=== PATIENT | male | born 1970 | race Caucasian/White ===

== ENCOUNTER 2021-04-15 11:34 | Outpatient (REF) | payer OTHER, SELFPAY | END 2021-04-15 11:35 | disposition home or self-care (01) | LOC: HO.LAB 11:34 | PROVIDERS: PCP Internal Medicine; Visit Provider Internal Medicine | DX: Z20.822 Contact with and (suspected) exposure to COVID-19 (principal) | CPT/HCPCS: C9803; U0003; U0005 ==

== ENCOUNTER 2021-08-12 11:14 | Outpatient (REF) | payer OTHER, SELFPAY ==
[2021-08-12 13:24] LABS: Binax Internal Control QC Valid; Binax Now Covid-19 Ag Negative (Negative)
== END 2021-08-12 11:15 | disposition home or self-care (01) ==
LOC: HO.LAB 11:14
PROVIDERS: Visit Provider Internal Medicine
DX: Z20.822 Contact with and (suspected) exposure to COVID-19 (principal)
CPT/HCPCS: 36415; C9803

== ENCOUNTER 2021-08-17 12:39 | Outpatient (REF) | payer OTHER, SELFPAY ==
[2021-08-17 14:13] LABS: Binax Internal Control QC Valid; Binax Now Covid-19 Ag Positive (Negative)
== END 2021-08-17 12:40 | disposition home or self-care (01) ==
LOC: HO.LAB 12:39
PROVIDERS: Visit Provider Internal Medicine
DX: Z20.822 Contact with and (suspected) exposure to COVID-19 (principal)
CPT/HCPCS: 36415; C9803

== ENCOUNTER 2021-12-10 16:38 | Emergency (ER) | payer OTHER, SELFPAY ==
--- NOTE | ~2021-12-10 | US_ITS ---
EXAMINATION: US VENOUS ULTRASOUND WITH DOPPLER LOWER EXTREMITY, LEFT CLINICAL INFORMATION: Pain and swelling COMPARISON: Doppler ultrasound right lower extremity 09/27/2015 TECHNIQUE: Ultrasound of the deep veins is performed from the hip to the calf with compression sonography and color and pulse Doppler assessment. Spectral analysis with color-flow imaging is performed. FINDINGS: There is normal venous compression and respiratory variation and augmented flow. The visualized common femoral vein, superficial femoral vein, profunda femoral vein, popliteal vein, and the trifurcation region shows no evidence of deep venous thrombosis. There is no significant popliteal fossa cyst. If the patient's symptoms persist, followup ultrasound in 5 days 7 days might be of value to exclude proximal propagation from a non-visualized calf vein. US/US venous duplex LE LT IMPRESSION: No DVT demonstrated in the left lower extremity.
[2021-12-10 16:41] VITALS: BP 170/92; PULSE 100; RESP 18; TEMP 36.4; O2SAT 96; BMI 37.6
--- NOTE | 2021-12-10 16:54 | ED.EXTPRO ---
HPI - Extremity Problem General Chief complaint: Extremity Problem Stated complaint: leg pain Time Seen by Provider: 12/10/21 16:51 History of Present Illness HPI Narrative: Patient presents emergency department for evaluation of bilateral lower extremity swelling. States at baseline he typically gets swelling to the right leg, and states that is no worse than his normal. However he never gets swelling on the left leg. Over the past 2 days he has noticed swelling to the left leg with redness to the lower leg above the ankle, and pain. He states that he remembers hitting his leg against something 1 or 2 days ago. He does report IV drug usage, but has been injecting into his arms, denies any injection into the legs or feet. Denies swelling erythema or redness to his injection sites of the arms. Eyes personal history of cancer or DVT/PE, not a cigarette smoker, denies any recent surgery or prolonged immobilization. Denies fevers, chills, neck pain, chest pain cough, palpitation, shortness of breath, difficulty breathing, nausea, vomiting, abdominal pain, back pain, numbness or tingling of the extremities, dysuria, urinary frequency, generalized weakness. Related Data Previous Rx's Medication Instructions Recorded cephalexin 500 mg capsule 500 mg PO QID 7 Days #28 cap 12/10/21 doxycycline hyclate 100 mg capsule 100 mg PO BID 7 Days #14 cap 12/10/21 Allergies Allergy/AdvReac Type Severity Reaction Status Date / Time onion [ONION] Allergy Severe ANAPHYLAXIS Unverified 04/24/20 15:12 TO RAW ONIONS (COOKED OK) morphine [MORPHINE] Allergy Mild RASH, hives Unverified 04/24/20 15:12 onions Allergy Unknown itching Uncoded 11/01/19 00:00 Review of Systems Review of Systems: Constitutional: No weight loss, fever, chills, weakness or fatigue. Skin: No rash or itching. Cardiovascular: No chest pain, chest pressure or chest discomfort. No palpitations. Positive pedal edema Respiratory: No shortness of breath, cough or sputum production. Gastrointestinal: No anorexia, nausea, vomiting or diarrhea. No abdominal pain or blood in stool. Genitourinary: No burning micturition. No urinary frequency or incontinence. Musculoskeletal: Positive left leg pain. No back pain, joint pain or stiffness. Psychiatric: No depression or anxiety. [facility] Past Medical History Attestation statement: The following information was validated with the patient. Source: old records reviewed Medical History Asthma High blood pressure Seasonal allergies Social History Social History Advance Directives: Yes Advance Directives Information Provided: No Advance Directives on File: No Physical Exam Vital Signs: Vital Signs: Last Vital Signs Temp 97.6 F 12/10/21 16:41 Pulse 100 12/10/21 16:41 Resp 18 12/10/21 16:41 BP 170/92 H 12/10/21 16:41 Pulse Ox 96 12/10/21 16:41 BMI result Body Mass Index 37.6 Vital signs have been reviewed and appeared to be correct. Hypertensive.? Heart rate normal.? Respiration rate normal. Temperature normal.? Oxygen saturation normal. Appearance: Alert.?Oriented to person, place and time. No acute distress.?Normal affect. Eyes: Pupils equal, round and reactive to light.? ENT: Pharynx normal.?? Neck: Normal inspection.? Neck supple.?? CVS: Heart sounds normal. Normal heart rate and rhythm.? Pulses normal.?? Respiratory: No respiratory distress.? Lung sounds clear to auscultation bilaterally?? Abdomen: Soft and non-tender. Skin: Skin warm and dry.? Normal skin color.? Extremities: Bilateral pedal edema. Nonpitting on the right. 2+ pitting edema on the left. Mild erythema and warmth to the left medial lower leg, superior to ankle. Left calf tenderness with palpation. Chronic venous stasis bilaterally. No calf ttp?on left Neuro: Moves all extremities spontaneously. Sensation intact bilaterally. CN II-XII intact. No focal neuro deficits. Ambulates with normal steady gait. Course Course Course Narrative: Patient is a 51-year-old male with past medical history of asthma, hypertension, seasonal allergies, and IV drug usage. Presenting to emergency department for evaluation of bilateral lower extremity edema left worse than right, with associated erythema and pain to the left lower extremity. Given history of IV drug usage, new lateral swelling will obtain ultrasound to exclude DVT. No fevers, chills, warmth, or joint space involvement to suggest septic arthritis. Will obtain labs including CBC and BMP. Reevaluation(s) Reevaluation #1: CBC reveals pancytopenia, platelet count 98,000. Review of prior labs indicate platelet count similarly low in 2018, 2016. Patient states he was never made aware of this. He does report a history of hepatitis-C but states that that was ?cleared a long time ago?. States he has not been tested for HIV, is in a monogamous relationship, does not share needles. BMP overall unremarkable. Ultrasound of the left lower extremity reveals no DVT at this time. Erythema and swelling likely secondary to cellulitis. Discussed plan of care for discharge home, Keflex and doxycycline for 1 week, discussed reasons to return back to the emergency department, advised outpatient follow-up with primary care provider within 1 week, and advised to discuss further his notable thrombocytopenia and suggested possible testing for hepatitis-C and HIV. MDM - Extremity (Nontraumatic) Lab Data Result diagrams: 12/10/21 18:07 12/10/21 18:07 Labs: Lab Results 12/10/21 Range/Units 18:07 WBC 4.7 L (4.8-10.8) X10*3/uL RBC 4.36 L (4.60-5.80) X10*6/uL Hgb 11.2 L (14.0-18.0) g/dl Hct 35.3 L (42.0-52.0) % MCV 81.0 (80.0-98.0) fL MCH 25.7 L (27.0-33.0) pg MCHC 31.7 (31.0-36.0) g/dl RDW 14.2 (11.0-16.0) % Plt Count 98 L (160-400) X10*3/uL MPV 9.9 (9.4-12.4) fL Immature Gran % (Auto) 0.2 (0.0-0.4) % Neut % (Auto) 72.9 (45-73) % Lymph % (Auto) 12.4 L (20-40) % [place] % (Auto) 13.5 H (2-11) % Eos % (Auto) 0.8 (0-4) % Baso % (Auto) 0.2 (0-2) % Lymph # (Auto) 0.6 L (1.2-4.9) X10*3/uL [place] # (Auto) 0.6 (0.1-1.2) X10*3/uL Eos # (Auto) 0.0 (0.0-0.4) X10*3/uL Baso # (Auto) 0.0 (0.0-0.2) X10*3/uL Abs Immat Gran (auto) 0.01 (0.00-0.03) X10*3/uL Absolute Neuts (auto) 3.5 (2.0-8.3) x10*3/uL Absolute Nucleated RBC 0.000 (0.0-0.012) X10*3/uL Nucleated RBC % (auto) 0.0 (0.0-0.2) /100WBC Discharge Plan Discharge Clinical Impression: Cellulitis, Pancytopenia Patient Disposition: Home, Self-Care Instructions: Cellulitis (ED), Pancytopenia (DC) Additional Instructions: As we discussed her blood counts were low, most specifically your platelet count. Will labs obscured similarly in 2018 and 2016. As we discussed, you should speak with your primary care provider about being tested for viral infections such as hepatitis C and HIV given a history of IV drug usage. The redness and swelling to year left leg is most consistent with a cellulitis, this is an infection of the skin. You have been given 2 prescriptions for antibiotics please take these entirely. You may return to the emergency department with any new or worsening symptoms or concerns. Please contact your primary care provider to schedule a follow-up visit within 1 week. Prescriptions: New cephalexin 500 mg capsule 500 mg PO QID 7 Days Qty: 28 0RF doxycycline hyclate 100 mg capsule 100 mg PO BID 7 Days Qty: 14 0RF Referrals: Jose Mann III, MD [Primary Care Provider] - 1 week
[2021-12-10 18:16] LABS: MANUAL DIFF FLAG NO
[2021-12-10 18:17] LABS: Eosinophils Percent Auto 0.8 % (0-4); Hemoglobin 11.2 g/dl (14.0-18.0); Imm Gran Abs Auto 0.01 X10*3/uL (0.00-0.03); Imm Gran Pct Auto 0.2 % (0.0-0.4); PLT CLUMP 1; SCAN SMEAR FLAG 1
[2021-12-10 18:19] LABS: Basophils Percent Auto 0.2 % (0-2); Hematocrit 35.3 % (42.0-52.0); Lymphocytes Absolute Auto 0.6 X10*3/uL (1.2-4.9); Lymphocytes Percent Auto 12.4 % (20-40); Mean Corpuscular HGB Conc 31.7 g/dl (31.0-36.0); Mean Corpuscular Hemoglobin 25.7 pg (27.0-33.0); Mean Platelet Volume 9.9 fL (9.4-12.4); Monocytes Absolute Auto 0.6 X10*3/uL (0.1-1.2); Monocytes Percent Auto 13.5 % (2-11); Neutrophils Absolute Auto 3.5 x10*3/uL (2.0-8.3); Neutrophils Percent Auto 72.9 % (45-73); Red Blood Count 4.36 X10*6/uL (4.60-5.80); Red Cell Distribution Width 14.2 % (11.0-16.0)
[2021-12-10 18:23] LABS: Platelet Count 98 X10*3/uL (160-400); White Blood Count 4.7 X10*3/uL (4.8-10.8)
[2021-12-10 18:31] LABS: Anion Gap 11 (12-20); Blood Urea Nitrogen 8 mg/dL (9-16); Calcium 9.1 mg/dL (8.4-10.2); Carbon Dioxide 26 mmol/L (22-29); Chloride 105 mmol/L (96-108); Estimated Glomerular Filt Rate > 60; Glucose Random 140 mg/dL (60-115); Sodium 138 mmol/L (135-145)
[2021-12-10 18:36] LABS: B Type Natriuretic Peptide 67 pg/mL (<100)
== END 2021-12-10 19:16 | disposition home or self-care (01) ==
PROVIDERS: Nurse Practitioner Family; Emergency Provider Emergency Medicine Emergency Medical Services; PCP Internal Medicine
DX: R60.0 Localized edema (principal); M79.604 Pain in right leg; L03.116 Cellulitis of left lower limb; L03.115 Cellulitis of right lower limb; R06.02 Shortness of breath; D61.818 Other pancytopenia; Z79.899 Other long term (current) drug therapy
CPT/HCPCS: 36415; 80048; 83880; 85025; 93971; 99282; 99284

== ENCOUNTER 2022-03-20 20:53 | Emergency (ER) | payer OTHER, SELFPAY ==
--- NOTE | ~2022-03-20 | CT_ITS ---
EXAMINATION: CT ANGIOGRAM OF THE CHEST WITH AND WITHOUT CONTRAST (CT PULMONARY ANGIOGRAM FOR PE) CLINICAL INFORMATION: Reason for Exam Right pleuritic chest pain rule out PE COMPARISON: 10/18/2017 TECHNIQUE: Prior to contrast administration, noncontrast localization images were obtained. Subsequently, multidetector volumetric imaging was performed from the thoracic inlet to below the diaphragms following the administration of 75 mL Omnipaque 350 intravenous contrast. No contrast reaction reported Sagittal, coronal, and MIP oblique sagittal reformatted images were obtained on the CT workstation, uploaded to PACS, and reviewed. This CT examination was performed using dose optimization techniques as appropriate, variously including the following: *Automated exposure control *Adjustment of mA and/or kV according to patient size (this includes techniques or standardized protocols for targeted exams where dose is matched to indication/reason for exam; i.e. extremities or head) *Use of iterative reconstruction technique Total exam dose-length product 519 mGy-cm FINDINGS: QUALITY OF STUDY/CONTRAST BOLUS: Satisfactory. PULMONARY ARTERIES: No central or segmental pulmonary emboli. THORACIC AORTA: No aneurysm or dissection. LUNG: The central airways are patent. Dependent groundglass opacity. No dense consolidation. PLEURA: No pleural effusion or pneumothorax. MEDIASTINUM: Normal heart size. No pericardial effusion. No hilar or mediastinal lymphadenopathy. No evidence of septal bowing or right heart strain. CHEST WALL/AXILLA: No axillary or internal mammary lymphadenopathy. OSSEOUS STRUCTURES: No acute or suspicious osseous abnormality. Degenerative changes of the spine. UPPER ABDOMEN: Nodular hepatic contour concerning for cirrhosis. No reflux of contrast into the hepatic veins to suggest elevated right heart pressures. CT/CT angio chest PE protocol IMPRESSION: No pulmonary embolism. Dependent lung atelectasis. VTE: negative
--- NOTE | ~2022-03-20 | XR_ITS ---
EXAMINATION: XR CHEST CLINICAL INFORMATION: Chest pain COMPARISON: Chest x-ray 10/17/2017 TECHNIQUE: Frontal view of the chest was obtained. 9:44 PM FINDINGS: No significant abnormality is noted involving the heart, lungs, mediastinum, bony thorax or soft tissues. XR/XR chest 1V IMPRESSION: Unremarkable examination.
--- NOTE | 2022-03-20 20:58 | ECG_ITS ---
Test Reason : chest pain Blood Pressure : / mmHG Vent. Rate : 093 BPM Atrial Rate : 093 BPM P-R Int : 188 ms QRS Dur : 094 ms QT Int : 376 ms P-R-T Axes : 025 034 040 degrees QTc Int : 467 ms Normal sinus rhythm Normal ECG When compared with ECG of 17-OCT-2017 18:12, QT has lengthened Referred By: Generic ED Physician Electronically Signed By:SHANIQUE ARGUELLES
[2022-03-20 21:14] VITALS: BP 157/79; PULSE 99; RESP 24; TEMP 36.9; O2SAT 98; BMI 37.6
[2022-03-20 21:35] LABS: Eosinophils Percent Auto 0.1 % (0-4); Mean Corpuscular HGB Conc 30.8 g/dl (31.0-36.0); Mean Corpuscular Hemoglobin 23.7 pg (27.0-33.0); PLT CLUMP 1; SCAN SMEAR FLAG 1
[2022-03-20 21:37] LABS: Basophils Percent Auto 0.1 % (0-2); Hematocrit 34.7 % (42.0-52.0); Hemoglobin 10.7 g/dl (14.0-18.0); Imm Gran Abs Auto 0.03 X10*3/uL (0.00-0.03); Imm Gran Pct Auto 0.4 % (0.0-0.4); Lymphocytes Absolute Auto 0.6 X10*3/uL (1.2-4.9); Lymphocytes Percent Auto 7.9 % (20-40); Mean Corpuscular Volume 76.9 fL (80.0-98.0); Mean Platelet Volume 10.2 fL (9.4-12.4); Monocytes Percent Auto 13.5 % (2-11); Neutrophils Absolute Auto 5.5 x10*3/uL (2.0-8.3); Red Blood Count 4.51 X10*6/uL (4.60-5.80); Red Cell Distribution Width 16.2 % (11.0-16.0)
[2022-03-20 21:41] LABS: MANUAL DIFF FLAG NO; Platelet Count 103 X10*3/uL (160-400); White Blood Count 7.1 X10*3/uL (4.8-10.8)
[2022-03-20 21:54] LABS: Anion Gap 14 (12-20); Blood Urea Nitrogen 13 mg/dL (9-16); Calcium 8.3 mg/dL (8.4-10.2); Carbon Dioxide 23 mmol/L (22-29); Chloride 102 mmol/L (96-108); Estimated Glomerular Filt Rate > 60; Glucose Random 110 mg/dL (60-115); Sodium 135 mmol/L (135-145)
[2022-03-20 21:58] LABS: Troponin-I High Sensitivity < 3.5 ng/L (<3.5-35.0)
[2022-03-20 23:46] VITALS: BP 182/83; PULSE 90; RESP 16; TEMP 38.2; O2SAT 96
[2022-03-21] VITALS: PULSE 94
--- NOTE | 2022-03-21 00:10 | ED.CHESTPAIN ---
HPI - Chest Pain General Chief Complaint: Chest Pain Stated Complaint: chest pain/arm pain Time Seen by Provider: 03/21/22 00:10 Source: patient Mode of arrival: ambulatory Limitations: no limitations History of Present Illness HPI narrative: 51-year-old male who presents emergency department for evaluation of right-sided chest pain. He states the chest pain started 03/19/2022 (3 days prior) at approximately 20:00. He states that the time he was doing some light house work and making dinner. States the pain came on gradually but then became severe. States the pain is been constant, he describes as a stabbing sensation he points to his right anterior and lateral chest when asked to localize the pain. The pain is worse with movement and worse with breathing. The pain is 10/10 at its worst. He does feel short of breath and has dyspnea on exertion. He denied fever, chills, rhinorrhea, sore throat, cough. Patient states that he has noted swelling in his right lower extremity but he has had similar swelling in the past, he had cellulitis in this leg in the past as well. He states that he keeps his right leg elevated the swelling resolves. The patient did go roller skating with his children on Tuesday afternoon, he denies any injury but he was helping his kids learn how to roller skate by picking them up in skating with them. Patient states that over the past 2 years he has intentionally lost 100 lb. MD complaint: chest pain Pertinent past history: other (Pre diabetes) Onset (ago): day(s) (3) Timing of current episode: constant Prior episodes: No Onset: other (While doing light housework) Pain location: right chest Pain radiation: none Severity: severe Pain scale (0-10): 10 Quality: sharp (Stabbing) Relieving factors: nothing Exacerbating factors: inspiration and movement Associated symptoms: leg swelling (Right lower extremity) Related Data Previous Rx's Medication Instructions Recorded cephalexin 500 mg capsule 500 mg PO QID 7 days #28 caps 12/10/21 doxycycline hyclate 100 mg capsule 100 mg PO BID 7 days #14 caps 12/10/21 Allergies Allergy/AdvReac Type Severity Reaction Status Date / Time onion [ONION] Allergy Severe ANAPHYLAXIS Unverified 04/24/20 15:12 TO RAW ONIONS (COOKED OK) morphine [MORPHINE] Allergy Mild RASH, hives Unverified 04/24/20 15:12 onions Allergy Unknown itching Uncoded 11/01/19 00:00 Review of Systems Review of Systems: Yes all other systems are reviewed and are negative [facility] Past Medical History [facility] Narrative: Past medical history: Pre diabetes-improved after losing 100 lb. Past surgical history: Multiple orthopedic surgeries. Social history: Patient denies tobacco use. He occasionally drinks alcohol. He states that he did use oxycodone as in the past. Medical History Asthma High blood pressure Seasonal allergies Social History Social History Advance Directives: No Advance Directives Information Provided: Yes Physical Exam Vital Signs: Vital Signs: Last Vital Signs Temp 100.7 F H 03/20/22 23:46 Pulse 90 03/20/22 23:46 Resp 16 03/20/22 23:46 BP 182/83 H 03/20/22 23:46 Pulse Ox 96 03/20/22 23:46 O2 Del Method 03/20/22 23:46 BMI result Body Mass Index 37.6 Const: Other: Awake, alert, male patient, he is sitting on the stretcher, appears to be in distress secondary to his right-sided chest pain, he answers all questions appropriately. Has an elevated BMI of 37.6. HEENT: Head: Yes normal to inspection, Yes normocephalic and Yes atraumatic Ears: external ears normal General nose exam: Normal external nose present Face and sinus: Yes normal facial exam Mouth: Normal oral and palatal mucosa present Throat: Yes posterior oropharynx normal Eyes: General: appearance normal, both eyes and all related structures Pupils: Equal, round and reactive pupils present Neck: Neck: Yes normal visual inspection, Yes no lymphadenopathy, Yes trachea midline and Yes supple Chest: Chest palpation & inspection: normal inspection of the chest and normal palpation of entire chest wall Resp: Effort & Inspection: normal respiratory effort and able to speak in complete sentences Auscultation: clear to auscultation bilaterally Cardio: Rate: regular rate Rhythm: regular rhythm Heart sounds: S1 normal heart sound present, S2 normal heart sound present and no murmurs GI: Inspection: Yes normal to inspection Palpation (GI): Soft to palpation, nontender and no guarding Auscultation: normal bowel sounds : General: Yes no CVA tenderness Back/Spine/Pelvis: Back: no CVA tenderness Skin: General skin exam: no rashes or lesions noted Neuro: Cranial nerves: Yes CN's II-XII intact bilaterally and Yes Equal, round and reactive pupils present Cognition (Neuro): normal cognition Motor exam (neuro): 5/5 motor strength present throughout Extrem: Other: Patient has several skin lesions over the right pretibial region of his hicks with some slight erythema around these areas with no increased warmth. Patient does have asymmetric swelling of his lower extremities with the right foot and calf being larger than the left Psych: Appearance: grossly normal Speech and movement: Normal speech and movement present Affect: normal affect Attitude: cooperative Thought process: Normal thought process present Thought content: Normal thought content present Course Course Course Narrative: 51-year-old male who presents emergency department for evaluation of 3 days constant, right sided chest pain which is worse with breathing and with movement. The pain came on gradually 3 days prior and is now 10/10. Patient has also noted swelling of his right lower extremity, he has had similar swelling in the past states that resolves with elevating his leg. Patient did appear to be in distress secondary to his pain but he had no chest wall tenderness. Initial vital signs did reveal an elevated blood pressure of 157/79 with a pulse of 99 elevated respiratory rate of 24. Patient was initially afebrile but repeat vital signs did reveal a temperature of 100.7 degrees. Patient was ordered to get Toradol 15 mg IV, Dilaudid 1 mg IV, Benadryl 50 mg IV 1st pain. He was also ordered to get normal saline x1 L. 0037: Laboratory evaluation: Anemia with an H&H of 10 and 34.7, platelet count [id number]. BMP normal. High sensitivity troponin I below detectable limits. Radiology evaluation: Chest x-ray revealed no acute process. Twelve EKG revealed a normal sinus rhythm with no evidence of myocardial infarction or ischemic changes. Given the patient's pleuritic chest pain and asymmetric swelling of his lower extremities I did order a CT pulmonary angiogram PE protocol. 0203: At the end of my shift, the patient's workup is not complete, therefore patient's care was turned over to my colleague, Dr. Almaz Akbar. MDM - Chest Pain Medical Records Data Attestation: I reviewed the patient's medical records. Lab Data Attestation: I reviewed the patient's lab results. Result diagrams: 03/20/22 21:28 03/20/22 21:28 Labs: Lab Results 03/20/22 03/20/22 03/20/22 Range/Units 21:28 21:28 21:28 WBC 7.1 (4.8-10.8) X10*3/uL RBC 4.51 L (4.60-5.80) X10*6/uL Hgb 10.7 L (14.0-18.0) g/dl Hct 34.7 L (42.0-52.0) % MCV 76.9 L (80.0-98.0) fL MCH 23.7 L (27.0-33.0) pg MCHC 30.8 L (31.0-36.0) g/dl RDW 16.2 H (11.0-16.0) % Plt Count 103 L (160-400) X10*3/uL MPV 10.2 (9.4-12.4) fL Immature Gran % (Auto) 0.4 (0.0-0.4) % Neut % (Auto) 78.0 H (45-73) % Lymph % (Auto) 7.9 L (20-40) % [place] % (Auto) 13.5 H (2-11) % Eos % (Auto) 0.1 (0-4) % Baso % (Auto) 0.1 (0-2) % Lymph # (Auto) 0.6 L (1.2-4.9) X10*3/uL [place] # (Auto) 1.0 (0.1-1.2) X10*3/uL Eos # (Auto) 0.0 (0.0-0.4) X10*3/uL Baso # (Auto) 0.0 (0.0-0.2) X10*3/uL Abs Immat Gran (auto) 0.03 (0.00-0.03) X10*3/uL Absolute Neuts (auto) 5.5 (2.0-8.3) x10*3/uL Absolute Nucleated RBC 0.000 (0.0-0.012) X10*3/uL Nucleated RBC % (auto) 0.0 (0.0-0.2) /100WBC Sodium 135 (135-145) mmol/L Potassium 4.0 (3.3-5.1) mmol/L Chloride 102 (96-108) mmol/L Carbon Dioxide 23 (22-29) mmol/L Anion Gap 14 (12-20) BUN 13 D (9-16) mg/dL Creatinine 0.65 (0.5-1.4) mg/dL Estim Creat Clear Calc 197.0 Estimated GFR > 60 Random Glucose 110 (60-115) mg/dL Calcium 8.3 L D (8.4-10.2) mg/dL Troponin I High Sens < 3.5 (<3.5-35.0) ng/L ECG Data ECG #1: Interpretation: 210: Normal sinus rhythm with a rate of 93, normal VA interval, QRS duration QTC interval, no ST segment elevation, no ST segment depression, no T-wave abnormalities, no PACs, no PVCs-this is a normal EKG. Discharge Plan Discharge Clinical Impression: Acute neck pain, Odynophagia Patient Disposition: Still a Patient Prescriptions: No Action cephalexin 500 mg capsule 500 mg PO QID 7 Days Qty: 28 0RF doxycycline hyclate 100 mg capsule 100 mg PO BID 7 Days Qty: 14 0RF
[2022-03-21] MEDS: Ketorolac Tromethamine 15 MG/ML VIAL IVPUSH (00:53)
[2022-03-21] MEDS: HYDROmorphone HCl 1 MG/ML SYRINGE IVPUSH (00:53)
[2022-03-21] MEDS: diphenhydrAMINE HCL 50 MG/ML VIAL 25 MG IVPUSH (00:53)
[2022-03-21] MEDS: Acetaminophen 325 MG TABLET 975 MG PO (00:54)
[2022-03-21] MEDS: 0.9 % Sodium Chloride 1,000 ML 999 ML IV (00:54)
[2022-03-21] MEDS: iohexoL 350 MG/ML 100 ML INFUS..BTL IV (01:38)
[2022-03-21 02:00] VITALS: BP 154/70; PULSE 78; RESP 16; TEMP 37.1; O2SAT 98
--- NOTE | 2022-03-21 02:06 | ED_ITS ---
HPI - Chest Pain General Chief Complaint: Chest Pain Stated Complaint: chest pain/arm pain Time Seen by Provider: 03/21/22 00:10 Source: patient Mode of arrival: ambulatory Limitations: no limitations History of Present Illness Pain location: right chest Quality: sharp (Stabbing) Relieving factors: nothing Exacerbating factors: inspiration and movement Associated symptoms: leg swelling (Right lower extremity) Related Data Previous Rx's Medication Instructions Recorded cephalexin 500 mg capsule 500 mg PO QID 7 days #28 caps 12/10/21 doxycycline hyclate 100 mg capsule 100 mg PO BID 7 days #14 caps 12/10/21 Allergies Allergy/AdvReac Type Severity Reaction Status Date / Time onion [ONION] Allergy Severe ANAPHYLAXIS Unverified 04/24/20 15:12 TO RAW ONIONS (COOKED OK) morphine [MORPHINE] Allergy Mild RASH, hives Unverified 04/24/20 15:12 onions Allergy Unknown itching Uncoded 11/01/19 00:00 PMFSH Past Medical History Medical History Asthma High blood pressure Seasonal allergies Social History Social History Advance Directives: No Advance Directives Information Provided: Yes Physical Exam Vital Signs: Vital Signs: Last Vital Signs Temp 98.8 F 03/21/22 02:00 Pulse 78 03/21/22 02:00 Resp 16 03/21/22 02:00 BP 154/70 H 03/21/22 02:00 Pulse Ox 98 03/21/22 02:00 O2 Del Method 03/21/22 02:00 BMI result Body Mass Index 37.6 MDM - Chest Pain Lab Data Result diagrams: 03/20/22 21:28 03/20/22 21:28 Labs: Lab Results 03/20/22 03/20/22 03/20/22 Range/Units 21:28 21:28 21:28 WBC 7.1 (4.8-10.8) X10*3/uL RBC 4.51 L (4.60-5.80) X10*6/uL Hgb 10.7 L (14.0-18.0) g/dl Hct 34.7 L (42.0-52.0) % MCV 76.9 L (80.0-98.0) fL MCH 23.7 L (27.0-33.0) pg MCHC 30.8 L (31.0-36.0) g/dl RDW 16.2 H (11.0-16.0) % Plt Count 103 L (160-400) X10*3/uL MPV 10.2 (9.4-12.4) fL Immature Gran % (Auto) 0.4 (0.0-0.4) % Neut % (Auto) 78.0 H (45-73) % Lymph % (Auto) 7.9 L (20-40) % [place] % (Auto) 13.5 H (2-11) % Eos % (Auto) 0.1 (0-4) % Baso % (Auto) 0.1 (0-2) % Lymph # (Auto) 0.6 L (1.2-4.9) X10*3/uL [place] # (Auto) 1.0 (0.1-1.2) X10*3/uL Eos # (Auto) 0.0 (0.0-0.4) X10*3/uL Baso # (Auto) 0.0 (0.0-0.2) X10*3/uL Abs Immat Gran (auto) 0.03 (0.00-0.03) X10*3/uL Absolute Neuts (auto) 5.5 (2.0-8.3) x10*3/uL Absolute Nucleated RBC 0.000 (0.0-0.012) X10*3/uL Nucleated RBC % (auto) 0.0 (0.0-0.2) /100WBC Sodium 135 (135-145) mmol/L Potassium 4.0 (3.3-5.1) mmol/L Chloride 102 (96-108) mmol/L Carbon Dioxide 23 (22-29) mmol/L Anion Gap 14 (12-20) BUN 13 D (9-16) mg/dL Creatinine 0.65 (0.5-1.4) mg/dL Estim Creat Clear Calc 197.0 Estimated GFR > 60 Random Glucose 110 (60-115) mg/dL Calcium 8.3 L D (8.4-10.2) mg/dL Troponin I High Sens < 3.5 (<3.5-35.0) ng/L Discharge Plan Discharge Clinical Impression: Acute neck pain, Odynophagia Patient Disposition: Still a Patient Prescriptions: No Action cephalexin 500 mg capsule 500 mg PO QID 7 Days Qty: 28 0RF doxycycline hyclate 100 mg capsule 100 mg PO BID 7 Days Qty: 14 0RF
[2022-03-21] MEDS: Cyclobenzaprine HCl 10 MG TABLET PO (02:39)
== END 2022-03-21 02:54 | disposition home or self-care (01) ==
PROVIDERS: Emergency Provider Emergency Medicine Emergency Medical Services
DX: M54.2 Cervicalgia (principal); R13.10 Dysphagia, unspecified; R22.41 Localized swelling, mass and lump, right lower limb; R50.9 Fever, unspecified
CPT/HCPCS: 36415; 71045; 71275; 80048; 84484; 85025; 93005; 96374; 96375; 99284; J1170; J1200; J1885; Q9967

== ENCOUNTER 2022-03-23 22:17 | Emergency (ER) | payer OTHER, SELFPAY ==
--- NOTE | ~2022-03-23 | XR_ITS ---
EXAMINATION: XR SHOULDER, RIGHT CLINICAL INFORMATION: Pain after fall COMPARISON: None TECHNIQUE: Three views of the right shoulder. FINDINGS: The bones and soft tissues are normal. No fracture. Glenohumeral and acromioclavicular alignment is anatomic with normal joint space. No abnormal soft tissue calcifications. XR/XR shoulder RT min 2V IMPRESSION: Normal right shoulder.
[2022-03-23 22:38] VITALS: BP 153/84; PULSE 85; RESP 16; TEMP 37.6; O2SAT 97; BMI 37.6
[2022-03-23] MEDS: Acetaminophen 325 MG TABLET 975 MG PO (22:46)
[2022-03-23 23:22] VITALS: BP 158/85; PULSE 80; RESP 12; O2SAT 100
[2022-03-23 23:29] LABS: COVID-19 Test Negative (Negative)
[2022-03-23 23:50] LABS: Basophils Percent Auto 0.1 % (0-2); Hemoglobin 10.4 g/dl (14.0-18.0); PLT CLUMP 1; SCAN SMEAR FLAG 1
[2022-03-23 23:52] LABS: Eosinophils Percent Auto 0.1 % (0-4); Hematocrit 32.8 % (42.0-52.0); Imm Gran Abs Auto 0.05 X10*3/uL (0.00-0.03); Imm Gran Pct Auto 0.5 % (0.0-0.4); Lymphocytes Absolute Auto 0.6 X10*3/uL (1.2-4.9); Lymphocytes Percent Auto 6.2 % (20-40); Mean Corpuscular HGB Conc 31.7 g/dl (31.0-36.0); Mean Corpuscular Hemoglobin 23.9 pg (27.0-33.0); Mean Corpuscular Volume 75.4 fL (80.0-98.0); Mean Platelet Volume 9.8 fL (9.4-12.4); Monocytes Absolute Auto 1.3 X10*3/uL (0.1-1.2); Monocytes Percent Auto 13.2 % (2-11); Neutrophils Absolute Auto 7.5 x10*3/uL (2.0-8.3); Neutrophils Percent Auto 79.9 % (45-73); Red Blood Count 4.35 X10*6/uL (4.60-5.80); Red Cell Distribution Width 16.8 % (11.0-16.0)
--- NOTE | 2022-03-24 00:02 | ED_ITS ---
HPI - General Adult General Chief complaint: General Medical Stated complaint: arm/shoulder pain, fall? Time Seen by Provider: 03/23/22 23:22 Source: patient Limitations: no limitations History of Present Illness HPI narrative: This is a 51-year-old male who has multiple complaints. The patient currently complains of pain around his right shoulder. He notes that he had nearly fallen Tuesday night and had caught himself and then the next morning had pain around his right shoulder and right chest. The patient was seen here a few days ago and had a workup including a CT of his chest, was sent home. Patient also notes he has had urinary incontinence off and on, does have a history of prostate enlargement. He has had some sweats recently. He denies any cough or shortness of breath. He does take gabapentin for chronic back pain. Denies any numbness or weakness in his right arm. Pain is worse on the anterior of his right shou lder, not in his right posterior shoulder or scapular area. Pain is worse with turning his head. Related Data Previous Rx's Medication Instructions Recorded cephalexin 500 mg capsule 500 mg PO QID 7 days #28 caps 12/10/21 doxycycline hyclate 100 mg capsule 100 mg PO BID 7 days #14 caps 12/10/21 cyclobenzaprine 10 mg tablet 10 mg PO TID PRN muscle pain or 03/21/22 spasm #20 tabs Allergies Allergy/AdvReac Type Severity Reaction Status Date / Time onion [ONION] Allergy Severe ANAPHYLAXIS Unverified 04/24/20 15:12 TO RAW ONIONS (COOKED OK) morphine [MORPHINE] Allergy Mild RASH, hives Unverified 04/24/20 15:12 onions Allergy Unknown itching Uncoded 11/01/19 00:00 Review of Systems Review of Systems: Yes all other systems are reviewed and are negative Constitutional: Constitutional: Reports as per HPI, Denies fever(s) and Reports other (Patient has had sweats this evening) Eyes: Eyes: Reports as per HPI and Reports no additional eye complaints ENT: Reports system reviewed and no additional complaints, except as documented, Reports as per HPI, Denies nasal congestion, Denies nasal discharge and Denies sore throat Cardiovascular: Cardiovascular: Reports as per HPI, Denies chest pain and Leonardo es dyspnea Respiratory: Respiratory: Reports as per HPI, Denies cough and Denies dyspnea Gastrointestinal: Gastrointestinal: Reports as per HPI, Denies abdominal pain, Denies diarrhea, Denies nausea and Denies vomiting Genitourinary: Genitourinary: Reports as per HPI, Denies hematuria, Denies dysuria, Reports urinary frequency, Reports urinary incontinence and Reports urinary urgency Musculoskeletal: Musculoskeletal: Denies numbness Comments: Right shoulder pain Integumentary/Breasts: Skin/Breast: Reports as per HPI and Denies rash Neurologic: Reports as per HPI, Denies focal weakness and Denies numbness Psychiatric: Psychiatric: Reports no additional psychiatric complaints and Reports as per HPI Endocrine: Endocrine: Reports no additional endocrine complaints and Reports as per HPI Hematologic/Lymphatic: Hematologic/Lymphatic: Reports no additional hematologic/lymphatic complaints, Reports as per HPI and Reports other (No peripheral edema) [facility] Past Medical History Medical History Asthma High blood pressure Seasonal allergies Social History Social History Alcohol intake: current Alcohol intake frequency: holidays/special occasions only Patient Tobacco Use Status: Never used Tobacco Use of substances other than those prescribed or required for medical reasons: No Advance Directives: No Physical Exam ED Vital Signs: Vital Signs - 24 hr 03/23/22 22:38 03/23/22 23:22 03/24/22 00:16 Temperature 99.7 F Pulse Rate 85 80 82 Respiratory Rate 16 12 12 Blood Pressure 153/84 H 158/85 H 155/86 H Pulse Oximetry 97 100 98 Oxygen Delivery Method Room Air Room Air Room Air BMI result Body Mass Index 37.6 Const Other: Patient is moderately obese. Patient is initially standing and urinating into a urinal. Tenderness right anterior shoulder, no swelling, ecchymosis, deformity. No cervical spine tenderness. General: no acute distress Orientation/consciousness: patient oriented x3 HENMT Head: Yes normal to inspection General nose exam: Normal external nose present Mouth: moist mucous membranes Throat: Yes posterior oropharynx normal, Yes tonsils normal and Yes uvula midline Eyes Eyelids: Yes eyelids normal Conjunctivae: conjunctivae normal Pupils: Equal, round and reactive pupils present Neck Neck: Yes supple Resp Effort & Inspection: normal respiratory effort Auscultation: clear to auscultation bilaterally Cardio Rate: regular rate Rhythm: regular rhythm Heart sounds: S1 normal heart sound present, S2 normal heart sound present, no gallops, no murmurs and no rubs GI Inspection: No distended Palpation (GI): Soft to palpation and nontender Auscultation: normal bowel sounds Skin General skin exam: other (Warm and dry) Neuro Other: Right arm neurovascular intact General: patient oriented x3 and CN's II-XI intact bilaterally Cranial nerves: Yes Equal, round and reactive pupils present Extrem General: Yes no pedal edema Psych Affect: normal affect Attitude: cooperative Medical Decision Making [facility] Narrative Medical decision making narrative: Patient with multiple complaints, primarily right shoulder pain, after he nearly fell about 3 days ago. Patient also had associated right-sided chest pain and was evaluated here few days ago, had a CTA of the chest. During that visit the patient also had a fever to 100.7. Patient also complained tonight of urinary urgency and some incontinence. Urinalysis however was negative. White blood cell count was normal. X-ray of the right shoulder was negative. Patient not having any cough or fever or shortness of breath currently. Patient's right shoulder was placed in a sling, and he can follow-up with orthopedics if he is not improved in 7-10 days. Can take ibuprofen for pain, also can continue his gabapentin. Lab Data Lab results reviewed: Yes I reviewed the patient's lab results. Result diagrams: 03/23/22 23:37 03/23/22 23:37 Labs: Lab Results 03/23/22 03/23/22 03/23/22 Range/Units 22:55 23:37 23:37 WBC 9.5 (4.8-10.8) X10*3/uL RBC 4.35 L (4.60-5.80) X10*6/uL Hgb 10.4 L (14.0-18.0) g/dl Hct 32.8 L (42.0-52.0) % MCV 75.4 L (80.0-98.0) fL MCH 23.9 L (27.0-33.0) pg MCHC 31.7 (31.0-36.0) g/dl RDW 16.8 H (11.0-16.0) % Plt Count 112 L (160-400) X10*3/uL MPV 9.8 (9.4-12.4) fL Immature Gran % (Auto) 0.5 H (0.0-0.4) % Neut % (Auto) 79.9 H (45-73) % Lymph % (Auto) 6.2 L (20-40) % [place] % (Auto) 13.2 H (2-11) % Eos % (Auto) 0.1 (0-4) % Baso % (Auto) 0.1 (0-2) % Lymph # (Auto) 0.6 L (1.2-4.9) X10*3/uL [place] # (Auto) 1.3 H (0.1-1.2) X10*3/uL Eos # (Auto) 0.0 (0.0-0.4) X10*3/uL Baso # (Auto) 0.0 (0.0-0.2) X10*3/uL Abs Immat Gran (auto) 0.05 H (0.00-0.03) X10*3/uL Absolute Neuts (auto) 7.5 (2.0-8.3) x10*3/uL Absolute Nucleated RBC 0.000 (0.0-0.012) X10*3/uL Nucleated RBC % (auto) 0.0 (0.0-0.2) /100WBC Sodium 136 (135-145) mmol/L Potassium 4.0 (3.3-5.1) mmol/L Chloride 103 (96-108) mmol/L Carbon Dioxide 24 (22-29) mmol/L Anion Gap 13 (12-20) BUN 11 (9-16) mg/dL Creatinine 0.59 (0.5-1.4) mg/dL Estim Creat Clear Calc 217.1 Estimated GFR > 60 Random Glucose 96 (60-115) mg/dL Calcium 8.1 L (8.4-10.2) mg/dL Total Bilirubin 0.7 (0.0-1.0) mg/dL AST 22 (5-37) U/L ALT 16 (0-40) U/L Alkaline Phosphatase 50 (39-117) U/L Total Protein 7.5 (6.5-8.0) g/dL Albumin 3.0 L (3.5-5.0) g/dL Urine Color Urine Appearance Urine pH (5.0-8.0) Ur Specific [place] (1.005-1.025) Urine Protein (Neg-Trace) mg/dL Urine Glucose (UA) (Negative) mg/dL Urine Ketones (Negative) mg/dL Urine Blood (Negative) Urine Nitrite (Negative) Ur Leukocyte Esterase (Negative) Urine RBC (0-2) /HPF Urine WBC (0-5) /HPF Ur Squamous Epith Cells (0-2) /HPF Urine Bacteria (None Seen) Hyaline Casts (0-2) /LPF COVID-19 (KHOI) Negative (Negative) COVID-19 Clin Com See Note 03/24/22 Range/Units 00:11 WBC (4.8-10.8) X10*3/uL RBC (4.60-5.80) X10*6/uL Hgb (14.0-18.0) g/dl Hct (42.0-52.0) % MCV (80.0-98.0) fL MCH (27.0-33.0) pg MCHC (31.0-36.0) g/dl RDW (11.0-16.0) % Plt Count (160-400) X10*3/uL MPV (9.4-12.4) fL Immature Gran % (Auto) (0.0-0.4) % Neut % (Auto) (45-73) % Lymph % (Auto) (20-40) % [place] % (Auto) (2-11) % Eos % (Auto) (0-4) % Baso % (Auto) (0-2) % Lymph # (Auto) (1.2-4.9) X10*3/uL [place] # (Auto) (0.1-1.2) X10*3/uL Eos # (Auto) (0.0-0.4) X10*3/uL Baso # (Auto) (0.0-0.2) X10*3/uL Abs Immat Gran (auto) (0.00-0.03) X10*3/uL Absolute Neuts (auto) (2.0-8.3) x10*3/uL Absolute Nucleated RBC (0.0-0.012) X10*3/uL Nucleated RBC % (auto) (0.0-0.2) /100WBC Sodium (135-145) mmol/L Potassium (3.3-5.1) mmol/L Chloride (96-108) mmol/L Carbon Dioxide (22-29) mmol/L Anion Gap (12-20) BUN (9-16) mg/dL Creatinine (0.5-1.4) mg/dL Estim Creat Clear Calc Estimated GFR Random Glucose (60-115) mg/dL Calcium (8.4-10.2) mg/dL Total Bilirubin (0.0-1.0) mg/dL AST (5-37) U/L ALT (0-40) U/L Alkaline Phosphatase (39-117) U/L Total Protein (6.5-8.0) g/dL Albumin (3.5-5.0) g/dL Urine Color Yellow Urine Appearance Clear Urine pH 6.5 (5.0-8.0) Ur Specific [place] <= 1.005 (1.005-1.025) Urine Protein Negative (Neg-Trace) mg/dL Urine Glucose (UA) Negative (Negative) mg/dL Urine Ketones Negative (Negative) mg/dL Urine Blood Negative (Negative) Urine Nitrite Negative (Negative) Ur Leukocyte Esterase Trace H (Negative) Urine RBC 0-2 (0-2) /HPF Urine WBC 0-5 (0-5) /HPF Ur Squamous Epith Cells 0-2 (0-2) /HPF Urine Bacteria None Seen (None Seen) Hyaline Casts 0-2 (0-2) /LPF COVID-19 (KHOI) (Negative) COVID-19 Clin Com Imaging Data Right shoulder: Radiologist's impression: IMPRESSION: Normal right shoulder. Discharge Plan Discharge Clinical Impression: Sprain of right shoulder Patient Disposition: Home, Self-Care Instructions: Shoulder Sprain (ED) Additional Instructions: Wear the sling. Use ibuprofen for pain. Follow-up with orthopedics in 7-10 days if your shoulder is still hurting Prescriptions: No Action cephalexin 500 mg capsule 500 mg PO QID 7 Days Qty: 28 0RF doxycycline hyclate 100 mg capsule 100 mg PO BID 7 Days Qty: 14 0RF cyclobenzaprine 10 mg tablet 10 mg PO TID PRN (Reason: muscle pain or spasm) Qty: 20 0RF Referrals: Cuauhtemoc Gomez MD [Physician] - 10 days Interventions: ED Discharge Assessment Last Done: 03/24/22 01:17 Discharge Date/Time: 03/24/22 01:18
[2022-03-24 00:03] LABS: Alanine Aminotransferase 16 U/L (0-40); Alkaline Phosphatase 50 U/L (39-117); Anion Gap 13 (12-20); Aspartate Amino Transferase 22 U/L (5-37); Bilirubin Total 0.7 mg/dL (0.0-1.0); Blood Urea Nitrogen 11 mg/dL (9-16); Calcium 8.1 mg/dL (8.4-10.2); Carbon Dioxide 24 mmol/L (22-29); Chloride 103 mmol/L (96-108); Creatinine Clr Calc Pharmacy 217.1; Estimated Glomerular Filt Rate > 60; Glucose Random 96 mg/dL (60-115); Sodium 136 mmol/L (135-145); Total Protein 7.5 g/dL (6.5-8.0)
[2022-03-24 00:16] VITALS: BP 155/86; PULSE 82; RESP 12; O2SAT 98
[2022-03-24 00:20] LABS: Appearance Urine Clear; Color Urine Yellow; Glucose Urine UA Negative (Negative); Leukocyte Esterase Urine Trace (Negative); Nitrite Urine Negative (Negative); PH 6.5 (5.0-8.0); Specific Gravity - Urine <= 1.005 (1.005-1.025); Urine Blood Negative (Negative); Urine Ketones Negative (Negative); Urine Protein Negative (Neg-Trace)
[2022-03-24] MEDS: Ketorolac Tromethamine 30 MG/ML VIAL IM (00:28)
[2022-03-24 00:31] LABS: Bacteria Urine None Seen (None Seen); Hyaline Casts Urine 0-2 /LPF (0-2); RBC Urine 0-2 /HPF (0-2); Squamous Epithelial Cell Urine 0-2 /HPF (0-2); WBC Urine 0-5 /HPF (0-5)
[2022-03-24 00:32] LABS: MANUAL DIFF FLAG NO; Platelet Count 112 X10*3/uL (160-400); White Blood Count 9.5 X10*3/uL (4.8-10.8)
== END 2022-03-24 01:18 | disposition home or self-care (01) ==
PROVIDERS: Emergency Provider Emergency Medicine; PCP Internal Medicine
DX: S43.401A Unspecified sprain of right shoulder joint, initial encounter (principal); X50.0XXA Overexertion from strenuous movement or load, initial encounter; R39.15 Urgency of urination; R32 Unspecified urinary incontinence; E66.9 Obesity, unspecified; Z68.37 Body mass index [BMI] 37.0-37.9, adult; Z20.822 Contact with and (suspected) exposure to COVID-19; Y93.89 Activity, other specified; Y92.018 Other place in single-family (private) house as the place of occurrence of the external cause; Y99.9 Unspecified external cause status
CPT/HCPCS: 36415; 73030; 80053; 81001; 85025; 87635; 96372; 99284; J1885

== ENCOUNTER 2022-08-23 22:13 | Emergency (ER) | payer OTHER, SELFPAY ==
[2022-08-23 22:18] VITALS: BP 145/69; PULSE 72; RESP 18; TEMP 36.7; O2SAT 95; BMI 34.3
--- NOTE | 2022-08-23 23:39 | ED_ITS ---
HPI - Skin/Abscess/Foreign Bdy General Chief complaint: Skin/Abscess/Foreign Body Stated complaint: infection on right arm Time Seen by Provider: 08/23/22 23:38 Source: patient Mode of arrival: ambulatory Limitations: no limitations History of Present Illness HPI narrative: Patient with history of IVDA user bacteremia septic arthritis in 04/29 had a PICC line in the right arm complaining of opening of the scar as the scratch that area with slight bloody discharge no fever no significant pus discharge slight tenderness Related Data Previous Rx's Medication Instructions Recorded cephalexin 500 mg capsule 500 mg PO QID 7 days #28 caps 12/10/21 doxycycline hyclate 100 mg capsule 100 mg PO BID 7 days #14 caps 12/10/21 cyclobenzaprine 10 mg tablet 10 mg PO TID PRN muscle pain or 03/21/22 spasm #20 tabs cephalexin 500 mg capsule 500 mg PO QID 10 days #40 caps 08/24/22 doxycycline hyclate 100 mg tablet 100 mg PO BID #20 tabs 08/24/22 Allergies Allergy/AdvReac Type Severity Reaction Status Date / Time onion [ONION] Allergy Severe ANAPHYLAXIS Verified 08/24/22 01:00 TO RAW ONIONS (COOKED OK) morphine [MORPHINE] Allergy Mild RASH, hives Verified 08/24/22 01:00 Review of Systems Review of Systems: Yes all other systems are reviewed and are negative [facility] Past Medical History Medical History Asthma High blood pressure Seasonal allergies Social History Social History Alcohol intake: current Alcohol intake frequency: holidays/special occasions only Patient Tobacco Use Status: Never used Tobacco Advance Directives: No Physical Exam Vital Signs: Vital Signs: Last Vital Signs Temp 97.9 F 08/24/22 00:02 Pulse 69 08/24/22 00:02 Resp 16 08/24/22 00:02 BP 159/76 H 08/24/22 00:02 Pulse Ox 97 08/24/22 00:02 O2 Del Method 08/24/22 00:02 BMI result Body Mass Index 34.3 Appearance: Alert. Oriented X3. No acute distress. Neck: Normal inspection. Neck supple. CVS: Normal heart rate and rhythm. Pulses normal. Respiratory: No respiratory distress. Equal air entry bilateral, no wheezing/rales/rhonchi Abdomen: Soft and nontender. Bowel sounds are present, Skin: Skin warm and dry. Normal skin color. Normal skin turgor. Extremities: No lower extremity edema. No calf tenderness right forearm serosanguineous discharge at the site of PICC line with induration no abscess felt no pus discharge no warmth or redness Neuro: Oriented X 3. No motor deficit. Medications Administered Discontinued Medications Generic Name Dose Route Start Last Admin Trade Name Freq PRN Reason Stop Dose Admin Doxycycline Monohydrate 100 mg 08/23/22 23:48 08/24/22 00:35 Doxycycline Monohydrate 100 Mg Capsule PO 08/23/22 23:49 100 mg ONCE ONE Administration Medical Decision Making Medical Decision Making [facility] Narrative: Patient with dehiscence of the old wound right forearm at this time there is no signs of deeper infection but as patient using IVDA and history of sepsis with septic arthritis will give course of doxycycline and Keflex Lab Data [facility] Lab Attestation statement: I reviewed the patient's lab results. 08/24/22 00:22 08/24/22 00:22 Labs: Lab Results 08/24/22 08/24/22 08/24/22 Range/Units 00:22 00:22 00:22 WBC 3.5 L (4.8-10.8) X10*3/uL RBC 4.09 L (4.60-5.80) X10*6/uL Hgb 9.4 L (14.0-18.0) g/dl Hct 30.4 L (42.0-52.0) % MCV 74.3 L (80.0-98.0) fL MCH 23.0 L (27.0-33.0) pg MCHC 30.9 L (31.0-36.0) g/dl RDW 16.6 H (11.0-16.0) % Plt Count 97 L (160-400) X10*3/uL MPV 10.4 (9.4-12.4) fL Immature Gran % (Auto) 0.3 (0.0-0.4) % Neut % (Auto) 59.1 (45-73) % Lymph % (Auto) 23.9 (20-40) % [place] % (Auto) 14.7 H (2-11) % Eos % (Auto) 1.7 (0-4) % Baso % (Auto) 0.3 (0-2) % Lymph # (Auto) 0.8 L (1.2-4.9) X10*3/uL [place] # (Auto) 0.5 (0.1-1.2) X10*3/uL Eos # (Auto) 0.1 (0.0-0.4) X10*3/uL Baso # (Auto) 0.0 (0.0-0.2) X10*3/uL Abs Immat Gran (auto) 0.01 (0.00-0.03) X10*3/uL Absolute Neuts (auto) 2.1 (2.0-8.3) x10*3/uL Absolute Nucleated RBC 0.000 (0.0-0.012) X10*3/uL Nucleated RBC % (auto) 0.0 (0.0-0.2) /100WBC Smear Tech's Comments VERIFIED Sodium 138 (135-145) mmol/L Potassium 4.3 (3.3-5.1) mmol/L Chloride 105 (96-108) mmol/L Carbon Dioxide 26 (22-29) mmol/L Anion Gap 11 L (12-20) BUN 16 (9-16) mg/dL Creatinine 0.65 (0.5-1.4) mg/dL Estim Creat Clear Calc 191.3 Estimated GFR > 60 Random Glucose 102 (60-115) mg/dL Lactic Acid 1.9 (0.5-2.0) mmol/L Calcium 8.8 D (8.4-10.2) mg/dL Discharge Plan Discharge Clinical Impression: Wound discharge Patient Disposition: Home, Self-Care Instructions: Chronic Wounds (ED) Additional Instructions: Local care of the wound as advised Follow up with detox, stop using drugs Report the ER if worsening of the swelling or redness of the wound/fever Prescriptions: New cephalexin 500 mg capsule 500 mg PO QID 10 Days Qty: 40 0RF doxycycline hyclate 100 mg tablet 100 mg PO BID Qty: 20 0RF No Action cephalexin 500 mg capsule 500 mg PO QID 7 Days Qty: 28 0RF doxycycline hyclate 100 mg capsule 100 mg PO BID 7 Days Qty: 14 0RF cyclobenzaprine 10 mg tablet 10 mg PO TID PRN (Reason: muscle pain or spasm) Qty: 20 0RF
[2022-08-24 00:02] VITALS: BP 159/76; PULSE 69; RESP 16; TEMP 36.6; O2SAT 97
[2022-08-24] MEDS: Doxycycline Monohydrate 100 MG CAPSULE PO (00:35)
[2022-08-24 00:41] LABS: Hemoglobin 9.4 g/dl (14.0-18.0)
[2022-08-24 00:42] LABS: Basophils Percent Auto 0.3 % (0-2); Lymphocytes Absolute Auto 0.8 X10*3/uL (1.2-4.9); Mean Corpuscular Volume 74.3 fL (80.0-98.0); PLT CLUMP 1; SCAN SMEAR FLAG 1
[2022-08-24 00:43] LABS: Eosinophils Absolute Auto 0.1 X10*3/uL (0.0-0.4); Eosinophils Percent Auto 1.7 % (0-4); Hematocrit 30.4 % (42.0-52.0); Imm Gran Abs Auto 0.01 X10*3/uL (0.00-0.03); Imm Gran Pct Auto 0.3 % (0.0-0.4); Lymphocytes Percent Auto 23.9 % (20-40); MANUAL DIFF FLAG SCAN; Mean Corpuscular HGB Conc 30.9 g/dl (31.0-36.0); Mean Platelet Volume 10.4 fL (9.4-12.4); Monocytes Absolute Auto 0.5 X10*3/uL (0.1-1.2); Monocytes Percent Auto 14.7 % (2-11); Neutrophils Absolute Auto 2.1 x10*3/uL (2.0-8.3); Neutrophils Percent Auto 59.1 % (45-73); Red Blood Count 4.09 X10*6/uL (4.60-5.80); Red Cell Distribution Width 16.6 % (11.0-16.0)
[2022-08-24 00:44] LABS: PLT ABN DIST 1; Platelet Count 97 X10*3/uL (160-400); White Blood Count 3.5 X10*3/uL (4.8-10.8)
[2022-08-24 00:46] LABS: Lactic Acid 1.9 mmol/L (0.5-2.0)
[2022-08-24 00:49] LABS: Anion Gap 11 (12-20); Blood Urea Nitrogen 16 mg/dL (9-16); Calcium 8.8 mg/dL (8.4-10.2); Carbon Dioxide 26 mmol/L (22-29); Chloride 105 mmol/L (96-108); Creatinine Clr Calc Pharmacy 191.3; Estimated Glomerular Filt Rate > 60; Glucose Random 102 mg/dL (60-115); Potassium 4.3 mmol/L (3.3-5.1); Sodium 138 mmol/L (135-145)
[2022-08-24 01:01] LABS: SLIDE REVIEW VERIFIED
[2022-08-24] MEDS: cephALEXin 500 MG CAPSULE PO (01:47)
--- NOTE | 2022-08-24 01:48 | PC.NURSE ---
Medicated pt per oct. Reviewed discharge instructions with pt. pt verbalized understanding. Notified LYLA Tate
[2022-08-24 01:50] VITALS: BP 157/78; PULSE 63
--- NOTE | 2022-08-24 02:56 | PC.NURSE ---
12:30 Pt. in room, lying in bed, under no distress. Pt. watching tv on his phone. Pt. reports no pain at this time. Pt. medicated with doxycycline per OCT.
== END 2022-08-24 02:00 | disposition home or self-care (01) ==
PROVIDERS: Emergency Provider Internal Medicine; PCP Internal Medicine
DX: L03.113 Cellulitis of right upper limb (principal); Z79.899 Other long term (current) drug therapy
CPT/HCPCS: 36415; 80048; 83605; 85025; 87040; 99283; 99284

== ENCOUNTER 2023-04-12 20:09 | Inpatient (IN) | payer OTHER, SELFPAY ==
[2023-04-12 20:44] VITALS: BP 171/73; PULSE 95; RESP 20; TEMP 37.7; O2SAT 99; BMI 35.9
[2023-04-12 22:42] LABS: Hematocrit 22.1 % (42.0-52.0); Mean Corpuscular HGB Conc 26.7 g/dl (31.0-36.0); Mean Corpuscular Hemoglobin 16.3 pg (27.0-33.0); Red Blood Count 3.62 X10*6/uL (4.60-5.80); Red Cell Distribution Width 20.5 % (11.0-16.0); White Blood Count 4.1 X10*3/uL (4.8-10.8)
[2023-04-12 22:52] LABS: Platelet Count 87 X10*3/uL (160-400)
[2023-04-12 22:56] LABS: Alanine Aminotransferase 18 U/L (0-40); Albumin Level 3.1 g/dL (3.5-5.0); Alkaline Phosphatase 54 U/L (39-117); Anion Gap 9 (12-20); Aspartate Amino Transferase 32 U/L (5-37); Bilirubin Total 0.7 mg/dL (0.0-1.0); Blood Urea Nitrogen 8 mg/dL (9-16); Calcium 8.1 mg/dL (8.4-10.2); Carbon Dioxide 25 mmol/L (22-29); Chloride 107 mmol/L (96-108); Creatinine Clr Calc Pharmacy 179.3; Estimated Glomerular Filt Rate > 60; Glucose Random 138 mg/dL (60-115); Hemoglobin 5.9 g/dl (14.0-18.0); Potassium 3.6 mmol/L (3.3-5.1); Sodium 137 mmol/L (135-145); Total Protein 8.1 g/dL (6.5-8.0)
--- NOTE | 2023-04-12 23:43 | ED_ITS ---
HPI - General Adult General Chief complaint: General Medical Stated complaint: Abnormal labs Time Seen by Provider: 04/12/23 23:39 Source: patient Mode of arrival: ambulatory Limitations: no limitations History of Present Illness HPI narrative: patient 52 years old otherwise healthy with history of asthma left rotator cuff injury no history of black stools or peptic ulcer disease sent by his PCP for significant anemia H&H was 22/5.9 , patient's hemoglobin was 9.4 hematocrit 30.4 on 08/30 denies any black stools patient been eating otherwise normally with good appetite feels exhausted and tired when he ambulates patient never had colonoscopy/ endoscopy in the past no use of NSAIDs Related Data Previous Rx's Medication Instructions Recorded cephalexin 500 mg capsule 500 mg PO QID 7 days #28 caps 12/10/21 doxycycline hyclate 100 mg capsule 100 mg PO BID 7 days #14 caps 12/10/21 cyclobenzaprine 10 mg tablet 10 mg PO TID PRN muscle pain or 03/21/22 spasm #20 tabs cephalexin 500 mg capsule 500 mg PO QID 10 days #40 caps 08/24/22 doxycycline hyclate 100 mg tablet 100 mg PO BID #20 tabs 08/24/22 Allergies Allergy/AdvReac Type Severity Reaction Status Date / Time onion [ONION] Allergy Severe ANAPHYLAXIS Verified 08/24/22 01:00 TO RAW ONIONS (COOKED OK) morphine [MORPHINE] Allergy Mild RASH, hives Verified 08/24/22 01:00 Review of Systems Review of Systems: Yes all other systems are reviewed and are negative PMF Past Medical History Medical History Asthma High blood pressure Seasonal allergies Social History Social History Alcohol intake: current Alcohol intake frequency: holidays/special occasions only Patient Tobacco Use Status: Never used Tobacco Advance Directives: No Advance Directives Information Provided: No Physical Exam ED Vital Signs: Vital Signs - 24 hr 04/12/23 20:44 04/13/23 00:20 04/13/23 01:48 Temperature 99.8 F 98.7 F 99.0 F Pulse Rate 95 88 86 Respiratory Rate 20 18 Blood Pressure 171/73 H 131/57 L 141/59 H Pulse Oximetry 99 98 96 Oxygen Delivery Method Room Air Room Air Room Air BMI result Body Mass Index 35.9 Appearance: Alert. Oriented X3. No acute distress. Eyes: pallor+++ no icterus ENT: Pharynx normal. Oral Mucosa moist Neck: Normal inspection. Neck supple. CVS: Normal heart rate and rhythm. Pulses normal. Respiratory: No respiratory distress. Equal air entry bilateral, no wheezing/rales/rhonchi Abdomen: Soft and nontender. Bowel sounds are present, no mass palpable, no CVA tenderness Skin: Skin warm and dry. Normal skin color. Normal skin turgor. Extremities: No lower extremity edema. No calf tenderness Neuro: Oriented X 3. No motor deficit. No sensory deficit.No cerebellar signs , cranial nerves II-XII intact Medical Decision Making Medical Decision Making [facility] Narrative: patient has significant anemia likely iron deficiency anemia no rectal bleed noticed patient has symptomatic shortness of breath on exertion will admit patient for IV blood transfusion and further workup patient never had endoscopy or colonoscopy in the past Differential Diagnosis Differential Diagnoses: The differential diagnosis associated with the presentation includes acute GI bleed/iron deficiency anemia Admission/Observation Consideration of admission/observation: Escalation of care including admissi on/observation considered Consult Healthcare Provider Management of the patient was discussed with: Hospitalist Lab Data [facility] Lab Attestation statement: I reviewed the patient's lab results. 04/12/23 22:35 04/12/23 22:35 Labs: Lab Results 04/12/23 04/12/23 04/13/23 Range/Units 22:35 22:35 00:37 WBC 4.1 L (4.8-10.8) X10*3/uL RBC 3.62 L (4.60-5.80) X10*6/uL Hgb 5.9 L* D (14.0-18.0) g/dl Hct 22.1 L D (42.0-52.0) % MCV 61.0 L (80.0-98.0) fL MCH 16.3 L (27.0-33.0) pg MCHC 26.7 L (31.0-36.0) g/dl RDW 20.5 H (11.0-16.0) % Plt Count 87 L (160-400) X10*3/uL MPV Not Reportable Absolute Nucleated RBC 0.000 (0.0-0.012) X10*3/uL Nucleated RBC % (auto) 0.0 (0.0-0.2) /100WBC Sodium 137 (135-145) mmol/L Potassium 3.6 (3.3-5.1) mmol/L Chloride 107 (96-108) mmol/L Carbon Dioxide 25 (22-29) mmol/L Anion Gap 9 L (12-20) BUN 8 L (9-16) mg/dL Creatinine 0.69 (0.5-1.4) mg/dL Estim Creat Clear Calc 179.3 Estimated GFR > 60 Random Glucose 138 H (60-115) mg/dL Calcium 8.1 L D (8.4-10.2) mg/dL Iron 13 L (45-160) mcg/dL TIBC 299 (228-428) mcg/dL % Saturation 4 L (15-50) % Unsat Iron Binding 286 ug/dL Total Bilirubin 0.7 (0.0-1.0) mg/dL AST 32 (5-37) U/L ALT 18 (0-40) U/L Alkaline Phosphatase 54 (39-117) U/L Total Protein 8.1 H (6.5-8.0) g/dL Albumin 3.1 L (3.5-5.0) g/dL Blood Type O Positive Antibody Screen NEGATIVE Crossmatch See Detail Discharge Plan Discharge Clinical Impression: Severe anemia, Anemia, iron deficiency Patient Disposition: Admitted As Inpatient
[2023-04-13] VITALS (12 sets, daily range): BP systolic 112–157; BP diastolic 17–85; PULSE 58–88; RESP 16–18; TEMP 36.3–37.2; O2SAT 96–100
[2023-04-13 00:35] LABS: Iron 13 mcg/dL (45-160); Percent Iron Saturation 4 % (15-50); Total Iron Binding Capacity 299 mcg/dL (228-428); Unsaturated Iron Binding 286 ug/dL
--- NOTE | 2023-04-13 01:05 | PC.NURSE ---
22g IV access in right ac. Patient is an active IV drug user. Difficult stick unable to get second line placed.
--- NOTE | 2023-04-13 01:30 | PC.NURSE ---
This RN received a call from lab. They report that there was no stool on card, unable to processed so they put it through as a recollect. aware.
--- NOTE | 2023-04-13 02:19 | PC.NURSE ---
AT 6 MINUTES FROM ISSUE TIME OF BLOOD, PATIENT REQUESTED TO USE BATHROOM. INFORMED PT THE NEED TO ADMINISTER WITHIN 15 MINS.
[2023-04-13] MEDS: Ferrous Sulfate 324 MG TABLET.DR PO (02:21)
--- NOTE | 2023-04-13 02:29 | PC.NURSE ---
Initials vital taken prior to blood transfusion. oral temp 99.0, bp 115/34, pulse 83. Blood tranfusion infusing as of 215
--- NOTE | 2023-04-13 02:35 | PC.NURSE ---
15 mins vitals taken, vss- bp 112/17, temp 98.9, hr 77, rr 18. PT denies chills, SOB, itching
--- NOTE | 2023-04-13 02:50 | PC.NURSE ---
PT complaining of pain at IV site. Requested assistance from charge nurse to place second line as this RN made several of attempts to obtain second line.
--- NOTE | 2023-04-13 03:57 | P.HPHOSP_ITS ---
History of Present Illness Date of Service: 04/13/23 Chief Complaint: Anemia 52/m with HTN seen at PCP office and had routine labs done for feeling easily exhuasted after minimal activity. He was told to report to the ED because of low blood count. Hemogovlin was 5 hematocrit 22. He denies melana or coffee ground emesis. Hemoglobin was about 10 in August. He has never had colonoscopy and is iron deficient. He is type and screen and been transfused. Stool occult is negative Review of Systems 2 Review of Systems: Easilty fatigued, no chest pain, no sob. . He has scabs all over his body [facility] Medical History Asthma High blood pressure Seasonal allergies Social History Alcohol intake: current Alcohol intake frequency: holidays/special occasions only Patient Tobacco Use Status: Never used Tobacco Advance Directives: No Advance Directives Information Provided: No Meds Allergies Allergy/AdvReac Type Severity Reaction Status Date / Time onion [ONION] Allergy Severe ANAPHYLAXIS Verified 08/24/22 01:00 TO RAW ONIONS (COOKED OK) morphine [MORPHINE] Allergy Mild RASH, hives Verified 08/24/22 01:00 Physical Exam 2 Vital Signs and Narrative: Vital Signs: Last Vital Signs Temp 98.9 F 04/13/23 03:53 Pulse 77 04/13/23 03:53 Resp 18 04/13/23 03:53 BP 142/73 H 04/13/23 03:53 Pulse Ox 97 04/13/23 03:53 O2 Del Method Room Air 04/13/23 03:53 BMI result Body Mass Index 35.9 Const: Other: General: AO X 3, no acute distress Resp: CTA bilateral CVS: S1,S2,RRR GI: +BS, NT, no distention, umbilical hernia Skin: scbas all over his body Neuro: motor grossly intact Psych: appropriate affect Results Labs 04/12/23 22:35 04/12/23 22:35 Labs: Laboratory Results - last 24 hr 04/12/23 04/12/23 04/13/23 22:35 22:35 00:37 MCV 61.0 L MCH 16.3 L MCHC 26.7 L RDW 20.5 H Plt Count 87 L MPV Not Reportable Absolute Nucleated RBC 0.000 Nucleated RBC % (auto) 0.0 Anion Gap 9 L Estim Creat Clear Calc 179.3 Estimated GFR > 60 Random Glucose 138 H Calcium 8.1 L D Iron 13 L TIBC 299 % Saturation 4 L Unsat Iron Binding 286 Total Bilirubin 0.7 AST 32 ALT 18 Alkaline Phosphatase 54 Total Protein 8.1 H Albumin 3.1 L Blood Type O Positive Antibody Screen NEGATIVE Crossmatch See Detail Assessment and Plan (1) Severe anemia: Status: Acute (2) Anemia, iron deficiency: Status: Acute Plan 52/m with symptomatic iron def anemia, Iron def anemia, no evidence of acute blood loss, negative occult blood, transfuse and repeat H/H, given prior colonoscopy , consult GI HTN--not on meds, BP not too bad, if rises, add Norvasc Scabs on skin; not infected, nothing to do at this time dvt out bed and ambulate admission for at least 2 midgnight for acute symptomatic iron deficiency work up Time Spent With Patient Time: Total time managing care of this patient today ____ minutes. Quality Stroke Does the patient have a stroke diagnosis?: No VTE Prior VTE?: No VTE Risk Level:: Medical - low VTE Device Contraindication: Treatment Not Indicated VTE Drug Contraindication: Treatment Not Tolerated
--- NOTE | 2023-04-13 05:16 | PC.NURSE ---
Patient alert and oriented. Denies SOB, chills, itchiness or malaise. First bag of RBC infused. vss. Second bag hung and currently infusing.
--- NOTE | 2023-04-13 06:30 | P.CNGI_ITS ---
History of Present Illness Data of Consult Service Date: 04/13/23 Requesting physician: Migue Neff Primary Care Provider: Jose Mann III, MD HPI Reason for consult: anemia 52 yr old m with hx of untreated Hep C, drug use, and HTN being seen for iron def anemia Patient had been c/o SOB and fatigue and PCP checked labs revealed HGB 6 g/dl with low plts and WCC with iron sat 4%. He denies overt GIB and has not noted melena, rectal bleeding, nose bleeds, hematuria etc. He has been noting blisters and bruising on his skin and was due to get a skin biopsy for w/u of this. he denies abdominal pain, no nausea, reflux, or dysphagia. Last HGb on file--9.4 g/d from 08/2022--he has never had EGD or colonoscopy. He has received 2 units of PRBC There is a CT from 2021 with liver nodularity suspicious for cirrhosis. Review of Systems Review of Systems: Constitutional : No Weight loss, No Fever, No Chills ENT/Mouth : No sore throat, No Rhinorrhea Eyes: No Swelling, No Redness Cardiovascular : No Chest Pain, + SOB, No Edema Respiratory : No Cough, No Sputum, No Wheezing Gastrointestinal : see HPI Genitourinary : NO Dysuria, No Urinary Frequency, No Hematuria, No Urgency Musculoskeletal : No joint pain, No Myalgias, No Joint Swelling Skin : No Skin Lesions, No rash Neuro : No Weakness, No Numbness, No Dizziness, No Headache Psych : No Anxiety/Panic, No Depression Heme/Lymph: + Bruising, No Lymphadenopathy Endocrine : No Polyuria, No Polydipsia All other systems reviewed and are negative. [facility] Past Medical History Medical History Asthma High blood pressure Seasonal allergies Family History Pertinent family history: denies FH of liver disease or cancer Social History Social History Alcohol intake: former Patient Tobacco Use Status: Never used Tobacco Smoked in Last 30 Days: No Use of substances other than those prescribed or required for medical reasons: Yes Substance Use Type: Heroin Substance Use Frequency: Weekly Last Used Substance: Days (ago) Advance Directives: No Advance Directives Information Provided: No Meds Allergies Allergy/AdvReac Type Severity Reaction Status Date / Time onion [ONION] Allergy Severe ANAPHYLAXIS Verified 08/24/22 01:00 TO RAW ONIONS (COOKED OK) morphine [MORPHINE] Allergy Mild RASH, hives Verified 08/24/22 01:00 Active Medications: Current Medications Acetaminophen (Acetaminophen 325 Mg Tablet) 650 mg PO Q6H PRN PRN Reason: Pain, Mild (Pain Scale 1-3) Magnesium Hydroxide (Milk Of Magnesia 30 Ml Oral.Susp) 30 ml PO DAILY PRN PRN Reason: Constipation Melatonin (Melatonin 3 Mg Tablet) 6 mg PO BEDTIME PRN PRN Reason: Insomnia Sodium Chloride (0.9 % Sodium Chloride Flush 3 Ml Syringe) 3 ml IVFLUSH [facility] Home Medications Medication Instructions Recorded Confirmed Last Taken Type blood sugar diagnostic (FreeStyle 04/13/23 04/13/23 Unknown History Lite Strips) fluticasone propionate 50 50 mcg intranasal 04/13/23 Unknown History mcg/actuation nasal spray,suspension gabapentin 300 mg capsule 300 mg PO PRN Pain 04/13/23 Unknown History hydrocortisone 2.5 % topical cream appl topical BID 04/13/23 Unknown History hydroxyzine HCl 25 mg tablet 25 mg PO TID 04/13/23 04/13/23 Unknown History lisinopril 20 mg tablet 20 mg PO DAILY 04/13/23 04/13/23 Unknown History sertraline 50 mg tablet 50 mg PO 04/13/23 Unknown History tadalafil 5 mg tablet 5 mg PO DAILY 04/13/23 04/13/23 Unknown History Physical Exam Vital Signs: Vital Signs: Last Vital Signs Temp 97.6 F 04/13/23 05:46 Pulse 68 04/13/23 05:46 Resp 18 04/13/23 05:46 BP 148/76 H 04/13/23 05:46 Pulse Ox 97 04/13/23 05:46 O2 Del Method Room Air 04/13/23 05:46 BMI result Body Mass Index 35.9 EXAM: GENERAL: The patient is obese, scabs and dark spots on skin VITAL SIGNS:see workflow HEENT: Nonicteric sclerae, PERRLA, EOMI. Oropharynx clear. Moist mucous membranes. Conjunctivae appear well perfused. No thyroid mass. CHEST: Chest wall is nontender. HEART: Regular rate and rhythm without murmurs. LUNGS: Clear to auscultation bilaterally. ABDOMEN: Soft, positive bowel sounds, nontender, no organomegaly.no flank tenderness--umbilical hernia noted SKIN: No rash, no excessive bruising, petechiae, or purpura. NEUROLOGIC: Cranial nerves II-XII intact without motor/sensory deficit. Pscyh- nml affect Results Labs 04/12/23 22:35 04/12/23 22:35 Labs: Short CBC 04/12/23 Range/Units 22:35 WBC 4.1 L (4.8-10.8) X10*3/uL Hgb 5.9 L* D (14.0-18.0) g/dl Hct 22.1 L D (42.0-52.0) % Plt Count 87 L (160-400) X10*3/uL BMP 04/12/23 22:35 Sodium 137 Potassium 3.6 Chloride 107 Carbon Dioxide 25 BUN 8 L Creatinine 0.69 Calcium 8.1 L D Liver Function 04/12/23 Range/Units 22:35 Total Bilirubin 0.7 (0.0-1.0) mg/dL AST 32 (5-37) U/L ALT 18 (0-40) U/L Alkaline Phosphatase 54 (39-117) U/L Albumin 3.1 L (3.5-5.0) g/dL Assessment and Plan (1) Severe anemia: Status: Acute (2) Cirrhosis of liver: Status: Acute (3) Porphyria cutanea tarda: Status: Acute Plan 1/ Iron def anemia --with pancytopenia, no overt GI bleeding may be multifactor ial from cirrhosis/Nodular regen hyperplasia and slow GI blood losses, nutritional defc or primary hematological disease 2/ skin disorder, suspicious for PCT 2/2 untreated hep C PLAN: 1/ check HIV, HCV PCR, b12,folate, zinc levels, Hep B, 2/ we discussed EGD and colonoscopy but he is adamant he wants to go home, I therefore offered him the choice of early o/p endoscopy which he was agreeable t oo--stressed importance of f/u and large number of differentials incl CRC 3/ advised on alcohol abstinence, ok to give PPI, 4/ will need o/p assessment and treatment for Hep C if pos--on methadone and intermittently uses IV drugs, advised to desist due to associated risks 5/ iron replacement -but stop 3 d before endoscopies 6/ CT A/P before d/c, he is agreeable to this Time Spent With Patient Time: Total time managing care of this patient today ____ minutes. Procedures Date of Service Date of Service: 04/13/23
--- NOTE | 2023-04-13 08:02 | PC.NURSE ---
assumed care of pt at 0700. pt sleeping quietly in bed but woke up for breakfast. pt second transfusion completed. vss. rr even/unlabored. call richardson within reach. all pt needs met david.
[2023-04-13] MEDS: lisinopriL 20 MG TABLET PO (09:09)
--- NOTE | 2023-04-13 10:30 | MHC.CM.PN ---
CM MET WITH PT IN ED 17 PT UPSET AND WANTING TO LEAVE DUE TO BEING IN THE ED PT STATING HE WILL WALK OUT IF HE DOES NOT GET A CT SOON QUARANTINE INSPECTOR ARRIVED DURING ASSESSMENT PT DOES CONFIRM HE LIVES WITH HIS GF AND 2 KIDS HE IS INDEPENDENT WITH CARE, HAS NO SERVICES AND USES A CANE HE DOES NOT HAVE A HCP PCP: RACHELLE ZULETA IMM DELIVERED DCP: HOME NO SERVICES VIA PRIVATE TR[employer]
--- NOTE | 2023-04-13 11:39 | PC.NURSE ---
pt continued to consume food and drink after being told he would need to be NPO for [address] scan. when confronted about this, the pt became agitated and stated he wanted to leave. pt extremely disrespectful to this RN and LYLA Guzman. stating that it is the hospitals fault that he had breakfast this morning. this rn tried to explain to the pt that the order for CT scan was added after breakfast was consumed. pt continued to speak over and tell this RN to shut up . Dr. Hicks aware and agreed for the pt to leave AMA. also told this RN to tell the pt to follow up with PCP, GI, and imaging. AMA paperwork brought over to pt and pt refused to sign. IV taken out, pt changed into clothes, and pt left ED. Fabiola aware.
--- NOTE | 2023-04-13 13:19 | HE.PHANOTE ---
RE: med rec Attempted to locate patient but ed and overflow both state pt is not in any location. Pt notes claim he put his clothes on and left so assuming he left AMA.
--- NOTE | 2023-04-13 14:14 | PM.EVENT ---
Event Note Date of Service: 04/13/23 Event Note: Discharge summary Discharge diagnosis : - Acute blood loss anemia - GI bleed - Symptomatic anemia The patient was admitted for evaluation of abnormally low blood levels with reported fatigue as Hb found to be 5.9 from baseline >12. Transfused 2 PRBCs units. He was evaluated by GI who recommended outpatient Colonoscopy and CT Abd&Pelvis. The patient refused to wait for the CT scan or staying NPO for it. decided to leave AMA inspite of having discussion with him about the need of CT scan and the risk of leaving the hospital without finishing the work up. He did not wait to sign AMA papers and left the emergency. Time Spent With Patient Time: Total time managing care of this patient today ____ minutes.
--- NOTE | 2023-04-14 10:16 | P.CDIM_ITS ---
PROVIDER RESPONSE TEXT: To clarify, the appropriate diagnosis supported by the clinical indicators: Iron deficiency anemia secondary to acute on chronic blood QUERY TEXT: PHYSICIAN'S DOCUMENTATION REQUEST Date of Query: 04/13/2023 11:49 AM EDT Patient Name: Dennis Alaniz Admit Date: 04/13/2023 Dear Andrew Hicks, A review of the medical record indicates additional documentation may be needed. Please review below and update the documentation accordingly. Clinical Indicators: GI 04/13 - Plan: Iron deficiency anemia - no overt GI bleeding may be multifactorial from cirrhosis/nod ular regen hyperplasia and slow GI blood losses. H/H 22.1/5.9 2 units PRBC Symptomatic. Discussed EGD and colonoscopy patient wants to go home, choice of o/p endoscopy which he was agreeabl e. Based on the above, could you clarify which of the following is the most likely type of anemia you ar e evaluating, treating, and/or monitoring? Iron deficiency anemia secondary to chronic blood loss Iron deficiency anemia secondary to acute on chronic blood Iron deficiency anemia Other (explain)Clinically unable to determine (explain)Thank you, Concepcion Ortiz, CCS, CDIS Use of terms such as suspected, likely, concern for, or probable (associated with a specific diagnosi s that is being evaluated, monitored, or treated as if it exists) are acceptable and can be coded in the inpatient se tting, when documented at the time of discharge. Please use your independent medical judgment in providing your response. THIS QUERY IS PART OF THE PERMANENT MEDICAL RECORD
== END 2023-04-13 13:00 | disposition left against medical advice (07) | DRG 378 ==
LOC: HO.ED 04-13 02:13 → HO.EDOVER 04-13 04:19
PROVIDERS: Admitting Provider Internal Medicine; Emergency Provider Internal Medicine; PCP Internal Medicine; Visit Provider Student in an Organized Health Care Education/Training Program
DX: K92.2 Gastrointestinal hemorrhage, unspecified (principal); D61.818 Other pancytopenia; E80.1 Porphyria cutanea tarda; D62 Acute posthemorrhagic anemia; J45.909 Unspecified asthma, uncomplicated; I10 Essential (primary) hypertension; B19.20 Unspecified viral hepatitis C without hepatic coma; K74.60 Unspecified cirrhosis of liver; Z79.51 Long term (current) use of inhaled steroids; Z79.899 Other long term (current) drug therapy
CPT/HCPCS: 36415; 80053; 83540; 85027; 86850; 86900; 86901; 86923; 99284; P9016

== ENCOUNTER → 2023-04-13 04:12 | Outpatient (BNV) | payer OTHER, SELFPAY | PROVIDERS: Admitting Provider Internal Medicine; Emergency Provider Internal Medicine; PCP Internal Medicine; Visit Provider Student in an Organized Health Care Education/Training Program | DX: D50.9 Iron deficiency anemia, unspecified (principal); Z53.29 Procedure and treatment not carried out because of patient's decision for other reasons | CPT/HCPCS: 99235; 99499 ==

== ENCOUNTER → 2023-04-13 04:12 | Outpatient (BNV) | payer OTHER, SELFPAY | PROVIDERS: Admitting Provider Internal Medicine; Emergency Provider Internal Medicine; PCP Internal Medicine; Visit Provider Internal Medicine Gastroenterology | DX: D64.9 Anemia, unspecified (principal); K74.60 Unspecified cirrhosis of liver; E80.1 Porphyria cutanea tarda | CPT/HCPCS: 99232 ==

== ENCOUNTER → 2023-04-21 13:12 | Day surgery (SDC) | payer OTHER, SELFPAY ==
--- NOTE | 2023-04-20 12:51 | HO.ANESPROP2 ---
Documented by User: Kamryn Mejía NP 04/20/23 12:52 HPI - Anesthesia Eval Consult details Narrative: 52yo M for Upper Endoscopy and Colonoscopy 04/13/23 Left AMA from [facility] ED after receiving 2 units PRBC with H&H of 5.9 & 22.1 PMFSH Active Problems Active Problems: All Active Problems (Updated 04/13/23 @ 09:17 by Kyra Roblero MD) Porphyria cutanea tarda (Acute) Cirrhosis of liver (Acute) Severe anemia (Acute) Anemia, iron deficiency (Acute) Past Medical History Medical History High blood pressure Seasonal allergies Asthma Social History Alcohol intake: former Patient Tobacco Use Status: Never used Tobacco Substance Use Type: Heroin service: No Meds Allergies Allergy/AdvReac Type Severity Reaction Status Date / Time onion [ONION] Allergy Severe ANAPHYLAXIS Verified 08/24/22 01:00 TO RAW ONIONS (COOKED OK) morphine [MORPHINE] Allergy Mild RASH, hives Verified 08/24/22 01:00 Home Medications Medication Instructions Recorded Confirmed Last Taken Type blood sugar diagnostic (FreeStyle 04/13/23 04/13/23 Unknown History Lite Strips) fluticasone propionate 50 50 mcg intranasal DAILY 04/13/23 04/13/23 Unknown History mcg/actuation nasal spray,suspension gabapentin 300 mg capsule 300 mg PO PRN Pain 04/13/23 Unknown History hydrocortisone 2.5 % topical cream appl topical BID 04/13/23 Unknown History hydroxyzine HCl 25 mg tablet 25 mg PO TID 04/13/23 04/13/23 Unknown History lisinopril 20 mg tablet 20 mg PO DAILY 04/13/23 04/13/23 Unknown History sertraline 50 mg tablet 75 mg PO DAILY 04/13/23 04/14/23 Unknown History tadalafil 5 mg tablet 5 mg PO DAILY 04/13/23 04/13/23 Unknown History Exam Exam Date and Time: April 20, 2023 1251 Pertinent Lab Results Pertinent Lab Results: Laboratory Tests 04/12/23 22:35 Sodium 137 Potassium 3.6 Chloride 107 Carbon Dioxide 25 BUN 8 L Creatinine 0.69 Assessment and Plan Assessment Anesthesia Assessment: Chart Reviewed Documented by User: Oni Kelley MD 06/30/23 19:45 HPI - Anesthesia Eval Consult details Narrative: 52yo M for Upper Endoscopy and Colonoscopy 04/13/23 Left AMA from [facility] ED after receiving 2 units PRBC with H&H of 5.9 & 22.1 Patient admitted for IV drug abuse , case discussed with GI , case will be rescheduled as per GI . Patient counselled to abstain from drug use prior to procedure and administration of anesthesia as it can have devastating results for the patient . [facility] Past Medical History Medical History High blood pressure Seasonal allergies Asthma Family History Family history of problems with anesthesia: No Surgical History History of Problems with Anesthesia: No Social History Alcohol intake: former Patient Tobacco Use Status: Never used Tobacco Substance Use Type: Heroin service: No Meds Allergies Allergy/AdvReac Type Severity Reaction Status Date / Time onion [ONION] Allergy Severe ANAPHYLAXIS Verified 08/24/22 01:00 TO RAW ONIONS (COOKED OK) morphine [MORPHINE] Allergy Mild RASH, hives Verified 08/24/22 01:00 Home Medications Medication Instructions Recorded Confirmed Last Taken Type blood sugar diagnostic (FreeStyle 04/13/23 04/13/23 Unknown History Lite Strips) fluticasone propionate 50 50 mcg intranasal DAILY 04/13/23 04/13/23 Unknown History mcg/actuation nasal spray,suspension gabapentin 300 mg capsule 300 mg PO PRN Pain 04/13/23 Unknown History hydrocortisone 2.5 % topical cream appl topical BID 04/13/23 Unknown History hydroxyzine HCl 25 mg tablet 25 mg PO TID 04/13/23 04/13/23 Unknown History lisinopril 20 mg tablet 20 mg PO DAILY 04/13/23 04/13/23 Unknown History sertraline 50 mg tablet 75 mg PO DAILY 04/13/23 04/14/23 Unknown History tadalafil 5 mg tablet 5 mg PO DAILY 04/13/23 04/13/23 Unknown History Exam Airway Loose/Missing/Broken Teeth: Yes (loose and chipped ) Assessment and Plan Final Anesthetic Review Family History of Problems with Anesthesia: No History of Problems with Anesthesia: No
[2023-04-21 13:18] VITALS: BMI 35.7
--- NOTE | 2023-04-21 13:21 | MHC.SHP ---
Pre-Procedural Eval Section A Date of Service: 04/21/23 The patient is an INPATIENT: No The History & Physical has been completed within 30 days and I have reviewed it.: Yes Section B Chief Complaint: Benign neoplasm of colon, unspecified Allergies: Allergies Allergy/AdvReac Type Severity Reaction Status Date / Time onion [ONION] Allergy Severe ANAPHYLAXIS Verified 08/24/22 01:00 TO RAW ONIONS (COOKED OK) morphine [MORPHINE] Allergy Mild RASH, hives Verified 08/24/22 01:00 Plan Diagnosis/Plan: Unchanged I have reviewed the history and physical and performed a pertinent physical examination on my patient. No changes have occurred unless specified. Anemia work up Time Spent With Patient Time: Total time managing care of this patient today ____ minutes.
--- NOTE | 2023-04-21 13:23 | PC.NURSE ---
left wrist area swollen and red. with a band aid coverin it. right hand with a band aid covering it.
--- NOTE | 2023-04-21 13:27 | PC.NURSE ---
denies using cocaine and heroin.
[2023-04-21 13:32] VITALS: BP 129/57; PULSE 62; RESP 18; TEMP 36.3; O2SAT 98
[2023-04-21 13:37] LABS: Hematocrit 28.4 % (42.0-52.0); Hemoglobin 7.6 g/dl (14.0-18.0); Mean Corpuscular HGB Conc 26.8 g/dl (31.0-36.0); Mean Corpuscular Hemoglobin 17.5 pg (27.0-33.0); Mean Corpuscular Volume 65.3 fL (80.0-98.0); Red Blood Count 4.35 X10*6/uL (4.60-5.80); Red Cell Distribution Width 24.1 % (11.0-16.0)
[2023-04-21 13:38] LABS: Platelet Count 99 X10*3/uL (160-400); White Blood Count 2.1 X10*3/uL (4.8-10.8)
[2023-04-21] MEDS: Lactated Ringers 1,000 ML 100 ML IVCONT (13:45)
--- NOTE | 2023-04-21 14:20 | PC.NURSE ---
patient cancelled per anesthesia. admitted to iv drug use. iv removed. patient called for his ride. calm and cooperative.
== END ==
PROVIDERS: Nurse Practitioner; PCP Internal Medicine; Visit Provider Internal Medicine Gastroenterology
DX: D12.6 Benign neoplasm of colon, unspecified (principal); Z53.8 Procedure and treatment not carried out for other reasons; F19.90 Other psychoactive substance use, unspecified, uncomplicated; E80.1 Porphyria cutanea tarda; D50.9 Iron deficiency anemia, unspecified
CPT/HCPCS: 36415; 85027

== ENCOUNTER 2023-05-06 18:23 | Emergency (ER) | payer OTHER, SELFPAY ==
--- NOTE | ~2023-05-06 | CT_ITS ---
EXAMINATION: CT abdomen pelvis wo IV con CLINICAL INFORMATION: Reason for Exam LLQ pain COMPARISON: 2017 TECHNIQUE: Multidetector volumetric imaging was performed from the superior aspect of the liver through the pubic symphysis , noncontrasted study. Sagittal and coronal reformatted images were obtained on the technologist's workstation. This CT examination was performed using dose optimization techniques as appropriate, variously including the following: *Automated exposure control *Adjustment of mA and/or kV according to patient size (this includes techniques or standardized protocols for targeted exams where dose is matched to indication/reason for exam; i.e. extremities or head) *Use of iterative reconstruction technique DLP: 1116 mGy-cm FINDINGS: LOWER THORAX: Included lung bases are clear. HEPATOBILIARY: Redemonstration of heterogeneous liver parenchyma with nodular surface raising concern for possible liver cirrhosis, evaluation of the liver is limited on noncontrasted study. GALLBLADDER: Gallbladder unremarkable. SPLEEN: Spleen is enlarged 16 x 10 cm. PANCREAS: No focal mass or ductal dilatation. STOMACH AND GASTROINTESTINAL TRACT: Stomach is grossly unremarkable. There is a large anterior abdominal wall hernia 10 x 6.4 cm containing loop of colon without causing obstruction, the neck of which is 4.[address] evidence of appendicitis. ADRENALS: No adrenal nodules. KIDNEYS/URETERS: No hydronephrosis, stones or solid mass lesions. URINARY BLADDER: Partially decompressed. PELVIC VISCERA: Unremarkable PERITONEUM: Redemonstration of mild retroperitoneal peripancreatic and periaortic fat stranding which could be a sequela of mild chronic subclinical pancreatitis. LYMPH NODES: Increased number and some fullness of retroperitoneal para-aortic lymph nodes might be reactive, few of which are mildly enlarged including the one right para-aortic measures 1 x 1.6 cm uncertain etiology. VASCULAR:Engorgement of the portal vein, splenic vein and periumbilical vein raises concern for possible portal hypertension portosystemic shunting. BONES, ABDOMINAL WALL AND SOFT TISSUES: Age-appropriate changes of the spine and skeletal system, no destructive osteolytic or osteosclerotic bone lesion found CT/CT abdomen pelvis wo IV con IMPRESSION: * Large anterior abdominal wall hernia containing loop of colon without evidence of obstruction. * Redemonstration of heterogeneous liver parenchyma with nodular surface raising concern for possible liver cirrhosis, evaluation of the liver is limited on noncontrasted study. * Splenomegaly. * Increased number and some fullness of retroperitoneal para-aortic lymph nodes, few of which are mildly enlarged uncertain etiology. * Redemonstration of mild retroperitoneal peripancreatic and periaortic fat stranding cannot rule out mild chronic subclinical pancreatitis. * Consider correlation with follow-up CT scan with contrast. * No clear explanation for patient's left lower quadrant pain symptoms.
[2023-05-06 18:33] VITALS: BP 158/60; PULSE 80; O2SAT 98
--- NOTE | 2023-05-06 18:41 | ED_ITS ---
HPI - Abdominal Pain General Chief Complaint: Abdominal Pain Stated Complaint: abd pain Time Seen by Provider: 05/06/23 18:36 Source: patient and old records reviewed Mode of arrival: EMS Limitations: no limitations History of Present Illness HPI narrative: 53 yo male with PMH of IVDA, anemia, cirrhosis but no prior paracentesis, hep C, last used about 4 days ago, skin lesions PCT but ?xylazine wounds here with c/o 2 days of lower abdominal pain no diarrhea n/v/d he has a chronic umbilical hernia that they are waiting on surgery until Hep C is treated. He notes he has nausea and the pain is worse with moving. He notes no changes to his or urinary isues. He notes chronic wounds to abdomen and both upper extremities MD elicited complaint: abdominal pain Pertinent past history: none Onset (ago): day(s) (2) Pain Consistency: intermittent Location: suprapubic Severity: moderate Quality: stabbing Radiation: none Migration to: no migration Exacerbating factors: movement Relieving factors: nothing Associated symptoms: nausea and constipation Related Data Home Medications Medication Instructions Recorded Confirmed blood sugar diagnostic (FreeStyle 04/13/23 04/13/23 Lite Strips) fluticasone propionate 50 50 mcg intranasal DAILY 04/13/23 04/13/23 mcg/actuation nasal spray,suspension gabapentin 300 mg capsule 300 mg PO PRN Pain 04/13/23 hydrocortisone 2.5 % topical cream appl topical BID 04/13/23 hydroxyzine HCl 25 mg tablet 25 mg PO TID 04/13/23 04/13/23 lisinopril 20 mg tablet 20 mg PO DAILY 04/13/23 04/13/23 sertraline 50 mg tablet 75 mg PO DAILY 04/13/23 04/14/23 tadalafil 5 mg tablet 5 mg PO DAILY 04/13/23 04/13/23 Previous Rx's Medication Instructions Recorded ondansetron 4 mg disintegrating 4 mg PO Q6H PRN nausea and 04/14/23 tablet vomiting #7 tabs peg-electrolyte solution 420 gram 240 ml PO Q10M #4,000 mL 04/14/23 oral solution peg 3350-electrolytes 236 240 ml PO Q10M #4,000 mL 04/21/23 gram-22.74 gram-6.74 gram-5.86 gram solution doxycycline hyclate 100 mg capsule 100 mg PO BID 7 days #14 caps 05/06/23 Allergies Allergy/AdvReac Type Severity Reaction Status Date / Time onion [ONION] Allergy Severe ANAPHYLAXIS Verified 08/24/22 01:00 TO RAW ONIONS (COOKED OK) morphine [MORPHINE] Allergy Mild RASH, hives Verified 08/24/22 01:00 Review of Systems Review of Systems Constitutional : No Weight loss, No Fever, No Chills ENT/Mouth : No sore throat, No Rhinorrhea Eyes: No Swelling, No Redness Cardiovascular : No Chest Pain, No SOB, NoEdema Respiratory : No Cough, No Sputum, No Wheezing Gastrointestinal : Positive Nausea, no Vomiting, no Diarrhea, positive abdominal Pain, No Hematochezia, No Melena, pos constipation Genitourinary : No Dysuria, No Urinary Frequency, No Hematuria, No Urgency Musculoskeletal : No joint pain, No Myalgias, No Joint Swelling Skin : pos Skin Lesions, No rash Neuro : No Weakness, No Numbness, No Dizziness, No Headache Psych : No Anxiety/Panic, No Depression Heme/Lymph: No Bruising, No Lymphadenopathy Endocrine : No Polyuria, No Polydipsia All other systems reviewed and are negative. [facility] Past Medical History Attestation statement: The following information was validated with the patient. Source: old records reviewed Medical History High blood pressure Seasonal allergies Asthma Social History Social History Alcohol intake: former Patient Tobacco Use Status: Never used Tobacco Smoked in Last 30 Days: No Use of substances other than those prescribed or required for medical reasons: No Substance Use Type: Heroin Advance Directives: No Advance Directives Information Provided: No service: No Physical Exam ED Vital Signs: Vital Signs - 24 hr 05/06/23 18:50 Temperature 97.7 F Pulse Rate 75 Respiratory Rate 18 Blood Pressure 150/63 H Pulse Oximetry 97 Oxygen Delivery Method Room Air BMI result Body Mass Index 34.5 Appearance: Alert. Oriented X3. No acute distress. Eyes: Pupils equal, round and reactive to light. ENT: Pharynx normal. Neck: Normal inspection. Neck supple. CVS: Normal heart rate and rhythm. Pulses normal. Respiratory: No respiratory distress. Breath sounds normal. Abdomen: Soft and obese protuberant normal colored hernia but nontender - below hernia is ttp no mass felt, has chronic uninfected skin lesions on abdomen Skin: Skin warm and dry. Normal skin color. Normal skin turgor. on both upper and lower extremities small 1cm picked wounds L hand mild erythema noted - these wounds are deeper in nature Extremities: No lower extremity edema. No calf ttp Neuro: Oriented X 3. No motor deficit. No sensory deficit. Course Course Course Narrative: chronic anemia hx of recent need for colonoscopy and need for outpatient workup left AMA but H/H remains stable since transfusion Reevaluation(s) Reevaluation #1: given chronic wounds on left hand has full ROM no signs of abscess has no tendon involvement the wounds are chronically yellow and oozy will start on doxy Medical Decision Making Medical Decision Making [facility] Narrative: 53 yo male with PMH of IVDA, anemia, cirrhosis but no prior paracentesis, hep C, last used about 4 days ago, skin lesions PCT but ?xylazine wounds here with lower abdominal wound below the hernia at this time I have ordered labs, UA, IM medications for pain and CT scan for diverticulitis, obstruction, renal colic, mass. He is a difficult stick given his IVDA and chronic wounds. The hernia itself is nontender Differential Diagnosis Differential Diagnoses: The differential diagnosis associated with the presentation includes SBO, renal colic, constipation, diverticulitis Admission/Observation Consideration of admission/observation: Escalation of care including admission/observation considered labs at baseline, CT scan negative at this time he can follow up with PCP and GI denies GIB symptoms Lab Data [facility] Lab Attestation statement: I reviewed the patient's lab results. 05/06/23 19:48 05/06/23 19:56 Labs: Lab Results 05/06/23 05/06/23 05/06/23 Range/Units 19:48 19:56 20:55 WBC 3.0 L (4.8-10.8) X10*3/uL RBC 4.22 L (4.60-5.80) X10*6/uL Hgb 7.4 L (14.0-18.0) g/dl Hct 28.1 L (42.0-52.0) % MCV 66.6 L (80.0-98.0) fL MCH 17.5 L (27.0-33.0) pg MCHC 26.3 L (31.0-36.0) g/dl RDW 24.1 H (11.0-16.0) % Plt Count 95 L (160-400) X10*3/uL MPV Not Reportable Immature Gran % (Auto) 0.3 (0.0-0.4) % Neut % (Auto) 71.0 (45-73) % Lymph % (Auto) 13.5 L (20-40) % [place] % (Auto) 14.2 H (2-11) % Eos % (Auto) 1.0 (0-4) % Baso % (Auto) 0.0 (0-2) % Lymph # (Auto) 0.4 L (1.2-4.9) X10*3/uL [place] # (Auto) 0.4 (0.1-1.2) X10*3/uL Eos # (Auto) 0.0 (0.0-0.4) X10*3/uL Baso # (Auto) 0.0 (0.0-0.2) X10*3/uL Abs Immat Gran (auto) 0.01 (0.00-0.03) X10*3/uL Absolute Neuts (auto) 2.2 (2.0-8.3) x10*3/uL Absolute Nucleated RBC 0.000 (0.0-0.012) X10*3/uL Nucleated RBC % (auto) 0.0 (0.0-0.2) /100WBC Smear Tech's Comments VERIFIED Sodium 137 (135-145) mmol/L Potassium 3.9 (3.3-5.1) mmol/L Chloride 106 (96-108) mmol/L Carbon Dioxide 24 (22-29) mmol/L Anion Gap 11 L (12-20) BUN 9 (9-16) mg/dL Creatinine 0.54 (0.5-1.4) mg/dL Estim Creat Clear Calc 221.9 Estimated GFR > 60 Random Glucose 106 (60-115) mg/dL Calcium 8.5 (8.4-10.2) mg/dL Magnesium 2.1 (1.6-2.6) mg/dL Total Bilirubin 0.7 (0.0-1.0) mg/dL Direct Bilirubin 0.4 (0.0-0.5) mg/dL AST 47 H (5-37) U/L ALT 28 (0-40) U/L Alkaline Phosphatase 55 (39-117) U/L Total Protein 8.7 H (6.5-8.0) g/dL Albumin 3.2 L (3.5-5.0) g/dL Lipase 28 (8-78) U/L Urine Color Yellow Urine Appearance Clear Urine pH 7.5 (5.0-9.0) Ur Specific Coleman 1.010 (1.005-1.025) Urine Protein Negative (Neg-Trace) mg/dL Urine Glucose (UA) Negative (Negative) mg/dL Urine Ketones Negative (Negative) mg/dL Urine Blood Negative (Negative) Urine Nitrite Negative (Negative) Ur Leukocyte Esterase Negative (Negative) Independent Interpretation I performed an independent interpretation of an: CT Scan (no acute findings at this time but chronic liver findings, possible pancreatitis does not correlate with pain, lymphadenopathy noted) Radiology Impression Discussion of test interpretation with radiology: I have reviewed the radiologist's reading. External Record Review External record reviewed: Inpatient record Prescription Management I considered prescription management with: Antibiotic Medications Administered Discontinued Medications Generic Name Dose Route Start Last Admin Trade Name Freq PRN Reason Stop Dose Admin Hydromorphone HCl 2 mg 05/06/23 18:54 05/06/23 19:15 Hydromorphone Hcl 2 Mg/Ml Vial IM 05/06/23 18:55 2 mg ONCE ONE Administration Protocol Ondansetron HCl 4 mg 05/06/23 18:53 05/06/23 19:15 Ondansetron Odt 4 Mg Tab.Rapdis TRANSLINGU 05/06/23 18:54 4 mg ONCE ONE Administration Discharge Plan Discharge Clinical Impression: Anemia, iron deficiency Qualifiers: Iron deficiency anemia type: unspecified iron deficiency Qualified Code(s): D 50.9 - Iron deficiency anemia, unspecified Abdominal pain Qualifiers: Abdominal location: lower abdomen, unspecified Qualified Code(s): R10.30 - Lower abdominal pain, unspecified Cellulitis Qualifiers: Site of cellulitis: extremity Site of cellulitis of extremity: upper extremity Laterality: left Qualified Code(s): L03.114 - Cellulitis of left upper limb Patient Disposition: Home, Self-Care Instructions: Cellulitis (ED), Abdominal Pain (ED), Anemia (ED) Additional Instructions: please follow up with GI doctor regarding your chronic anemia and need for colonoscopy. CT scan did not show a cause for today's pain. You need to monitor your blood counts. They are chronically low and this needs to be followed. follow up for worsening pain, fevers, vomiting, diarrhea, black or bloody stools, chest pain, trouble breathing, no improvement or worsening of symptoms in L hand. 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 Take a probiotic while you are on antibiotics and for at least one week after the antibiotics are finished - this can help protect your GI system from diarrhea and other issues. You can get probiotics by drinking kefir, eating yogurt or culturelle or another pill form of probiotic. Do not take it at the same time as you take the antibiotic.?More than 6 to 8 loose stools a day is not normal seek care if this happens On doxycycline, do not take pills immediately before going to bed and swallow pills with plenty of water. Avoid direct sunlight, iron, antacids, and Pepto Bismol. Call your provider if you develop new ringing in your ears, new problems hearing, dizziness, difficulty swallowing, rash, abdominal discomfort, nausea, or diarrhea.? Prescriptions: New doxycycline hyclate 100 mg capsule 100 mg PO BID 7 Days Qty: 14 0RF No Action peg-electrolyte soln 420 gram recon soln 240 ml PO Q10M Qty: 4000 0RF Rx Instructions: until fecal effluent is clear-to take day before colonoscopy ondansetron 4 mg tablet,disintegrating 4 mg PO Q6H PRN (Reason: nausea and vomiting) Qty: 7 0RF Rx Instructions: can take with colon prep if needed peg 3350-electrolytes 236-22.74-6.74 -5.86 gram recon soln 240 ml PO Q10M Qty: 4000 0RF Rx Instructions: Refer to prep instructions given/ mailed to you from GI OFFICE. until fecal effluent is clear lisinopril 20 mg tablet 20 mg PO DAILY (DME) FreeStyle Lite Strips Strip MISCELLANEOUS gabapentin 300 mg capsule 300 mg PO PRN (Reason: Pain) hydrocortisone 2.5 % cream topical BID hydroxyzine HCl 25 mg tablet 25 mg PO TID fluticasone propionate 50 mcg/actuation spray,suspension 50 mcg intranasal DAILY sertraline 50 mg tablet 75 mg PO DAILY tadalafil 5 mg tablet 5 mg PO DAILY Referrals: Kyra Roblero MD [Physician] - (call GI to schedule appointment)
[2023-05-06 18:50] VITALS: BP 150/63; PULSE 75; RESP 18; TEMP 36.5; O2SAT 97; BMI 34.5
[2023-05-06] MEDS: Ondansetron ODT 4 MG TAB.RAPDIS TRANSLINGU (19:15)
[2023-05-06] MEDS: HYDROmorphone HCl 2 MG/ML VIAL IM (19:15)
[2023-05-06 19:52] LABS: Imm Gran Abs Auto 0.01 X10*3/uL (0.00-0.03); Imm Gran Pct Auto 0.3 % (0.0-0.4); Lymphocytes Absolute Auto 0.4 X10*3/uL (1.2-4.9); MANUAL DIFF FLAG SCAN; Monocytes Percent Auto 14.2 % (2-11); SCAN SMEAR FLAG 1
[2023-05-06 19:54] LABS: Hematocrit 28.1 % (42.0-52.0); Hemoglobin 7.4 g/dl (14.0-18.0); Lymphocytes Percent Auto 13.5 % (20-40); Mean Corpuscular HGB Conc 26.3 g/dl (31.0-36.0); Mean Corpuscular Hemoglobin 17.5 pg (27.0-33.0); Mean Corpuscular Volume 66.6 fL (80.0-98.0); Monocytes Absolute Auto 0.4 X10*3/uL (0.1-1.2); Neutrophils Absolute Auto 2.2 x10*3/uL (2.0-8.3); Red Blood Count 4.22 X10*6/uL (4.60-5.80); Red Cell Distribution Width 24.1 % (11.0-16.0)
[2023-05-06 20:01] LABS: Platelet Count 95 X10*3/uL (160-400)
[2023-05-06 20:05] LABS: PLT ABN DIST 1
[2023-05-06 20:15] LABS: Alanine Aminotransferase 28 U/L (0-40); Albumin Level 3.2 g/dL (3.5-5.0); Alkaline Phosphatase 55 U/L (39-117); Anion Gap 11 (12-20); Aspartate Amino Transferase 47 U/L (5-37); Bilirubin Direct 0.4 mg/dL (0.0-0.5); Bilirubin Total 0.7 mg/dL (0.0-1.0); Blood Urea Nitrogen 9 mg/dL (9-16); Calcium 8.5 mg/dL (8.4-10.2); Carbon Dioxide 24 mmol/L (22-29); Chloride 106 mmol/L (96-108); Creatinine Clr Calc Pharmacy 221.9; Estimated Glomerular Filt Rate > 60; Glucose Random 106 mg/dL (60-115); Lipase 28 U/L (8-78); Magnesium 2.1 mg/dL (1.6-2.6); Potassium 3.9 mmol/L (3.3-5.1); Sodium 137 mmol/L (135-145); Total Protein 8.7 g/dL (6.5-8.0)
[2023-05-06 20:30] LABS: SLIDE REVIEW VERIFIED
[2023-05-06 21:11] LABS: Appearance Urine Clear; Color Urine Yellow; Glucose Urine UA Negative (Negative); Leukocyte Esterase Urine Negative (Negative); Nitrite Urine Negative (Negative); PH 7.5 (5.0-9.0); Urine Blood Negative (Negative); Urine Ketones Negative (Negative); Urine Protein Negative (Neg-Trace)
[2023-05-06] MEDS: Doxycycline Monohydrate 100 MG CAPSULE PO (22:02)
== END 2023-05-06 22:11 | disposition home or self-care (01) ==
PROVIDERS: Emergency Provider Emergency Medicine
DX: L03.114 Cellulitis of left upper limb (principal); R10.30 Lower abdominal pain, unspecified; D50.9 Iron deficiency anemia, unspecified; R10.2 Pelvic and perineal pain; Z79.899 Other long term (current) drug therapy
CPT/HCPCS: 36415; 74176; 80048; 80076; 81003; 83690; 83735; 85025; 96372; 99284; J1170

== ENCOUNTER 2023-07-15 13:42 | Emergency (ER) | payer OTHER, SELFPAY ==
--- NOTE | ~2023-07-15 | CT_ITS ---
EXAMINATION: CT ABDOMEN AND PELVIS WITH CONTRAST CLINICAL INFORMATION: Right flank pain COMPARISON: CT abdomen and pelvis 05/06/2023 TECHNIQUE: Multidetector volumetric images were obtained from the superior aspect of the liver through the pubic symphysis following administration 85 mL of Omnipaque 350 intravenous contrast. Sagittal and coronal reformatted images were obtained on the technologist's workstation. Oral contrast: No This CT examination was performed using dose optimization techniques as appropriate, variously including the following: *Automated exposure control *Adjustment of mA and/or kV according to patient size (this includes techniques or standardized protocols for targeted exams where dose is matched to indication/reason for exam; i.e. extremities or head) *Use of iterative reconstruction technique DLP: 1209 mGy-cm. FINDINGS: LUNG BASES: The lung bases are clear. The heart size is normal. LIVER, GALLBLADDER, AND BILIARY TREE: The liver is normal size, lobulated contour and slight heterogeneous density. No focal lesion or intrahepatic ductal dilatation seen. The gallbladder is contracted with mild thickened lopez. No pericholecystic fluid collection seen. There are no radiopaque gallstones. PANCREAS: Unremarkable. SPLEEN: There is mild splenomegaly with spleen measuring 18 cm in craniocaudad length.. Previously it measured 16 cm.. ADRENAL GLANDS: Unremarkable. KIDNEYS AND URETERS: The kidneys are normal in size, shape, and attenuation. No hydronephrosis, hydroureter, or calculi seen. No perinephric stranding. BLADDER: Unremarkable. GASTROINTESTINAL TRACT: There is scattered stool and gas seen throughout the colon without significant distention. The small bowel loops are normal caliber. Appendix is not visualized. ABDOMINAL WALL: There is a moderate large umbilical hernia containing loops of small bowel and mesenteric fat but no induration or proximal bowel obstruction seen. LYMPH NODES: There are numerous left para-aortic an aortocaval small lymph nodes noted. Also visualized a prominent collateral vessels in the same region. VASCULAR: Unremarkable. PELVIC VISCERA: Unremarkable. OSSEOUS STRUCTURES: There is mild degenerative disc changes L4-L5 disc level with posterior spondylosis. No aggressive lytic or sclerotic process seen CT/CT abdomen pelvis w IV con IMPRESSION: 1. Moderate to large umbilical hernia containing loops of small bowel and mesenteric fat but no induration or proximal bowel obstruction seen. 2. Cirrhotic liver with mild splenomegaly. 3. No radiopaque urolith or hydroureteronephrosis. Fleischner guidelines were followed.
--- NOTE | ~2023-07-15 | XR_ITS ---
EXAMINATION: XR CHEST CLINICAL INFORMATION: 03/20/2022 COMPARISON: None available. TECHNIQUE: 2 views of the chest were obtained. FINDINGS: No significant abnormality is noted involving the heart, lungs, mediastinum, bony thorax or soft tissues. XR/XR chest 2V IMPRESSION: Unremarkable examination.
--- NOTE | 2023-07-15 13:54 | ECG_ITS ---
Test Reason : cp Blood Pressure : / mmHG Vent. Rate : 088 BPM Atrial Rate : 088 BPM P-R Int : 172 ms QRS Dur : 088 ms QT Int : 394 ms P-R-T Axes : 044 032 046 degrees QTc Int : 476 ms Normal sinus rhythm Minimal voltage criteria for LVH, may be normal variant ( Sokolow-Cantrell ) Borderline ECG When compared with ECG of 20-MAR-2022 21:01, No significant change was found Referred By: Sharad Xavier Electronically Signed By:SHANIQUE ARGUELLES
[2023-07-15 14:14] LABS: MANUAL DIFF FLAG NO
[2023-07-15 14:16] LABS: Basophils Percent Auto 0.2 % (0-2); Eosinophils Percent Auto 0.2 % (0-4); Hematocrit 29.8 % (42.0-52.0); Hemoglobin 8.3 g/dl (14.0-18.0); Imm Gran Abs Auto 0.02 X10*3/uL (0.00-0.03); Imm Gran Pct Auto 0.4 % (0.0-0.4); Lymphocytes Absolute Auto 0.5 X10*3/uL (1.2-4.9); Lymphocytes Percent Auto 10.5 % (20-40); Mean Corpuscular HGB Conc 27.9 g/dl (31.0-36.0); Mean Corpuscular Hemoglobin 18.7 pg (27.0-33.0); Mean Platelet Volume 9.5 fL (9.4-12.4); Monocytes Absolute Auto 0.7 X10*3/uL (0.1-1.2); Neutrophils Absolute Auto 3.6 x10*3/uL (2.0-8.3); Neutrophils Percent Auto 74.7 % (45-73); Platelet Count 180 X10*3/uL (160-400); Red Blood Count 4.45 X10*6/uL (4.60-5.80); White Blood Count 4.9 X10*3/uL (4.8-10.8)
[2023-07-15 14:26] LABS: INTERNATIONAL NORM RATIO 1.2 (0.9-1.1); Prothrombin Time 14.2 SEC (11.1-13.3)
[2023-07-15 14:29] LABS: Partial Thromboplastin Time 38.7 SEC (26.0-36.4)
[2023-07-15 14:35] VITALS: BP 154/73; PULSE 85; RESP 18; TEMP 36.7; O2SAT 99; BMI 35.9
[2023-07-15 14:35] LABS: Alanine Aminotransferase 20 U/L (0-40); Albumin Level 3.4 g/dL (3.5-5.0); Alkaline Phosphatase 53 U/L (39-117); Anion Gap 12 (12-20); Aspartate Amino Transferase 29 U/L (5-37); Bilirubin Total 0.5 mg/dL (0.0-1.0); Blood Urea Nitrogen 15 mg/dL (9-16); Calcium 9.1 mg/dL (8.4-10.2); Carbon Dioxide 27 mmol/L (22-29); Chloride 101 mmol/L (96-108); Estimated Glomerular Filt Rate > 60; Glucose Random 94 mg/dL (60-115); Lipase 30 U/L (8-78); Potassium 4.7 mmol/L (3.3-5.1); Sodium 135 mmol/L (135-145); Total Protein 9.2 g/dL (6.5-8.0)
--- NOTE | 2023-07-15 14:35 | ED_ITS ---
HPI - General Adult General Chief complaint: Back Pain/Injury Stated complaint: R back side pain, chest pain? 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 He denies: nausea/vomiting, abdominal pain, fever or chills, dysuria, hematuria. The patient reports he has an unknown blood condition causing low platelets and low Hgb requiring multiple transfusions previously. Related Data Home Medications Medication Instructions Recorded Confirmed blood sugar diagnostic (FreeStyle 04/13/23 04/13/23 Lite Strips) fluticasone propionate 50 50 mcg intranasal DAILY 04/13/23 04/13/23 mcg/actuation nasal spray,suspension gabapentin 300 mg capsule 300 mg PO PRN Pain 04/13/23 hydrocortisone 2.5 % topical cream appl topical BID 04/13/23 hydroxyzine HCl 25 mg tablet 25 mg PO TID 04/13/23 04/13/23 lisinopril 20 mg tablet 20 mg PO DAILY 04/13/23 04/13/23 sertraline 50 mg tablet 75 mg PO DAILY 04/13/23 04/14/23 tadalafil 5 mg tablet 5 mg PO DAILY 04/13/23 04/13/23 Previous Rx's Medication Instructions Recorded ondansetron 4 mg disintegrating 4 mg PO Q6H PRN nausea and 04/14/23 tablet vomiting #7 tabs peg-electrolyte solution 420 gram 240 ml PO Q10M #4,000 mL 04/14/23 oral solution peg 3350-electrolytes 236 240 ml PO Q10M #4,000 mL 04/21/23 gram-22.74 gram-6.74 gram-5.86 gram solution doxycycline hyclate 100 mg capsule 100 mg PO BID 7 days #14 caps 05/06/23 Allergies Allergy/AdvReac Type Severity Reaction Status Date / Time onion [ONION] Allergy Severe ANAPHYLAXIS Verified 08/24/22 01:00 TO RAW ONIONS (COOKED OK) morphine [MORPHINE] Allergy Mild RASH, hives Verified 08/24/22 01:00 Review of Systems 2 Review of Systems: Yes all other systems are reviewed and are negative Neurologic: Denies Abnormal speech present and Denies Sensory deficit (Neuro) [facility] Past Medical History Attestation statement: The following information was validated with the patient. Source: old records reviewed Medical History High blood pressure Seasonal allergies Asthma Social History Social History Alcohol intake: former Patient Tobacco Use Status: Never used Tobacco Smoked in Last 30 Days: No Use of substances other than those prescribed or required for medical reasons: Yes Substance Use Type: Crack/Cocaine and Heroin Substance Use Frequency: Occasionally Any prior treatment program specific to substance use: Yes Advance Directives: No Advance Directives Information Provided: Yes service: No Physical Exam ED Vital Signs: Vital Signs - 24 hr 07/15/23 14:35 07/15/23 18:24 Temperature 98.0 F Pulse Rate 85 77 Respiratory Rate 18 18 Blood Pressure 154/73 H 130/58 L Pulse Oximetry 99 98 Oxygen Delivery Method Room Air BMI result Body Mass Index 35.9 Patient is afebrile and hemodynamically stable. Const Orientation/consciousness: patient oriented x3 HENMT Head: Yes normal to inspection and Yes atraumatic Eyes General: appearance normal, both eyes and all related structures Pupils: Equal, round and reactive pupils present EOM: EOMs intact bilaterally Neck Neck: Yes normal visual inspection, Yes full ROM and Yes supple Chest Chest palpation & inspection: normal inspection of the chest and normal palpation of entire chest wall Resp Effort & Inspection: normal respiratory effort and able to speak in complete sentences Auscultation: clear to auscultation bilaterally Cardio Rate: regular rate Rhythm: regular rhythm Peripheral pulses: Peripheral pulses 2+ throughout GI Inspection: No distended Palpation (GI): Soft to palpation, not firm, nontender, no guarding, not rigid and Other GI palpation findings present (Umbilical hernia ) Back/Spine/Pelvis Other: Patient can point to area in right-sided flank area where he states the pain is worse. He denies pain to bony areas - denies focal bony tenderness, step-off, or crepitus. Skin Other: Skin lesions diffusely involving body including bilateral upper and lower extremities, abdomen. Neuro General: patient oriented x3, moves all extremities and no focal motor deficits Cranial nerves: Yes CN's II-XII intact bilaterally and Yes Equal, round and reactive pupils present Cognition (Neuro): normal cognition Speech: No Abnormal speech present Gait exam (Neuro): Normal gait present Motor exam (neuro): 5/5 motor strength present throughout Sensory Exam: No Sensory deficit (Neuro) Course Course Course Narrative: BENITO- 53 year old male presents for evaluation of mid to upper back pain that radiates through to his chest. Plan for ekg, labs Reevaluation(s) Reevaluation #1: Patient is afebrile and hemodynamically stable. Ordered CT Abdomen/Pelvis W IV Contrast. Reviewed labs, notable for: No leukocytosis. Anemia with Hgb 8.3. Mildly elevated PT/PTT. Time: 18:30 Reevaluation #2: CT Abdomen/Pelvis reviewed - notable for known umbilical hernia, cirrhotic liver, without obvious etiology of right flank pain symptoms. Patient has been ambulatory in the ED. He states his current presentation is very different than his septic arthritis. He states at that time he couldn't ambulate on his right lower extremity and he was having intermittent fevers. Patient is requesting discharge. ESR pending, CRP elevated (non-specific). Patient appears non-toxic, he is afebrile without hypotension or tachycardia. Suspicion for septic arthritis of the back is low at this time. No neurological abnormalities on examination. Discussed with patient's signs and symptoms for which he should immediately return including any fevers, bowel or bladder incontinence, worsening pain, numbness/weakness/tingling. Plan: Discharge to home with PCP follow up Return precautions given Time: 20:19 Medications Administered Discontinued Medications Generic Name Dose Route Start Last Admin Trade Name Tiburcio PRN Reason Stop Dose Admin Acetaminophen 975 mg 07/15/23 19:07 07/15/23 19:13 Acetaminophen 325 Mg Tablet PO 07/15/23 19:08 975 mg ONCE ONE Administration Iohexol 100 ml 07/15/23 19:01 07/15/23 19:01 Iohexol 350 Mg/Ml 100 Ml Infus..Btl IV 07/15/23 19:02 85 ml ONCE ONE Administration Medical Decision Making Lab Data 07/15/23 14:04 07/15/23 14:04 Labs: Lab Results 07/15/23 07/15/23 07/15/23 Range/Units 14:04 19:06 20:06 WBC 4.9 (4.8-10.8) X10*3/uL RBC 4.45 L (4.60-5.80) X10*6/uL Hgb 8.3 L (14.0-18.0) g/dl Hct 29.8 L (42.0-52.0) % MCV 67.0 L (80.0-98.0) fL MCH 18.7 L (27.0-33.0) pg MCHC 27.9 L (31.0-36.0) g/dl RDW 19.0 H (11.0-16.0) % Plt Count 180 D (160-400) X10*3/uL MPV 9.5 (9.4-12.4) fL Immature Gran % (Auto) 0.4 (0.0-0.4) % Neut % (Auto) 74.7 H (45-73) % Lymph % (Auto) 10.5 L (20-40) % [place] % (Auto) 14.0 H (2-11) % Eos % (Auto) 0.2 (0-4) % Baso % (Auto) 0.2 (0-2) % Lymph # (Auto) 0.5 L (1.2-4.9) X10*3/uL [place] # (Auto) 0.7 (0.1-1.2) X10*3/uL Eos # (Auto) 0.0 (0.0-0.4) X10*3/uL Baso # (Auto) 0.0 (0.0-0.2) X10*3/uL Abs Immat Gran (auto) 0.02 (0.00-0.03) X10*3/uL Absolute Neuts (auto) 3.6 (2.0-8.3) x10*3/uL Absolute Nucleated RBC 0.000 (0.0-0.012) X10*3/uL Nucleated RBC % (auto) 0.0 (0.0-0.2) /100WBC PT 14.2 H (11.1-13.3) SEC INR 1.2 H (0.9-1.1) APTT 38.7 H (26.0-36.4) SEC Sodium 135 (135-145) mmol/L Potassium 4.7 D (3.3-5.1) mmol/L Chloride 101 (96-108) mmol/L Carbon Dioxide 27 (22-29) mmol/L Anion Gap 12 (12-20) BUN 15 (9-16) mg/dL Creatinine 0.63 (0.5-1.4) mg/dL Estim Creat Clear Calc TNP Estimated GFR > 60 Random Glucose 94 (60-115) mg/dL Calcium 9.1 D (8.4-10.2) mg/dL Total Bilirubin 0.5 (0.0-1.0) mg/dL AST 29 (5-37) U/L ALT 20 (0-40) U/L Alkaline Phosphatase 53 (39-117) U/L Troponin I High Sens < 2.7 (<3.5-35.0) ng/L C-Reactive Protein 2.39 H (< or = 0.50) mg/dL Total Protein 9.2 H (6.5-8.0) g/dL Albumin 3.4 L (3.5-5.0) g/dL Lipase 30 (8-78) U/L Urine Color Yellow Urine Appearance Clear Urine pH 8.0 (5.0-9.0) Ur Specific [place] >= 1.030 H (1.005-1.025) Urine Protein Negative (Neg-Trace) mg/dL Urine Glucose (UA) Negative (Negative) mg/dL Urine Ketones Negative (Negative) mg/dL Urine Blood Negative (Negative) Urine Nitrite Negative (Negative) Ur Leukocyte Esterase Negative (Negative) Discharge Plan Discharge Clinical Impression: Back pain Patient Disposition: Home, Self-Care Instructions: Acute Low Back Pain (ED) Additional Instructions: As we discussed, you were seen for lower right sided flank pain. Your labs including your HGb (8.3), platelets (180) - were within normal limits. Recommend you follow up closely with your PCP regarding your recent ED visit. Return to the ED immediately for fever, worsening pain, weakness/numbness/tingling, nausea/vomiting, inability to walk. Prescriptions: No Action peg-electrolyte soln 420 gram recon soln 240 ml PO Q10M Qty: 4000 0RF Rx Instructions: until fecal effluent is clear-to take day before colonoscopy ondansetron 4 mg tablet,disintegrating 4 mg PO Q6H PRN (Reason: nausea and vomiting) Qty: 7 0RF Rx Instructions: can take with colon prep if needed peg 3350-electrolytes 236-22.74-6.74 -5.86 gram recon soln 240 ml PO Q10M Qty: 4000 0RF Rx Instructions: Refer to prep instructions given/ mailed to you from GI OFFICE. until fecal effluent is clear lisinopril 20 mg tablet 20 mg PO DAILY (DME) FreeStyle Lite Strips Strip MISCELLANEOUS gabapentin 300 mg capsule 300 mg PO PRN (Reason: Pain) hydrocortisone 2.5 % cream topical BID hydroxyzine HCl 25 mg tablet 25 mg PO TID fluticasone propionate 50 mcg/actuation spray,suspension 50 mcg intranasal DAILY sertraline 50 mg tablet 75 mg PO DAILY tadalafil 5 mg tablet 5 mg PO DAILY doxycycline hyclate 100 mg capsule 100 mg PO BID 7 Days Qty: 14 0RF
[2023-07-15 14:40] LABS: Troponin-I High Sensitivity < 2.7 ng/L (<3.5-35.0)
[2023-07-15 18:24] VITALS: BP 130/58; PULSE 77; RESP 18; O2SAT 98
[2023-07-15] MEDS: iohexoL 350 MG/ML 100 ML INFUS..BTL IV (19:01)
[2023-07-15] MEDS: Acetaminophen 325 MG TABLET 975 MG PO (19:13)
--- NOTE | 2023-07-15 19:19 | PC.NURSE ---
assumed care of pt at 191. iv placed by ct scan staff. pt returned from ct labs drawn and sent to lab. pt reported 10/ pain; Dr. Campbell made aware. pt medicated per oct. heating packets given for pt to apply to back. ambulatory with steady gait.
[2023-07-15 19:27] LABS: C Reactive Protein 2.39 mg/dL (< or = 0.50)
[2023-07-15 20:14] LABS: Appearance Urine Clear; Color Urine Yellow; Glucose Urine UA Negative (Negative); Leukocyte Esterase Urine Negative (Negative); Nitrite Urine Negative (Negative); Specific Gravity - Urine >= 1.030 (1.005-1.025); Urine Blood Negative (Negative); Urine Ketones Negative (Negative); Urine Protein Negative (Neg-Trace)
[2023-07-15 20:28] LABS: Erythrocyte Sedimentation Rate 71 MM/HR (0-15)
== END 2023-07-15 20:30 | disposition home or self-care (01) ==
PROVIDERS: Physician Assistant; Physician Assistant Medical; Emergency Provider Emergency Medicine
DX: M54.50 Low back pain, unspecified (principal); R07.89 Other chest pain; R10.9 Unspecified abdominal pain; Z79.899 Other long term (current) drug therapy
CPT/HCPCS: 36415; 71046; 74177; 80053; 81003; 83690; 84484; 85025; 85610; 85652; 85730; 86140; 93005; 99284; 99285; Q9967

== ENCOUNTER → 2023-07-15 13:54 | Outpatient (BNV) | payer OTHER, SELFPAY | PROVIDERS: Visit Provider Internal Medicine | DX: R07.9 Chest pain, unspecified (principal) | CPT/HCPCS: 93010 ==

== ENCOUNTER 2024-02-18 15:01 | Emergency (ER) | payer OTHER, SELFPAY ==
[2024-02-18 15:18] VITALS: BP 168/101; PULSE 80; RESP 17; TEMP 36.5; O2SAT 96; BMI 32.7
--- NOTE | 2024-02-18 15:20 | ED_ITS ---
HPI - General Adult General Chief complaint: General Medical Stated complaint: Weakness/Flank pain Time Seen by Provider: 02/18/24 19:58 Source: patient Mode of arrival: ambulatory Limitations: no limitations History of Present Illness ED Provider: kathryn DIEGO narrative: Patient is 53 years old history of substance abuse chronic iron deficiency anemia with pancytopenia , hepatitis-C no overt GI bleed patient was admitted on 04/30 for same without any workup done had previous colonoscopy normal plan to see director group sales and crowd controller in near future noncompliant to iron tablets comes here for increased weakness and tiredness for last few weeks no fever no chills no black stools no nausea no vomiting patient is still using cocaine and heroin IV and snorts although patient has not multiple skin lesions on all 4 extremities which according to him from anxiety scratches and get the scabs Related Data Home Medications ?Medication ?Instructions ?Recorded ?Confirmed blood sugar diagnostic (FreeStyle 04/13/23 04/13/23 Lite Strips) fluticasone propionate 50 50 mcg intranasal DAILY 04/13/23 04/13/23 mcg/actuation nasal spray,suspension gabapentin 300 mg capsule 300 mg PO PRN Pain 04/13/23 hydrocortisone 2.5 % topical cream appl topical BID 04/13/23 hydroxyzine HCl 25 mg tablet 25 mg PO TID 04/13/23 04/13/23 lisinopril 20 mg tablet 20 mg PO DAILY 04/13/23 04/13/23 sertraline 50 mg tablet 75 mg PO DAILY 04/13/23 04/14/23 tadalafil 5 mg tablet 5 mg PO DAILY 04/13/23 04/13/23 Previous Rx's ?Medication ?Instructions ?Recorded ondansetron 4 mg disintegrating 4 mg PO Q6H PRN nausea and 04/14/23 tablet vomiting #7 tabs peg-electrolyte solution 420 gram 240 ml PO Q10M #4,000 mL 04/14/23 oral solution peg 3350-electrolytes 236 240 ml PO Q10M #4,000 mL 04/21/23 gram-22.74 gram-6.74 gram-5.86 gram solution doxycycline hyclate 100 mg capsule 100 mg PO BID 7 days #14 caps 05/06/23 ferrous sulfate 324 mg (65 mg 324 mg PO DAILY #90 tabs 02/18/24 iron) tablet,delayed release folic acid 1 mg tablet 1 mg PO DAILY #90 tabs 02/18/24 omeprazole 40 mg capsule,delayed 40 mg PO DAILY #90 caps 02/18/24 release Allergies Allergy/AdvReac Type Severity Reaction Status Date / Time onion [ONION] Allergy Severe ANAPHYLAXIS Verified 02/18/24 15:24 TO RAW ONIONS (COOKED OK) morphine [MORPHINE] Allergy Mild RASH, hives Verified 02/18/24 15:24 Review of Systems 2 Review of Systems: Yes all other systems are reviewed and are negative [facility] Past Medical History Medical History (Updated 02/18/24 @ 20:52 by Quincy Carvalho MD) Heroin abuse Cocaine abuse High blood pressure Seasonal allergies Asthma Social History Social History Alcohol intake: unknown Patient Tobacco Use Status: Never used Tobacco Smoked in Last 30 Days: No Use of substances other than those prescribed or required for medical reasons: Yes Substance Use Type: Crack/Cocaine and Heroin Substance Use Frequency: Daily Last Used Substance: Days (ago) Advance Directives: No Advance Directives Information Provided: No Do you have a plan to hurt others: No Plan service: No Physical Exam ED Vital Signs: Vital Signs - 24 hr 02/18/24 15:18 02/18/24 19:39 Temperature 97.7 F 97.9 F Pulse Rate 80 70 Respiratory Rate 17 20 Blood Pressure 168/101 H 166/85 H Pulse Oximetry 96 97 Oxygen Delivery Method Room Air Room Air BMI result Body Mass Index 32.7 Appearance: Alert. Oriented X3. No acute distress. Eyes: Pallor++ ENT: Pharynx normal. Oral Mucosa moist Neck: Normal inspection. Neck supple. CVS: Normal heart rate and rhythm. Pulses normal. Respiratory: No respiratory distress. Equal air entry bilateral, no wheezing/rales/rhonchi Abdomen: Soft and nontender. Bowel sounds are present, no mass palpable, no CVA tenderness Skin: Skin warm and dry. Normal skin color. Normal skin turgor. Multiple scabs on both upper extremities no signs of acute infection Extremities: No lower extremity edema. No calf tenderness Neuro: Oriented X 3. No motor deficit. No sensory deficit.No cerebellar signs , cranial nerves II-XII intact Course Course Course Narrative: This is an RME performed by S. Barcome, FIREWALL SECURITY ENGINEER: Additional HPI, ROS, PE not included below will be deferred to primary provider. Patient is a 53-year-old male who presents to emergency department for evaluation of weakness and fatigue, shortness of breath, right lower back/flank pain. Reports history of similar symptoms when he was found to have septic arthritis to his right knee and when he has been anemic. Plan: Labs, urinalysis, viral panel Medical Decision Making Medical Decision Making [facility] Narrative: Patient with chronic iron deficiency anemia with pancytopenia multifactorial noncompliant to iron tablets hemoglobin 8.3 similar to that in 07/15/2023 patient is planning to see crowd controller and director group sales in the near future Differential Diagnosis Differential Diagnoses: The differential diagnosis associated with the presentation includes Pancytopenia/severe anemia/viral syndrome metabolic syndrome Admission/Observation Consideration of admission/observation: Escalation of care including admission/observation considered Lab Data [facility] Lab Attestation statement: I reviewed the patient's lab results. 02/18/24 16:12 02/18/24 16:12 Labs: Lab Results 02/18/24 Range/Units 16:12 WBC 2.9 L (4.8-10.8) X10*3/uL RBC 4.47 L (4.60-5.80) X10*6/uL Hgb 8.3 L (14.0-18.0) g/dl Hct 29.5 L (42.0-52.0) % MCV 66.0 L (80.0-98.0) fL MCH 18.6 L (27.0-33.0) pg MCHC 28.1 L (31.0-36.0) g/dl RDW 21.9 H (11.0-16.0) % Plt Count 134 L D (160-400) X10*3/uL MPV Not Reportable Immature Gran % (Auto) 0.7 H (0.0-0.4) % Neut % (Auto) 68.9 (45-73) % Lymph % (Auto) 17.0 L (20-40) % [place] % (Auto) 12.1 H (2-11) % Eos % (Auto) 1.0 (0-4) % Baso % (Auto) 0.3 (0-2) % Lymph # (Auto) 0.5 L (1.2-4.9) X10*3/uL [place] # (Auto) 0.4 (0.1-1.2) X10*3/uL Eos # (Auto) 0.0 (0.0-0.4) X10*3/uL Baso # (Auto) 0.0 (0.0-0.2) X10*3/uL Abs Immat Gran (auto) 0.02 (0.00-0.03) X10*3/uL Absolute Neuts (auto) 2.0 (2.0-8.3) x10*3/uL Absolute Nucleated RBC 0.000 (0.0-0.012) X10*3/uL Nucleated RBC % (auto) 0.0 (0.0-0.2) /100WBC Smear Tech's Comments VERIFIED PT 14.0 H (11.1-13.3) SEC INR 1.2 H (0.9-1.1) Sodium 136 (135-145) mmol/L Potassium 4.0 (3.3-5.1) mmol/L Chloride 106 (96-108) mmol/L Carbon Dioxide 24 (22-29) mmol/L Anion Gap 10 L (12-20) BUN 9 (9-16) mg/dL Creatinine 0.61 (0.5-1.4) mg/dL Estim Creat Clear Calc 191.3 Estimated GFR > 60 Random Glucose 111 (60-115) mg/dL Calcium 9.0 (8.4-10.2) mg/dL Magnesium 2.1 (1.6-2.6) mg/dL Total Bilirubin 0.5 (0.0-1.0) mg/dL AST 53 H (5-37) U/L ALT 36 (0-40) U/L Alkaline Phosphatase 55 (39-117) U/L Total Protein 9.0 H (6.5-8.0) g/dL Albumin 3.3 L (3.5-5.0) g/dL Lipase 19 (8-78) U/L Influenza Type A (PCR) NEGATIVE (Negative) Influenza Type B (PCR) NEGATIVE (Negative) RSV RNA Qual (PCR) NEGATIVE (Negative) SARS-CoV-2 RNA (RT-PCR) NEGATIVE (Negative) Discharge Plan Discharge Clinical Impression: Anemia, iron deficiency Patient Disposition: Home, Self-Care Instructions: Iron Rich Diet (ED), Iron Deficiency Anemia (ED) Additional Instructions: Take your iron tablets daily Start taking folic acid 1 mg daily Take Prilosec 40 mg daily Follow up with your crowd controller appointment as scheduled Prescriptions: New folic acid 1 mg tablet 1 mg PO DAILY Qty: 90 0RF ferrous sulfate 324 mg (65 mg iron) tablet,delayed release (DR/EC) 324 mg PO DAILY Qty: 90 0RF omeprazole 40 mg capsule,delayed release(DR/EC) 40 mg PO DAILY Qty: 90 0RF No Action peg-electrolyte soln 420 gram recon soln 240 ml PO Q10M Qty: 4000 0RF Rx Instructions: until fecal effluent is clear-to take day before colonoscopy ondansetron 4 mg tablet,disintegrating 4 mg PO Q6H PRN (Reason: nausea and vomiting) Qty: 7 0RF Rx Instructions: can take with colon prep if needed peg 3350-electrolytes 236-22.74-6.74 -5.86 gram recon soln 240 ml PO Q10M Qty: 4000 0RF Rx Instructions: Refer to prep instructions given/ mailed to you from GI OFFICE. until fecal effluent is clear lisinopril 20 mg tablet 20 mg PO DAILY (DME) FreeStyle Lite Strips Strip MISCELLANEOUS gabapentin 300 mg capsule 300 mg PO PRN (Reason: Pain) hydrocortisone 2.5 % cream topical BID hydroxyzine HCl 25 mg tablet 25 mg PO TID fluticasone propionate 50 mcg/actuation spray,suspension 50 mcg intranasal DAILY sertraline 50 mg tablet 75 mg PO DAILY tadalafil 5 mg tablet 5 mg PO DAILY doxycycline hyclate 100 mg capsule 100 mg PO BID 7 Days Qty: 14 0RF Print Language: [place]
--- OUTSIDE RECORDS SUMMARY | 2024-02-18 16:06 | XMS_ITS | Continuity of Care Document ---
Author Organization [facility] Infectious Disease Address [address] [place] [id number]- Care Team Providers Care Pulmonary Disease Specialist Name Role Phone Jose Mann III, MD Primary Care Physician [place] [facility] [place] 08/15/22 [facility] Infectious Disease [address] [place] [id number] Attending Physician: Erica Guillen MD Admitting Physician: Erica Guillen MD Referring Physician: Jose Mann III, MD Allergies, Adverse Reactions, Alerts Substance Reaction Severity Status morphine rash Active Onions raw onions-lips swell Active Immunizations Given and Recorded Vaccine Date Status Refusal Reason SARS-CoV-2 (COVID-19) mRNA-1273 vaccine 10/27/21 R ecorded SARS-CoV-2 (COVID-19) Ad26 vaccine 11/15/20 Record ed influenza virus vaccine, inactivated 04/18/18 Ivan rded influenza virus vaccine, inactivated 08/27/14 Ivan rded influenza virus vaccine, inactivated 08/16/12 Ivan rded influenza virus vaccine, inactivated 05/02/11 Ivan rded pneumococcal 23-valent vaccine 02/21/18 Recorded tetanus/diphtheria/pertussis, acel(Tdap) 09/21/16 Recorded tetanus-diphtheria toxoids (Td) 11/27/14 Recorded tetanus-diphtheria toxoids (Td) 08/08/06 Recorded Medications Albuterol (Eqv-ProAir HFA) 90 mcg/inh inhalation aerosol 2 puffs, Inhalation, Every 6 hours, PRN Wheezing/Shortness of Breath, 0 Refills, Maintenance, 04/06/22 15:09:00 EDT, Partial fill upon patient request if the prescription is for a schedule II opioid drug. Start Date: 04/06/22 Status: Ordered bisacodyl 10 mg rectal suppository 1 supp = 10 mg, Rectally, Daily, 0 Refills, Maintenance, 04/16/22 16:54:00 EDT, Suppository, Partial fill upon patient request if the prescription is for a schedule II opioid drug. Start Date: 04/16/22 Status: Ordered cyclobenzaprine 10 mg oral tablet 10 mg, 1, tablet, By Mouth, 3 times a day, PRN, back spasms/pain, Refills 0, Maintenance, Other, 04/16/22 16:52:00 EDT, Partial fill upon patient request if the prescription is for a schedule II opioid drug. Start Date: 04/16/22 Status: Ordered doxycycline hyclate 100 mg oral tablet 1 tablet = 100 mg, By Mouth, 2 times a day, # 84 tablet, 0 Refills, Maintenance, 05/24/22 17:02:00 EDT, [id number], Partial fill upon patient request if the prescription is for a schedule II opioid drug., 189, cm, 04/16/22 16:06:00 ED... Start Date: 05/24/22 Stop Date: 07/05/22 Status: Ordered gabapentin 300 mg oral capsule 600 mg, 2, capsule, By Mouth, 2 times a day, PRN, Refills 0, Maintenance, Pain , Moderate, 04/06/2217:41:00 EDT, Partial fill upon patient request if the prescription is for a schedule II opioid drug. Start Date: 04/06/22 Status: Ordered hydrOXYzine pamoate 25 mg oral capsule 2 capsule = 50 mg, By Mouth, Every 6 hours, PRN Anxiety, 0 Refills, Maintenance, 04/16/22 16:54:00 EDT, Capsule, Partial fill upon patient request if the prescription is for a schedule II opioid drug. Start Date: 04/16/22 Status: Ordered lisinopril 20 mg oral tablet 20 mg, 1, tablet, By Mouth, Daily, # 30 tablet, Refills 0, Maintenance, 04/06/22 15:09:00 EDT, Partial fill upon patient request if the prescription is for a schedule II opioid drug. Start Date: 04/06/22 Status: Ordered melatonin 10 mg oral tablet 1 tablet = 10 mg, By Mouth, Daily at bedtime, 0 Refills, Maintenance, 04/16/22 16:54:00 EDT, Tablet, Partial fill upon patient request if the prescription is for a schedule II opioid drug. Start Date: 04/16/22 Status: Ordered Methadone = 90 mg, By Mouth, Daily, 0 Refills, Maintenance, 10/13/15 0:37:27 EST Start Date: 10/13/15 Status: Ordered MiraLax Powder See Instructions, 1 pack/packet (17gm) By Mouth 2 to 3 times a day ( hold if 2 or more stools/day),0 Refills, Maintenance, 04/16/22 16:54:00 EDT, Powder, Partial fill upon patient request if the prescription is for a schedule II opioid drug. Start Date: 04/16/22 Status: Ordered oxacillin 2 gm/50 ml intravenous solution = 2,000 mg, IV Infusion, Every 4 hours, Oxacillin 2gm IV q4 hourly through PICC , until 05/24/22. End date 05/24/22, # 234 each, 0 Refills, Maintenance, 04/16/22 17:08:00 EDT, Partial fill upon patient request if the prescription is for a schedule II... Start Date: 04/16/22 Status: Ordered oxyCODONE 5 mg oral tablet 10 mg, 2, tablet, By Mouth, Every 4 hours, PRN, Pt can have partial fills on request, # 30 tablet, Refills 0, Tot. Refills 0, Maintenance, Pain , Severe, 04/16/22 17:23:00 EDT, Print Requisition, Partial fill upon patient request if the prescription i... Start Date: 04/16/22 Status: Ordered Senna 8.6 mg oral tablet 17.2 mg, 2, tablet, By Mouth, Daily, Refills 0, Maintenance, 04/16/22 16:54:00 EDT, Tablet, Partialfill upon patient request if the prescription is for a schedule II opioid drug. Start Date: 04/16/22 Status: Ordered sertraline 50 mg oral tablet 1 tablet = 50 mg, By Mouth, Daily, # 30 tablet, 0 Refills, Maintenance, 04/06/22 17:41:00 EDT, Tablet, Partial fill upon patient request if the prescription is for a schedule II opioid drug. Start Date: 04/06/22 Status: Ordered tadalafil 5 mg oral tablet 1 tablet = 5 mg, By Mouth, Daily, at the same time every day, # 30 tablet, 0 Refills, Maintenance, 04/06/22 15:10:00 EDT, Tablet, Partial fill upon patient request if the prescription is for a schedule II opioid drug. Start Date: 04/06/22 Status: Ordered tolterodine 2 mg oral capsule, extended release 1 capsule = 2 mg, By Mouth, Daily, # 30 capsule, 0 Refills, Maintenance, 04/16/22 16:50:00 EDT, CR Capsule, Partial fill upon patient request if the prescription is for a schedule II opioid drug. Start Date: 04/16/22 Status: Ordered Tylenol 325 mg oral tablet 650 mg, 2, tablet, By Mouth, 4 times a day, PRN, Refills 0, Maintenance, Pain , Mild, 04/16/22 16:54:00 EDT, Partial fill upon patient request if the prescription is for a schedule II opioid drug. Start Date: 04/16/22 Status: Ordered Problem List Condition Confirmation Course Effective Dates Status [facility] Informant Obese class I Confirmed Active Patient Care team information Care Team Personnel Name: Khushboo Gaona RN Position: [facility] RN Member Role: Primary Care Nurse Name: Camila Childers Position: [facility] RN Member Role: Primary Care Nurse Name: Tim Landeros RN Position: [facility] RN Member Role: Primary Care Nurse Name: Margaret Lala RN Position: [facility] RN Member Role: Primary Care Nurse Name: Jose Mann III, MD Position: [facility] Ambulatory (view) Member Role: PCP Address: Address: [address] [place] [id number] Name: Judy Smith RN Position: [facility] AMB Nurse Member Role: Primary Care Nurse Name: Erlinda Cody RN Position: [facility] RN Member Role: Primary Care Nurse Name: Anupama Mcneill RN Position: [facility] RN Member Role: Primary Care Nurse Name: Eva Myers RN Position: [facility] RN Member Role: Primary Care Nurse Name: Garima Murry Position: [facility] RN Member Role: Primary Care Nurse Name: Melissa Mcguire RN Position: [facility] RN Member Role: Primary Care Nurse Care Team Related Persons Name: JORDAN FUCHS Address: home [address] [place] [id number]
--- OUTSIDE RECORDS SUMMARY | 2024-02-18 16:06 | XMS_ITS | Continuity of Care Document ---
Author Organization [facility] Infectious Disease Address [address] [place] [id number]- Care Team Providers Care Hotel Service Supervisor Name Role Phone Jose Mann III, MD Primary Care Physician Encounter [facility] Date(s): 06/29/22 - 07/29/22 [facility] Infectious Disease [address] [place] [id number] Allergies, Adverse Reactions, Alerts Substance Reaction Severity [...] tablet, 0 Refills, Maintenance, 05/24/22 17:02:00 EDT, [facility][id number], Partial fill upon patient request if the [...] Team Personnel Name: Khushboo Gaona RN Position: [facility] RN Member Role: Primary Care Nurse Name: Camila Childers Position: [facility] RN Member Role: Primary Care Nurse Name: Tim Landeros RN Position: [facility] RN Member Role: Primary Care Nurse Name: Margaret Lala RN Position: [facility] RN Member Role: Primary Care Nurse Name: Jose Mann III, MD Position: [facility] Ambulatory (view) Member Role: PCP Address: Address: [address] [place] [id number] Name: Judy Smith RN Position: [facility] AMB Nurse Member Role: Primary Care Nurse Name: Erlinda Cody RN Position: S RN Member Role: Primary Care Nurse Name: Anupama Mcneill RN Position: [facility] RN Member Role: Primary Care Nurse Name: Eva Myers RN Position: [facility] RN Member Role: Primary Care Nurse Name: Garima Murry Position: [facility] RN Member Role: Primary Care Nurse Name: Melissa Mcguire RN Position: [facility] RN Member Role: Primary Care Nurse Care Team Related Persons Name: JORDAN FUCHS Address: [address] [address]
--- OUTSIDE RECORDS SUMMARY | 2024-02-18 16:06 | XMS_ITS | Continuity of Care Document ---
Author Organization [facility] Infectious Disease Address [address] [place] [address]- Care Team Providers Care Printing Press Machine Operator Name Role Phone Johnathan GALAN MD, Jose Craig Primary Care Physician Encounter [facility] [place] Date(s): 04/20/22 - 06/17/22 [facility] Infectious Disease [address] [place] [id number] Attending Physician: Michael Rios MD Admitting Physician: Michael Rios MD Referring Physician: Jose Mann III, MD [...] tablet, 0 Refills, Maintenance, 05/24/22 17:02:00 EDT, [facility] #[id number], Partial fill upon patient request if the [...] Team Personnel Name: Khushboo Gaona RN Position: [facility] RN Member Role: Primary Care Nurse Name: Camila Childers Position: [facility] RN Member Role: Primary Care Nurse Name: Tim Landeros RN Position: [facility] RN Member Role: Primary Care Nurse Name: Margaret Lala RN Position: [facility] RN Member Role: Primary Care Nurse Name: Jose Mann III, MD Position: [facility] Ambulatory (view) Member Role: PCP Address: Address: [address] [place] [id number] Name: Judy Smith RN Position: [facility] AMB Nurse Member Role: Primary Care Nurse Name: Erlinda Cody RN Position: [facility] RN Member Role: Primary Care Nurse Name: Anupama Mcneill RN Position: [facility] RN Member Role: Primary Care Nurse Name: Eva Myers RN Position: [facility] RN Member Role: Primary Care Nurse Name: Garima Murry Position: [facility] RN Member Role: Primary Care Nurse Name: Melissa Ham RN Position: [facility] RN Member Role: Primary Care Nurse Care Team Related Persons Name: JORDAN FUCHS Address: [address] [place] [address]
--- OUTSIDE RECORDS SUMMARY | 2024-02-18 16:06 | XMS_ITS | Continuity of Care Document ---
Author Organization [facility] Infectious Disease Address [address] [place] [id number]- Care Team Providers Care Electrical Controls Assembler Name Role Phone Jose Mann III, MD Primary Care Physician [place] [facility] [place]22 [facility] Infectious Disease [address] [place] [id number] Attending Physician: Admtr, Ar8 Admitting Physician: Admtr, Ar8 Referring Physician: Admtr, Ar8 Allergies, Adverse Reactions, Alerts Substance Reaction Severity [...] tablet, 0 Refills, Maintenance, 05/24/22 17:02:00 EDT, [facility] #[id number], Partial fill upon patient request if the [...] Team Personnel Name: Khushboo Gaona RN Position: [facility] RN Member Role: Primary Care Nurse Name: Camila Childers Position: [facility] RN Member Role: Primary Care Nurse Name: Tim Landeros RN Position: [facility] RN Member Role: Primary Care Nurse Name: Margaret Lala RN Position: [facility] RN Member Role: Primary Care Nurse Name: Jose Mann III, MD Position: [facility] Ambulatory (view) Member Role: PCP Address: Address: [address] [place] [id number] Name: Judy Smith RN Position: [facility] AMB Nurse Member Role: Primary Care Nurse Name: Erlinda Cody RN Position: [facility] RN Member Role: Primary Care Nurse Name: Anupama Mcneill RN Position: [facility] RN Member Role: Primary Care Nurse Name: Eva Myers RN Position: [facility] RN Member Role: Primary Care Nurse Name: Garima Murry Position: [facility] RN Member Role: Primary Care Nurse Name: Melissa Mcguire RN Position: [facility] RN Member Role: Primary Care Nurse Care Team Related Persons Name: JORDAN FUCHS Address: home [address] [place] [id number]
--- OUTSIDE RECORDS SUMMARY | 2024-02-18 16:06 | XMS_ITS | Continuity of Care Document ---
Author Organization [facility] ter Address [address] [place] [id number]- Care Team Providers Care Mold Operator Name Role Phone Johnathan GALAN MD, Jose Craig Primary Care Physician [phone] Encounter [facility] Date(s): 04/06/22 - 04/16/[address] [id number] Encounter Diagnosis Effusion, right knee(Final) - 04/06/22 Discharge Disposition: Disch/Trans to IP Rehab or unit w/in Hos Attending Physician: Sameer Chaudhry MD Admitting Physician: Karmen Winters MD Referring Physician: Not on Staff, Referring MD Allergies, Adverse Reactions, Alerts Substance Reaction [...] opioid drug. Start Date: 04/16/22 Status: Ordered gabapentin 300 mg oral capsule [...] opioid drug. Start Date: 04/16/22 Status: Ordered Lidocaine 1% Inj 0.5 mL, Injection, Intradermal, Once, PICC placement, Routine, 04/16/22 17:00:00 EDT, Stop date 04/16/22 17:00:00 EDT Start Date: 04/16/22 Stop Date: 04/16/22 Status: Completed lisinopril 20 mg oral tablet 20 mg, Tablet, By Mouth, 04/16/22 9:00:00 EDT Start Date: 04/16/22 Stop Date: 04/16/22 Status: Completed lisinopril 20 mg oral tablet 20 mg, [...] 0:37:27 EST Start Date: 10/13/15 Status: Ordered Methadone 22 mg, Solution, By Mouth, Once, This one time dose prior to discharge to SNF, for total dose todayof 88mg, STAT, 04/16/22 17:57:00 EDT, Stop date 04/16/22 17:57:00 EDT Start Date: 04/16/22 Stop Date: 04/16/22 Status: Completed MiraLax Powder See Instructions, 1 pack/packet (17gm) [...] Status: Ordered oxyCODONE 5 mg oral tablet 15 mg, Tablet, By Mouth, Every 4 hours, Hold for: sedation, lethargy, RR < 10, PRN for Pain , Severe, Routine, 04/14/22 18:29:00 EDT Start Date: 04/14/22 Stop Date: 04/17/22 Status: Discontinued oxyCODONE 5 mg oral tablet 10 mg, [...] Date: 04/16/22 Status: Ordered Problem List Condition Effective Dates Status Health Status Inform ant Obese class I(Confirmed) Active Procedures Procedure Date Related Diagnosis Body Site Status Arthrotomy, knee, with explo ration, drainage, or removal of foreign body (eg, infection) 04/07/22 Completed Results Orders for Microbiology Reports Name Date Blood Culture 04/13/22 Blood Culture #2 04/13/22 Blood Culture 04/10/22 Blood Culture #2 04/10/22 Blood Culture #2 (BLOOD CULTURE 2) 2 Blood Culture 04/08/22 Anaerobic Culture (ANAEROBIC CULTURE) Sterile Body Fluid Culture W/ Gram Smear (STERILE FLUID CULT.) 04/07/22 Anaerobic Culture (Culture Anaerobic) Sterile Body Fluid Culture W / Gram Smear (Culture Sterile Body Fluid w/ Gram Smear) 04/06/22 Microbiology Reports (Most Recent Ten) TEST:Blood Culture, Second Order STATUS:Unauthenticated BODY SITE: SOURCE:Blood COLLECTED DATE/TIME:04/13/22 4:20 PM Blood Culture, Second Order SPECIMEN DESCRIPTION : BLOOD LHAND SPECIAL REQUESTS : NONE CULTURE : NO GROWTH 3 DAYS REPORT STATUS : PRELIMINARY REPORT TEST:Blood Culture STATUS:Unauthenticated BODY SITE: SOURCE:Blood COLLECTED DATE/TIME:04/13/22 4:06 PM Blood Culture SPECIMEN DESCRIPTION : BLOOD L HAND SPECIAL REQUESTS : NONE CULTURE : NO GROWTH 3 DAYS REPORT STATUS : PRELIMINARY REPORT TEST:Blood Culture, Second Order STATUS:Auth (Verified) BODY SITE: SOURCE:Blood COLLECTED DATE/TIME:04/10/22 3:24 PM Blood Culture, Second Order SPECIMEN DESCRIPTION : BLOOD R HAND SPECIAL REQUESTS : CRITICAL VALUE CALLED AND VERIFIED BY READBACK FOR: GRAM POSITIVE COCCI TO [id number],S14,04/11 AT 1500 BY TECH 155 CULTURE : STAPHYLOCOCCUS AUREUS. This isolate was identified using Maldi-TOF system REPORT STATUS : FINAL 04/13/2022 ORGANISM STAPHYLOCOCCUS AUREUS. This isolate was identified using Maldi-TOF system METHOD MIN. INHIB. CONC. (MCG/ML) CIPROFLOXACIN SUSCEPTIBLE CLINDAMYCIN SUSCEPTIBLE ERYTHROMYCIN RESISTANT INDUCIBLE CLINDAMYCI NEGATIVE LEVOFLOXACIN SUSCEPTIBLE OXACILLIN SUSCEPTIBLE PENICILLIN RESISTANT RIFAMPIN SUSCEPTIBLE RIFAMPIN RIFAMPIN SHOULD NOT BE USED ALONE FOR ANTIMICROBIAL RIFAMPIN THERAPY. TETRACYCLINE SUSCEPTIBLE TRIMETH/SULFAMETHOX SUSCEPTIBLE VANCOMYCIN SUSCEPTIBLE TEST:Blood Culture STATUS:Auth (Verified) BODY SITE: SOURCE:Blood COLLECTED DATE/TIME:04/10/22 3:18 PM Blood Culture SPECIMEN DESCRIPTION : BLOOD L HAND SPECIAL REQUESTS : NONE CULTURE : NO GROWTH 5 DAYS. REPORT STATUS : FINAL 04/15/2022 TEST:Blood Culture, Second Order STATUS:Auth (Verified) BODY SITE: SOURCE:Blood COLLECTED DATE/TIME:04/09/22 3:48 AM Blood Culture, Second Order SPECIMEN DESCRIPTION : BLOOD NOSITE SPECIAL REQUESTS : CRITICAL VALUE CALLED AND VERIFIED BY READBACK FOR: GRAM POSITIVE COCCI CALLED FALGUNI [id number] S1 ON 04/10/222220 BY TECH 5777 CULTURE : STAPHYLOCOCCUS AUREUS. This isolate was identified using Maldi-TOF system REPORT STATUS : FINAL 04/13/2022 ORGANISM STAPHYLOCOCCUS AUREUS. This isolate was identified using Maldi-TOF system METHOD MIN. INHIB. CONC. (MCG/ML) CIPROFLOXACIN SUSCEPTIBLE CLINDAMYCIN SUSCEPTIBLE ERYTHROMYCIN RESISTANT INDUCIBLE CLINDAMYCI NEGATIVE LEVOFLOXACIN SUSCEPTIBLE OXACILLIN SUSCEPTIBLE PENICILLIN RESISTANT RIFAMPIN SUSCEPTIBLE RIFAMPIN RIFAMPIN SHOULD NOT BE USED ALONE FOR ANTIMICROBIAL RIFAMPIN THERAPY. TETRACYCLINE SUSCEPTIBLE TRIMETH/SULFAMETHOX SUSCEPTIBLE VANCOMYCIN SUSCEPTIBLE TEST:Blood Culture STATUS:Auth (Verified) BODY SITE: SOURCE:Blood COLLECTED DATE/TIME:04/08/22 4:44 PM Blood Culture SPECIMEN DESCRIPTION : BLOOD R AC SPECIAL REQUESTS : NONE CULTURE : NO GROWTH 5 DAYS. REPORT STATUS : FINAL 04/13/2022 TEST:Anaerobic Culture STATUS:Auth (Verified) BODY SITE: SOURCE:FLUID COLLECTED DATE/TIME:04/07/22 4:45 PM Anaerobic Culture SPECIMEN DESCRIPTION : FLUID RTKNEEFL SPECIAL REQUESTS : NONE CULTURE : NO ANAEROBES ISOLATED REPORT STATUS : FINAL 04/12/2022 TEST:Sterile Fluid Culture STATUS:Modified/Amended/Corrected BODY SITE: SOURCE:FLUID COLLECTED DATE/TIME:04/07/22 4:45 PM Sterile Fluid Culture SPECIMEN DESCRIPTION : FLUID RTKNEEFL SPECIAL REQUESTS : NONE GRAM STAIN : 3+ POLYMORPHONUCLEAR LEUKOCYTES NO ORGANISMS SEEN CULTURE : 3+ STAPHYLOCOCCUS AUREUS. This isolate was identified using Maldi-TOF system These AST results were performed on the Microscan ID and AST system CRITICAL VALUE CALLED AND VERIFIED BY READBACK FOR: FLUID CULTURE TO [id number] ON S4 AT 0755 ON 04/09 22 TECH 152. REPORT STATUS : FINAL 04/10/2022 ORGANISM 3+ STAPHYLOCOCCUS AUREUS. This isolate was identified using Maldi-TOF system These AST results were performed on the Microscan ID and AST system METHOD MIN. INHIB. CONC. (MCG/ML) CIPROFLOXACIN SUSCEPTIBLE CLINDAMYCIN SUSCEPTIBLE ERYTHROMYCIN RESISTANT INDUCIBLE CLINDAMYCI NEGATIVE LEVOFLOXACIN SUSCEPTIBLE OXACILLIN SUSCEPTIBLE PENICILLIN RESISTANT RIFAMPIN SUSCEPTIBLE RIFAMPIN RIFAMPIN SHOULD NOT BE USED ALONE FOR ANTIMICROBIAL RIFAMPIN THERAPY. TETRACYCLINE SUSCEPTIBLE TRIMETH/SULFAMETHOX SUSCEPTIBLE VANCOMYCIN SUSCEPTIBLE TEST:Anaerobic Culture STATUS:Auth (Verified) BODY SITE: SOURCE:ASPIRA COLLECTED DATE/TIME:04/06/22 10:27 AM Anaerobic Culture SPECIMEN DESCRIPTION : ASPIRATE KNEE RT SPECIAL REQUESTS : NONE CULTURE : NO ANAEROBES ISOLATED REPORT STATUS : FINAL 04/09/2022 TEST:Sterile Fluid Culture STATUS:Auth (Verified) BODY SITE: SOURCE:JOINT COLLECTED DATE/TIME:04/06/22 10:27 AM Sterile Fluid Culture SPECIMEN DESCRIPTION : JOINT FLUID SPECIAL REQUESTS : NONE GRAM STAIN : 4+ POLYMORPHONUCLEAR LEUKOCYTES NO ORGANISMS SEEN CULTURE : 2+ STAPHYLOCOCCUS AUREUS. This isolate was identified using Maldi-TOF system For identification and susceptibility results, refer to wound culture accession. [id number] REPORT STATUS : FINAL 04/08/2022 Radiology Reports * Exam Date Time Procedure Performing Provider Status 04/06/22 12:11 PM Shoulder Min 2 Views Left Mikhail Henning; Auth (Verified) Notes: (Shoulder Min 2 Views Left) Reason For Exam: Trauma RESULT: Shoulder Min 2 Views Left Clavicle 2 views Complete Left, Shoulder 2 Views Left REASON: Trauma; Clinical Question(s): Bursitis COMPARISON: Chest radiograph 09/15/2017. FINDINGS: No fractures or dislocation. Mild osteoarthritis of the glenohumeral and acromioclavicular joints. Rotator cuff calcific tendinopathy. IMPRESSION: No left shoulder fracture or dislocation. No left clavicular fracture or dislocation. I have personally reviewed the images and I agree with this report. WSN: [id number] Ordering Physician: Eva Puckett Dictated By: Selene Morris DO Dictated Date/Time: 04/06/22 1:22 pm Reviewed By: Wagner Erickson MD Signed By: Wagner Erickson MD Signed Date/Time: 04/06/22 1:27 pm Transcribed By: JUDY Transcribed Date/Time: 04/06/22 1:16 pm * Exam Date Time Procedure Performing Provider Status 04/06/22 12:11 PM Clavicle Complete Left Gildardo Henning; Auth (Verified) Notes: (Clavicle Complete Left) Reason For Exam: Trauma RESULT: Clavicle Complete Left Clavicle 2 views Complete Left, Shoulder 2 Views Left REASON: Trauma; Clinical Question(s): Bursitis COMPARISON: Chest radiograph 09/15/2017. FINDINGS: No fractures or dislocation. Mild osteoarthritis of the glenohumeral and acromioclavicular joints. Rotator cuff calcific tendinopathy. IMPRESSION: No left shoulder fracture or dislocation. No left clavicular fracture or dislocation. I have personally reviewed the images and I agree with this report. WSN: [id number] Ordering Physician: Eva Puckett Dictated By: Selene Morris DO Dictated Date/Time: 04/06/22 1:22 pm Reviewed By: Wagner Erickson MD Signed By: Wagner Erickson MD Signed Date/Time: 04/06/22 1:27 pm Transcribed By: JUDY Transcribed Date/Time: 04/06/22 1:16 pm * Exam Date Time Procedure Performing Provider Status 04/05/22 8:10 PM Knee 1 or 2 Views Right Zhanna , All ross; Auth (Verified) Notes: (Knee 1 or 2 Views Right) Reason For Exam: with Pain;Trauma RESULT: Knee 1 or 2 Views Right Knee 1 or 2 Views Right, 2 views INDICATION: R leg swelling; Reason: Trauma; with Pain; Clinical Question(s): Fracture COMPARISON: Right knee MRI 10/31/2017. FINDINGS: There is no evidence of acute or healing fracture, dislocation or bone lesion. Severe medial and moderate lateral tibiofemoral osteoarthritis. Moderate patellofemoral osteoarthritis. There are erosive changes of the medial femoral condyle and tibial plateau. No intra-articular loose body. Large joint effusion. IMPRESSION: No acute fracture or dislocation. Severe medial tibiofemoral degenerative changes with erosive changes along the medial aspect. Largejoint effusion. Finding could be due to chronic erosive osteoarthritis versus septic arthritis. Please correlate clinically. A critical result message ([place]) has been communicated via the [employer] system on 04/05/2022 8:48 PM, Message ID [id number]. I have personally reviewed the images and I agree with this report. WSN: [id number] Ordering Physician: Jordan Cano Dictated By: Selene Morris DO Dictated Date/Time: 04/05/22 8:48 pm Reviewed By: Tino Gasca MD Signed By: Tino Gasca MD Signed Date/Time: 04/05/22 8:53 pm Transcribed By: JUDY Transcribed Date/Time: 04/05/22 8:39 pm Vital Signs Most recent to oldest [Reference Range]: 1 2 3 Height 189 cm (04/16/22 4:06 PM) 189 cm (04/16/22 3:43 AM) 189 cm (04/15/22 9:16 PM) Weight 134.7 kg (04/07/22 7:39 PM) 121.4 kg (04/07/22 3:44 PM) 121.4 kg (04/06/22 5:29 PM) Oxygen Saturation [94-100 %] 97 % (04/16/22 4:06 PM) 100 % (04/16/22 7:00 AM) 95 % (04/16/22 3:43 AM) Pulse Rate [55-90 bpm] 87 bpm (04/16/22 4:06 PM) 78 bpm (04/16/22 7:00 AM) 70 bpm (04/16/22 3:43 AM) Body Mass Index [18.5-24.99] 33.99 *>HHI* (04/07/22 3:44 PM) 33.99 *>HHI* (04/06/22 5:29 PM) Blood Pressure [90-138/55-84 mm Hg] 152/90mm Hg *H* (04/16/22 4:06 PM) 139/84mm Hg *H* (04/16/22 7:51 AM) 112/72mm Hg (04/16/22 3:43 AM) Respiratory Rate [16-30 br/min] 18 br/min (04/16/22 6:12 PM) 18 br/min (04/16/22 5:40 PM) 20 br/min (04/16/22 4:30 PM) Temperature [96.8-100.4 DegF] 98.5 DegF (04/16/22 4:06 PM) 99.7 DegF (04/16/22 7:00 AM) 99.1 DegF (04/16/22 3:43 AM) Liters per Minute 6 L/min (04/07/22 5:45 PM) 6 L/min (04/07/22 5:30 PM) Mode of Delivery (Oxygen) Room air (04/16/22 4:06 PM) Room air (04/16/22 7:00 AM) Room air (04/16/22 3:43 AM) Blood pressure sites Arm, right (04/16/22 4:06 PM) Arm, right (04/16/22 7:00 AM) Arm, right (04/16/22 3:43 AM) Temperature Route Oral (04/16/22 4:06 PM) Oral (04/16/22 3:43 AM) Oral (04/15/22 9:16 PM) Dry Weight 121.4 kg (04/07/22 3:44 PM) 121.4 kg (04/06/22 5:29 PM) XR Knee - right 1 or 2 Views * [facility] , CIS S: TRANSCRIBE Tino Gasca MD: VERIFY Selene Morris DO: SIGN Event Display: Result: Authored Date: [id number] Knee 1 or 2 Views Right, 2 views INDICATION: R leg swelling; Reason: Trauma; with Pain; Clinical Question(s): Fracture COMPARISON: Right knee MRI 10/31/2017. FINDINGS: There is no evidence of acute or healing fracture, dislocation or bone lesion. Severe medial and moderate lateral tibiofemoral osteoarthritis. Moderate patellofemoral osteoarthritis. There are erosive changes of the medial femoral condyle and tibial plateau. No intra-articular loose body. Large joint effusion. IMPRESSION: No acute fracture or dislocation. Severe medial tibiofemoral degenerative changes with erosive changes along the medial aspect. Largejoint effusion. Finding could be due to chronic erosive osteoarthritis versus septic arthritis. Please correlate clinically. A critical result message ([place]) has been communicated via the [employer] system on 04/05/2022 8:48 PM, Message ID [id number]. I have personally reviewed the images and I agree with this report. WSN: [id number] Ordering Physician: Jordan Cano Dictated By: Selene Morris DO Dictated Date/Time: 04/05/22 8:48 pm Reviewed By: Tino Gasca MD Signed By: Tino Gasca MD Signed Date/Time: 04/05/22 8:53 pm Transcribed By: JUDY Transcribed Date/Time: 04/05/22 8:39 pm Note * [facility] , CIS S: TRANSCRIBE Georgina DAMON Wagner: VERIFY Selene Morris DO P: SIGN Event Display: Result: Authored Date: [id number] Clavicle 2 views Complete Left, Shoulder 2 Views Left REASON: Trauma; Clinical Question(s): Bursitis COMPARISON: Chest radiograph 09/15/2017. FINDINGS: No fractures or dislocation. Mild osteoarthritis of the glenohumeral and acromioclavicular joints. Rotator cuff calcific tendinopathy. IMPRESSION: No left shoulder fracture or dislocation. No left clavicular fracture or dislocation. I have personally reviewed the images and I agree with this report. WSN: [id number] Ordering Physician: Eva Puckett Dictated By: Selene Morris DO Dictated Date/Time: 04/06/22 1:22 pm Reviewed By: Wagner Erickson MD Signed By: Wagner Erickson MD Signed Date/Time: 04/06/22 1:27 pm Transcribed By: JUDY Transcribed Date/Time: 04/06/22 1:16 pm * [facility] , CIS S: TRANSCRIBE Georgina DAMON Wagner: VERIFY Selene Morris DO P: SIGN Event Display: Result: Authored Date: [id number] Clavicle 2 views Complete Left, Shoulder 2 Views Left REASON: Trauma; Clinical Question(s): Bursitis COMPARISON: Chest radiograph 09/15/2017. FINDINGS: No fractures or dislocation. Mild osteoarthritis of the glenohumeral and acromioclavicular joints. Rotator cuff calcific tendinopathy. IMPRESSION: No left shoulder fracture or dislocation. No left clavicular fracture or dislocation. I have personally reviewed the images and I agree with this report. WSN: [id number] Ordering Physician: Eva Puckett Dictated By: Selene Morris DO Dictated Date/Time: 04/06/22 1:22 pm Reviewed By: Wagner Erickson MD Signed By: Wagner Erickson MD Signed Date/Time: 04/06/22 1:27 pm Transcribed By: JUDY Transcribed Date/Time: 04/06/22 1:16 pm Care Team Personnel Name: Jose Mann III, MD Address: [address] [place] [address] GORDON Echols [id number]
--- OUTSIDE RECORDS SUMMARY | 2024-02-18 16:06 | XMS_ITS | Continuity of Care Document ---
Author Organization [facility] Address [address] [place] [id number]- Care Team Providers Care Overlock Hemmer Name Role Phone Jose Mann III, MD Primary Care Physician [phone] En[place] [facility] [place](s): 06/15/22 - 07/29/22 [facility] [address] [place] [id number] Attending Physician: Erica Guillen MD Admitting Physician: [...] tablet, 0 Refills, Maintenance, 05/24/22 17:02:00 EDT, [id number], Partial fill upon patient request if the [...] Team Personnel Name: Khushboo Gaona RN Position: [facility] RN Member Role: Primary Care Nurse Name: Camila Childers Position: [facility] RN Member Role: Primary Care Nurse Name: Tim Landeros RN Position: [facility] RN Member Role: Primary Care Nurse Name: Margaret Lala RN Position: [facility] RN Member Role: Primary Care Nurse Name: Jose Mann III, MD Position: [facility] Ambulatory (view) Member Role: PCP Address: Address: [address] [place] [id number] Name: Judy Smith RN Position: [facility] AMB Nurse Member Role: Primary Care Nurse Name: Erlinda Cody RN Position: [facility] RN Member Role: Primary Care Nurse Name: Anupama Mcneill RN Position: [facility] RN Member Role: Primary Care Nurse Name: Eva Myers RN Position: [facility] RN Member Role: Primary Care Nurse Name: Garima Murry Position: [facility] RN Member Role: Primary Care Nurse Name: Melissa Mcguire RN Position: [facility] RN Member Role: Primary Care Nurse Care Team Related Persons Name: JORDAN FUCHS Address: home [address] [place] [id number]
--- OUTSIDE RECORDS SUMMARY | 2024-02-18 16:07 | XMS_ITS | Continuity of Care Document ---
Author Organization [facility] Address [address] [place] [address]- Care Team Providers Care Bathing Suit Maker Name Role Phone Johnathan GALAN MD, Jose Craig Primary Care Physician En[place] [facility] [place] Date(s): 06/06/23 - 07/10/23 [facility] [address] [place] [id number] Attending Physician: Erica Guillen MD Admitting Physician: Erica Guillen MD Allergies, Adverse Reactions, Alerts Substance Reaction [...] tablet, 0 Refills, Maintenance, 05/24/22 17:02:00 EDT, [id number], Partial fill upon patient request if the [...] Team Personnel Name: Khushboo Gaona RN Position: S RN Member Role: Primary Care Nurse Name: Camila Childers Position: S RN Member Role: Primary Care Nurse Name: Tim Landeros RN Position: S RN Member Role: Primary Care Nurse Name: Margaret Lala RN Position: S RN Member Role: Primary Care Nurse Name: Jose Mann III, MD Position: Reference Physician Member Role: PCP Address: Address: [address] [place] [id number] Name: Erlinda Cody RN Position: S RN Member Role: Primary Care Nurse Name: Anupama Mcneill RN Position: S RN Member Role: Primary Care Nurse Name: Garima Murry RN [facility] RN Member Role: Primary Care Nurse Care Team Related Persons Name: JORDAN FUCHS Address: [address] [address]
--- OUTSIDE RECORDS SUMMARY | 2024-02-18 16:07 | XMS_ITS | Continuity of Care Document ---
Author Organization [facility] ter Address [address] [place] [address]- Care Team Providers Care Front End Architect Name Role Phone Johnathan GALAN MD, Jose Craig Primary Care Physician [phone] [place] [facility] [place] Date(s[place] 03/12/20 - 04/25/[address] [address]- [facility] Attending Physician: Mik Antunez MD Allergies, Adverse Reactions, Alerts Substance Reaction Severity Status morphine rash Active Onions raw onions-lips swell Active Medications Colace sodium 100 mg oral capsule 100 mg, 1, capsule, By Mouth, 2 times a day, Refills 0, Maintenance, 09/19/17 15:47:57 Start Date: 09/19/17 Status: Ordered Enoxaparin 0.4 mL = 40 mg, Subcutaneous Injection, Every 24 hours, 0 Refills, Maintenance, 09/19/17 15:47:59, Injection Start Date: 09/19/17 Status: Ordered Flomax 0.4 mg oral capsule 0.4 mg, By Mouth, Daily, Refills 0, Maintenance, 09/19/17 15:48:40 Start Date: 09/19/17 Status: Ordered Flonase 50 mcg/inh nasal spray 2 sprays = 100 mcg, Nares, Both, Daily, 0 Refills, Maintenance, 09/19/17 15:48:18, Nasal [place] Start Date: 09/19/17 Status: Ordered gabapentin 300 mg oral capsule 300 mg, By Mouth, 3 times a day, Refills 0, Maintenance, 09/19/17 15:48:20 Start Date: 09/19/17 Status: Ordered HYDROmorphone 4 mg oral tablet = 4 mg, By Mouth, Every 4 hours, PRN Pain , Severe, 0 Refills, Maintenance, 09/19/17 15:49:30, Tablet Start Date: 09/19/17 Status: Ordered lisinopril 10 mg oral tablet 2 tablet = 20 mg, By Mouth, Daily, 0 Refills, Maintenance Start Date: 09/18/09 Stop Date: 10/18/09 Status: Ordered Methadone = 83 mg, By Mouth, Daily, 0 Refills, Maintenance, 10/13/15 0:37:27 Start Date: 10/13/15 Status: Ordered Milk of Magnesia Liquid 30 mL, By Mouth, Daily, PRN Constipation, 0 Refills, Maintenance, 09/19/17 15:48:33, Suspension Start Date: 09/19/17 Status: Ordered MiraLax Powder 1 pack/packet = 17 Gm, By Mouth, Daily, 0 Refills, Maintenance, 09/19/17 15:48:36, Powder Start Date: 09/19/17 Status: Ordered Omeprazole = 40 mg, By Mouth, Daily, 0 Refills, Maintenance, 09/15/17 23:01:06 Start Date: 09/15/17 Status: Ordered Pt.'s Own Meds inhaler, Inhalation, 2 times a day, PRN, Maintenance, 03/25/16 15:26:17 Start Date: 03/25/16 Status: Ordered Senna 8.6 mg oral tablet 8.6 mg, 1, tablet, By Mouth, Daily, Refills 0, Maintenance, 09/19/17 15:48:37, Tablet Start Date: 09/19/17 Status: Ordered tiZANidine 4 mg oral tablet 4 mg, By Mouth, 3 times a day, PRN, Refills 0, Maintenance, Pain , Severe, 09/19/17 15:48:42 Start Date: 09/19/17 Status: Ordered Tylenol 325 mg oral tablet 975 mg, By Mouth, 3 times a day, Refills 0, Maintenance, 09/19/17 15:47:41 Start Date: 09/19/17 Status: Ordered zolpidem 10 mg oral tablet 1 tablet = 10 mg, By Mouth, Daily at bedtime, PRN for sleep, 0 Refills, Maintenance, Tablet Start Date: 05/18/12 Status: Ordered Vital Signs Most recent to oldest [Reference Range]: 1 Height 187.96 cm (03/12/20 3:55 PM)
--- OUTSIDE RECORDS SUMMARY | 2024-02-18 16:07 | XMS_ITS | Continuity of Care Document ---
Author Organization [facility] Address [address] [place] [address]- Care Team Providers Care College Basketball Coach Name Role Phone Jose Mann III, MD Primary Care Physician [phone] Encounter [facility] [place] Date(s): 06/13/23 - 07/24/23 [facility] [address] [place] [id number] Attending Physician: Erica Guillen MD Admitting Physician: [...] tablet, 0 Refills, Maintenance, 05/24/22 17:02:00 EDT, [id number], Partial fill upon patient request if the [...] Reference Physician Member Role: PCP Address: Address: [address] [place] [id number] Name: Erlinda Cody RN Position: S RN Member Role: Primary Care Nurse Name: Anupama Mcneill RN Position: S RN Member Role: Primary Care Nurse Name: Garima Murry RN Position: [facility] SN RN Member Role: Primary Care Nurse Care Team Related Persons Name: JODRAN FUCHS Address: [address] [address]
--- OUTSIDE RECORDS SUMMARY | 2024-02-18 16:07 | XMS_ITS | Continuity of Care Document ---
Author Organization [facility] Address [address] [place] [id number]- Care Team Providers Care Pattern Marker Name Role Phone Jose Mann III, MD Primary Care Physician Encounter [facility] Date(s): 06/24/23 - 07/24/23 [facility] [address] [place] [id number] Attending Physician: Admtr, [id number] Admitting Physician: Admtr, [...] tablet, 0 Refills, Maintenance, 05/24/22 17:02:00 EDT, [facility][id number], Partial fill upon patient request if the [...] Reference Physician Member Role: PCP Address: Address: [address] [place] [id number] Name: Erlinda Cody RN Position: S RN Member Role: Primary Care Nurse Name: Anupama Mcneill RN Position: S RN Member Role: Primary Care Nurse Name: Garima Murry RN Position: [facility] SN RN Member Role: Primary Care Nurse Care Team Related Persons Name: JORDAN FUCHS Address: [address] [id number]
--- OUTSIDE RECORDS SUMMARY | 2024-02-18 16:07 | XMS_ITS | Summary of Care ---
Author Organization [facility] Address [address] [place] [address]- Encounter 09/19/17 - 10/02/17 [facility] [address] [place] [address]- Discharge Diagnosis: Chronic low back pain Discharge Diagnosis: Asthma Discharge Diagnosis: Obesity Discharge Diagnosis: Anxiety Discharge Diagnosis: GERD - Gastro-esophageal reflux disease Discharge Diagnosis: HTN - Hypertension Discharge Diagnosis: Closed fracture ankle, trimalleolar Attending Physician: Apolinar Jacob MD Vital Signs Most recent to oldest [Reference Range]: 1 2 3 Temperature Oral F [96.4-99.1 DegF] 96.8 DegF (10/02/17 6:25 AM) 97.2 DegF (10/01/17 4:00 PM) 97.2 DegF (10/01/17 6:14 AM) Peripheral Pulse Rate [60-100 bpm] 59 bpm *LOW* (10/02/17 6:25 AM) 68 bpm (10/01/17 4:00 PM) 63 bpm (10/01/17 6:14 AM) Respiratory Rate [14-20 br/min] 20 br/min (10/02/17 6:25 AM) 18 br/min (10/01/17 4:00 PM) 16 br/min (10/01/17 6:14 AM) Systolic Blood Pressure [90-140 mmHg] 135 mmHg (10/02/17 6:25 AM) 111 mmHg (10/01/17 4:00 PM) 128 mmHg (10/01/17 6:14 AM) Diastolic Blood Pressure [60-90 mmHg] 70 mmHg (10/02/17 6:25 AM) 56 mmHg *LOW* (10/01/17 4:00 PM) 65 mmHg (10/01/17 6:14 AM) Vital Signs Additional Information Vital signs taken in sitting. (09/20/17 10:00 AM) Temperature Oral [35.8-37.3 DegC] 36 DegC (10/02/17 6:25 AM) 36.2 DegC (10/01/17 4:00 PM) 36.2 DegC (10/01/17 6:14 AM) Problem List Condition Effective Dates Status Health Status Inform ant Anxiety(Confirmed) Active Asthma(Confirmed) Active Chronic low back pain(Confirmed) Active Closed fracture ankle, trimalleolar(Confirmed) 1 Active GERD - Gastro-esophageal ref lux disease(Confirmed) Active HTN - Hypertension(Confirmed) Active Obesity(Confirmed) Active 1left, displaced Allergies, Adverse Reactions, Alerts Substance Reaction Severity Status morphine Active Onion 1 Mild Active 1raw onions - lips swell Medications acetaminophen 325 mg oral tablet 975 mg = 3 tab, Tab, Oral, TID, 0 Refill(s) Start Date: 09/28/17 Status: Ordered Ambien 5 mg oral tablet 10 mg = 2 tab, Tab, Oral, QHS PRN, 14 tab, 0 Refill(s), Dispense: 7 day, Insomnia, Stop date 10/05/17 10:37:00 EST, Print Requisition Start Date: 09/28/17 Stop Date: 10/05/17 Status: Ordered Ativan 1 mg oral tablet 1 mg = 1 tab, Tab, Oral, Daily PRN, 7 tab, 0 Refill(s), Dispense: 7 day, Anxiety, Stop date 10/05/17 10:36:00 EST, Print Requisition Start Date: 09/28/17 Stop Date: 10/05/17 Status: Ordered Benadryl 25 mg oral capsule 50 mg = 2 cap, Cap, Oral, q6hr PRN, 0 Refill(s), Itching Start Date: 09/28/17 Status: Ordered enoxaparin 40 mg/0.4 mL injectable solution 40 mg = 0.4 mL, Soln-Inj, Subcutaneous, Daily, 5.6 mL, 0 Refill(s), Dispense: 14 day, Stop date 10/12/17 10:35:00 EST, Print Requisition Start Date: 09/28/17 Stop Date: 10/12/17 Status: Ordered Flonase 50 mcg/inh nasal spray 100 mcg, 2 spray, Goodwin-Nasal, Nasal, Daily, 0 Refill(s) Start Date: 09/28/17 Status: Ordered gabapentin 300 mg oral capsule 300 mg = 1 cap, Cap, Oral, TID, 90 cap, 0 Refill(s), Print Requisition Start Date: 09/28/17 Status: Ordered hydrocortisone 2.5% topical cream 1 rachael, Cream, TOP q6hr, PRN, Refill(s) 0, Itching Start Date: 09/28/17 Status: Ordered HYDROmorphone 4 mg oral tablet 4 mg = 1 tab, Tab, Oral, q4hr PRN, 42 tab, 0 Refill(s), Dispense: 7 day, PAIN (Scale 1-10), Stop date 10/05/17 10:35:00 EST, Print Requisition Start Date: 09/28/17 Stop Date: 10/05/17 Status: Ordered lisinopril 20 mg oral tablet 20 mg = 1 tab, Tab, Oral, Daily, 30 tab, 0 Refill(s), Print Requisition Start Date: 09/28/17 Status: Ordered methadone 10 mg oral tablet 80 mg = 8 tab, Tab, Oral, Daily, 0 Refill(s) Start Date: 09/28/17 Status: Ordered methadone 5 mg oral tablet 2.5 mg = 0.5 tab, Tab, Oral, Daily, 0 Refill(s) Start Date: 09/28/17 Status: Ordered Multiple Vitamins with Minerals oral tablet 1 tab, Tab, Oral, QLUNCH, 0 Refill(s) Start Date: 09/28/17 Status: Ordered Os-Salo 500 + D 1 tab, Tab, Oral, BIDmeals, 0 Refill(s) Start Date: 09/28/17 Status: Ordered polyethylene glycol 3350 17 gm, Powder-Recon, Oral, Daily, 0 Refill(s) Start Date: 09/28/17 Status: Ordered Protonix 40 mg oral delayed release tablet 40 mg = 1 tab, Tab-DR, Oral, Before breakfast, 30 tab, 0 Refill(s), Print Requisition Start Date: 09/28/17 Status: Ordered senna 8.6 mg oral tablet 8.6 mg = 1 tab, Tab, Oral, Daily, 0 Refill(s) Start Date: 09/28/17 Status: Ordered tamsulosin 0.4 mg oral capsule 0.4 mg = 1 cap, Cap, Oral, Daily, 30 cap, 0 Refill(s), Print Requisition Start Date: 09/28/17 Status: Ordered tiZANidine 4 mg oral tablet 4 mg = 1 tab, Tab, Oral, q8hr PRN, 21 tab, 0 Refill(s), Muscle spasms, Print Requisition Start Date: 09/28/17 Stop Date: 10/05/17 Status: Ordered Results LABORATORY Most recent to oldest [Reference Range]: 1 2 3 Glucose POC RALS [74-106 mg/dL] 95 mg/dL (09/27/17 4:20 PM) 115 mg/dL *HI* (09/27/17 5:54 AM) 83 mg/dL (09/26/17 4:25 PM) Blood Glucose Testing Reason Physician order (09/22/17 9:13 PM) Blood Glucose Stick Site Right (09/22/17 9:13 PM) Estimated Creatinine Clearance 206.47 mL/min (10/01/17 6:15 AM) 206.47 mL/min (09/24/17 6:32 AM) 206.47 mL/min (09/23/17 5:07 PM) Creatinine Level 0.52 mg/dL (09/23/17 5:07 PM) 0.47 mg/dL (09/20/17 11:28 AM)
--- OUTSIDE RECORDS SUMMARY | 2024-02-18 16:07 | XMS_ITS | Continuity of Care Document ---
Author Organization [facility] Infect[facility] Disease Address [address] [place] [id number]- Care Team Providers Care Screwmaker Automatic Name Role Phone Jose Mann III, MD Primary Care Physician Encounter [facility] Date(s): 06/06/23 - 07/06/23 [facility] [address] [place] [id number] Allergies, Adverse Reactions, Alerts Substance Reaction Severity [...] tablet, 0 Refills, Maintenance, 05/24/22 17:02:00 EDT, [facility] #[id number], Partial fill upon patient request if the [...] Reference Physician Member Role: PCP Address: Address: [address] [place] [id number] Name: Erlinda Cody RN Position: S RN Member Role: Primary Care Nurse Name: Anupama Mcneill RN Position: S RN Member Role: Primary Care Nurse Name: Garima Murry RN Position: [facility] SN RN Member Role: Primary Care Nurse Care Team Related Persons Name: JORDAN FUCHS Address: [place] [address]
--- OUTSIDE RECORDS SUMMARY | 2024-02-18 16:07 | XMS_ITS | Continuity of Care Document ---
Author Organization [facility] Infectious Disease Address [address] [place] [address]- Care Team Providers Care Order Detailer Name Role Phone Johnathan GALAN MD, Jose Craig Primary Care Physician Encounter [facility] Date(s): 05/24/22 - 06/23/22 [facility] [address] [place] [id number] Allergies, Adverse Reactions, Alerts Substance Reaction [...] tablet, 0 Refills, Maintenance, 05/24/22 17:02:00 EDT, [facility] #[id number], Partial fill upon patient request if the [...] Team Personnel Name: Khushboo Gaona RN Position: [facility] RN Member Role: Primary Care Nurse Name: Camila Childers Position: [facility] RN Member Role: Primary Care Nurse Name: Tim Landeros RN Position: [facility] RN Member Role: Primary Care Nurse Name: Margaret Lala RN Position: [facility] RN Member Role: Primary Care Nurse Name: Jose Mann III, MD Position: [facility] Ambulatory (view) Member Role: PCP Address: Address: [address] [place] [id number] Name: Judy Smith RN Position: [facility] AMB Nurse Member Role: Primary Care Nurse Name: Erlinda Cody RN Position: [facility] RN Member Role: Primary Care Nurse Name: Anupama Mcneill RN Position: [facility] RN Member Role: Primary Care Nurse Name: Eva Myers RN Position: [facility] RN Member Role: Primary Care Nurse Name: Garima Murry Position: [facility] RN Member Role: Primary Care Nurse Name: Melissa Ham RN Position: [facility] RN Member Role: Primary Care Nurse Care Team Related Persons Name: JORDAN FUCHS Address: [place] [address]
--- NOTE | 2024-02-18 16:15 | MHC.EDTECH ---
Patient blood drawn and rsv/covid swab collected all sent to lab .
[2024-02-18 16:19] LABS: Basophils Percent Auto 0.3 % (0-2); Hematocrit 29.5 % (42.0-52.0); Hemoglobin 8.3 g/dl (14.0-18.0); Imm Gran Abs Auto 0.02 X10*3/uL (0.00-0.03); Imm Gran Pct Auto 0.7 % (0.0-0.4); Lymphocytes Absolute Auto 0.5 X10*3/uL (1.2-4.9); MANUAL DIFF FLAG SCAN; Mean Corpuscular HGB Conc 28.1 g/dl (31.0-36.0); Mean Corpuscular Hemoglobin 18.6 pg (27.0-33.0); Monocytes Absolute Auto 0.4 X10*3/uL (0.1-1.2); Monocytes Percent Auto 12.1 % (2-11); Neutrophils Percent Auto 68.9 % (45-73); Platelet Count 134 X10*3/uL (160-400); Red Blood Count 4.47 X10*6/uL (4.60-5.80); Red Cell Distribution Width 21.9 % (11.0-16.0); SCAN SMEAR FLAG 1; White Blood Count 2.9 X10*3/uL (4.8-10.8)
[2024-02-18 16:21] LABS: PLT ABN DIST 1
[2024-02-18 16:28] LABS: INTERNATIONAL NORM RATIO 1.2 (0.9-1.1)
[2024-02-18 16:50] LABS: Alanine Aminotransferase 36 U/L (0-40); Albumin Level 3.3 g/dL (3.5-5.0); Alkaline Phosphatase 55 U/L (39-117); Anion Gap 10 (12-20); Aspartate Amino Transferase 53 U/L (5-37); Bilirubin Total 0.5 mg/dL (0.0-1.0); Blood Urea Nitrogen 9 mg/dL (9-16); Carbon Dioxide 24 mmol/L (22-29); Chloride 106 mmol/L (96-108); Creatinine Clr Calc Pharmacy 191.3; Estimated Glomerular Filt Rate > 60; Glucose Random 111 mg/dL (60-115); Lipase 19 U/L (8-78); Magnesium 2.1 mg/dL (1.6-2.6); Sodium 136 mmol/L (135-145)
[2024-02-18 16:59] LABS: Influenza A PCR NEGATIVE (Negative); Influenza B PCR NEGATIVE (Negative); Resp Syncy Virus RNA Qual PCR NEGATIVE (Negative); SARS COV2 PCR INHOUSE NEGATIVE (Negative)
[2024-02-18 18:00] LABS: SLIDE REVIEW VERIFIED
[2024-02-18 19:39] VITALS: BP 166/85; PULSE 70; RESP 20; TEMP 36.6; O2SAT 97
[2024-02-18] MEDS: Ferrous Sulfate 324 MG TABLET.DR PO (20:49)
[2024-02-18] MEDS: Omeprazole 40 MG CAPSULE.DR PO (20:49)
[2024-02-18] MEDS: Folic Acid 1 MG TABLET PO (20:49)
[2024-02-18 20:51] VITALS: BP 166/87; PULSE 68; RESP 18; TEMP 36.9; O2SAT 97
== END 2024-02-18 20:52 | disposition home or self-care (01) ==
PROVIDERS: Nurse Practitioner Family; Emergency Provider Internal Medicine; PCP Internal Medicine
DX: D50.9 Iron deficiency anemia, unspecified (principal); R53.1 Weakness; R06.02 Shortness of breath; Z91.148 Patient's other noncompliance with medication regimen for other reason
CPT/HCPCS: 0241U; 36415; 80053; 83690; 83735; 85025; 85610; 99283; 99284

== ENCOUNTER 2024-03-19 08:42 | Emergency (ER) | payer OTHER, SELFPAY ==
[2024-03-19 08:49] VITALS: BP 124/67; PULSE 85; RESP 18; TEMP 36.9; O2SAT 99; BMI 34.0
--- NOTE | 2024-03-19 09:17 | ED.SKABFB ---
HPI - Skin/Abscess/Foreign Bdy General Chief complaint: Skin/Abscess/Foreign Body Stated complaint: wound check Time Seen by Provider: 03/19/24 09:01 Source: patient, RN notes reviewed and old records reviewed Mode of arrival: ambulatory Limitations: no limitations History of Present Illness ED Provider: Chi Mccord PA-C HPI narrative: 53 yo male with history of polysubstance use disorder on methadine, ongoing IVDA, hx hepatitis C cirrhosis, pancytopenia who presents to the ER for evaluation of acute on chronic wounds, now worse in his LUE. He states it has been present for weeks and not getting better. It used to be red all around it but not anymore. It is deep and has a yellow center with some drainage. He states he doesn't use that much and has been compliant with his methadone. He has scabbing and scarring on all 4 extremities and admits to picking and scratching at them all the time because they are itchy. MD complaint: lesion Onset (ago): week(s) Tetanus up to date: no Location: LUE Severity: moderate Pain Consistency: constant Relieving factors: none Exacerbating factors: none Context: IVDA Associated symptoms: denies other symptoms Related Data Home Medications ?Medication ?Instructions ?Recorded ?Confirmed blood sugar diagnostic (FreeStyle 04/13/23 04/13/23 Lite Strips) fluticasone propionate 50 50 mcg intranasal DAILY 04/13/23 04/13/23 mcg/actuation nasal spray,suspension gabapentin 300 mg capsule 300 mg PO PRN Pain 04/13/23 hydrocortisone 2.5 % topical cream appl topical BID 04/13/23 hydroxyzine HCl 25 mg tablet 25 mg PO TID 04/13/23 04/13/23 lisinopril 20 mg tablet 20 mg PO DAILY 04/13/23 04/13/23 sertraline 50 mg tablet 75 mg PO DAILY 04/13/23 04/14/23 tadalafil 5 mg tablet 5 mg PO DAILY 04/13/23 04/13/23 Previous Rx's ?Medication ?Instructions ?Recorded ondansetron 4 mg disintegrating 4 mg PO Q6H PRN nausea and 04/14/23 tablet vomiting #7 tabs peg-electrolyte solution 420 gram 240 ml PO Q10M #4,000 mL 04/14/23 oral solution peg 3350-electrolytes 236 240 ml PO Q10M #4,000 mL 04/21/23 gram-22.74 gram-6.74 gram-5.86 gram solution doxycycline hyclate 100 mg capsule 100 mg PO BID 7 days #14 caps 05/06/23 ferrous sulfate 324 mg (65 mg 324 mg PO DAILY #90 tabs 02/18/24 iron) tablet,delayed release folic acid 1 mg tablet 1 mg PO DAILY #90 tabs 02/18/24 omeprazole 40 mg capsule,delayed 40 mg PO DAILY #90 caps 02/18/24 release cephalexin 500 mg capsule 500 mg PO Q6H 7 days #28 caps 03/19/24 doxycycline hyclate 100 mg tablet 100 mg PO BID #14 tabs 03/19/24 Allergies Allergy/AdvReac Type Severity Reaction Status Date / Time onion [ONION] Allergy Severe ANAPHYLAXIS Verified 03/19/24 08:51 TO RAW ONIONS (COOKED OK) morphine [MORPHINE] Allergy Mild RASH, hives Verified 03/19/24 08:51 Review of Systems Review of Systems: Yes all other systems are reviewed and are negative [facility] Past Medical History Medical History (Updated 03/19/24 @ 09:16 by JOSEPH Dobbs) Heroin abuse Cocaine abuse High blood pressure Seasonal allergies Asthma Social History Social History Alcohol intake: unknown Patient Tobacco Use Status: Never used Tobacco Substance Use Type: Crack/Cocaine and Heroin service: No Physical Exam Vital Signs: Vital Signs: Last Vital Signs Temp 98.4 F 03/19/24 08:49 Pulse 85 03/19/24 08:49 Resp 18 03/19/24 08:49 Pulse Ox 99 03/19/24 08:49 O2 Del Method Room Air 03/19/24 08:49 BMI result Body Mass Index 34.0 Appearance: Alert. Oriented X3. No acute distress. Head: normocephalic, atraumatic. Eyes: Pupils equal, round and reactive to light. ENT: Pharynx normal. No tonsillar swelling or exudate. Neck: Normal inspection. Neck supple. CVS: Normal heart rate and rhythm. Pulses normal. Respiratory: No respiratory distress. Breath sounds normal. Abdomen: Soft and nontender. +BS x4 Skin: Skin warm and dry. Skin is pale, no jaundice. There are innumerable areas of scabbing and scarring on all 4 extremities. left upper extremity with a 3cm caviatory lesion with yellow center, minimal surrounding erythema, no induration or fluctuance. left wrist with a 3cm area of erythema and warmth, track cueto in the center. no fluctuance. no drainage. Extremities: no joint swelling, skin changes as above. Neuro/psych: Oriented X 3. No motor deficit. No sensory deficit. CN II-XII intact. Normal speech and cognition. Medical Decision Making Medical Decision Making MDM Narrative: Year old male with history of polysubstance abuse on methadone maintenance, ongoing IV drug use who presents to the ER for evaluation of acute on chronic wounds. He has had wounds all over his body for years that do not heal properly. He admits to undergoing drug use and itching and scratching the wounds. His left forearm has a cavitary lesion consistent with use of xylazine. there is an area of mild cellulitis in his left wrist area. FROM of the wrist, no evidence of septic joint or absess at this time. Explained the importance of abstinence from drugs and patient expressed understanding, he does not want to see recovery he states he is on methadone. He states he does not use very often. We discussed that these wounds will not heal unless he stops using drugs. He understands. Will start on oral antibiotics, give referral to the Wound Center and give dressing supplies. Importance of not scratching the wounds was also reiterated to the patient. At this time is stable for discharge home, strict return precautions were discussed. Differential Diagnosis Differential Diagnoses: The differential diagnosis associated with the presentation includes Cellulitis, abscess, septic joint, chronic wounds from drug use Admission/Observation Consideration of admission/observation: Escalation of care including admission/observation considered External Record Review External record reviewed: Outpatient record, Prior outpatient labs and Prior outpatient radiology Tests considered The following testing was considered but not selected: Basic lab workup considered however would not change number operator Prescription Management I considered prescription management with: Pain Medication and Antibiotic Chronic Conditions Patient?s care impacted by: Other (Polysubstance abuse) Social Determinants Patient?s care significantly limited by Social Determinants of Health including: Alcoholism and drug addiction in family, Problems related to primary support group and Other Social Determinant of Health Critical Care Time Critical Care Time Critical Care Time: No Discharge Plan Discharge Clinical Impression: Chronic wound Patient Disposition: Home, Self-Care Instructions: Chronic Wounds (ED) Additional Instructions: Take the prescribed antibiotics as directed, complete the entire course and do not miss any doses You need to STOP using drugs or else these wounds will not ever heal. Recommend following up with the Wound Clinic for further evaluation and treatment, number below. call for an appointment. If you develop new or worsening symptoms call 911 or come back to the ER for further evaluation. Prescriptions: New doxycycline hyclate 100 mg tablet 100 mg PO BID Qty: 14 0RF cephalexin 500 mg capsule 500 mg PO Q6H 7 Days Qty: 28 0RF No Action peg-electrolyte soln 420 gram recon soln 240 ml PO Q10M Qty: 4000 0RF Rx Instructions: until fecal effluent is clear-to take day before colonoscopy ondansetron 4 mg tablet,disintegrating 4 mg PO Q6H PRN (Reason: nausea and vomiting) Qty: 7 0RF Rx Instructions: can take with colon prep if needed peg 3350-electrolytes 236-22.74-6.74 -5.86 gram recon soln 240 ml PO Q10M Qty: 4000 0RF Rx Instructions: Refer to prep instructions given/ mailed to you from GI OFFICE. until fecal effluent is clear lisinopril 20 mg tablet 20 mg PO DAILY (DME) FreeStyle Lite Strips Strip MISCELLANEOUS gabapentin 300 mg capsule 300 mg PO PRN (Reason: Pain) hydrocortisone 2.5 % cream topical BID hydroxyzine HCl 25 mg tablet 25 mg PO TID fluticasone propionate 50 mcg/actuation spray,suspension 50 mcg intranasal DAILY sertraline 50 mg tablet 75 mg PO DAILY tadalafil 5 mg tablet 5 mg PO DAILY doxycycline hyclate 100 mg capsule 100 mg PO BID 7 Days Qty: 14 0RF folic acid 1 mg tablet 1 mg PO DAILY Qty: 90 0RF ferrous sulfate 324 mg (65 mg iron) tablet,delayed release (DR/EC) 324 mg PO DAILY Qty: 90 0RF omeprazole 40 mg capsule,delayed release(DR/EC) 40 mg PO DAILY Qty: 90 0RF Referrals: [facility] Wound Care [Outside] Print Language: Japanese
[2024-03-19] MEDS: cephALEXin 500 MG CAPSULE PO (09:35)
[2024-03-19] MEDS: Doxycycline Monohydrate 100 MG CAPSULE PO (09:35)
[2024-03-19 09:40] VITALS: BP 124/67; PULSE 85; RESP 18; TEMP 36.9; O2SAT 99
== END 2024-03-19 09:41 | disposition home or self-care (01) ==
PROVIDERS: Emergency Provider Emergency Medicine Emergency Medical Services; PCP Internal Medicine
DX: L03.114 Cellulitis of left upper limb (principal); Z79.899 Other long term (current) drug therapy
CPT/HCPCS: 99282; 99283

== ENCOUNTER 2024-05-13 08:17 | Emergency (ER) | payer OTHER, SELFPAY ==
[2024-05-13 08:23] VITALS: BP 136/83; BP 178/89; PULSE 100; PULSE 94; RESP 22; TEMP 37.4; O2SAT 97; O2SAT 99; BMI 37.5
--- NOTE | 2024-05-13 09:04 | ED_ITS ---
HPI - Back Pain/Injury General Chief Complaint: Back Pain/Injury Stated Complaint: THREW OUT BACK T-1, PAIN PER EMS Time Seen by Provider: 05/13/24 08:43 Source: patient, family and EMS Mode of arrival: EMS Limitations: no limitations History of Present Illness ED Provider: Tiffanie Orellana APRN HPI Narrative: 54 yo male with history of asthma, OUD on methadone, anemia, HTN, chronic back pain here with complaints of lower back pain. Patient reports he was having sexual intercourse with his partner yesterday when he felt a pop in his lower back and has had pain since. He took motrin once yesterday. No OTC meds today. No radiation of pain. No numbness or tingling in the lower extremities. No numbness in the groin. No bowel or bladder incontinence. No fevers or chills. Related Data Home Medications ?Medication ?Instructions ?Recorded ?Confirmed blood sugar diagnostic (FreeStyle 04/13/23 04/13/23 Lite Strips) fluticasone propionate 50 50 mcg intranasal DAILY 04/13/23 04/13/23 mcg/actuation nasal spray,suspension gabapentin 300 mg capsule 300 mg PO PRN Pain 04/13/23 hydrocortisone 2.5 % topical cream appl topical BID 04/13/23 hydroxyzine HCl 25 mg tablet 25 mg PO TID 04/13/23 04/13/23 lisinopril 20 mg tablet 20 mg PO DAILY 04/13/23 04/13/23 sertraline 50 mg tablet 75 mg PO DAILY 04/13/23 04/14/23 tadalafil 5 mg tablet 5 mg PO DAILY 04/13/23 04/13/23 Previous Rx's ?Medication ?Instructions ?Recorded ondansetron 4 mg disintegrating 4 mg PO Q6H PRN nausea and 04/14/23 tablet vomiting #7 tabs peg-electrolyte solution 420 gram 240 ml PO Q10M #4,000 mL 04/14/23 oral solution peg 3350-electrolytes 236 240 ml PO Q10M #4,000 mL 04/21/23 gram-22.74 gram-6.74 gram-5.86 gram solution doxycycline hyclate 100 mg capsule 100 mg PO BID 7 days #14 caps 05/06/23 ferrous sulfate 324 mg (65 mg 324 mg PO DAILY #90 tabs 02/18/24 iron) tablet,delayed release folic acid 1 mg tablet 1 mg PO DAILY #90 tabs 02/18/24 omeprazole 40 mg capsule,delayed 40 mg PO DAILY #90 caps 02/18/24 release cephalexin 500 mg capsule 500 mg PO Q6H 7 days #28 caps 03/19/24 doxycycline hyclate 100 mg tablet 100 mg PO BID #14 tabs 03/19/24 cyclobenzaprine 10 mg tablet 10 mg PO TID PRN muscle spasm #15 05/13/24 tabs docusate sodium 100 mg capsule 100 mg PO BID #60 caps 05/13/24 (Colace) lidocaine 5 % topical patch 1 patch topical DAILY #15 ea 05/13/24 (Lidoderm) naproxen 500 mg tablet 500 mg PO BID PRN pain #30 tabs 05/13/24 polyethylene glycol 3350 17 17 g PO DAILY #119 grams 05/13/24 gram/dose oral powder (Miralax) prednisone 20 mg tablet 40 mg (2 x 20 mg) PO DAILY #8 tabs 05/13/24 Allergies Allergy/AdvReac Type Severity Reaction Status Date / Time onion [ONION] Allergy Severe ANAPHYLAXIS Verified 05/13/24 08:25 TO RAW ONIONS (COOKED OK) morphine [MORPHINE] Allergy Mild RASH, hives Verified 03/19/24 08:51 Review of Systems Review of Systems: Yes all other systems are reviewed and are negative Constitutional: Constitutional: Reports no additional constitutional complaints, Denies body ache(s), Denies chills, Denies fever(s), Denies headache(s) and Denies weakness Eyes: Eyes: Reports no additional eye complaints and Denies change in vision ENT: Reports system reviewed and no additional complaints, except as documented, Denies dizziness, Denies headache(s), Denies nasal congestion, Denies nasal discharge and Denies neck pain Cardiovascular: Cardiovascular: Reports no additional cardiovascular complaints, Denies chest pain, Denies leg edema and Denies dyspnea Respiratory: Respiratory: Reports no additional respiratory complaints, Denies cough and Denies dyspnea Gastrointestinal: Gastrointestinal: Reports no additional gastrointestinal complaints, Denies abdominal pain, Denies diarrhea, Denies nausea and Denies vomiting Genitourinary: Genitourinary: Denies urinary incontinence Musculoskeletal: Musculoskeletal: Reports no additional musculoskeletal compl aints, Reports back pain, Denies arthralgias, Denies joint swelling, Denies neck pain, Denies numbness and Denies tingling Integumentary/Breasts: Skin/Breast: Reports system reviewed and no additional complaints, except as docu and Denies rash Neurologic: Reports system reviewed and no additional complaints, except as documented, Denies Abnormal speech present, Denies dizziness, Denies headache(s), Denies numbness, Denies tingling and Denies weakness PMFSH Past Medical History Attestation statement: The following information was validated with the patient. Source: old records reviewed and nursing notes reviewed Medical History Heroin abuse Cocaine abuse High blood pressure Seasonal allergies Asthma Social History Social History Alcohol intake: unknown Patient Tobacco Use Status: Never used Tobacco Substance Use Type: Crack/Cocaine and Heroin Advance Directives: No Advance Directives Information Provided: Yes service: No Physical Exam Vital Signs: Vital Signs: Last Vital Signs Temp 99.1 F 05/13/24 11:01 Pulse 72 05/13/24 11:01 Resp 18 05/13/24 11:01 BP 140/77 H 05/13/24 11:01 Pulse Ox 98 05/13/24 11:01 O2 Del Method Room Air 05/13/24 11:01 BMI result Body Mass Index 37.5 Const: General: cooperative, healthy appearing, comfortable and no acute distress Orientation/consciousness: patient oriented x3 Limitations: no limitations HEENT: Head: Yes normal to inspection Ears: hearing grossly normal bilaterally General nose exam: Normal external nose present Face and sinus: Yes normal facial exam Mouth: Normal oral and palatal mucosa present Throat: Yes posterior oropharynx normal Eyes: General: appearance normal, both eyes and all related structures Pupils: Equal, round and reactive pupils present Neck: Neck: Yes normal visual inspection Chest: Chest palpation & inspection: normal inspection of the chest Resp: Effort & Inspection: normal respiratory effort Auscultation: clear to auscultation bilaterally Cardio: Rate: regular rate Rhythm: regular rhythm Peripheral pulses: Peripheral pulses 2+ throughout GI: Inspection: Yes normal to inspection Palpation (GI): Soft to palpation and nontender Auscultation: normal bowel sounds : General: Yes no CVA tenderness Back/Spine/Pelvis: Other: Lumbar TTP, no step offs or deformities Back: no CVA tenderness Thoracic/Lumbar Spine: thoracic and lumbar spine normal to inspection Skin: General skin exam: no rashes or lesions noted Neuro: Other: Normal plantar flexion, dorsiflexion. General: patient oriented x3, moves all extremities, no focal motor deficits and normal sensation to monofilament Cranial nerves: Yes Equal, round and reactive pupils present Cognition (Neuro): normal cognition Speech: No Abnormal speech present Motor exam (neuro): 5/5 motor strength present throughout Sensory Exam: Normal double simultaneous stimulation for sensation Deep tendon reflexes (DTR's): Right patellar reflex intensity grade: 2+ and Left patellar reflex intensity grade: 2+ Extrem: General: Yes normal to inspection Course Course Course Narrative: Patient feels improved after receiving Toradol, muscle relaxant, dose of prednisone and medicated patch. He is up and ambulatory. I will discharge him home with prescriptions for same and recommendations to follow up outpatient. Reviewed worrisome signs and symptoms of when to return to the emergency room. Comfortable plan for discharge home Medications Administered Discontinued Medications Generic Name Dose Route Start Last Admin Trade Name Tiburcio PRN Reason Stop Dose Admin Diazepam 2 mg 05/13/24 09:01 05/13/24 09:37 Diazepam 2 Mg Tablet PO 05/13/24 09:02 2 mg ONCE ONE Administration Ketorolac Tromethamine 60 mg 05/13/24 09:01 05/13/24 09:37 Ketorolac Tromethamine 60 Mg/2 Ml Vial IM 05/13/24 09:02 60 mg ONCE ONE Administration Lidocaine 1 patch 05/13/24 09:01 05/13/24 09:37 Lidocaine 4 % Patch Adh..Patch TRANSDERMA 05/13/24 09:02 1 patch ONCE ONE Administration Protocol Prednisone 60 mg 05/13/24 09:01 05/13/24 09:36 Prednisone 20 Mg Tablet PO 05/13/24 09:02 60 mg ONCE ONE Administration Medical Decision Making Medical Decision Making MDM Narrative: 54 yo male with history of asthma, OUD on methadone, anemia, HTN, chronic back pain here with complaints of lower back pain. Patient reports he was having sexual intercourse with his partner yesterday when he felt a pop in his lower back and has had pain since. He took motrin once yesterday. No OTC meds today.? No radiation of pain.? No numbness or tingling in the lower extremities.? No numbness in the groin.? No bowel or bladder incontinence.? No fevers or chills. Lumbar TTP No neuro deficits or red flag symptoms Occurred while laying down. No fall or significant trauma to suggest need for x- ray. Likely disc related, strain Will give analgesia Differential Diagnosis Differential Diagnoses: The differential diagnosis associated with the presentation includes Lumbar radiculopathy, lumbar strain, herniated disc Low suspicion for epidural abscess with no neurological deficits or red flag symptoms, improvement of symptoms, acute onset with injury Low suspicion for ACS with no reports of chest pain, shortness of breath, diaphoresis or vomiting Low suspicion for pyelonephritis or renal colic with no CVA tenderness, urinary symptoms reported Low suspicion for malignancy with no red flag symptoms, more acute onset Low suspicion for cord compression, cauda equina with normal neurological exam and no red flag symptoms Admission/Observation Consideration of admission/observation: Escalation of care including admission/observation considered See differential dx-no need for emergent MRI Independent Historian Clinical information obtained from an independent historian. History obtained from or confirmed by: Spouse and EMS Tests considered The following testing was considered but not selected: See above Discharge Plan Discharge Clinical Impression: Strain of lumbar region Patient Disposition: Home, Self-Care Instructions: Low Back Strain (ED) Additional Instructions: You need to establish a new doctor for your back. You may follow up at [facility] for [facility] spine/sport. Continue your home medications. Heat or ice Gentle stretching No heavy lifting or bending Return for worsening symptoms Prescriptions: New polyethylene glycol 3350 [Miralax] 17 gram/dose powder 17 g PO DAILY Qty: 119 0RF docusate sodium [Colace] 100 mg capsule 100 mg PO BID Qty: 60 0RF naproxen 500 mg tablet 500 mg PO BID PRN (Reason: pain) Qty: 30 0RF cyclobenzaprine 10 mg tablet 10 mg PO TID PRN (Reason: muscle spasm) Qty: 15 0RF lidocaine [Lidoderm] 5 % adhesive patch,medicated 1 patch topical DAILY Qty: 15 0RF Rx Instructions: leave on most painful area for up to 12 hrs prednisone 20 mg tablet 40 mg PO DAILY Qty: 8 0RF No Action peg-electrolyte soln 420 gram recon soln 240 ml PO Q10M Qty: 4000 0RF Rx Instructions: until fecal effluent is clear-to take day before colonoscopy ondansetron 4 mg tablet,disintegrating 4 mg PO Q6H PRN (Reason: nausea and vomiting) Qty: 7 0RF Rx Instructions: can take with colon prep if needed peg 3350-electrolytes 236-22.74-6.74 -5.86 gram recon soln 240 ml PO Q10M Qty: 4000 0RF Rx Instructions: Refer to prep instructions given/ mailed to you from GI OFFICE. until fecal effluent is clear lisinopril 20 mg tablet 20 mg PO DAILY (DME) FreeStyle Lite Strips Strip MISCELLANEOUS gabapentin 300 mg capsule 300 mg PO PRN (Reason: Pain) hydrocortisone 2.5 % cream topical BID hydroxyzine HCl 25 mg tablet 25 mg PO TID fluticasone propionate 50 mcg/actuation spray,suspension 50 mcg intranasal DAILY sertraline 50 mg tablet 75 mg PO DAILY tadalafil 5 mg tablet 5 mg PO DAILY doxycycline hyclate 100 mg capsule 100 mg PO BID 7 Days Qty: 14 0RF doxycycline hyclate 100 mg tablet 100 mg PO BID Qty: 14 0RF cephalexin 500 mg capsule 500 mg PO Q6H 7 Days Qty: 28 0RF folic acid 1 mg tablet 1 mg PO DAILY Qty: 90 0RF ferrous sulfate 324 mg (65 mg iron) tablet,delayed release (DR/EC) 324 mg PO DAILY Qty: 90 0RF omeprazole 40 mg capsule,delayed release(DR/EC) 40 mg PO DAILY Qty: 90 0RF Referrals: Jose Mann III, MD [Primary Care Provider] - 1 week Esdras Upton MD, PhD [Physician] - 2 weeks Interventions: ED Discharge Assessment Last Done: 05/13/24 11:01 Discharge Date/Time: 05/13/24 11:02 Print Language: Georgian
[2024-05-13] MEDS: predniSONE 20 MG TABLET 60 MG PO (09:36)
[2024-05-13] MEDS: diazePAM 2 MG TABLET PO (09:37)
[2024-05-13] MEDS: Ketorolac Tromethamine 60 MG/2 ML VIAL IM (09:37)
[2024-05-13] MEDS: Lidocaine 4 % Patch ADH..PATCH 1 PATCH TRANSDERMA (09:37)
[2024-05-13 11:01] VITALS: BP 140/77; PULSE 72; RESP 18; TEMP 37.3; O2SAT 98
== END 2024-05-13 11:02 | disposition home or self-care (01) ==
PROVIDERS: Emergency Provider Emergency Medicine; PCP Internal Medicine
DX: S39.012A Strain of muscle, fascia and tendon of lower back, initial encounter (principal); X58.XXXA Exposure to other specified factors, initial encounter; Y93.89 Activity, other specified; Y92.89 Other specified places as the place of occurrence of the external cause; Y99.8 Other external cause status; Z79.899 Other long term (current) drug therapy
CPT/HCPCS: 96372; 99283; 99284; J1885

== ENCOUNTER 2024-08-17 17:41 | Inpatient (IN) | payer OTHER, SELFPAY ==
--- NOTE | ~2024-08-17 | XR_ITS ---
CLINICAL HISTORY: chest pain 1 view chest x-ray Comparison: CR/SR - XR CHEST 2V - 07/15/23 14:54 EST Findings: The lungs are clear. Heart size is normal. No acute fracture. IMPRESSION: 1. No acute findings. This document has been electronically signed by: Cassandra Layton MD on 08/17/2024 19:12:32
--- NOTE | ~2024-08-17 | US_ITS ---
CLINICAL HISTORY: rule out DVT, THROMBOCYTOPENIA Venous duplex ultrasound right lower extremity Comparison: None Findings: The visualized deep veins are fully compressible with normal Doppler color flow and spectral tracings. No popliteal cyst. IMPRESSION: 1. Negative for right lower extremity deep vein thrombosis. This document has been electronically signed by: Neto Flood MD on 08/18/2024 08:28:50
--- NOTE | ~2024-08-17 | CT_ITS ---
CLINICAL HISTORY: Severe right flank pain radiating to right groin CT abdomen and pelvis with and without contrast Comparison: CT/REG/SR - CT ABDOMEN PELVIS W IV CON - 07/15/23 18:53 EST Findings: The lung bases are clear. Liver has a nodular contour and is of low-attenuation. Gallbladder is unremarkable. Pancreas is within normal limits. The spleen is enlarged. Adrenal glands are within normal limits. Periportal lymph nodes are mildly enlarged up to 2.1 cm short axis. The kidneys are non hydronephrotic. No bowel obstruction, pneumoperitoneum, or pneumatosis. Retroperitoneal lymphadenopathy is present with scattered enlarged periaortic and aortocaval lymph nodes. Umbilical hernia contains nonobstructed loops of small bowel and mesentery. Pelvic contents unremarkable. Normal appendix. No acute fracture. IMPRESSION: 1. Umbilical hernia containing nonobstructed loops of small bowel and mesentery. 2. Retroperitoneal and portacaval lymphadenopathy. 3. Cirrhosis with sequela of portal venous hypertension and hepatic steatosis. This document has been electronically signed by: Arpan Khan MD, PHD on 08/18/2024 02:13:49
--- NOTE | ~2024-08-17 | XR_ITS ---
CLINICAL HISTORY: Severe right hip pain and swelling Exam: Single AP view of the right hip. Comparison: CT/SR - CT ABDOMEN PELVIS WO/W IV CON - 08/18/24 00:33 EST Findings: Bony alignment of the right hip joint is anatomic. No fracture or erosive changes identified. Mild degenerative change of the right hip joint. Lateral acetabular osteophyte formation results in overcoverage of the femoral head. Mild cystic change of the lateral femoral head/neck junction. Pubic rami are intact. IMPRESSION: No acute findings. 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 This document has been electronically signed by: Jordan Arreola MD on 08/18/2024 06:25:19
[2024-08-17 17:46] VITALS: BP 188/97; PULSE 88; RESP 16; TEMP 38.2; BMI 36.6
--- NOTE | 2024-08-17 17:50 | ECG_ITS ---
Test Reason : CHEST PAIN Blood Pressure : */* mmHG Vent. Rate : 77 BPM Atrial Rate : 77 BPM P-R Int : 212 ms QRS Dur : 98 ms QT Int : 394 ms P-R-T Axes : 13 6 38 degrees QTcB Int : 445 ms Sinus rhythm with 1st degree A-V block Otherwise normal ECG When compared with ECG of 15-Jul-2023 13:58, WA interval has increased Referred By: Generic ED Physician Electronically Signed By: SHANIQUE ARGUELLES
--- NOTE | 2024-08-17 17:51 | PC.NURSE ---
after triage he repoprt chest pain occured earlier today, no resolved.
--- NOTE | 2024-08-17 18:04 | ED_ITS ---
HPI - General Adult General Chief complaint: General Medical Stated complaint: fever/low back pain-does feel right Time Seen by Provider: 08/17/24 21:37 Source: patient Mode of arrival: ambulatory Limitations: no limitations History of Present Illness ED Provider: HPI narrative: Patient with History of IV drug use years ago noticed still using the drugs last use was 3 days ago complaining of pain all over the body mostly in the right side since yesterday with fever patient did not have history of septic knee in 2022 after using at this time patient is having the fever and pain all over the body does have hepatitis-C and pancytopenia Related Data Home Medications ?Medication ?Instructions ?Recorded ?Confirmed blood sugar diagnostic (FreeStyle 04/13/23 04/13/23 Lite Strips) fluticasone propionate 50 50 mcg intranasal DAILY 04/13/23 04/13/23 mcg/actuation nasal spray,suspension gabapentin 300 mg capsule 300 mg PO PRN Pain 04/13/23 hydrocortisone 2.5 % topical cream appl topical BID 04/13/23 hydroxyzine HCl 25 mg tablet 25 mg PO TID 04/13/23 04/13/23 lisinopril 20 mg tablet 20 mg PO DAILY 04/13/23 04/13/23 sertraline 50 mg tablet 75 mg PO DAILY 04/13/23 04/14/23 tadalafil 5 mg tablet 5 mg PO DAILY 04/13/23 04/13/23 lisinopril 20 mg tablet 20 mg PO DAILY 08/18/24 08/18/24 omeprazole 40 mg capsule,delayed 40 mg PO DAILY 08/18/24 08/18/24 release tadalafil 5 mg tablet 5 mg PO DAILY 08/18/24 08/18/24 tadalafil 5 mg tablet 5 mg PO DAILY 08/18/24 08/18/24 Previous Rx's ?Medication ?Instructions ?Recorded ondansetron 4 mg disintegrating 4 mg PO Q6H PRN nausea and 04/14/23 tablet vomiting #7 tabs peg-electrolyte solution 420 gram 240 ml PO Q10M #4,000 mL 04/14/23 oral solution peg 3350-electrolytes 236 240 ml PO Q10M #4,000 mL 04/21/23 gram-22.74 gram-6.74 gram-5.86 gram solution doxycycline hyclate 100 mg capsule 100 mg PO BID 7 days #14 caps 05/06/23 ferrous sulfate 324 mg (65 mg 324 mg PO DAILY #90 tabs 02/18/24 iron) tablet,delayed release folic acid 1 mg tablet 1 mg PO DAILY #90 tabs 02/18/24 omeprazole 40 mg capsule,delayed 40 mg PO DAILY #90 caps 02/18/24 release cephalexin 500 mg capsule 500 mg PO Q6H 7 days #28 caps 03/19/24 doxycycline hyclate 100 mg tablet 100 mg PO BID #14 tabs 03/19/24 cyclobenzaprine 10 mg tablet 10 mg PO TID PRN muscle spasm #15 05/13/24 tabs docusate sodium 100 mg capsule 100 mg PO BID #60 caps 05/13/24 (Colace) lidocaine 5 % topical patch 1 patch topical DAILY #15 ea 05/13/24 (Lidoderm) naproxen 500 mg tablet 500 mg PO BID PRN pain #30 tabs 05/13/24 polyethylene glycol 3350 17 17 g PO DAILY #119 grams 05/13/24 gram/dose oral powder (Miralax) prednisone 20 mg tablet 40 mg (2 x 20 mg) PO DAILY #8 tabs 05/13/24 Allergies Allergy/AdvReac Type Severity Reaction Status Date / Time onion [ONION] Allergy Severe ANAPHYLAXIS Verified 08/17/24 17:48 TO RAW ONIONS (COOKED OK) morphine [MORPHINE] Allergy Mild RASH, hives Verified 08/17/24 17:48 Review of Systems 2 Review of Systems: Yes all other systems are reviewed and are negative [facility] Past Medical History Medical History (Updated 08/18/24 @ 03:28 by Quincy Carvalho MD) Heroin abuse Cocaine abuse High blood pressure Seasonal allergies Asthma Social History Social History Alcohol intake: current Alcohol intake frequency: 0-2 drinks per day Patient Tobacco Use Status: Never used Tobacco Smoked in Last 30 Days: No Substance Use Type: Crack/Cocaine and Heroin Advance Directives: No Advance Directives Information Provided: No Do you have a plan to hurt others: No Plan service: No Physical Exam ED Vital Signs: Vital Signs - 24 hr 08/17/24 17:46 08/17/24 20:26 Temperature 100.8 F H 98.5 F Pulse Rate 88 68 Respiratory Rate 16 18 Blood Pressure 188/97 H 168/78 H Pulse Oximetry 98 Oxygen Delivery Method Room Air Room Air BMI result Body Mass Index 36.6 Appearance: Alert. Oriented X3. No acute distress. Febrile Eyes: PERRLA, No Nystagmus ENT: Pharynx normal. Oral Mucosa moist Neck: Normal inspection. Neck supple. CVS: Normal heart rate and rhythm. Pulses normal. Respiratory: No respiratory distress. Equal air entry bilateral, no wheezing/rales/rhonchi Abdomen: Soft and nontender. Bowel sounds are present, no mass palpable, no CVA tenderness Skin: Skin warm and dry. Normal skin color. Normal skin turgor. Extremities: No lower extremity edema. No calf tenderness signs of IV drug use++ no joint effusion seen Neuro: Oriented X 3. No motor deficit. No sensory deficit.No cerebellar signs , cranial nerves II-XII intact Course Course Course Narrative: This is an RME performed by Alie Lane DIRECTOR DESIGN: Additional HPI, ROS, PE not included below will be deferred to primary provider. Patient 54-year-old male who presents emergency department with complaints multiple areas of pain diffusely back pain, right hip and right knee pain. Denies any trauma or injury. Also endorses having a fever throughout today. Reports a history of having septic arthritis. Upon advising patient be placed back into the waiting room he then endorse that he is experiencing chest pain. Plan: EKG, serum labs, acetaminophen for fever Medications Administered Generic Name Dose Route Start Last Admin Trade Name Freq PRN Reason Stop Dose Admin Hydromorphone HCl 2 mg 08/18/24 04:15 08/18/24 04:26 Hydromorphone Hcl 2 Mg/Ml Vial IVPUSH 2 mg Q3H PRN Administration Pain, Severe (Pain Scale 7-10) Protocol Lactated Ringer's 1,000 mls @ 80 mls/hr 08/18/24 03:15 08/18/24 03:31 Lr IVCONT 08/19/24 03:14 80 mls/hr .[id number] MICHAELA Administration Piperacillin Sod/Tazobactam 50 mls @ 100 mls/hr 08/18/24 06:00 08/18/24 06:25 Sod 3.375 gm/ Sodium Chloride IV Infused Q6H MICHAELA Infusion Omeprazole 40 mg 08/18/24 06:30 08/18/24 05:13 Omeprazole 40 Mg Capsule.Dr PO 40 mg DAILY@0630 MICHAELA Administration Prochlorperazine Edisylate 10 mg 08/18/24 04:13 08/18/24 04:27 Prochlorperazine Edisylate 10 Mg/2 Ml Vial IV 10 mg Q4H PRN Administration Nausea and Vomiting Discontinued Medications Generic Name Dose Route Start Last Admin Trade Name Freq PRN Reason Stop Dose Admin Acetaminophen 975 mg 08/17/24 18:02 08/17/24 18:48 Acetaminophen 325 Mg Tablet PO 08/17/24 18:03 975 mg ONCE ONE Administration Fentanyl 25 mcg 08/18/24 03:08 08/18/24 03:30 Fentanyl Citrate/Pf 100 Mcg/2 Ml Vial IVPUSH 08/18/24 03:09 25 mcg ONCE ONE Administration Protocol Hydromorphone HCl 1 mg 08/18/24 01:29 08/18/24 01:42 Hydromorphone Hcl 1 Mg/Ml Syringe IVPUSH 08/18/24 01:30 1 mg ONCE ONE Administration Protocol Vancomycin HCl 2,000 mg in 500 mls @ 250 mls/hr 08/17/24 22:03 08/18/24 01:22 Vancomycin/Ns IV 08/18/24 00:02 Infused ONCE ONE Infusion Piperacillin Sod/Tazobactam 100 mls @ 200 mls/hr 08/17/24 22:05 08/17/24 23:21 Sod 4.5 gm/ Sodium Chloride IV 08/17/24 22:34 Infused ONCE ONE Infusion Iohexol 85 ml 08/18/24 00:42 08/18/24 00:42 Iohexol 350 Mg/Ml 100 Ml Infus..Btl IV 08/18/24 00:43 85 ml ONCE ONE Administration Ketorolac Tromethamine 30 mg 08/17/24 21:54 08/17/24 22:27 Ketorolac Tromethamine 30 Mg/Ml Vial IVPUSH 08/17/24 21:55 30 mg ONCE ONE Administration Ketorolac Tromethamine 15 mg 08/18/24 03:04 08/18/24 03:29 Ketorolac Tromethamine 15 Mg/Ml Vial IVPUSH 08/18/24 03:05 15 mg ONCE STA Administration Lorazepam 1 mg 08/18/24 04:14 08/18/24 04:26 Lorazepam 2 Mg/Ml Vial IVPUSH 08/18/24 04:15 1 mg ONCE ONE Administration Methadone HCl 60 mg 08/18/24 04:36 08/18/24 05:13 Methadone Hcl 20 Mg/2 Ml Oral.Conc PO 08/18/24 04:37 60 mg ONCE STA Administration Ondansetron HCl 4 mg 08/18/24 02:54 08/18/24 03:01 Ondansetron Hcl 4 Mg/2 Ml Vial IVPUSH 08/18/24 02:55 4 mg ONCE ONE Administration Medical Decision Making Medical Decision Making MDM Narrative: Patient's history of MSSA bacteremia in 2021 still using IV drugs comes here with diffuse body pain right-sided CT scan of the abdomen was negative for acute lactic acid but as patient has history of MSSA bacteremia and currently using IVDA started vancomycin for now admit to hospitalist service pending blood culture Differential Diagnosis Differential Diagnoses: The differential diagnosis associated with the presentation includes Bacteremia/viral syndrome/abscess Admission/Observation Consideration of admission/observation: Escalation of care including admission/observation considered Consult Healthcare Provider Management of the patient was discussed with: Hospitalist Lab Data [facility] Lab Attestation statement: I reviewed the patient's lab results. 08/18/24 05:45 08/18/24 05:45 Labs: Lab Results 08/17/24 08/17/24 08/17/24 Range/Units 18:17 20:40 22:43 WBC 4.0 L (4.8-10.8) X10*3/uL RBC 4.57 L (4.60-5.80) X10*6/uL Hgb 9.3 L (14.0-18.0) g/dl Hct 30.5 L (42.0-52.0) % MCV 66.7 L (80.0-98.0) fL MCH 20.4 L (27.0-33.0) pg MCHC 30.5 L (31.0-36.0) g/dl RDW 19.5 H (11.0-16.0) % Plt Count 82 L D (160-400) X10*3/uL MPV Not Reportable Immature Gran % (Auto) 0.5 H (0.0-0.4) % Neut % (Auto) 71.8 (45-73) % Lymph % (Auto) 9.4 L (20-40) % [place] % (Auto) 18.1 H (2-11) % Eos % (Auto) 0.2 (0-4) % Baso % (Auto) 0.0 (0-2) % Lymph # (Auto) 0.4 L (1.2-4.9) X10*3/uL [place] # (Auto) 0.7 (0.1-1.2) X10*3/uL Eos # (Auto) 0.0 (0.0-0.4) X10*3/uL Baso # (Auto) 0.0 (0.0-0.2) X10*3/uL Abs Immat Gran (auto) 0.02 (0.00-0.03) X10*3/uL Absolute Neuts (auto) 2.9 (2.0-8.3) x10*3/uL Absolute Nucleated RBC 0.000 (0.0-0.012) X10*3/uL Nucleated RBC % (auto) 0.0 (0.0-0.2) /100WBC ESR 43 H (0-15) MM/HR Sodium 137 (135-145) mmol/L Potassium 3.7 (3.3-5.1) mmol/L Chloride 108 (96-108) mmol/L Carbon Dioxide 24 (22-29) mmol/L Anion Gap 9 L (12-20) BUN 12 (9-16) mg/dL Creatinine 0.73 (0.5-1.4) mg/dL Estim Creat Clear Calc 167.2 Estimated GFR > 60 Random Glucose 141 H (60-115) mg/dL Lactic Acid 0.8 (0.5-2.0) mmol/L Calcium 8.9 (8.4-10.2) mg/dL Total Bilirubin 1.0 (0.0-1.0) mg/dL Direct Bilirubin 0.4 (0.0-0.5) mg/dL AST 30 (5-37) U/L ALT 21 (0-40) U/L Alkaline Phosphatase 46 (39-117) U/L Troponin I High Sens < 2.7 (<3.5-35.0) ng/L C-Reactive Protein 4.09 H (< or = 0.50) mg/dL Total Protein 8.3 H (6.5-8.0) g/dL Albumin 3.5 (3.5-5.0) g/dL Influenza Type A (PCR) NEGATIVE (Negative) Influenza Type B (PCR) NEGATIVE (Negative) RSV RNA Qual (PCR) NEGATIVE (Negative) SARS-CoV-2 RNA (RT-PCR) NEGATIVE (Negative) S. pyogenes GrpA ADDISON Negative (Negative) Independent Interpretation I performed an independent interpretation of an: CT Scan Radiology Impression Discussion of test interpretation with radiology: I have reviewed the radiologist's reading. Radiologist Impression: [address] [address] [address] Scan Report Signed Patient: Dennis Alaniz MR#: [id number] : 1970 Acct:[id number] Age/Sex: 54 / M ADM Date: 08/18/24 Loc: [place] [address]: Eliot Malone MD Ordering Physician: Eliot Leblanc MD Date of Service: 08/18/24 Procedure(s): CT abdomen pelvis wo/w IV con Accession Number(s): [id number] cc: Jose Mann III, MD; Eliot Leblanc MD~ Report Number: [id number]: Total DLP = 2502.00 mGy-cm CLINICAL HISTORY: Severe right flank pain radiating to right groin CT abdomen and pelvis with and without contrast Comparison: CT/REG/SR - CT ABDOMEN PELVIS W IV CON - 07/15/23 18:53 EST Findings: The lung bases are clear. Liver has a nodular contour and is of low-attenuation. Gallbladder is unremarkable. Pancreas is within normal limits. The spleen is enlarged. Adrenal glands are within normal limits. Periportal lymph nodes are mildly enlarged up to 2.1 cm short axis. The kidneys are non hydronephrotic. No bowel obstruction, pneumoperitoneum, or pneumatosis. Retroperitoneal lymphadenopathy is present with scattered enlarged periaortic and aortocaval lymph nodes. Umbilical hernia contains nonobstructed loops of small bowel and mesentery. Pelvic contents unremarkable. Normal appendix. No acute fracture. IMPRESSION: 1. Umbilical hernia containing nonobstructed loops of small bowel and mesentery. 2. Retroperitoneal and portacaval lymphadenopathy. 3. Cirrhosis with sequela of portal venous hypertension and hepatic steatosis. This document has been electronically signed by: Arpan Khan MD, PHD on 08/18/2024 02:13:49 External Record Review External record reviewed: Inpatient record Records from 04/16/2022 rash reviewed from [facility] diagnose with right knee septic arthritis due to MSSA, MSSA bacteremia, L4-L5 S1 septic arthritis Discharge Plan Discharge Clinical Impression: Fever, Heroin abuse, Right flank pain Patient Disposition: Admitted As Inpatient
[2024-08-17 18:23] LABS: MANUAL DIFF FLAG NO
[2024-08-17 18:30] LABS: Eosinophils Percent Auto 0.2 % (0-4); Hematocrit 30.5 % (42.0-52.0); Hemoglobin 9.3 g/dl (14.0-18.0); Imm Gran Abs Auto 0.02 X10*3/uL (0.00-0.03); Imm Gran Pct Auto 0.5 % (0.0-0.4); Lymphocytes Absolute Auto 0.4 X10*3/uL (1.2-4.9); Lymphocytes Percent Auto 9.4 % (20-40); Mean Corpuscular HGB Conc 30.5 g/dl (31.0-36.0); Mean Corpuscular Hemoglobin 20.4 pg (27.0-33.0); Mean Corpuscular Volume 66.7 fL (80.0-98.0); Monocytes Absolute Auto 0.7 X10*3/uL (0.1-1.2); Monocytes Percent Auto 18.1 % (2-11); Neutrophils Absolute Auto 2.9 x10*3/uL (2.0-8.3); Neutrophils Percent Auto 71.8 % (45-73); Platelet Count 82 X10*3/uL (160-400); Red Blood Count 4.57 X10*6/uL (4.60-5.80); Red Cell Distribution Width 19.5 % (11.0-16.0)
[2024-08-17 18:39] LABS: Anion Gap 9 (12-20); Blood Urea Nitrogen 12 mg/dL (9-16); Calcium 8.9 mg/dL (8.4-10.2); Carbon Dioxide 24 mmol/L (22-29); Chloride 108 mmol/L (96-108); Creatinine Clr Calc Pharmacy 167.2; Estimated Glomerular Filt Rate > 60; Glucose Random 141 mg/dL (60-115); Potassium 3.7 mmol/L (3.3-5.1); Sodium 137 mmol/L (135-145)
[2024-08-17 18:40] LABS: Alanine Aminotransferase 21 U/L (0-40); Albumin Level 3.5 g/dL (3.5-5.0); Aspartate Amino Transferase 30 U/L (5-37); Bilirubin Direct 0.4 mg/dL (0.0-0.5); C Reactive Protein 4.09 mg/dL (< or = 0.50); Total Protein 8.3 g/dL (6.5-8.0)
[2024-08-17 18:46] LABS: Troponin-I High Sensitivity < 2.7 ng/L (<3.5-35.0)
[2024-08-17] MEDS: Acetaminophen 325 MG TABLET 975 MG PO (18:48)
[2024-08-17 19:02] LABS: Erythrocyte Sedimentation Rate 43 MM/HR (0-15)
[2024-08-17 19:06] LABS: Influenza A PCR NEGATIVE (Negative); Influenza B PCR NEGATIVE (Negative); Resp Syncy Virus RNA Qual PCR NEGATIVE (Negative); SARS COV2 PCR INHOUSE NEGATIVE (Negative)
[2024-08-17 19:40] LABS: Alkaline Phosphatase 46 U/L (39-117)
[2024-08-17 20:26] VITALS: BP 168/78; PULSE 68; RESP 18; TEMP 36.9; O2SAT 98
[2024-08-17 20:56] LABS: IDNOW Serial# 6674DD1D; Strep A Nucleic Acid Negative (Negative)
[2024-08-17] MEDS: Ketorolac Tromethamine 30 MG/ML VIAL IVPUSH (22:27)
[2024-08-17] MEDS: Piperacillin Sodium/Tazobactam 4.5 GM in 0.9 % Sodium Chloride 100 ML IV (22:50)
[2024-08-17 23:04] LABS: Lactic Acid 0.8 mmol/L (0.5-2.0)
[2024-08-17] MEDS: vancomycin/NS 2,000 MG/500 ML PLAST..BAG 250 MG IV (23:22)
[2024-08-18] VITALS (8 sets, daily range): BP systolic 138–218; BP diastolic 78–112; PULSE 61–86; RESP 16–20; TEMP 36.4–36.8; O2SAT 95–99; BMI 38.3
--- NOTE | 2024-08-18 00:31 | P.HPHOSP_ITS ---
History of Present Illness Date of Service: 08/18/24 Attending physician on admission: Eliot Malone Chief Complaint: Right flank pain Dennis Alaniz is a 54 years old man with past medical history significant for liver cirrhosis, untreated hepatitis-C, porphyria cutanea tarda, hypertension, GERD and pancytopenia presents to the emergency department complaining of right flank pain radiating to the right groin associated with nausea, fevers or chills. He denied acute urinary changes. He also mentioned that he had an event of chest pain today while shopping in [place]. He did not report shortness on breath, headache, dizziness or palpitations. He used heroin IV 2 days ago. Denied alcohol abuse or tobacco smoking. In the ED, vital signs are normal except for hypertension, 160/78. Blood workup was remarkable for pancytopenia which is not new for the patient. CRP is 4.06. There are no electrolyte imbalances or lactic acidosis. LFTs are normal. CXR is negative. ECG showed normal sinus rhythm, first-degree AV block without ischemic changes. ED tx: Tylenol 975 mg p.o., ketorolac 30 mg IV, vancomycin 2 g IV, Zosyn 4.5 g IV Review of Systems 2 Review of Systems: All 12 systems were reviewed and normal except as noted in HPI. [facility] Medical History (Updated 08/18/24 @ 00:55 by Eliot Malone MD) Heroin abuse Cocaine abuse High blood pressure Seasonal allergies Asthma Social History Alcohol intake: current Alcohol intake frequency: 0-2 drinks per day Patient Tobacco Use Status: Never used Tobacco Smoked in Last 30 Days: No Substance Use Type: Crack/Cocaine and Heroin Advance Directives: No Advance Directives Information Provided: No Do you have a plan to hurt others: No Plan service: No Meds Allergies Allergy/AdvReac Type Severity Reaction Status Date / Time onion [ONION] Allergy Severe ANAPHYLAXIS Verified 08/17/24 17:48 TO RAW ONIONS (COOKED OK) morphine [MORPHINE] Allergy Mild RASH, hives Verified 08/17/24 17:48 Active Medications: Current Medications Sodium Chloride (0.9 % Sodium Chloride Flush 3 Ml Syringe) 3 ml IVFLUSH [facility] Medications ?Medication ?Instructions ?Recorded ?Confirmed ?Last Taken ?Type blood sugar diagnostic (FreeStyle 04/13/23 04/13/23 Unknown History Lite Strips) fluticasone propionate 50 50 mcg intranasal DAILY 04/13/23 04/13/23 Unknown History mcg/actuation nasal spray,suspension gabapentin 300 mg capsule 300 mg PO PRN Pain 04/13/23 Unknown History hydrocortisone 2.5 % topical cream appl topical BID 04/13/23 Unknown History hydroxyzine HCl 25 mg tablet 25 mg PO TID 04/13/23 04/13/23 Unknown History lisinopril 20 mg tablet 20 mg PO DAILY 04/13/23 04/13/23 Unknown History sertraline 50 mg tablet 75 mg PO DAILY 04/13/23 04/14/23 Unknown History tadalafil 5 mg tablet 5 mg PO DAILY 04/13/23 04/13/23 Unknown History lisinopril 20 mg tablet 20 mg PO DAILY 08/18/24 08/18/24 Unknown History omeprazole 40 mg capsule,delayed 40 mg PO DAILY 08/18/24 08/18/24 Unknown History release tadalafil 5 mg tablet 5 mg PO DAILY 08/18/24 08/18/24 Unknown History tadalafil 5 mg tablet 5 mg PO DAILY 08/18/24 08/18/24 Unknown History Physical Exam 2 Vital Signs and Narrative: Vital Signs: Last Vital Signs Temp 98.5 F 08/17/24 20:26 Pulse 68 08/17/24 20:26 Resp 18 08/17/24 20:26 BP 168/78 H 08/17/24 20:26 Pulse Ox 98 08/17/24 20:26 O2 Del Method Room Air 08/17/24 20:26 BMI result Body Mass Index 36.6 Constitutional - Awake and Alert, No apparent distress. Pleasant. Cooperative. Obese. HEENT - PERRL, EOMI Heart - S1S2, RRR, No murmurs Lungs - Normal lung expansion, Normal respiratory effort, No respiratory distress, CTA bilaterally Abdomen - Nondistended. Right flank/right lower quadrant tenderness. No rebound. No guarding. Normal bowel sounds. Umbilical hernia. Extremities - Right knee: Mild effusion (chronic). Musculoskeletal - Normal inspection, normal ROM Skin - Warm/Dry Neurological - Alert & oriented x3. No focal weakness grossly noted. Normal speech. Psychological - Appropriate affect Results Labs 08/17/24 18:17 08/17/24 18:17 Labs: Laboratory Results - last 24 hr 08/17/24 08/17/24 08/17/24 18:17 20:40 22:43 MCV 66.7 L MCH 20.4 L MCHC 30.5 L RDW 19.5 H Plt Count 82 L D MPV Not Reportable Immature Gran % (Auto) 0.5 H Neut % (Auto) 71.8 Lymph % (Auto) 9.4 L [place] % (Auto) 18.1 H Eos % (Auto) 0.2 Baso % (Auto) 0.0 Lymph # (Auto) 0.4 L [place] # (Auto) 0.7 Eos # (Auto) 0.0 Baso # (Auto) 0.0 Abs Immat Gran (auto) 0.02 Absolute Neuts (auto) 2.9 Absolute Nucleated RBC 0.000 Nucleated RBC % (auto) 0.0 ESR 43 H Anion Gap 9 L Estim Creat Clear Calc 167.2 Estimated GFR > 60 Random Glucose 141 H Lactic Acid 0.8 Calcium 8.9 Total Bilirubin 1.0 Direct Bilirubin 0.4 AST 30 ALT 21 Alkaline Phosphatase 46 Troponin I High Sens < 2.7 C-Reactive Protein 4.09 H Total Protein 8.3 H Albumin 3.5 Influenza Type A (PCR) NEGATIVE Influenza Type B (PCR) NEGATIVE RSV RNA Qual (PCR) NEGATIVE SARS-CoV-2 RNA (RT-PCR) NEGATIVE S. pyogenes GrpA ADDISON Negative Assessment and Plan (1) Right flank pain: Status: Acute (2) Low grade fever: Status: Acute (3) Heroin abuse: Status: Acute Plan Dennis Alaniz is a 54 y/o man with PMHx significant for liver cirrhosis and untreated hepatitis-C presents with: * Low-grade fever w/o sepsis criteria. Observation. Obtain abdominal and pelvis CT scan with and without contrast. Check urinalysis. Blood culture obtained in the emergency department -will follow results. * Pancytopenia, chronic. Continue to monitor. * IVDU. Heroin IV -last use 2 days ago. Symptomatic treatment for withdrawal symptoms. Addiction medicine consult. * Essential hypertension. Continue lisinopril. * GERD. Continue omeprazole. * Neuropathy. Continue gabapentin. * Hx of porphyria cutanea tarda. DVT prophylaxis: SCDs (pharmacological DVT prophylaxis is contraindicated due to thrombocytopenia). Code status: Full Quality Stroke Does the patient have a stroke diagnosis?: No VTE Prior VTE?: No VTE Risk Level:: Medical - moderate - high VTE Device Contraindication: N/A - Device Ordered VTE Drug Contraindication: Treatment Not Indicated
[2024-08-18] MEDS: iohexoL 350 MG/ML 100 ML INFUS..BTL 85 ML IV (00:42)
[2024-08-18] MEDS: HYDROmorphone HCl 1 MG/ML SYRINGE IVPUSH (01:42)
[2024-08-18] MEDS: ondansetron HCL 4 MG/2 ML VIAL IVPUSH (03:01)
[2024-08-18] MEDS: Ketorolac Tromethamine 15 MG/ML VIAL IVPUSH (03:29)
[2024-08-18] MEDS: fentaNYL citrate/PF 100 MCG/2 ML VIAL 25 MCG IVPUSH (03:30)
[2024-08-18] MEDS: Lactated Ringers 1,000 ML 80 ML IVCONT ×2 (03:31→18:28)
[2024-08-18] MEDS: HYDROmorphone HCl 2 MG/ML VIAL IVPUSH ×6 (04:26→22:00)
[2024-08-18] MEDS: LORazepam 2 MG/ML VIAL 1 MG IVPUSH ×4 (04:26→23:03)
[2024-08-18] MEDS: Prochlorperazine Edisylate 10 MG/2 ML VIAL IV ×2 (04:27→22:37)
[2024-08-18] MEDS: methADONE HCl 20 MG/2 ML ORAL.CONC 60 MG PO (05:13)
[2024-08-18] MEDS: Omeprazole 40 MG CAPSULE.DR PO ×3 (05:13→17:11)
[2024-08-18] MEDS: Piperacillin Sodium/Tazobactam 3.375 GM in 0.9 % Sodium Chloride 50 ML IV ×4 (05:26→23:42)
[2024-08-18 06:05] LABS: MANUAL DIFF FLAG NO
[2024-08-18 06:08] LABS: Hematocrit 31.3 % (42.0-52.0); Hemoglobin 9.3 g/dl (14.0-18.0); Imm Gran Abs Auto 0.03 X10*3/uL (0.00-0.03); Imm Gran Pct Auto 0.7 % (0.0-0.4); Lymphocytes Absolute Auto 0.3 X10*3/uL (1.2-4.9); Lymphocytes Percent Auto 7.4 % (20-40); Mean Corpuscular HGB Conc 29.7 g/dl (31.0-36.0); Mean Corpuscular Volume 67.5 fL (80.0-98.0); Monocytes Absolute Auto 0.6 X10*3/uL (0.1-1.2); Monocytes Percent Auto 13.1 % (2-11); Neutrophils Absolute Auto 3.5 x10*3/uL (2.0-8.3); Neutrophils Percent Auto 78.8 % (45-73); Platelet Count 76 X10*3/uL (160-400); Red Blood Count 4.64 X10*6/uL (4.60-5.80); Red Cell Distribution Width 19.7 % (11.0-16.0); White Blood Count 4.4 X10*3/uL (4.8-10.8)
[2024-08-18 06:23] LABS: Lactic Acid 1.1 mmol/L (0.5-2.0)
[2024-08-18 06:25] LABS: Alanine Aminotransferase 18 U/L (0-40); Albumin Level 3.6 g/dL (3.5-5.0); Alkaline Phosphatase 46 U/L (39-117); Anion Gap 13 (12-20); Aspartate Amino Transferase 30 U/L (5-37); Bilirubin Total 0.9 mg/dL (0.0-1.0); Blood Urea Nitrogen 10 mg/dL (9-16); C Reactive Protein 5.45 mg/dL (< or = 0.50); Calcium 8.2 mg/dL (8.4-10.2); Carbon Dioxide 22 mmol/L (22-29); Chloride 110 mmol/L (96-108); Creatinine Clr Calc Pharmacy 179.5; Estimated Glomerular Filt Rate > 60; Glucose Random 114 mg/dL (60-115); Potassium 3.5 mmol/L (3.3-5.1); Sodium 141 mmol/L (135-145); Total Protein 8.7 g/dL (6.5-8.0)
[2024-08-18] MEDS: 0.9 % Sodium Chloride Flush 3 ML SYRINGE IVFLUSH (07:32)
[2024-08-18 08:07] LABS: Appearance Urine Clear; Color Urine Yellow; Glucose Urine UA Negative (Negative); Leukocyte Esterase Urine Negative (Negative); Nitrite Urine Negative (Negative); PH 6.5 (5.0-9.0); Specific Gravity - Urine >= 1.030 (1.005-1.025); UMIC TRIGGER UACC YES; Urine Blood Negative (Negative); Urine Ketones 40 mg/dL (Negative); Urine Protein 30 (1+) mg/dL (Neg-Trace)
[2024-08-18 08:12] LABS: Bacteria Urine None Seen (None Seen); Hyaline Casts Urine 0-2 /LPF (0-2); RBC Urine 0-2 /HPF (0-2); Squamous Epithelial Cell Urine 0-2 /HPF (0-2); WBC Urine 0-5 /HPF (0-5)
[2024-08-18 08:21] LABS: Amphetamine Screen Urine Not Detected (Not Detect); Barbiturates, Urine Not Detected (Not Detect); Benzodiazepines Screen Urine Not Detected (Not Detect); Buprenorphine Scr Not Detected (Not Detect); Cannabinoid Screen Urine Not Detected (Not Detect); Cocaine Screen Urine POSITIVE (Not Detect); Fentanyl, urine POSITIVE (Not Detect); Methadone Screen, Urine Positive (Not Detect); Opiate Screen Urine POSITIVE (Not Detect); Oxycodone Screen Urine Not Detected (Not Detect); Phencyclidine Screen Urine Not Detected (Not Detect)
--- NOTE | 2024-08-18 08:55 | PC.NURSE ---
Care of Pt assumed at change of shift. Pt very restless and unable to be comfortable. PRN medications given per MAR with no relief. Additional pillows and bed adjustments made to help with pain relief with no success. Pt requests new orders for pain med and to see provider. Attending made aware via [facility].
--- NOTE | 2024-08-18 09:20 | PHA.PROG ---
Admission Date/Time: August 18, 2024 09:00 Indication: Bacteremia Weight in k.274 kg Adjusted body weight in Kg: [place] body weight in Kg: Obesity Dosing Indication % IBW: BMI 36.6 Serum Creatinine - Last 168 Hours 08/17/24 08/18/24 18:17 05:45 Creatinine 0.73 0.68 Estimated CrCl and GFR - Last 168 Hours 08/17/24 08/18/24 18:17 05:45 Estim Creat Clear Calc 167.2 179.5 Estimated GFR > 60 > 60 Vancomycin Loading Dose: 2000mg X1 Current Vancomycin Dosing Regimen: 1500mg Q12h Vancomycin Monitoring using AUC goal of 400 - 600 range with trough as surrogate marker: 547 Date and Time for next Vancomycin Level to be drawn: 08/19@1000 Pharmacist Comments on Vancomycin Plan: Patient's renal function appears stable and BMI is high, starting off 1500mg Q12 for a target trough of 17.8 as patient is obese and indication is bacteremia. Will readjust as needed 08/19. Vancomycin dosing will take advantage of [employer] as a clinical decision support tool that uses Bayesian modeling to calculate individual patient's pharmacokinetic parameters and forecast the patient's drug concentration time course with the target goal AUC 24 range of 400 - 600 mg/L/hr.
[2024-08-18] MEDS: Acetaminophen 325 MG TABLET 975 MG PO ×3 (09:26→23:40)
[2024-08-18] MEDS: lisinopriL 20 MG TABLET PO (09:26)
[2024-08-18] MEDS: Ibuprofen 600 MG TABLET PO ×3 (09:26→17:11)
--- NOTE | 2024-08-18 09:27 | PM.EVENT ---
Event Note Date of Service: 08/18/24 Event Note: Patient admitted to the medical service-c/o pain throughout the body , specifically on the right side. CT of the abd and pelvis negative for suspious activity in the right hip/groing xr of the right hip show osteophyte formation-mild OA WBC not elevated Patient does not meet a sepsis criteria No evidence of infection/ abscess formation of the right hip No orthopedic intervention warranted as there is no evidence of infection or urgent / emergent matter If right hip appears to be a concern for source of pain, trial NSAIDS/Tylenol/PT eval Patient can see ortho outpatient Time Spent With Patient Time: Total time managing care of this patient today ____ minutes.
--- NOTE | 2024-08-18 09:42 | MHC.RECOVRN ---
Methadone verification obtained from Sabina Pete by T/W of TDD 90mg. Pt split doses and takes 60mg Qam and 30mg QPM. Pt received 60mg AM of . He was given his afternoon dose of 30mg as a take home along with daily dosing to last through 08/22/24. Pt due to return to clinic on 08/23/24. Above information obtained from clinic nurse Gray Munguia RN and communicated to ER charge nurse Cristy. ACS will F/U with pt. after admission for further support.
--- NOTE | 2024-08-18 10:17 | PHA.MEDREC ---
Addendum entered by Shavon Medrano RPh 08/18/24 11:36: [facility] reviewed Original Note: Pharmacy Consult ? Medication Reconciliation Pharmacy has completed the medication reconciliation. Spoke to pt to confirm meds. Pt reports being prescribed Mavyret 3 tabs daily, but has not started yet. Left off med rec. Also reports taking methadone 90 mg daily from [facility].
--- NOTE | 2024-08-18 11:34 | HE.PHANOTE ---
Methadone verification Called [facility] and spoke with Gray. Patient was last seen in clinic on 08/16/24 and he received take home bottles until 08/22/24. Patient gets a total of 90 mg daily. Patient gets 60 mg daily and 12 hour later takes 30 mg.
[2024-08-18] MEDS: vancomycin HCL 1,500 MG in 0.9 % Sodium Chloride 500 ML 333.33 MG IV (13:33)
--- NOTE | 2024-08-18 14:20 | PM.EVENT ---
Event Note Date of Service: 08/18/24 Event Note: Seen and evaluated 1 set of blood Cx growing [facility] Ortho doesnt think he has septic arthritis Continue IV antibiotics Addiction team started Methadone Contineue pain management with Tylenol, Advil and PRN Dilaudid Time Spent With Patient Time: Total time managing care of this patient today ____ minutes.
[2024-08-18] MEDS: Gabapentin 300 MG CAPSULE 600 MG PO (21:51)
[2024-08-18] MEDS: methADONE HCl 20 MG/2 ML ORAL.CONC 30 MG PO (21:52)
[2024-08-19] VITALS (12 sets, daily range): BP systolic 152–195; BP diastolic 72–96; PULSE 9–86; RESP 16–20; TEMP 36.1–37.1; O2SAT 93–95
[2024-08-19] MEDS: vancomycin HCL 1,500 MG in 0.9 % Sodium Chloride 500 ML 333.33 MG IV ×2 (00:21→11:25)
[2024-08-19] MEDS: 0.9 % Sodium Chloride Flush 3 ML SYRINGE IVFLUSH ×3 (00:21→19:33)
[2024-08-19] MEDS: HYDROmorphone HCl 2 MG/ML VIAL IVPUSH ×6 (02:00→21:07)
[2024-08-19] MEDS: LORazepam 2 MG/ML VIAL 1 MG IVPUSH ×2 (03:03→22:28)
[2024-08-19] MEDS: Piperacillin Sodium/Tazobactam 3.375 GM in 0.9 % Sodium Chloride 50 ML IV ×4 (05:08→23:32)
[2024-08-19] MEDS: Omeprazole 40 MG CAPSULE.DR PO ×2 (05:57→16:22)
[2024-08-19 07:07] LABS: Anion Gap 11 (12-20); Blood Urea Nitrogen 11 mg/dL (9-16); Calcium 8.4 mg/dL (8.4-10.2); Carbon Dioxide 19 mmol/L (22-29); Chloride 114 mmol/L (96-108); Creatinine Clr Calc Pharmacy 215.5; Estimated Glomerular Filt Rate > 60; Glucose Random 104 mg/dL (60-115); Potassium 3.7 mmol/L (3.3-5.1); Sodium 140 mmol/L (135-145)
[2024-08-19 07:17] LABS: Basophils Percent Auto 0.2 % (0-2); Eosinophils Percent Auto 0.4 % (0-4); Hematocrit 30.7 % (42.0-52.0); Hemoglobin 9.2 g/dl (14.0-18.0); Imm Gran Abs Auto 0.03 X10*3/uL (0.00-0.03); Imm Gran Pct Auto 0.6 % (0.0-0.4); Lymphocytes Absolute Auto 0.5 X10*3/uL (1.2-4.9); Lymphocytes Percent Auto 9.5 % (20-40); Mean Corpuscular Hemoglobin 20.4 pg (27.0-33.0); Mean Corpuscular Volume 68.2 fL (80.0-98.0); Monocytes Absolute Auto 0.7 X10*3/uL (0.1-1.2); Monocytes Percent Auto 14.1 % (2-11); Neutrophils Absolute Auto 3.9 x10*3/uL (2.0-8.3); Neutrophils Percent Auto 75.2 % (45-73); PLT CLUMP 1; Red Cell Distribution Width 20.4 % (11.0-16.0); SCAN SMEAR FLAG 1
[2024-08-19 07:26] LABS: MANUAL DIFF FLAG NO; Platelet Count 59 X10*3/uL (160-400); White Blood Count 5.2 X10*3/uL (4.8-10.8)
[2024-08-19] MEDS: Acetaminophen 325 MG TABLET 975 MG PO ×3 (08:06→23:31)
[2024-08-19] MEDS: Gabapentin 300 MG CAPSULE 600 MG PO ×3 (08:06→20:54)
[2024-08-19] MEDS: methADONE HCl 20 MG/2 ML ORAL.CONC 60 MG PO (08:07)
[2024-08-19] MEDS: Folic Acid 1 MG TABLET PO (08:07)
[2024-08-19] MEDS: Ferrous Sulfate 324 MG TABLET.DR PO (08:07)
[2024-08-19] MEDS: Ibuprofen 600 MG TABLET PO ×3 (08:07→16:21)
[2024-08-19 08:17] LABS: Iron 21 mcg/dL (45-160); Percent Iron Saturation 8 % (15-50); Total Iron Binding Capacity 271 mcg/dL (228-428); Unsaturated Iron Binding 250 ug/dL
[2024-08-19] MEDS: amLODIPine Besylate 5 MG TABLET PO (08:37)
[2024-08-19] MEDS: lisinopriL 40 MG TABLET PO (08:37)
--- NOTE | 2024-08-19 10:26 | MHC.CM.PN ---
[T LIVES WITH S/O HAS OWN RIDE HOME AND GOES TO [facility] FOR HIS METHADONE
[2024-08-19 10:54] LABS: Vancomycin Random 7.1 mcg/mL (15-20)
--- NOTE | 2024-08-19 11:21 | HE.PHANOTE ---
Vancomycin Vancomycin Level 7.1 before 4th dose. Giving 1 x 1500 mg dose and then adjusting frequency to Q8H. Predicted level for dosing of 1250 mg q8h is 420. Next trough 08/20/24 @1000
--- NOTE | 2024-08-19 11:22 | P.PNIM_ITS ---
Subjective Subjective Date of Service: 08/19/24 Interval History: Seen and evaluated this morning complaining of pain, no fever overnight overall seems better Blood cultures positive no other events Review of Systems Review of Systems: Yes all other systems are reviewed and are negative Physical Exam 2 Vital Signs: Vital Signs: Last Vital Signs Temp 98.7 F 08/19/24 07:05 Pulse 70 08/19/24 07:05 Resp 20 08/19/24 07:05 BP 195/95 H 08/19/24 07:05 Pulse Ox 94 08/19/24 07:05 O2 Del Method Room Air 08/19/24 07:05 BMI result Body Mass Index 38.3 Const: Other: Constitutional : Awake, lethargic Neck : Normal inspection, Supple Cardiovascular : RRR, no JVP, no lower extremity edema Respiratory : fair bilateral air entry, no crackles, wheezes or rhonchi Gastrointestinal: soft, lax, Normal bowel sounds, Non tender Skin : Warm, Dry, multiple skin tags and ingection cueto Extremities: Right hip mild tenderness, no erythema or swelling Neurological : Alert & oriented x3, No focal deficit Objective Data Active Medications Acetaminophen (Acetaminophen 325 Mg Tablet) [facility] Last Admin: 08/19/24 08:06 Dose: 975 mg Documented By: RIGOBERTO Albuterol Sulfate (Albuterol Sulfate 90 Mcg 8 Gm Inhaler) 2 puff INHALE Q6H PRN PRN Reason: Shortness Of Breath Or Wheezing Amlodipine Besylate (Amlodipine Besylate 5 Mg Tablet) 5 mg PO DAILY [facility]; Protocol Last Admin: 08/19/24 08:37 Dose: 5 mg Documented By: RIGOBERTO Ferrous Sulfate (Ferrous Sulfate 324 Mg Tablet.Dr) 324 mg PO DAILY PRN PRN Reason: supplementation Last Admin: 08/19/24 08:07 Dose: 324 mg Documented By: RIGOBERTO Fluticasone Propionate (Fluticasone Propionate Nasal 16 Gm [place]) 1 spray NOSTRIL-B DAILY PRN PRN Reason: Allergy Symptoms Folic Acid (Folic Acid 1 Mg Tablet) 1 mg PO DAILY [facility] Last Admin: 08/19/24 08:07 Dose: 1 mg Documented By: RIGOBERTO Gabapentin (Gabapentin 300 Mg Capsule) 600 mg PO TID [facility] Last Admin: 08/19/24 08:06 Dose: 600 mg Documented By: RIGOBERTO Hydromorphone HCl (Hydromorphone Hcl 2 Mg/Ml Vial) 2 mg IVPUSH Q3H PRN; Protocol PRN Reason: Pain, Severe (Pain Scale 7-10) Last Admin: 08/19/24 08:06 Dose: 2 mg Documented By: RIGOBERTO Piperacillin Sod/Tazobactam (Sod 3.375 gm/ Sodium Chloride) 50 mls @ 100 mls/hr IV Q6H [facility] Last Infusion: 08/19/24 05:40 Dose: Infused Documented By: TARIQ Vancomycin HCl 1,500 mg/ (Sodium Chloride) 500 mls @ 333.333 mls/hr IV ONCE ONE Stop: 08/19/24 12:44 Vancomycin HCl 1,250 mg/ (Sodium Chloride) 250 mls @ 166.667 mls/hr IV Q8H [facility] Ibuprofen (Ibuprofen 600 Mg Tablet) 600 mg PO TIDWM [facility] Last Admin: 08/19/24 08:07 Dose: 600 mg Documented By: RIGOBERTO Lisinopril (Lisinopril 40 Mg Tablet) 40 mg PO DAILY [facility]; Protocol Last Admin: 08/19/24 08:37 Dose: 40 mg Documented By: RIGOBERTO Lorazepam (Lorazepam 2 Mg/Ml Vial) 1 mg IVPUSH Q4H PRN PRN Reason: Anxiety Last Admin: 08/19/24 03:03 Dose: 1 mg Documented By: TARIQ Methadone HCl (Methadone Hcl 20 Mg/2 Ml Oral.Conc) 30 mg PO BEDTIME [facility] Last Admin: 08/18/24 21:52 Dose: 30 mg Documented By: TARIQ Co-signed By: BRIELLE Methadone HCl (Methadone Hcl 20 Mg/2 Ml Oral.Conc) 60 mg PO DAILY [facility] Last Admin: 08/19/24 08:07 Dose: 60 mg Documented By: RIGOBERTO Co-signed By: PHILIP Non-Formulary Medication (Tadalafil) 5 mg PO DAILY [facility] Omeprazole (Omeprazole 40 Mg Capsule.Dr) 40 mg PO BID@0630,1630 [facility] Last Admin: 08/19/24 05:57 Dose: 40 mg Documented By: TARIQ Ondansetron HCl (Ondansetron Hcl 4 Mg/2 Ml Vial) 4 mg IVPUSH Q6H PRN PRN Reason: Nausea and Vomiting Pharmacy Consult (Consult Rx Vancomycin Dosing) 1 each MISCELLANE DAILY PRN PRN Reason: Consult order Prochlorperazine Edisylate (Prochlorperazine Edisylate 10 Mg/2 Ml Vial) 10 mg IV Q4H PRN PRN Reason: Nausea and Vomiting Last Admin: 08/18/24 22:37 Dose: 10 mg Documented By: TARIQ Sodium Chloride (0.9 % Sodium Chloride Flush 3 Ml Syringe) [facility] Last Admin: 08/19/24 08:07 Dose: Not Given Documented By: RIGOBERTO Non-Admin Reason: IV Running Triamcinolone Acetonide (Triamcinolone Acet 0.1 % Cream 15 Gm Tube) 1 appl TOPICAL BID PRN; Protocol PRN Reason: eczema/psoriasis Labs 08/19/24 06:26 08/19/24 06:26 Labs: Laboratory Results - last 24 hr 08/19/24 08/19/24 06:26 10:23 MCV 68.2 L MCH 20.4 L MCHC 30.0 L RDW 20.4 H Plt Count 59 L MPV Not Reportable Immature Gran % (Auto) 0.6 H Neut % (Auto) 75.2 H Lymph % (Auto) 9.5 L [place] % (Auto) 14.1 H Eos % (Auto) 0.4 Baso % (Auto) 0.2 Lymph # (Auto) 0.5 L [place] # (Auto) 0.7 Eos # (Auto) 0.0 Baso # (Auto) 0.0 Abs Immat Gran (auto) 0.03 Absolute Neuts (auto) 3.9 Absolute Nucleated RBC 0.000 Nucleated RBC % (auto) 0.0 Anion Gap 11 L Estim Creat Clear Calc 215.5 Estimated GFR > 60 Random Glucose 104 Calcium 8.4 Iron 21 L TIBC 271 % Saturation 8 L Unsat Iron Binding 250 Random Vancomycin 7.1 L Microbiology Microbiology Results: Microbiology 08/17/24 22:43 Blood Culture - Preliminary Blood - Venous Staphylococcus aureus 08/17/24 22:40 Blood Culture - Preliminary Blood - Venous Staphylococcus aureus Assessment and Plan (1) Fever: Status: Acute (2) Heroin abuse: Status: Acute (3) Low grade fever: Status: Acute (4) Staphylococcus aureus bacteremia: Status: Acute Plan Dennis Alaniz is a 54 y/o man with PMHx significant for liver cirrhosis and untreated hepatitis-C presents with: Staph Aureus bacteremia abdominal and pelvis CT negative for any acute findings repeat Blood cultures pending 08/18 Continue IV Vancomycin and Zosyn pending final cultures Echo ID consult Vancomycin trough Pancytopenia, chronic. check HIV\Hep B,C profile Continue to monitor. IVDU. usesHeroin IV -last use 2 days RN CARDIOLOGY Start home dose Methadone Addiction medicine following; Essential hypertension. uncontrolled Add Amlodipine Increase lisinopril. GERD. Continue omeprazole. Neuropathy. Continue gabapentin. Hx of porphyria cutanea tarda. DVT prophylaxis: SCDs (pharmacological DVT prophylaxis is contraindicated due to thrombocytopenia). The patient will need overnight stay for treatment of bacteremia on IV antibiotics pendings ID consult and negative cultures. Quality Stroke Does the patient have a stroke diagnosis?: No VTE Prior VTE?: No VTE Risk Level:: Medical - moderate - high VTE Device Contraindication: N/A - Device Ordered VTE Drug Contraindication: Treatment Not Indicated
--- NOTE | 2024-08-19 13:45 | MHC.RECOVRN ---
Pt has been intermittently using heroin due to chronic knee pain. He has taken several steps to work towards his knee surgery but remaining sober is also a necessary step. T/W provided pt with resources for therapy and SMART recovery as he identified these as areas of support for ongoing recovery. Pt will also discuss pain management clinic with ortho at next appt. T/W available as needed Report to ACS team.
--- NOTE | 2024-08-19 17:51 | PC.NURSE ---
Hypertensive 190/108. Mark Hicks notified. BP meds adjusted. BP 152/72 for afternoon check. 171/[address] Hicks aware.
[2024-08-19] MEDS: vancomycin HCL 1,250 MG in 0.9 % Sodium Chloride 250 ML 166.67 MG IV (19:32)
[2024-08-19] MEDS: methADONE HCl 20 MG/2 ML ORAL.CONC 30 MG PO (20:54)
[2024-08-20] VITALS (11 sets, daily range): BP systolic 156–200; BP diastolic 77–98; PULSE 67–85; RESP 17–19; TEMP 36.9–37.9; O2SAT 95–96
[2024-08-20] MEDS: HYDROmorphone HCl 2 MG/ML VIAL IVPUSH ×7 (00:02→23:31)
[2024-08-20] MEDS: vancomycin HCL 1,250 MG in 0.9 % Sodium Chloride 250 ML 166.67 MG IV (03:47)
[2024-08-20] MEDS: LORazepam 2 MG/ML VIAL 1 MG IVPUSH ×4 (03:52→23:31)
[2024-08-20 04:43] LABS: HBS Num1 417.71 mIU/mL (0-7.99); HBc Num1 7.53 S/CO (0.00-0.79); HBsAGNum1 0.31 S/CO (0.00-0.99); HIV AB/AG Nonreactive (Nonreactive); HIV Num 1 0.05 S/CO (0.00-0.99); Hepatitis B Surface Antigen Negative (Negative); ~HepC Num1 12.74 S/CO (0.00-0.79); ~Hepatitis B Surface Antibody REACTIVE (Nonreactive); ~Hepatitis C Antibody Reactive (Nonreactive)
[2024-08-20 05:25] LABS: HBc Num2 7.46 S/CO; HBc Num3 7.69 S/CO; Hepatitis B Core Antibody Reactive (Nonreactive)
[2024-08-20] MEDS: Omeprazole 40 MG CAPSULE.DR PO ×2 (05:54→16:50)
[2024-08-20] MEDS: Piperacillin Sodium/Tazobactam 3.375 GM in 0.9 % Sodium Chloride 50 ML IV ×2 (05:55→11:03)
[2024-08-20 06:02] LABS: Basophils Percent Auto 0.2 % (0-2); Eosinophils Absolute Auto 0.1 X10*3/uL (0.0-0.4); Hemoglobin 8.1 g/dl (14.0-18.0); Imm Gran Abs Auto 0.02 X10*3/uL (0.00-0.03); Imm Gran Pct Auto 0.4 % (0.0-0.4); Lymphocytes Absolute Auto 0.5 X10*3/uL (1.2-4.9); Lymphocytes Percent Auto 11.8 % (20-40); MANUAL DIFF FLAG SCAN; Neutrophils Absolute Auto 3.2 x10*3/uL (2.0-8.3); PLT CLUMP 1; SCAN SMEAR FLAG 1
[2024-08-20 06:03] LABS: Eosinophils Percent Auto 2.9 % (0-4); Hematocrit 27.4 % (42.0-52.0); Mean Corpuscular HGB Conc 29.6 g/dl (31.0-36.0); Mean Corpuscular Volume 67.8 fL (80.0-98.0); Monocytes Absolute Auto 0.6 X10*3/uL (0.1-1.2); Neutrophils Percent Auto 70.7 % (45-73); Red Blood Count 4.04 X10*6/uL (4.60-5.80); Red Cell Distribution Width 19.9 % (11.0-16.0)
--- NOTE | 2024-08-20 06:12 | PC.NURSE ---
0447 pt c/o a lot of pain in right hip and not due yet for dilaudid until 0600.pt wanted something else ordered. notified and a 1x dose of dilaudid 2mg IV ordered.
[2024-08-20 06:16] LABS: Anion Gap 8 (12-20); Blood Urea Nitrogen 7 mg/dL (9-16); Calcium 7.6 mg/dL (8.4-10.2); Carbon Dioxide 21 mmol/L (22-29); Chloride 113 mmol/L (96-108); Estimated Glomerular Filt Rate > 60; Glucose Random 96 mg/dL (60-115); Potassium 3.2 mmol/L (3.3-5.1); Sodium 139 mmol/L (135-145)
--- NOTE | 2024-08-20 07:00 | CA_ITS ---
Transthoracic Echocardiogram Amended Patient (Last, First, Middle): Dennis Alaniz L Gender: Male Date of : 1970 Age: 54 Procedure Date: 08/20/2024 Procedure Type: Transthoracic Echocardiogram Location: S3E Height: 187.96 cm Weight: 135.17 kg BSA: 2.57 m2 Heart Rate: 74 bpm BP: 188 / 92 mmHg Director Index: Referring MD: Andrew Hicks MD Symptoms: IVDU, Bacteremia R O vegetations Study Quality: Adequate ECG Rhythm: Sinus Conclusions: - Normal left ventricular size, thickness, systolic function, and wall motion. The visually estimated ejection fraction is between 60-65%. Diastolic function is normal for age. - Normal right ventricular cavity size and systolic function. - The left atrium is severely dilated. The right atrium is moderately dilated. - There is mild dilatation of the sinuses of Valsalva measuring 4.10 cm and mild dilatation of the ascending aorta measuring 3.50 cm. - No obvious vegetation noted on visualized valves. Findings Left Ventricle Normal left ventricular size, thickness, systolic function, and wall motion. The visually estimated ejection fraction is between 60-65%. Diastolic function is normal for age. Right Ventricle Normal right ventricular cavity size and systolic function. Atria The left atrium is severely dilated. The right atrium is moderately dilated. Aortic Valve The aortic valve was not well visualized. There is no aortic valve stenosis. There is no aortic valve regurgitation. Mitral Valve The mitral valve appears normal. There is no mitral valve regurgitation. There is no mitral valve stenosis. Pulmonic Valve The pulmonic valve is likely normal. Tricuspid Valve Normal tricuspid valve structure. There is trace tricuspid valve regurgitation. Normal right atrial pressure. There is no evidence of pulmonary hypertension. Great Vessels There is mild dilatation of the sinuses of Valsalva measuring 4.10 cm and mild dilatation of the ascending aorta measuring 3.50 cm. The visualized portions of the pulmonary artery and branches are normal. Venous The inferior vena cava is normal in size and collapses greater than 50% with inspiration. Pericardium/Pleural There is no evidence of pericardial effusion. Prior Study Comparison No prior study available for comparison. Recommendations, Care & Conclusions Consider a THANIA if clinically appropriate. Measurements 2D Linear Measurements LVOT Diam: 2.70 3.0+(-)1.3 cm 2D Volumes LA Vol: 58.00 Mitral Valve MV Pk E: 1.13 MV PK A: 0.91 MV Decel Time: 173.00 E/A: 1.20 E'Lateral: 11.10 E'Medial: 8.70 E/E' Med: 13.00 E/E' Lat: 10.20 PHT: 51.00 MVA PHT: 4.31 Decel [place]: 6.54 Aortic Valve AoV Pk Charbel: 2.02 AoV Mn Charbel: 1.45 AoV VTI: 0.49 AoV Pk Grad: 16.00 Aov Mn Grad: 10.00 GERARDO Cont.VTI: 3.70 LVOT LVOT Pk Charbel: 1.23 LVOT Mn Charbel: 0.93 LVOT VTI: 0.32 LVOT Pk Grad: 6.00 LVOT Mn Grad: 4.00 LVOT Diam: 2.70 LVOT Area: 5.73 Diastolic Function MV Pk E: 1.13 MV Pk A: 0.91 E/A: 1.20 E'Medial: 8.70 E/E' Med: 13.00 E' Laterial: 11.10 E/E' Lat: 10.20 Right Ventricle TAPSE (mm): 45.30 Tricuspid Valve TR Pk Charbel: 1.79 TR Pk Grad: 13.00 RA Press: 8.00 RVSP: 21.00 Great Vessels Aorta Sinus of Valsalva: 4.10 2.0-3.5 cm Ao Asc: 3.50 2.1-3.4 cm Pulmonary Valve PV Pk Charbel: 1.04 Peak PV Grad: 4.00 Updated in Other Vendor System with Status of Final Osvaldo Haji MD electronically signed on 08/20/2024 9:27:35 PM with status of Final
[2024-08-20] MEDS: Acetaminophen 325 MG TABLET 975 MG PO ×3 (07:01→23:35)
[2024-08-20] MEDS: Ibuprofen 600 MG TABLET PO ×3 (07:02→16:49)
[2024-08-20] MEDS: amLODIPine Besylate 5 MG TABLET PO ×2 (07:22→08:08)
[2024-08-20] MEDS: Folic Acid 1 MG TABLET PO (07:22)
[2024-08-20] MEDS: methADONE HCl 20 MG/2 ML ORAL.CONC 60 MG PO (07:22)
[2024-08-20] MEDS: lisinopriL 40 MG TABLET PO (07:25)
[2024-08-20] MEDS: Gabapentin 300 MG CAPSULE 600 MG PO ×3 (07:25→21:03)
[2024-08-20 07:55] LABS: Platelet Count 75 X10*3/uL (160-400); White Blood Count 4.6 X10*3/uL (4.8-10.8)
[2024-08-20 07:56] LABS: SLIDE REVIEW VERIFIED
[2024-08-20] MEDS: Labetalol HCL 100 MG TABLET PO ×2 (08:09→21:04)
[2024-08-20] MEDS: Finasteride 5 MG TABLET PO (08:10)
--- NOTE | 2024-08-20 09:11 | MHC.CM.PN ---
Addendum entered by Chitra Sutton RN 08/20/24 12:37: CM spoke w/ Priscila @ [facility] who will send information to [facility] for guest dosing. Addendum entered by Chitra Sutton RN 08/20/24 12:34: All acute rehabs have denied as patient does not meet criteria for LOC. Received denials from local SNFs as well. Attempted referral to [facility] who also denied d/t recent IVDU. Patient gave permission for [facility] to initiate guest dosing. [place] [facility] [place]. Awaiting abx recommendation from ID and response from MD. Will continue to pursue SNF placement/guest dosing. Addendum entered by Chitra Sutton RN 08/20/24 11:03: Priscila @ [facility] [phone] Addendum entered by Chitra Sutton RN 08/20/24 10:57: Patient declining placement in [place]. Discussed facilities limitations (methadone). Referral sent to local facilities, but patient understands they do not typically accept metadone. Patient also requesting referrals to local acute rehabs. Reviewed criteria for acute/AR/SNF level of care. Referrals sent via [facility]. CM also spoke w/ Priscila @ [facility] who would initiate guest dosing w/ patient consent. However, patient declines to give consent. CM will f/u w/ patient once responses received from additional referrals. Original Note: Per MD patient will require 4-6 wks IV abx. Referrals sent to SNF's via [facility]. Awaiting bed offer. Request for guest dosing sent to [facility] via fax. LM and sent fax request to [facility] to coordinate w/ [facility] for guest dosing.
--- NOTE | 2024-08-20 09:57 | MHC.RECOVRN ---
Met with pt to follow up and provide support. Pt awake, alert, easily engages in conversation. Pt reports difficulty with his due to recent substance use. Discusses plans for recovery including moving out of [place], spending time with family and outdoors. Pt reports periods of recovery throughout his life, including a 10 year span. Pt reports spending quality time with family is most helpful for his recovery. Pt reports utilizing [employer] for new supplies. Discussed harm reduction and safer injecting. Pt denies questions or concerns at this time.
[2024-08-20 10:43] LABS: Vancomycin Trough 10.6 mcg/mL (10.0-20.0)
--- NOTE | 2024-08-20 10:51 | HE.PHANOTE ---
re vanco patients level came back this morning at 10.6. Patients been on vanco since 08/17 and has still not had a therapeutic level. Will do 1500 mg Q8H. patient is at risk of dose dumping, will get level 08/21 @1000, predicted AUC 496
[2024-08-20] MEDS: 0.9 % Sodium Chloride Flush 3 ML SYRINGE IVFLUSH ×3 (11:06→23:32)
[2024-08-20] MEDS: vancomycin HCL 1,500 MG in 0.9 % Sodium Chloride 500 ML 333.33 MG IV (11:56)
--- NOTE | 2024-08-20 14:29 | HO.PM.IMPN ---
Subjective Subjective Date of Service: 08/20/24 Interval History: Seen and evaluated this morning complaining of pain which has improved overall seems better Blood cultures positive , repeat negative no other events Review of Systems Review of Systems: Yes all other systems are reviewed and are negative Physical Exam Vital Signs: Vital Signs: Last Vital Signs Temp 99.2 F 08/20/24 11:27 Pulse 74 08/20/24 11:27 Resp 18 08/20/24 11:27 BP 161/77 H 08/20/24 11:27 Pulse Ox 96 08/20/24 11:27 O2 Del Method Room Air 08/20/24 11:27 BMI result Body Mass Index 38.3 Const: Other: Constitutional : Awake, lethargic Neck : Normal inspection, Supple Cardiovascular : RRR, no JVP, no lower extremity edema Respiratory : fair bilateral air entry, no crackles, wheezes or rhonchi Gastrointestinal: soft, lax, Normal bowel sounds, Non tender Skin : Warm, Dry, multiple skin tags and ingection cueto Extremities: Right hip mild tenderness, no erythema or swelling Neurological : Alert & oriented x3, No focal deficit Objective Data Active Medications Acetaminophen (Acetaminophen 325 Mg Tablet) 975 mg PO QSHIFT [facility] Last Admin: 08/20/24 07:01 Dose: 975 mg Documented By: ANEL Albuterol Sulfate (Albuterol Sulfate 90 Mcg 8 Gm Inhaler) 2 puff INHALE Q6H PRN PRN Reason: Shortness Of Breath Or Wheezing Amlodipine Besylate (Amlodipine Besylate 10 Mg Tablet) 10 mg PO DAILY [facility]; Protocol Ferrous Sulfate (Ferrous Sulfate 324 Mg Tablet.) 324 mg PO DAILY PRN PRN Reason: supplementation Last Admin: 08/19/24 08:07 Dose: 324 mg Documented By: RIGOBERTO Finasteride (Finasteride 5 Mg Tablet) 5 mg PO DAILY [facility] Last Admin: 08/20/24 08:10 Dose: 5 mg Documented By: ANEL Fluticasone Propionate (Fluticasone Propionate Nasal 16 Gm [place]) 1 spray NOSTRIL-B DAILY PRN PRN Reason: Allergy Symptoms Folic Acid (Folic Acid 1 Mg Tablet) 1 mg PO DAILY [facility] Last Admin: 08/20/24 07:22 Dose: 1 mg Documented By: ANEL Gabapentin (Gabapentin 300 Mg Capsule) 600 mg PO TID [facility] Last Admin: 08/20/24 07:25 Dose: 600 mg Documented By: ANEL Hydromorphone HCl (Hydromorphone Hcl 2 Mg/Ml Vial) 2 mg IVPUSH Q3H PRN; Protocol PRN Reason: Pain, Severe (Pain Scale 7-10) Last Admin: 08/20/24 10:57 Dose: 2 mg Documented By: ANLE Piperacillin Sod/Tazobactam (Sod 3.375 gm/ Sodium Chloride) 50 mls @ 100 mls/hr IV Q6H [facility] Last Infusion: 08/20/24 11:33 Dose: Infused Documented By: ANEL Vancomycin HCl 1,500 mg/ (Sodium Chloride) 500 mls @ 333.333 mls/hr IV Q8H [facility] Last Infusion: 08/20/24 13:27 Dose: Infused Documented By: ANEL Ibuprofen (Ibuprofen 600 Mg Tablet) 600 mg PO TIDWM [facility] Last Admin: 08/20/24 11:03 Dose: 600 mg Documented By: ANEL Labetalol HCl (Labetalol Hcl 100 Mg Tablet) 100 mg PO BID [facility]; Protocol Last Admin: 08/20/24 08:09 Dose: 100 mg Documented By: ANEL Lisinopril (Lisinopril 40 Mg Tablet) 40 mg PO DAILY [facility]; Protocol Last Admin: 08/20/24 07:25 Dose: 40 mg Documented By: ANEL Lorazepam (Lorazepam 2 Mg/Ml Vial) 1 mg IVPUSH Q4H PRN PRN Reason: Anxiety Last Admin: 08/20/24 12:02 Dose: 1 mg Documented By: ANEL Methadone HCl (Methadone Hcl 20 Mg/2 Ml Oral.Conc) 30 mg PO BEDTIME [facility] Last Admin: 08/19/24 20:54 Dose: 30 mg Documented By: SUSIE Co-signed By: DESTIN Methadone HCl (Methadone Hcl 20 Mg/2 Ml Oral.Conc) 60 mg PO DAILY@0800 [facility] Last Admin: 08/20/24 07:22 Dose: 60 mg Documented By: ANEL Co-signed By: TONY Non-Formulary Medication (Tadalafil) 5 mg PO DAILY [facility] Omeprazole (Omeprazole 40 Mg Capsule.Dr) 40 mg PO BID@0630,1630 [facility] Last Admin: 08/20/24 05:54 Dose: 40 mg Documented By: SUSIE Ondansetron HCl (Ondansetron Hcl 4 Mg/2 Ml Vial) 4 mg IVPUSH Q6H PRN PRN Reason: Nausea and Vomiting Pharmacy Consult (Consult Rx Vancomycin Dosing) 1 each MISCELLANE DAILY PRN PRN Reason: Consult order Prochlorperazine Edisylate (Prochlorperazine Edisylate 10 Mg/2 Ml Vial) 10 mg IV Q4H PRN PRN Reason: Nausea and Vomiting Last Admin: 08/18/24 22:37 Dose: 10 mg Documented By: TARIQ Sodium Chloride (0.9 % Sodium Chloride Flush 3 Ml Syringe) 3 ml IVFLUSH QSHIFT [facility] Last Admin: 08/20/24 11:06 Dose: 3 ml Documented By: ANEL Triamcinolone Acetonide (Triamcinolone Acet 0.1 % Cream 15 Gm Tube) 1 appl TOPICAL BID PRN; Protocol PRN Reason: eczema/psoriasis Labs 08/20/24 05:53 08/20/24 05:53 Labs: Laboratory Results - last 24 hr 08/19/24 08/20/24 08/20/24 12:02 05:53 10:18 MCV 67.8 L MCH 20.0 L MCHC 29.6 L RDW 19.9 H Plt Count 75 L D MPV Not Reportable Immature Gran % (Auto) 0.4 Neut % (Auto) 70.7 Lymph % (Auto) 11.8 L [place] % (Auto) 14.0 H Eos % (Auto) 2.9 Baso % (Auto) 0.2 Lymph # (Auto) 0.5 L [place] # (Auto) 0.6 Eos # (Auto) 0.1 Baso # (Auto) 0.0 Abs Immat Gran (auto) 0.02 Absolute Neuts (auto) 3.2 Absolute Nucleated RBC 0.000 Nucleated RBC % (auto) 0.0 Smear Tech's Comments VERIFIED Anion Gap 8 L Estim Creat Clear Calc 245.0 Estimated GFR > 60 Random Glucose 96 Calcium 7.6 L D Vancomycin Trough 10.6 Hep Bs Antigen Negative Hep Bs Antibody REACTIVE Hep B Core Total Ab Reactive Hep B Core IgM Ab Cancelled Hepatitis C Ab (EIA) Reactive H HIV 1&2 Ab/P24 Ag 4thGn Nonreactive Microbiology Microbiology Results: Microbiology 08/17/24 22:43 Blood Culture - Final Blood - Venous Methicillin Res Staph Aureus 08/17/24 22:40 Blood Culture - Final Blood - Venous Methicillin Res Staph Aureus 08/18/24 16:21 Blood Culture - Preliminary Blood - Subclavian No growth after 24 hours. 08/18/24 16:20 Blood Culture - Preliminary Blood - Subclavian No growth after 24 hours. Assessment and Plan (1) Staphylococcus aureus bacteremia: Status: Acute (2) Heroin abuse: Status: Acute Plan Dennis Alaniz is a 54 y/o man with PMHx significant for liver cirrhosis and untreated hepatitis-C presents with: Staph Aureus bacteremia Abdominal and pelvis CT negative for any acute findings repeat Blood cultures negative and pending 08/18 Continue IV Vancomycin pending final cultures, DC Zosyn Echo pending ID consult Vancomycin trough Pancytopenia, chronic. negative HIV positive Hep B core and surface antibody Hep C +ve Continue to monitor. IVDU. uses Heroin IV Start home dose Methadone Addiction medicine following; Essential hypertension. uncontrolled Add Amlodipine Increase lisinopril. GERD. Continue omeprazole. Neuropathy. Continue gabapentin. Hx of porphyria cutanea tarda. DVT prophylaxis: SCDs (pharmacological DVT prophylaxis is contraindicated due to thrombocytopenia). The patient will need overnight stay for treatment of bacteremia on IV antibiotics pendings ID consult and negative cultures. Quality Stroke Does the patient have a stroke diagnosis?: No VTE Prior VTE?: No VTE Risk Level:: Medical - moderate - high VTE Device Contraindication: N/A - Device Ordered VTE Drug Contraindication: Treatment Not Indicated
--- NOTE | 2024-08-20 16:31 | P.CNID_ITS ---
History of Present Illness Data of Consult Service Date: 08/20/24 Requesting physician: Andrew Hicks Primary Care Provider: Jose Mann III, MD HPI Reason for consult: MRSA bacteremia He presents with fever and chills and low back pain,02/14. He has also three days pain right rib area. Echo is pending. He has / MRSA bacteremia x 2. He is HIV negative. He has had MSSA bacteremia in 2021. Review of Systems 2 Review of Systems: Yes all other systems are reviewed and are negative [facility] Past Medical History Medical History Heroin abuse Cocaine abuse High blood pressure Seasonal allergies Asthma Social History Social History Alcohol intake: current Alcohol intake frequency: 0-2 drinks per day Comment: refusing alarms Patient Tobacco Use Status: Never used Tobacco Substance Use Type: Crack/Cocaine and Heroin service: No Meds Allergies Allergy/AdvReac Type Severity Reaction Status Date / Time onion [ONION] Allergy Severe ANAPHYLAXIS Verified 08/17/24 17:48 TO RAW ONIONS (COOKED [place]) morphine [MORPHINE] Allergy Mild RASH, hives Verified 08/17/24 17:48 Active Medications: Current Medications Acetaminophen (Acetaminophen 325 Mg Tablet) [facility] Last Admin: 08/20/24 07:01 Dose: 975 mg Albuterol Sulfate (Albuterol Sulfate 90 Mcg 8 Gm Inhaler) 2 puff INHALE Q6H PRN PRN Reason: Shortness Of Breath Or Wheezing Amlodipine Besylate (Amlodipine Besylate 10 Mg Tablet) 10 mg PO DAILY [facility]; Protocol Docusate Sodium (Docusate Sodium 100 Mg Capsule) 100 mg PO BID [facility] Ferrous Sulfate (Ferrous Sulfate 324 Mg Tablet.Dr) 324 mg PO DAILY PRN PRN Reason: supplementation Last Admin: 08/19/24 08:07 Dose: 324 mg Finasteride (Finasteride 5 Mg Tablet) 5 mg PO DAILY [facility] Last Admin: 08/20/24 08:10 Dose: 5 mg Fluticasone Propionate (Fluticasone Propionate Nasal 16 Gm [place]) 1 spray NOSTRIL-B DAILY PRN PRN Reason: Allergy Symptoms Folic Acid (Folic Acid 1 Mg Tablet) 1 mg PO DAILY [facility] Last Admin: 08/20/24 07:22 Dose: 1 mg Gabapentin (Gabapentin 300 Mg Capsule) 600 mg PO TID [facility] Last Admin: 08/20/24 15:13 Dose: 600 mg Hydromorphone HCl (Hydromorphone Hcl 2 Mg/Ml Vial) 2 mg IVPUSH Q3H PRN; Protocol PRN Reason: Pain, Severe (Pain Scale 7-10) Last Admin: 08/20/24 15:16 Dose: 2 mg Vancomycin HCl 1,500 mg/ (Sodium Chloride) 500 mls @ 333.333 mls/hr IV Q8H [facility] Last Infusion: 08/20/24 13:27 Dose: Infused Ibuprofen (Ibuprofen 600 Mg Tablet) 600 mg PO TIDWM [facility] Last Admin: 08/20/24 11:03 Dose: 600 mg Labetalol HCl (Labetalol Hcl 100 Mg Tablet) 100 mg PO BID [facility]; Protocol Last Admin: 08/20/24 08:09 Dose: 100 mg Lisinopril (Lisinopril 40 Mg Tablet) 40 mg PO DAILY [facility]; Protocol Last Admin: 08/20/24 07:25 Dose: 40 mg Lorazepam (Lorazepam 2 Mg/Ml Vial) 1 mg IVPUSH Q4H PRN PRN Reason: Anxiety Last Admin: 08/20/24 12:02 Dose: 1 mg Methadone HCl (Methadone Hcl 20 Mg/2 Ml Oral.Conc) 30 mg PO BEDTIME [facility] Last Admin: 08/19/24 20:54 Dose: 30 mg Methadone HCl (Methadone Hcl 20 Mg/2 Ml Oral.Conc) 60 mg PO DAILY@0800 [facility] Last Admin: 08/20/24 07:22 Dose: 60 mg Non-Formulary Medication (Tadalafil) 5 mg PO DAILY [facility] Omeprazole (Omeprazole 40 Mg Capsule.Dr) 40 mg PO BID@0630,1630 [facility] Last Admin: 08/20/24 05:54 Dose: 40 mg Ondansetron HCl (Ondansetron Hcl 4 Mg/2 Ml Vial) 4 mg IVPUSH Q6H PRN PRN Reason: Nausea and Vomiting Pharmacy Consult (Consult Rx Vancomycin Dosing) 1 each MISCELLANE DAILY PRN PRN Reason: Consult order Polyethylene Glycol (Polyethylene Glycol 3350 17 Gm Powd.Pack) 17 gm PO DAILY [facility] Prochlorperazine Edisylate (Prochlorperazine Edisylate 10 Mg/2 Ml Vial) 10 mg IV Q4H PRN PRN Reason: Nausea and Vomiting Last Admin: 08/18/24 22:37 Dose: 10 mg Senna (Sennosides 8.6 Mg Tablet) 8.8 mg PO BEDTIME [facility] Sodium Chloride (0.9 % Sodium Chloride Flush 3 Ml Syringe) 3 ml IVFLUSH QSHIFT [facility] Last Admin: 08/20/24 15:18 Dose: 3 ml Triamcinolone Acetonide (Triamcinolone Acet 0.1 % Cream 15 Gm Tube) 1 appl TOPICAL BID PRN; Protocol PRN Reason: eczema/psoriasis Home Medications ?Medication ?Instructions ?Recorded ?Confirmed ?Last Taken ?Type blood sugar diagnostic (FreeStyle 04/13/23 04/13/23 Unknown History Lite Strips) fluticasone propionate 50 50 mcg intranasal DAILY PRN 04/13/23 08/18/24 Unknown History mcg/actuation nasal Allergy Symptoms spray,suspension gabapentin 300 mg capsule 600 mg PO TID Pain 04/13/23 08/18/24 08/17/24 History hydrocortisone 2.5 % topical cream 1 appl topical BID PRN Itching 04/13/23 08/18/24 Unknown History albuterol sulfate 90 mcg/actuation 2 puff inhalation Q6H PRN 08/18/24 08/18/24 Unknown History aerosol inhaler Shortness Of Breath Or Wheezing ferrous sulfate 324 mg (65 mg 324 mg PO DAILY PRN supplementation 08/18/24 08/18/24 Unknown History iron) tablet,delayed release lisinopril 20 mg tablet 30 mg PO BEDTIME 08/18/24 08/18/24 08/17/24 History methadone 10 mg/mL oral concentrate 30 mg PO BEDTIME 08/18/24 08/18/24 Unknown History methadone 10 mg/mL oral concentrate 60 mg PO DAILY 08/18/24 08/18/24 Unknown History omeprazole 40 mg capsule,delayed 40 mg PO DAILY@0630 08/18/24 08/18/24 08/17/24 History release tadalafil 5 mg tablet 5 mg PO DAILY 08/18/24 08/18/24 08/17/24 History triamcinolone acetonide 0.1 % 1 appl topical BID PRN 08/18/24 08/18/24 Unknown History topical cream eczema/psoriasis Physical Exam 2 Vital Signs: Vital Signs: Last Vital Signs Temp 98.4 F 08/20/24 15:37 Pulse 74 08/20/24 15:37 Resp 18 08/20/24 15:37 BP 166/83 H 08/20/24 15:37 Pulse Ox 95 08/20/24 15:37 O2 Del Method Room Air 08/20/24 15:37 BMI result Body Mass Index 38.3 Const: General: cooperative HEENT: Head: Yes normal to inspection Face and sinus: Yes normal facial exam Mouth: Normal oral and palatal mucosa present Teeth and gingiva: d entition normal Eyes: General: appearance normal, both eyes and all related structures P upils: Equal, round and reactive pupils present Resp: Effort & Inspection: normal respiratory effort Cardio: Other: 2/6 ERIC Rate: regular rate Rhythm: regular rhythm GI: Palpation (GI): Soft to palpation and nontender : General: Yes no CVA tenderness Back/Spine/Pelvis: Back: no CVA tenderness Skin: General skin exam: no rashes or lesions noted Neuro: General: moves all extremities Cranial nerves: Yes Equal, round and reactive pupils present Extrem: General: Yes normal to inspection Psych: Appearance: grossly normal Results Labs 08/20/24 05:53 08/20/24 05:53 Labs: Short CBC 08/20/24 Range/Units 05:53 WBC 4.6 L (4.8-10.8) X10*3/uL Hgb 8.1 L (14.0-18.0) g/dl Hct 27.4 L (42.0-52.0) % Plt Count 75 L D (160-400) X10*3/uL BMP 08/20/24 05:53 Sodium 139 Potassium 3.2 L Chloride 113 H Carbon Dioxide 21 L BUN 7 L Creatinine 0.51 Calcium 7.6 L D Microbiology Microbiology Results: Microbiology 08/17/24 22:43 Blood - Venous Blood Culture - Final Methicillin Res Staph Aureus 08/17/24 22:40 Blood - Venous Blood Culture - Final Methicillin Res Staph Aureus 08/18/24 16:21 Blood - Subclavian Blood Culture - Preliminary No growth after 24 hours. 08/18/24 16:20 Blood - Subclavian Blood Culture - Preliminary No growth after 24 hours. Assessment and Plan (1) Staphylococcus aureus bacteremia: Status: Acute Plan MRSA bacteremia He has possible endocarditis. Continue Vancomycin. Apparently he wants to come in daily to hospital and get Daptomycin rather than go to facility, will need 4 weeks IV with weekly CK and creatinine. MRI if back pain continues Hepatitis C viral load. Blood cultures repeat pending final.
[2024-08-20] MEDS: Docusate Sodium 100 MG CAPSULE PO ×2 (16:50→21:03)
[2024-08-20] MEDS: polyethylene glycoL 3350 17 GM POWD.PACK PO (16:50)
[2024-08-20 17:18] LABS: Lyme Abs Screen <0.90 index
[2024-08-20] MEDS: methADONE HCl 20 MG/2 ML ORAL.CONC 30 MG PO (19:47)
[2024-08-20] MEDS: vancomycin HCL 1,500 MG in 0.9 % Sodium Chloride 500 ML 333.3 MG IV (19:48)
[2024-08-20 20:29] LABS: A. Phagocytphilium DNA,RT-PCR NOT DETECTED (NOT DETECTED); Babesia Microti DNA, RT-PCR NOT DETECTED (NOT DETECTED); Borrelia Miyamotoi,DNA RT-PCR NOT DETECTED (NOT DETECTED); E.Chaffeensis DNA RT-PCR NOT DETECTED (NOT DETECTED); Lyme(Borrelia ssp)DNA RT-PCR NOT DETECTED (NOT DETECTED)
[2024-08-20] MEDS: Sennosides 8.6 MG TABLET 8.8 MG PO (21:03)
[2024-08-21] VITALS (8 sets, daily range): BP systolic 145–197; BP diastolic 81–98; PULSE 74–96; RESP 17–18; TEMP 36.6–37.2; O2SAT 94–99
[2024-08-21] MEDS: hydrALAZINE HCl 20 MG/ML VIAL IVPUSH (01:26)
[2024-08-21] MEDS: HYDROmorphone HCl 2 MG/ML VIAL IVPUSH ×3 (02:42→10:23)
--- NOTE | 2024-08-21 02:52 | PC.NURSE ---
Pt's BP at 0045 was 198/86. [place] text to Dr. Hanley who ordered 20 mg of IV hydralazine. Pt's BP at 0119 was 168/84, Dr. Hanley still wanted me to give the hydralazine, which was given at 0126. Pt's BP at 0243 was 165/86. Will continue to monitor.
[2024-08-21] MEDS: LORazepam 2 MG/ML VIAL 1 MG IVPUSH ×2 (04:16→08:42)
[2024-08-21] MEDS: vancomycin HCL 1,500 MG in 0.9 % Sodium Chloride 500 ML 333.33 MG IV ×2 (04:17→11:32)
[2024-08-21 05:46] LABS: Creatinine Clr Calc Pharmacy 211.8; Estimated Glomerular Filt Rate > 60
[2024-08-21] MEDS: Omeprazole 40 MG CAPSULE.DR PO (05:53)
[2024-08-21] MEDS: Ibuprofen 600 MG TABLET PO ×2 (07:26→11:41)
[2024-08-21] MEDS: Acetaminophen 325 MG TABLET 975 MG PO (07:26)
[2024-08-21] MEDS: Folic Acid 1 MG TABLET PO (07:26)
[2024-08-21] MEDS: Gabapentin 300 MG CAPSULE 600 MG PO (07:26)
[2024-08-21] MEDS: Finasteride 5 MG TABLET PO (07:27)
[2024-08-21] MEDS: amLODIPine Besylate 10 MG TABLET PO (07:27)
[2024-08-21] MEDS: Docusate Sodium 100 MG CAPSULE PO (07:27)
[2024-08-21] MEDS: lisinopriL 40 MG TABLET PO (07:27)
[2024-08-21] MEDS: polyethylene glycoL 3350 17 GM POWD.PACK PO (07:28)
[2024-08-21] MEDS: Labetalol HCL 100 MG TABLET PO (07:28)
[2024-08-21] MEDS: methADONE HCl 20 MG/2 ML ORAL.CONC 60 MG PO (07:28)
[2024-08-21] MEDS: 0.9 % Sodium Chloride Flush 3 ML SYRINGE IVFLUSH (08:42)
[2024-08-21 10:41] LABS: Anion Gap 12 (12-20); Blood Urea Nitrogen 10 mg/dL (9-16); Calcium 8.7 mg/dL (8.4-10.2); Carbon Dioxide 21 mmol/L (22-29); Chloride 109 mmol/L (96-108); Creatinine Clr Calc Pharmacy 186.5; Estimated Glomerular Filt Rate > 60; Glucose Random 217 mg/dL (60-115); Potassium 3.7 mmol/L (3.3-5.1); Sodium 138 mmol/L (135-145)
[2024-08-21 11:02] LABS: Vancomycin Random 14.3 mcg/mL (15-20)
--- NOTE | 2024-08-21 11:18 | HE.PHANOTE ---
VANCO DOSE ADJUSTMENT BASED ON SCR AND TROUGH OF 14.3 DOSE CONTINUED AT 1500 Q 8H. NEXT LEVEL AT 08/22 @ 1000
--- NOTE | 2024-08-21 12:26 | P.PNIM_ITS ---
Subjective Subjective Date of Service: 08/21/24 Interval History: Seen and evaluated this morning pain has improved overall seems better Blood cultures positive , repeat negative after 48 hours no other events Review of Systems Review of Systems: Yes all other systems are reviewed and are negative Physical Exam 2 Vital Signs: Vital Signs: Last Vital Signs Temp 98.3 F 08/21/24 08:00 Pulse 96 08/21/24 08:00 Resp 18 08/21/24 08:00 BP 194/98 H 08/21/24 08:00 Pulse Ox 99 08/21/24 08:00 O2 Del Method Room Air 08/21/24 08:00 BMI result Body Mass Index 38.3 Const: Other: Constitutional : Awake, interactive Neck : Normal inspection, Supple Cardiovascular : RRR, no JVP, no lower extremity edema Respiratory : fair bilateral air entry, no crackles, wheezes or rhonchi Gastrointestinal: soft, lax, Normal bowel sounds, Non tender Skin : Warm, Dry, multiple injection cueto Extremities: Right hip no significant tenderness, no erythema or swelling , full ROM Neurological : Alert & oriented x3, No focal deficit Objective Data Active Medications Acetaminophen (Acetaminophen 325 Mg Tablet) 975 mg PO QSHIFT [facility] Last Admin: 08/21/24 07:26 Dose: 975 mg Documented By: ANEL Albuterol Sulfate (Albuterol Sulfate 90 Mcg 8 Gm Inhaler) 2 puff INHALE Q6H PRN PRN Reason: Shortness Of Breath Or Wheezing Amlodipine Besylate (Amlodipine Besylate 10 Mg Tablet) 10 mg PO DAILY [facility]; Protocol Last Admin: 08/21/24 07:27 Dose: 10 mg Documented By: ANEL Docusate Sodium (Docusate Sodium 100 Mg Capsule) 100 mg PO BID [facility] Last Admin: 08/21/24 07:27 Dose: 100 mg Documented By: ANEL Ferrous Sulfate (Ferrous Sulfate 324 Mg Tablet.Dr) 324 mg PO DAILY PRN PRN Reason: supplementation Last Admin: 08/19/24 08:07 Dose: 324 mg Documented By: RIGOBERTO Finasteride (Finasteride 5 Mg Tablet) 5 mg PO DAILY [facility] Last Admin: 08/21/24 07:27 Dose: 5 mg Documented By: ANEL Fluticasone Propionate (Fluticasone Propionate Nasal 16 Gm [place]) 1 spray NOSTRIL-B DAILY PRN PRN Reason: Allergy Symptoms Folic Acid (Folic Acid 1 Mg Tablet) 1 mg PO DAILY [facility] Last Admin: 08/21/24 07:26 Dose: 1 mg Documented By: ANEL Gabapentin (Gabapentin 300 Mg Capsule) 600 mg PO TID [facility] Last Admin: 08/21/24 07:26 Dose: 600 mg Documented By: ANEL Hydromorphone HCl (Hydromorphone Hcl 2 Mg/Ml Vial) 2 mg IVPUSH Q3H PRN; Protocol PRN Reason: Pain, Severe (Pain Scale 7-10) Last Admin: 08/21/24 10:23 Dose: 2 mg Documented By: ANEL Vancomycin HCl 1,500 mg/ (Sodium Chloride) 500 mls @ 333.333 mls/hr IV Q8H [facility] Last Admin: 08/21/24 11:32 Dose: 333.33 mls/hr Documented By: IGGY Ibuprofen (Ibuprofen 600 Mg Tablet) 600 mg PO TIDWM [facility] Last Admin: 08/21/24 11:41 Dose: 600 mg Documented By: IGGY Labetalol HCl (Labetalol Hcl 100 Mg Tablet) 100 mg PO BID [facility]; Protocol Last Admin: 08/21/24 07:28 Dose: 100 mg Documented By: ANEL Lisinopril (Lisinopril 40 Mg Tablet) 40 mg PO DAILY [facility]; Protocol Last Admin: 08/21/24 07:27 Dose: 40 mg Documented By: ANEL Lorazepam (Lorazepam 2 Mg/Ml Vial) 1 mg IVPUSH Q4H PRN PRN Reason: Anxiety Last Admin: 08/21/24 08:42 Dose: 1 mg Documented By: ANEL Methadone HCl (Methadone Hcl 20 Mg/2 Ml Oral.Conc) 60 mg PO DAILY@0800 [facility] Last Admin: 08/21/24 07:28 Dose: 60 mg Documented By: ANEL Co-signed By: TONY Methadone HCl (Methadone Hcl 20 Mg/2 Ml Oral.Conc) 30 mg PO DAILY@2000 [facility] Last Admin: 08/20/24 19:47 Dose: 30 mg Documented By: GABRIELLA Co-signed By: ABENA Non-Formulary Medication (Tadalafil) 5 mg PO DAILY [facility] Omeprazole (Omeprazole 40 Mg Capsule.) 40 mg PO BID@0630,1630 [facility] Last Admin: 08/21/24 05:53 Dose: 40 mg Documented By: ABENA Ondansetron HCl (Ondansetron Hcl 4 Mg/2 Ml Vial) 4 mg IVPUSH Q6H PRN PRN Reason: Nausea and Vomiting Pharmacy Consult (Consult Rx Vancomycin Dosing) 1 each MISCELLANE DAILY PRN PRN Reason: Consult order Polyethylene Glycol (Polyethylene Glycol 3350 17 Gm Powd.Pack) 17 gm PO DAILY [facility] Last Admin: 08/21/24 07:28 Dose: 17 gm Documented By: ANEL Prochlorperazine Edisylate (Prochlorperazine Edisylate 10 Mg/2 Ml Vial) 10 mg IV Q4H PRN PRN Reason: Nausea and Vomiting Last Admin: 08/18/24 22:37 Dose: 10 mg Documented By: TARIQ Senna (Sennosides 8.6 Mg Tablet) 8.8 mg PO BEDTIME [facility] Last Admin: 08/20/24 21:03 Dose: 8.8 mg Documented By: ABENA Sodium Chloride (0.9 % Sodium Chloride Flush 3 Ml Syringe) 3 ml IVFLUSH QSHIFT [facility] Last Admin: 08/21/24 08:42 Dose: 3 ml Documented By: ANEL Triamcinolone Acetonide (Triamcinolone Acet 0.1 % Cream 15 Gm Tube) 1 appl TOPICAL BID PRN; Protocol PRN Reason: eczema/psoriasis Labs 08/20/24 05:53 08/21/24 10:08 Labs: Laboratory Results - last 24 hr 08/17/24 08/21/24 08/21/24 20:52 05:17 10:08 Anion Gap 12 Estim Creat Clear Calc 211.8 186.5 Estimated GFR > 60 > 60 Random Glucose 217 H Calcium 8.7 D Random Vancomycin 14.3 L A.phagocytophil DNA PCR NOT DETECTED Babesia microti DNA PCR NOT DETECTED Borrelia sp DNA (PCR) NOT DETECTED Lyme Screen IgG & IgM <0.90 Borrelia miyamotoi (PCR) NOT DETECTED E.chaffeensis DNA (PCR) NOT DETECTED Tick-borne Disease PCR SEE NOTE Microbiology Microbiology Results: Microbiology 08/18/24 16:21 Blood Culture - Preliminary Blood - Subclavian No growth after 48 hours. 08/18/24 16:20 Blood Culture - Preliminary Blood - Subclavian No growth after 48 hours. 08/17/24 22:43 Blood Culture - Final Blood - Venous Methicillin Res Staph Aureus 08/17/24 22:40 Blood Culture - Final Blood - Venous Methicillin Res Staph Aureus Assessment and Plan (1) Staphylococcus aureus bacteremia: Status: Acute Plan Dennis Alaniz is a 54 y/o man with PMHx significant for liver cirrhosis and untreated hepatitis-C presents with: Staph Aureus bacteremia Abdominal and pelvis CT negative for any acute findings repeat Blood cultures negative and pending 08/18 Continue IV Vancomycin pending final cultures, DC Zosyn Echo negative for vegetations ID consult , 4 weeks of Daptomycin Vancomycin trough The patient not interested in going to nursing facility for IV antibiotics, trying to set him up with infusion center. Pancytopenia, chronic. negative HIV positive Hep B core and surface antibody Hep C +ve, pending viral load Continue to monitor. IVDU. uses Heroin IV Methadone PO Addiction medicine following; Essential hypertension. uncontrolled Add Amlodipine Increase lisinopril. GERD. Continue omeprazole. Neuropathy. Continue gabapentin. Hx of porphyria cutanea tarda. DVT prophylaxis: SCDs (pharmacological DVT prophylaxis is contraindicated due to thrombocytopenia). The patient will need overnight stay for treatment of bacteremia on IV antibiotics pending negative cultures and outpatient plan Quality Stroke Does the patient have a stroke diagnosis?: No VTE Prior VTE?: No VTE Risk Level:: Medical - moderate - high VTE Device Contraindication: N/A - Device Ordered VTE Drug Contraindication: Treatment Not Indicated
--- NOTE | 2024-08-21 13:15 | MHC.CM.PN ---
Patient medically cleared for dc home self care. Will need IV dapto, end date 09/15. Continues to decline SNF placement for this. Agrees to come to short stay @ [facility] daily for dapto. First appt 08/22@ 10:45am. Per MD will not dc w/ line in place, will need peripherals. [facility] in short stay aware. [employer] auth obtained for dapto (auth # [id number], 08/21-09/15, # visits 25). Per patient, will self transport, car in [facility] lot. RN aware.
--- NOTE | 2024-08-21 13:35 | P.DS_ITS ---
DS: Providers Provider Date of Service: 08/21/24 Date of admission: 08/18/24 09:00 Date of discharge: 08/21/24 Primary care physician: Jose Mann III, MD Consults: 08/18/24 00:53 Addiction Medicine Routine Consulting Provider: Addiction Covering Reason for consultation: IV drug use -heroin Has provider been notified: No 08/18/24 04:40 Consult to Orthopedics Routine Consulting Provider: [facility] Reason for consultation: Right hip pain and swelling, fever Has provider been notified: No 08/19/24 11:49 Consult to Infectious Diseases Routine Consulting Provider: [facility] Reason for consultation: Staph bacteremia DS: Diagnosis Discharge Diagnosis (1) Staphylococcus aureus bacteremia: Status: Acute (2) Fever: Status: Acute (3) Heroin abuse: Status: Acute (4) Hepatitis C: Status: Acute (5) Uncontrolled hypertension: Status: Acute (6) Hip osteoarthritis: Status: Acute DS: Summary Hospital Course Hospital Course: Admission note HPI Dennis Alaniz is a 54 years old man with past medical history significant for liver cirrhosis, untreated hepatitis-C, porphyria cutanea tarda, hypertension, GERD and pancytopenia presents to the emergency department complaining of right flank pain radiating to the right groin associated with nausea, fevers or chills. He denied acute urinary changes. He also mentioned that he had an event of chest pain today while shopping in [employer]. He did not report shortness on breath, headache, dizziness or palpitations. He used heroin IV 2 days ago. Denied alcohol abuse or tobacco smoking. In the ED, vital signs are normal except for hypertension, 160/78. Blood workup was remarkable for pancytopenia which is not new for the patient. CRP is 4.06. There are no electrolyte imbalances or lactic acidosis. LFTs are normal. CXR is negative. ECG showed normal sinus rhythm, first-degree AV block without ischemic changes. Hospital course The patient was treated for the following: # Staph Aureus bacteremia secondary to drug abuse HAd a Abdominal and pelvis CT negative for any acute findings. Blood cultures on admission grew MRSA. repeat Blood cultures negative. Treated with IV Vancomycin and Zosyn at admission. Echo negative for vegetations. ID consulted and recommended, 4 weeks of Daptomycin that will finish on 09/15/2024. to check weekly Liver function test. Advised not to use any drugs. The patient not interested in going to nursing facility for IV antibiotics, CW was able to set him up with infusion center at [facility] for Daptomycin 1 gm daily for the next 4 weeks. # Pancytopenia, chronic. negative HIV. positive Hep B core and surface antibody likely resolved infection but has Hep C +ve, pending viral load which will need follow up with PCP and ID for treatment of hepatitis C # IVDU. uses Heroin IV , evaluated by addiction team and restarted Methadone home dose. # Uncontrolled Essential hypertension. Increase dose of Lisinopril, added Labetalol and Amlodipine with fair improvement. will need to follow as outpatient. # Right hip pain, xr of the right hip show osteophyte formation-mild OA, evaluated by Orthopedic team who recommended PT and pain control. for outpatient follow up with orthopedics. Discharge plan Continue Daptomycin IV antibiotic for the next 4 weeks. last day of antibiotic is 09/15/2024 Start Amlodipine and Labetalol for blood pressure control Oxycodone and Ibuprofen for pain control Ativan PRN for anxiety Naloxone if needed for overdose Monitor blood pressure at home and report readings to PCP for further adjustments Follow with weekly Liver profile outpatient follow up with orthopedics. follow up with PCP and ID for treatment of hepatitis C Time Attestation Discharge Coordination Time (in mins): 48 Quality: Safe Use of Opioids Does Pt have an Active Cancer Diagnosis on the Problem List?: No Quality: Stroke Does the patient have a stroke diagnosis?: No Physical Exam Vital Signs: Vital Signs: Last Vital Signs Temp 98.9 F 08/21/24 12:00 Pulse 85 08/21/24 12:00 Resp 18 08/21/24 12:00 BP 145/81 H 08/21/24 12:00 Pulse Ox 96 08/21/24 12:00 O2 Del Method Room Air 08/21/24 12:00 BMI result Body Mass Index 38.3 Const: Other: Constitutional : Awake, interactive Neck : Normal inspection, Supple Cardiovascular : RRR, no JVP, no lower extremity edema Respiratory : fair bilateral air entry, no crackles, wheezes or rhonchi Gastrointestinal: soft, lax, Normal bowel sounds, Non tender Skin : Warm, Dry, multiple injection cueto Extremities: Right hip no significant tenderness, no erythema or swelling , full ROM Neurological : Alert & oriented x3, No focal deficit DS: Data Data Completed and Pending Completed studies during hospitalization [Text1]: Procedures Transfusion of Nonautologous Red Blood Cells into Peripheral Vein, Percutaneous Approach (04/13/23) Labs on day of discharge: Laboratory Results - last 24 hr 08/17/24 08/21/24 08/21/24 20:52 05:17 10:08 Sodium 138 Potassium 3.7 Chloride 109 H Carbon Dioxide 21 L Anion Gap 12 BUN 10 Creatinine 0.59 0.67 Estim Creat Clear Calc 211.8 186.5 Estimated GFR > 60 > 60 Random Glucose 217 H Calcium 8.7 D Random Vancomycin 14.3 L A.phagocytophil DNA PCR NOT DETECTED Babesia microti DNA PCR NOT DETECTED Borrelia sp DNA (PCR) NOT DETECTED Lyme Screen IgG & IgM <0.90 Lyme Progressive Test TNP Borrelia miyamotoi (PCR) NOT DETECTED E.chaffeensis DNA (PCR) NOT DETECTED Tick-borne Disease PCR SEE NOTE Preliminary micro results at discharge 08/18/24 16:21 Blood Culture - Preliminary Blood - Subclavian No growth after 48 hours. 08/18/24 16:20 Blood Culture - Preliminary Blood - Subclavian No growth after [address] scan - abdomen: Radiologist's impression: CT ABd IMPRESSION: 1. Umbilical hernia containing nonobstructed loops of small bowel and mesentery. 2. Retroperitoneal and portacaval lymphadenopathy. 3. Cirrhosis with sequela of portal venous hypertension and hepatic steatosis. This document has been electronically signed by: Arpan Khan MD, PHD on 08/18/2024 02:13:49 Hip XR IMPRESSION: No acute findings. 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 This document has been electronically signed by: Jordan Arreola MD on 08/18/2024 06:25:19 Discharge Plan Discharge Anticipated Discharge Date/Time: 08/21/24 13:14 Patient Disposition: Home, Self-Care Discharge Diagnosis: MRSA Bacteremia Referrals: [facility] [Outside] - 08/22/24 10:40 am (Report to short stay surgery on the 2nd floor for your 1st dose of IV antibiotic. You will need to come daily until 09/15/24. All other appointments will be scheduled at your first visit. ) Jose Mann III, MD [Primary Care Provider] - 1 Week Discharge Medications: New naloxone [Narcan] 4 mg/actuation spray,non-aerosol 4 mg intranasal Q2M PRN (Reason: opioid overdose) Qty: 2 0RF Rx Instructions: spray 1 dose into ONE nostril; alternate nostrils w each dose until help arrives amlodipine 10 mg Tablet 10 mg PO DAILY Qty: 90 0RF Protocol: Hold for SBP< HOLD for SBP < : 90 ibuprofen 600 mg Tablet 600 mg PO BIDWM Qty: 30 0RF labetalol 100 mg Tablet 100 mg PO BID Qty: 180 0RF Protocol: Hold for SBP/HR < HOLD for SBP < : 90 HOLD for HR < : 60 oxycodone 5 mg tablet 5 mg PO Q8H PRN (Reason: pain (scale score 7-10)) Qty: 14 0RF Rx Instructions: Partial Fill upon patient request. lorazepam 0.5 mg tablet 0.5 mg PO BID PRN (Reason: anxiety) Qty: 20 0RF Continued (DME) FreeStyle Lite Strips Strip MISCELLANEOUS gabapentin 300 mg capsule 600 mg PO TID hydrocortisone 2.5 % cream 1 appl topical BID PRN (Reason: Itching) fluticasone propionate 50 mcg/actuation spray,suspension 50 mcg intranasal DAILY PRN (Reason: Allergy Symptoms) lisinopril 20 mg tablet 30 mg PO BEDTIME omeprazole 40 mg capsule,delayed release(DR/EC) 40 mg PO DAILY@0630 tadalafil 5 mg tablet 5 mg PO DAILY triamcinolone acetonide 0.1 % cream 1 appl topical BID PRN (Reason: eczema/psoriasis) albuterol sulfate 90 mcg/actuation HFA aerosol inhaler 2 puff inhalation Q6H PRN (Reason: Shortness Of Breath Or Wheezing) methadone 10 mg/mL Concentrate 60 mg PO DAILY Rx Instructions: Pt reports from [facility]- split dose 60 mg daily and then 12 hours later patient gets 30 mg . tdd = 90 mg ferrous sulfate 324 mg (65 mg iron) tablet,delayed release (DR/EC) 324 mg PO DAILY PRN (Reason: supplementation) methadone 10 mg/mL Concentrate 30 mg PO BEDTIME Rx Instructions: split dose 60 mg daily and then 12 hours later patient gets 30 mg . tdd = 90 mg folic acid 1 mg tablet 1 mg PO DAILY Qty: 90 0RF Discharge Orders: Discharge Order (Routine); Ordered 08/21/24 Ordered By: Andrew Hicks Diet: Low salt diet Activity on Discharge: As tolerated Stand Alone Forms: Patient Portal Discharge page Print Language: Upper Sorbian Other Ambulatory Orders: Liver Panel (Routine) Timeframe: [id number] Facility: [facility] - Location: Laboratory Ordered By: Andrew Hicks Care Plan Goals: Continue Daptomycin IV antibiotic for the next 4 weeks. last day of antibiotic is 09/15/2024 Start Amlodipine and Labetalol for blood pressure control Oxycodone and Ibuprofen for pain control Ativan PRN for anxiety Naloxone if needed for overdose Monitor bloor pressure at home and report readings to PCP for further adjustments Follow with weekly Liver profile outpatient follow up with orthopedics. follow up with PCP and ID for treatment of hepatitis C Health Concerns: MRSA Bacteremia IV drug abuse Uncotrolled Hypertension Right hip bursitis Plan of Treatment: Antibiotics Blood pressure medications Pain medications Assessment: as above
[2024-08-21] MEDS: DAPTOmycin 1,000 MG in 0.9 % Sodium Chloride 50 ML 140 MG IV (14:10)
[2024-08-22 19:39] LABS: HCV Log PCR 6.25 Log IU/mL (NOT DETECTED); HepC Viral Load 1780000 IU/mL (NOT DETECTED)
== END 2024-08-21 15:04 | disposition home or self-care (01) | DRG 872 ==
LOC: HO.ED 21:37 → HO.EDOVER 08-18 00:29 → HO.S3 08-18 13:27
PROVIDERS: Nurse Practitioner Family; Physician Assistant Medical; Admitting Provider Internal Medicine; Emergency Provider Internal Medicine; PCP Internal Medicine; Visit Provider Student in an Organized Health Care Education/Training Program
DX: R78.81 Bacteremia (principal); F11.20 Opioid dependence, uncomplicated; D61.818 Other pancytopenia; G62.9 Polyneuropathy, unspecified; B95.62 Methicillin resistant Staphylococcus aureus infection as the cause of diseases classified elsewhere; M16.11 Unilateral primary osteoarthritis, right hip; M25.751 Osteophyte, right hip; B19.20 Unspecified viral hepatitis C without hepatic coma; I10 Essential (primary) hypertension; K21.9 Gastro-esophageal reflux disease without esophagitis; Z20.822 Contact with and (suspected) exposure to COVID-19; Z86.19 Personal history of other infectious and parasitic diseases; Z79.899 Other long term (current) drug therapy
CPT/HCPCS: 0241U; 36415; 71045; 73501; 74178; 80048; 80053; 80076; 80202; 80307; 81001; 82565; 83540; 83605; 84484; 85025; 85652; 86140; 86617; 86618; 86704; 86706; 86803; 87040; 87077; 87147; 87186; 87205; 87340; 87389; 87468; 87469; 87478; 87484; 87522; 87651; 87798; 93005; 93306; 93971; 99285; J0360; J0737; J0878; J1171; J1885; J2060; J2405; J2543; J3010; J3370; J3371; J7120; Q9957; Q9967; S9485

== ENCOUNTER → 2024-08-17 17:50 | Outpatient (BNV) | payer OTHER, SELFPAY | PROVIDERS: PCP Internal Medicine; Visit Provider Nuclear Medicine | DX: R07.9 Chest pain, unspecified (principal) | CPT/HCPCS: 71045 ==

== ENCOUNTER → 2024-08-17 17:50 | Outpatient (BNV) | payer OTHER, SELFPAY | PROVIDERS: Admitting Provider Internal Medicine; Emergency Provider Internal Medicine; PCP Internal Medicine; Visit Provider Internal Medicine | DX: I44.0 Atrioventricular block, first degree (principal) | CPT/HCPCS: 93010 ==

== ENCOUNTER 2024-08-18 00:24 | Outpatient (BNV) | payer OTHER, SELFPAY | END 2024-08-18 00:50 | PROVIDERS: Admitting Provider Internal Medicine; Emergency Provider Internal Medicine; PCP Internal Medicine; Visit Provider General Practice | DX: R10.9 Unspecified abdominal pain (principal); M79.604 Pain in right leg; M25.551 Pain in right hip | CPT/HCPCS: 73501; 74178; 93971 ==

== ENCOUNTER → 2024-08-18 00:24 | Outpatient (BNV) | payer OTHER, SELFPAY | PROVIDERS: Admitting Provider Internal Medicine; Emergency Provider Internal Medicine; PCP Internal Medicine; Visit Provider Internal Medicine | DX: R50.9 Fever, unspecified (principal); R78.81 Bacteremia; B95.61 Methicillin susceptible Staphylococcus aureus infection as the cause of diseases classified elsewhere; F11.10 Opioid abuse, uncomplicated | CPT/HCPCS: 99232 ==

== ENCOUNTER 2024-08-18 09:00 | Outpatient (BNV) | payer OTHER, SELFPAY | END 2024-08-20 07:00 | PROVIDERS: Admitting Provider Internal Medicine; Emergency Provider Internal Medicine; PCP Internal Medicine; Visit Provider Internal Medicine Cardiovascular Disease | DX: I51.7 Cardiomegaly (principal); R78.81 Bacteremia | CPT/HCPCS: 93306 ==

== ENCOUNTER → 2024-08-18 09:00 | Outpatient (BNV) | payer OTHER, SELFPAY | PROVIDERS: Admitting Provider Internal Medicine; Emergency Provider Internal Medicine; PCP Internal Medicine; Visit Provider Internal Medicine | DX: R78.81 Bacteremia (principal); B95.61 Methicillin susceptible Staphylococcus aureus infection as the cause of diseases classified elsewhere | CPT/HCPCS: 99222 ==

== ENCOUNTER 2024-09-11 11:27 | Emergency (ER) | payer OTHER, SELFPAY ==
--- NOTE | ~2024-09-11 | CT_ITS ---
EXAMINATION: CT ABDOMEN AND PELVIS WITH CONTRAST CLINICAL INFORMATION: Umbilical hernia, nonreducible. COMPARISON: CT dated August 18, 2024. TECHNIQUE: Multidetector volumetric images were obtained from the superior aspect of the liver through the pubic symphysis following administration 85 mL of Omnipaque 350 intravenous contrast. Sagittal and coronal reformatted images were obtained on the technologist's workstation. Oral contrast: No This CT examination was performed using dose optimization techniques as appropriate, variously including the following: *Automated exposure control *Adjustment of mA and/or kV according to patient size (this includes techniques or standardized protocols for targeted exams where dose is matched to indication/reason for exam; i.e. extremities or head) *Use of iterative reconstruction technique. DLP: 1252 mGy centimeter. FINDINGS: Inadequate evaluation of the intra-abdominal organs and vascular structures due to poor IV contrast enhancement. There is a large volume umbilical hernia containing segment of the sigmoid colon omental fat and trace of fluid. There is edema pattern in the fat component. I do not see an intestinal obstruction pattern. There is abundant stool within the large intestine. The appendix is normal. No peripheral enhancing fluid collection in the peritoneal cavity. No pneumoperitoneum. No pneumatosis intestinalis. Liver has a nodular morphology pattern of the surface with a prominent caudate lobe. Liver measures 20 cm. Spleen measures 19 cm. No pericholecystic fluid collection or gallbladder wall thickening. There is lymphadenopathy throughout the retroperitoneum and hayley iliac. No hydronephrosis in either kidney. No gross nephrolithiasis. No aneurysm, abdominal aorta. Prominent vessels in the perigastroesophageal region. The umbilical vein is not patent. No acute airspace disease in the included lungs. Multilevel thoracolumbar spondylosis. Osteopenia versus osteoporosis. CT/CT abdomen pelvis w IV con IMPRESSION: Larger umbilical hernia containing segment of the sigmoid colon omental fat and fluid with edema pattern in the fat component. Incarcerated hernia cannot be excluded. No intestinal obstruction pattern. Cirrhosis without ascites. Lymphadenopathy, retroperitoneum. Fleischner guidelines were followed. Electronically signed by: Yong Lu MD 09/11/2024 02:50 PM EST
[2024-09-11 11:38] VITALS: BP 134/90; PULSE 82; O2SAT 99
[2024-09-11 11:47] VITALS: BP 161/71; PULSE 72; RESP 18; TEMP 36.4; O2SAT 98; BMI 39.0
--- NOTE | 2024-09-11 12:06 | ED_ITS ---
HPI - Abdominal Pain General Chief Complaint: Abdominal Pain Stated Complaint: ABD PAIN,H/O HERNIA,INI BP 206/110 PER EMS Time Seen by Provider: 09/11/24 11:53 Source: patient, EMS, RN notes reviewed and old records reviewed Mode of arrival: EMS History of Present Illness ED Provider: Katherin Mistry PA-C HPI narrative: 54-year-old male with a past medical history of liver cirrhosis, untreated hepatitis-C, porphyria cutanea tarda, HTN, GERD, pancytopenia, staph aureus bacteremia secondary to drug abuse currently on IV daptomycin, presenting to the ED via EMS complaining of irreducible umbilical hernia with associated nausea, vomiting, and pain x this morning. Reports chronic hernia followed at [facility], however became increasingly painful this morning with near syncopal episodes secondary to pain. Was given 130 mg of IM fentanyl by EMS with some improvement. Denies fever, chills, straining, dysuria/hematuria Related Data Home Medications ?Medication ?Instructions ?Recorded ?Confirmed blood sugar diagnostic (FreeStyle 04/13/23 04/13/23 Lite Strips) fluticasone propionate 50 50 mcg intranasal DAILY PRN 04/13/23 08/18/24 mcg/actuation nasal Allergy Symptoms spray,suspension gabapentin 300 mg capsule 600 mg PO TID Pain 04/13/23 08/18/24 hydrocortisone 2.5 % topical cream 1 appl topical BID PRN Itching 04/13/23 08/18/24 albuterol sulfate 90 mcg/actuation 2 puff inhalation Q6H PRN 08/18/24 08/18/24 aerosol inhaler Shortness Of Breath Or Wheezing ferrous sulfate 324 mg (65 mg 324 mg PO DAILY PRN supplementation 08/18/24 08/18/24 iron) tablet,delayed release lisinopril 20 mg tablet 30 mg PO BEDTIME 08/18/24 08/18/24 methadone 10 mg/mL oral concentrate 30 mg PO BEDTIME 08/18/24 08/18/24 methadone 10 mg/mL oral concentrate 60 mg PO DAILY 08/18/24 08/18/24 omeprazole 40 mg capsule,delayed 40 mg PO DAILY@0630 08/18/24 08/18/24 release tadalafil 5 mg tablet 5 mg PO DAILY 08/18/24 08/18/24 triamcinolone acetonide 0.1 % 1 appl topical BID PRN 08/18/24 08/18/24 topical cream eczema/psoriasis Previous Rx's ?Medication ?Instructions ?Recorded folic acid 1 mg tablet 1 mg PO DAILY #90 tabs 02/18/24 naloxone 4 mg/actuation nasal 4 mg intranasal Q2M PRN opioid 08/19/24 spray (Narcan) overdose #2 ea amlodipine 10 mg tablet 10 mg PO DAILY #90 tabs 08/21/24 ibuprofen 600 mg tablet 600 mg PO BIDWM #30 tabs 08/21/24 labetalol 100 mg tablet 100 mg PO BID #180 tabs 08/21/24 lorazepam 0.5 mg tablet 0.5 mg PO BID PRN anxiety #20 tabs 08/21/24 oxycodone 5 mg tablet 5 mg PO Q8H PRN pain (scale score 08/21/24 7-10) #14 tabs Allergies Allergy/AdvReac Type Severity Reaction Status Date / Time onion [ONION] Allergy Severe ANAPHYLAXIS Verified 09/11/24 11:49 TO RAW ONIONS (COOKED OK) morphine [MORPHINE] Allergy Mild RASH, hives Verified 08/17/24 17:48 Review of Systems Review of Systems Yes all other systems are reviewed and are negative Constitutional: Reports as per [facility] Past Medical History Attestation statement: The following information was validated with the patient. Source: old records reviewed Medical History Heroin abuse Cocaine abuse High blood pressure Seasonal allergies Asthma Social History Social History Alcohol intake: current Alcohol intake frequency: 0-2 drinks per day Comment: refusing alarms. Patient Tobacco Use Status: Never used Tobacco Smoked in Last 30 Days: No Use of substances other than those prescribed or required for medical reasons: No Substance Use Type: Crack/Cocaine and Heroin Advance Directives: No Advance Directives Information Provided: Yes service: No Physical Exam ED Vital Signs: Vital Signs - 24 hr 09/11/24 11:47 09/11/24 12:51 09/11/24 14:30 Temperature 97.5 F 97.9 F Pulse Rate 72 61 Respiratory Rate 18 18 16 Blood Pressure 161/71 H 154/76 H Pulse Oximetry 98 96 Oxygen Delivery Method Room Air Room Air BMI result Body Mass Index 39.0 Const General: cooperative, healthy appearing and no acute distress Orientation/consciousness: patient oriented x3 Limitations: no limitations HENMT Head: Yes normal to inspection and Yes atraumatic Ears: hearing grossly normal bilaterally General nose exam: Normal external nose present Face and sinus: Yes normal facial exam Eyes General: appearance normal, both eyes and all related structures EOM: EOMs intact bilaterally Neck Neck: Yes normal visual inspection and Yes no meningeal signs Resp Effort & Inspection: normal respiratory effort and no respiratory distress Cardio Rate: regular rate GI Inspection: Yes normal to inspection Palpation (GI): Soft to palpation, Tenderness to palpation present (GI) periumbilically, no guarding, not rigid and Hernia present umbilical (Irreducible, tender to palpation) Skin Other: + diffuse skin wounds Rashes: no rashes Neuro General: patient oriented x3, tone normal and no meningeal signs Cranial nerves: Yes CN's II-XII intact bilaterally Gait exam (Neuro): Normal gait present Extrem General: Yes normal to inspection Course Course Course Narrative: -1353--leukopenic to 1.8. H&H at patient's baseline. Labs otherwise reassuring. Lactic acid WNL > we will give patient has dose of IV daptomycin in the ED as will miss it at infusion center due to being in the emergency department -1452--CT abdomen pelvis w IV con IMPRESSION: Larger umbilical hernia containing segment of the sigmoid colon omental fat and fluid with edema pattern in the fat component. Incarcerated hernia cannot be excluded. No intestinal obstruction pattern. Cirrhosis without ascites. Lymphadenopathy, retroperitoneum. Fleischner guidelines were followed. > will consult General surgery, Dr. Owen 1610--general surgery, Dr. Owen evaluated patient in the ED. Was able to mostly reduce patient's hernia. Patient clinically appears improved at present. Patient is not ideal emergency surgical candidate with his medical history/labs. Has team at [facility] that already follows with hernia. Surgery feels it is safe for patient to be discharged home today to follow-up with his team in a timely manner. This was discussed with patient at length, stressed importance of close follow-up/contacting them tomorrow, discussed strict return precautions including persistent or worsening pain, nausea, vomiting, fever, discoloration of skin to return to the ED immediately. Discussed avoiding any straining, constipation, heavy lifting, importance of wearing abdominal binder. Results discussed with patient including worrisome signs and symptoms and strict return precautions, and when to return to the emergency department. They verbalized understanding and feel safe for discharge at this time. Medical Decision Making Medical Decision Making [facility] Narrative: 54-year-old male with a past medical history of liver cirrhosis, untreated hepatitis-C, porphyria cutanea tarda, HTN, GERD, pancytopenia, staph aureus bacteremia secondary to drug abuse currently on IV daptomycin, presenting to the ED via EMS complaining of irreducible umbilical hernia with associated nausea, vomiting, and pain x this morning. On exam vital signs stable, NAD, nontoxic appearing, physical exam as noted above with irreducible umbilical hernia with tenderness to palpation. Concern for strangulated vs incarcerated hernia vs obstruction. Low suspicion for acute appendicitis/diverticulitis at this time. Plan: Labs including lactic UA, CT AP, pain management Please refer to course for remaining clinical decision making, interpretation of labs/imaging results, and discussions with consultants and/or family members. Differential Diagnosis Differential Diagnoses: The differential diagnosis associated with the presentation includes As above Admission/Observation Consideration of admission/observation: Escalation of care including admission/observation considered Lab Data [facility] Lab Attestation statement: I reviewed the patient's lab results. 09/11/24 13:10 09/11/24 13:10 Labs: Lab Results 09/11/24 09/11/24 09/11/24 Range/Units 13:09 13:10 14:14 WBC 1.8 L (4.8-10.8) X10*3/uL RBC 4.61 (4.60-5.80) X10*6/uL Hgb 9.5 L (14.0-18.0) g/dl Hct 31.8 L (42.0-52.0) % MCV 69.0 L (80.0-98.0) fL MCH 20.6 L (27.0-33.0) pg MCHC 29.9 L (31.0-36.0) g/dl RDW 19.1 H (11.0-16.0) % Plt Count 72 L (160-400) X10*3/uL MPV Not Reportable Immature Gran % (Auto) 0.5 H (0.0-0.4) % Neut % (Auto) 58.7 (45-73) % Lymph % (Auto) 20.7 (20-40) % [place] % (Auto) 18.5 H (2-11) % Eos % (Auto) 1.1 (0-4) % Baso % (Auto) 0.5 (0-2) % Lymph # (Auto) 0.4 L (1.2-4.9) X10*3/uL [place] # (Auto) 0.3 (0.1-1.2) X10*3/uL Eos # (Auto) 0.0 (0.0-0.4) X10*3/uL Baso # (Auto) 0.0 (0.0-0.2) X10*3/uL Abs Immat Gran (auto) 0.01 (0.00-0.03) X10*3/uL Absolute Neuts (auto) 1.1 L (2.0-8.3) x10*3/uL Absolute Nucleated RBC 0.000 (0.0-0.012) X10*3/uL Nucleated RBC % (auto) 0.0 (0.0-0.2) /100WBC Smear Tech's Comments VERIFIED PT 12.9 H (10.9-12.4) SEC INR 1.1 (0.9-1.1) Sodium 142 (135-145) mmol/L Potassium 4.5 D (3.3-5.1) mmol/L Chloride 105 (96-108) mmol/L Carbon Dioxide 27 (22-29) mmol/L Anion Gap 15 (12-20) BUN 9 (9-16) mg/dL Creatinine 0.66 (0.5-1.4) mg/dL Estim Creat Clear Calc 191.2 Estimated GFR > 60 Random Glucose 117 H (60-115) mg/dL Lactic Acid 1.5 (0.5-2.0) mmol/L Calcium 8.7 (8.4-10.2) mg/dL Magnesium 2.0 (1.6-2.6) mg/dL Total Bilirubin 0.4 (0.0-1.0) mg/dL Direct Bilirubin 0.2 (0.0-0.5) mg/dL AST 33 (5-37) U/L ALT 24 (0-40) U/L Alkaline Phosphatase 50 (39-117) U/L Total Protein 8.6 H (6.5-8.0) g/dL Albumin 3.5 (3.5-5.0) g/dL Lipase 24 (8-78) U/L Urine Color Yellow Urine Appearance Clear Urine pH 8.0 (5.0-9.0) Ur Specific [place] <= 1.005 (1.005-1.025) Urine Protein Negative (Neg-Trace) mg/dL Urine Glucose (UA) Negative (Negative) mg/dL Urine Ketones Negative (Negative) mg/dL Urine Blood Negative (Negative) Urine Nitrite Negative (Negative) Ur Leukocyte Esterase Negative (Negative) Independent Interpretation I performed an independent interpretation of an: CT Scan Radiology Impression Discussion of test interpretation with radiology: I have reviewed the radiologist's reading. Independent Historian Clinical information obtained from an independent historian. History obtained from or confirmed by: EMS External Record Review External record reviewed: Inpatient record, Office record, Outpatient record, Prior outpatient labs, Prior outpatient radiology, Primary care record and Outside ED record Tests considered The following testing was considered but not selected: As above Prescription Management I considered prescription management with: Pain Medication Chronic Conditions Patient?s care impacted by: Other Social Determinants Patient?s care significantly limited by Social Determinants of Health including: Inadequate housing, Low income, Alcoholism and drug addiction in family, Problems related to primary support group, Unemployment, Problems related to employment and Other Social Determinant of Health Medications Administered Discontinued Medications Generic Name Dose Route Start Last Admin Trade Name Freq PRN Reason Stop Dose Admin Fentanyl 50 mcg 09/11/24 12:06 09/11/24 12:51 Fentanyl Citrate/Pf 100 Mcg/2 Ml Vial IVPUSH 09/11/24 12:07 50 mcg ONCE ONE Administration Protocol Sodium Chloride 1,000 mls @ 999 mls/hr 09/11/24 12:15 09/11/24 14:10 Ns IV 09/11/24 13:15 Infused .Q1H1M MICHAELA Infusion Daptomycin 1,000 mg/ Sodium 70 mls @ 100 mls/hr 09/11/24 13:13 09/11/24 14:38 Chloride IV 09/11/24 13:54 Infused ONCE ONE Infusion Iohexol 100 ml 09/11/24 14:07 09/11/24 14:08 Iohexol 350 Mg/Ml 100 Ml Infus..Btl IV 09/11/24 14:08 85 ml ONCE ONE Administration Critical Care Time Critical Care Time Critical Care Time: Yes Total Critical Care Time: 40 Attestation: I have personally provided critical care time exclusive of time spent on separately billable procedures. Time includes review of lab data, radiology results, discussion with consultants, and monitoring for potential decompensation. Intervention performed as documented. Discharge Plan Discharge Clinical Impression: Umbilical hernia, incarcerated Patient Disposition: Admitted As Inpatient Print Language: Kyrgyz
[2024-09-11] MEDS: 0.9 % Sodium Chloride 1,000 ML 999 ML IV (12:50)
[2024-09-11 12:51] VITALS: RESP 18
[2024-09-11] MEDS: fentaNYL citrate/PF 100 MCG/2 ML VIAL 50 MCG IVPUSH (12:51)
--- OUTSIDE RECORDS SUMMARY | 2024-09-11 12:52 | XMS_ITS | Clinical Summary ---
Author Organization [employer] Address [address] [facility] 7 [place] [address] Care Team Providers Care Spar Finisher Name Role Phone Unavailable Primary Care Provider Unavailabl e Immunizations Name Administration Dates Next Due Influenza Injectable Quadriv alant Preservative Free IIV4 MDCK 04/18/2018 Influenza, IIV3, injectable 08/16/2012, 1 Influenza, seasonal, injectable, preservative fr ee 08/27/2014 Moderna Covid-19 Vaccine 6+ Bivalent 10/28/2022 Pneumococcal Polysaccharide PPSV23 02/21/2018 Td (adult), 5 Lf tetanus tox oid, preservative free, adsorbed 11/27/2014 Td (adult), unspecified 08/08/2006 Tdap 09/21/2016 Social History Tobacco Use Types Packs/Day Years Used Date Smoking Tobacco: Never Assessed Sex and Gender Information Value Date Recorded Sex Assigned at Male 06/07/2022 10:37 AM EDT Legal Sex Male 10:37 AM EDT Gender Identity Male 06/07/2022 10:37 AM EDT Sexual Orientation Straight 06/07/2022 10 :37 AM EDT Plan of Treatment Health Maintenance Due Date Last Done Comments CT Colonography 1971 Colonoscopy 1971 Colorectal Cancer Screening 1971 Depression Screening 1971 FIT DNA/Cologuard 1971 FIT 1971 FOBT 1971 HIV Screening 1971 Lipid Panel 1971 SDOH Screening 1971 Sigmoidoscopy 1971 Alcohol/Substance Use Screening 1983 Tobacco Screening 1983 Hepatitis C Screening 1989 Hepatitis B Vaccines (1 of 3 - 19+ 3-dose series) 1990 Pneumococcal Vaccine: 50+ Years (2 of 2 - PCV) 02/21/2019 02/21/2018 Pneumococcal Vaccine: Pediatrics (0 to 5 Years) and At-Risk Patients (6 to 49) Years) (2 of 2 - PCV) 02/21/2019 02/21/2018 Zoster Vaccines (1 of 2) 2021 COVID-19 Vaccine (4 - 2023- season) 2024 10/28/2022, 10/27/2021, 11/15/2020 Influenza Vaccine (#1) 2024 8, 08/27/2014, 08/16/2012, Additional history exists DTaP/Tdap/Td Vaccines (2 - Td or Tdap) 09/21/2026 09/21/2016, 11/27/2014, 08/08/2006 RSV Patients and Patients Aged 60 years or older (1 - 1-dose 75+ series) 2046 HIB Vaccines Aged Out No longer eligi ble based on patient's age to complete this topic HPV Vaccines Aged Out No longer eligi ble based on patient's age to complete this topic Hepatitis A Vaccines Aged Out No long er eligible based on patient's age to complete this topic IPV Vaccines Aged Out No longer eligi ble based on patient's age to complete this topic Meningococcal Vaccine Aged Out No rui constantine eligible based on patient's age to complete this topic RSV under 20 months Aged Out No longe r eligible based on patient's age to complete this topic Rotavirus Vaccines Aged Out No longer eligible based on patient's age to complete this topic Insurance DENTAL - [facility]
--- OUTSIDE RECORDS SUMMARY | 2024-09-11 12:52 | XMS_ITS | Encounter Summary ---
Author Organization [employer] Address [address] [place] [address] Care Team Providers Care Theatrical Dresser Name Role Phone Jose Mann MD Primary Care Provider Reason for Visit * Reason Onset Date Comments ER follow up 08/28/2024 Encounter Details Date Type Department Care Team (Late st Contact Info) Description 08/28/2024 Telephone Adult Medicine [address] [phone] Lissette Bass RN ER follow up Social History Tobacco Use Types Packs/Day Years Used Date Smoking Tobacco: Never Smokeless Tobacco: Never Alcohol Use Standard Drinks/Week Comments Not Asked 0 (1 standard drink = 0.6 oz pur e alcohol) Sex and Gender Information Value Date Recorded Sex Assigned at Male 08/16/2024 11:15 AM EST Gender Identity Male 08/16/2024 11:15 AM EST Sexual Orientation Straight 08/16/2024 11 :15 AM EST Job Start Date Occupation Industry Not on file Not on file Not on file documented as of this encounter Ordered Prescriptions Prescription Sig Dispensed Refills Start Date End Da te clotrimazole-betamethas one (LOTRISONE) lotion Apply topically 2 (two) times a day. 30 mL 1 08/28/2024 hydrocortisone 2.5 % cream Apply 1 Application topically 2 (two) times a day. 30 g 1 08/28/2024 omeprazole (PriLOSEC) [address] capsule Take 1 capsule (40 mg total) by mouth 1 (one) time each day. 90 capsule 1 08/28/2024 lisinopriL (PRINIVIL,ZESTRIL) 20 mg tablet Take 1 tablet (20 mg total) by mouth 1 (one) time each day. 90 tablet 1 08/28/2024 documented in this encounter Progress Notes * Jose Mann MD - 08/28/2024 6:09 PM EST Noted and rx has been sent * Lissette Bass RN - 08/28/2024 10:22 AM EST 08/21 seen at [facility] ER for fever Spoke with the pt Fever is gone and is feeling better. We rescheduled the follow up appt that was on 08/21 for 11/2024 with PCP Asking for the attached refills. documented in this encounter Plan of Treatment Upcoming Encounters Date Type Department Care Team (Late st Contact Info) Description 11/08/2024 2:30 PM EDT Office Visit Adult Medicine [address] [phone] Jose Mann MD [address] [place] [phone] documented as of this encounter Visit Diagnoses Not on filedocumented in this encounter Discontinued Medications Medication Sig Discontinue Reason Start Date End Da te clotrimazole-betametha sone (LOTRISONE) lotion Apply externally to affected area twice a day Reorder 04/12/2023 08/28/2024 hydrocortisone 2.5 % cream Apply 1 Application topically 2 (two) times a day. Reorder 04/12/2023 08/28/2024 lisinopriL (PRINIVIL,ZESTRIL) 20 mg tablet Take 1 tablet (20 mg total) by mouth 1 (one) time each day. Reorder 04/12/2023 08/28/2024 omeprazole (PriLOSEC) [address] capsule Take 1 capsule (40 mg total) by mouth. Reorder 02/21/2020 08/28/2024 documented as of this encounter Care Teams Theatrical Dresser Relationship Specialty Start Date End Date Jose Mann MD [address] [place] [phone] PCP - General Internal Medicine 06/12/24 documented as of this encounter
--- OUTSIDE RECORDS SUMMARY | 2024-09-11 12:52 | XMS_ITS | Encounter Summary ---
Author Organization [employer] Address [address] [place] [address] Care Team Providers Care Unclaimed Property Officer Name Role Phone Jose Mann MD Primary Care Provider [phone] Reason for Referral * Imaging (Routine) - Authorized Specialty Diagnoses / Procedures Referred By Stanleyac t Referred To Contact Radiology Diagnoses Hepatitis C antibody positive in blood Procedures US Abdomen Limited Adriel Baker PA [address] [phone] Referral ID Status Reason Start Date Expiration Date V isits Requested Visits Authorized [id number] Authorized 07/23/2024 07/23/2025 1 1 Reason for Visit * Imaging (Routine) - Authorized Specialty Diagnoses / Procedures Referred By Contac t Referred To Contact Radiology Diagnoses Hepatitis C antibody positive in blood Procedures US Abdomen Limited Adriel Baker PA [address] [phone] Referral ID Status Reason Start Date Expiration Date V isits Requested Visits Authorized [id number] Authorized 07/23/2024 07/23/2025 1 1 Encounter Details Date Type Department Care Team (Latest Contact Info) Description 09/07/2024 9:30 AM EST - 09/07/2024 11:59 PM EST Hospital Encounter [facility] Ultrasound [address] [place] [address] Hepatitis C antibody positive in blood Discharge Disposition: Home or Self Care Social History Tobacco Use Types Packs/Day Years [...] on file documented as of this encounter Medications at Time of Discharge Medication Sig Dispensed Refills Start Date End Date albuterol HFA (PROAIR HFA ; PROVENTIL HFA ; VENTOLIN HFA) 90 mcg/actuation inhaler Take 2 puffs by mouth. 02/23/2022 blood sugar diagnostic (FreeStyle Lite Strips) test strip USE DIRECTED TO TEST BLOOD SUGAR ONCE DAILY 100 strip 1 09/02/2024 blood-glucose meter kit Use once daily to check blood sugars 10/13/2021 blood-glucose meter misc 1 strip. 04/07/2016 clotrimazole-betameth asone (LOTRISONE) lotion Apply topically 2 (two) times a day. 30 mL 1 08/28/2024 diclofenac (VOLTAREN) 1 % topical gel Apply 1 g topically. 11/10/2023 erythromycin 5 mg/gram (0.5 %) ophthalmic ointment Instill ~1 cm ribbon into affected eye(s) 4 times daily for 7 days 11/11/2023 fluticasone propionate (FLONASE) 50 mcg/actuation nasal spray Administer 2 sprays into affected nostril(s). 08/29/2023 fluticasone-salmetero l (ADVAIR DISKUS) 250-50 mcg/dose diskus inhaler Inhale 1 puff by mouth. FREESTYLE LANCETS MISC USE DIRECTED ONCE DAILY TO CHECK BLOOD SUGAR 05/20/2021 gabapentin (NEURONTIN) 300 mg capsule Take 2 capsules (600 mg total) by mouth. 04/26/2023 hydrocortisone 2.5 % cream Apply 1 Application topically 2 (two) times a day. 30 g 1 08/28/2024 hydrOXYzine HCL (ATARAX) 25 mg tablet Take 1 tablet (25 mg total) by mouth. 04/12/2023 lisinopriL (PRINIVIL,ZESTRIL) 20 mg tablet Take 1 tablet (20 mg total) by mouth 1 (one) time each day. 90 tablet 1 08/28/2024 omeprazole (PriLOSEC) [address] capsule Take 1 capsule (40 mg total) by mouth 1 (one) time each day. 90 capsule 1 08/28/2024 predniSONE (DELTASONE) 20 mg tablet Take 1 tablet (20 mg total) by mouth 1 (one) time each day. Take 3 tabs daily x3 days, then take 2 tabs daily x3 days, then take 1 tab daily for 3 day tadalafiL (CIALIS) 5 mg tablet Take 1 tablet (5 mg total) by mouth 1 (one) time each day. 02/20/2020 glecaprevir-pibrentas vir 100-40 mg tabletIndications:Hep atitis C virus infection without hepatic coma, unspecified chronicity Take 3 tablets by mouth 1 (one) time each day. 90 each 08/10/2024 09/09/2024 documented as of this encounter Discharge Disposition Disposition Code Departure Means Destination Home or Self Care documented in this encounter Plan of Treatment Upcoming Encounters Date Type Department Care Team (Late st Contact Info) Description 11/08/2024 2:30 PM EDT Office Visit Adult Medicine [address] [phone] Jose Mann MD [address] [place] [phone] documented as of this encounter Procedures Procedure Name Priority Date/Time Associated Diagnosis Comments US ABDOMEN LIMITED Routine 09/07/2024 10 :27 AM EST Hepatitis C antibody positive in blood documented in this encounter Results * US Abdomen Limited (09/07/2024 10:27 AM EST) Anatomical Region Laterality Modality Body Ultrasound 09/10/2024 4:42 PM EST Impressions 09/10/2024 4:44 PM EST 1. ??Echogenic nodular liver suggestive of cirrhosis. ??No focal liver lesion. 2. ??Splenomegaly. -------- FINAL REPORT -------- Dictated By: Mumtaz Rivera Dictated Date: 09/10/2024 16:42 ET Assigned Physician: Mumtaz Rivera Reviewed and Electronically Signed By: Mumtaz Rivera Signed Date: 09/10/2024 16:44 ET Workstation ID: [id number] Transcribed By: Self Edit Transcribed Date: 09/10/2024 16:42 ET Narrative 09/10/2024 4:44 PM EST PROCEDURE: Right upper quadrant ultrasound. HISTORY: history of hepatitis c. COMPARISON: None. TECHNIQUE: Grayscale, color Doppler, and spectral Doppler ultrasound evaluation of the right upper quadrant of the abdomen. FINDINGS: LIVER: Echogenic, with a nodular contour. ??No focal lesion. ??Normal flow in main portal vein. BILIARY: Normal appearance of the gallbladder and biliary tree. ??Negative sonographic Sharma sign. PANCREAS: Visualized portions are normal. RIGHT KIDNEY: Normal size and echotexture. ??No hydronephrosis or focal lesion. SPLEEN: Enlarged, measuring 0.9 cm craniocaudal. OTHER: No visible ascites. Procedure Note Mumtaz Rivera MD - 09/10/2024 PROCEDURE: Right upper quadrant ultrasound. HISTORY: history of hepatitis c. COMPARISON: None. TECHNIQUE: Grayscale, color Doppler, and spectral Doppler ultrasoundevaluation of the right upper quadrant of the abdomen. FINDINGS: LIVER: Echogenic, with a nodular contour. No focal lesion. Normal flowin main portal vein. BILIARY: Normal appearance of the gallbladder and biliary tree. Negativesonographic Sharma sign. PANCREAS: Visualized portions are normal. RIGHT KIDNEY: Normal size and echotexture. No hydronephrosis or focallesion. SPLEEN: Enlarged, measuring 0.9 cm craniocaudal. OTHER: No visible ascites. IMPRESSION: 1. Echogenic nodular liver suggestive of cirrhosis. No focal liverlesion. 2. Splenomegaly. -------- FINAL REPORT -------- Dictated By: Mumtaz Rivera Dictated Date: 09/10/2024 16:42 ET Assigned Physician: Mumtaz Rivera Reviewed and Electronically Signed By: Mumtaz Rivera Signed Date: 09/10/2024 16:44 ET Workstation ID: [id number] Transcribed By: Self Edit Transcribed Date: 09/10/2024 16:42 ET Adriel RUIZ IMG US PROCEDURES documented in this encounter Visit Diagnoses Diagnosis Hepatitis C antibody positive in blood documented in this encounter Care Teams Unclaimed Property Officer Relationship Specialty Start Date End Date Jose Mann MD [address] [place] [phone] PCP - General Internal Medicine 06/12/24 documented as of this encounter
--- OUTSIDE RECORDS SUMMARY | 2024-09-11 12:53 | XMS_ITS | Encounter Summary ---
Author Organization [employer] Address [address] [facility] [address] [place] [address] Care Team Providers Care Laser Set Up Operator Name Role Phone Unavailable Primary Care Provider Unavailabl e Encounter Details Date Type Department Care Team (Latest Contact Info) Description 02/23/2021 Abstract [facility] CONVERSIONS Dental, Provider, DDS Social History Tobacco Use Types Packs/Day Years Used Date Smoking Tobacco: Never Assessed Sex and Gender Information Value Date Recorded Sex Assigned at Male 06/07/2022 10:37 AM EDT Legal Sex Male 10:37 AM EDT Gender Identity Male 06/07/2022 10:37 AM EDT Sexual Orientation Straight 06/07/2022 10 :37 AM EDT documented as of this encounter Plan of Treatment Not on file documented as of this encounter Visit Diagnoses Not on filedocumented in this encounter
--- OUTSIDE RECORDS SUMMARY | 2024-09-11 12:53 | XMS_ITS | Clinical Summary ---
Author Organization 175 [facility] Address [address] [place] [address] Phone Care Team Providers Care Food Service Name Role Phone Jose Mann MD Primary Care Provider [phone] Allergies Active Allergy Reactions Criticality Noted Date Comments Morphine Rash 04/04/2014 Onion 09/04/2015 Medications Medication Sig Dispensed Refills Start Date End Date Status albuterol HFA (PROAIR HFA ; PROVENTIL HFA ; VENTOLIN HFA) 90 mcg/actuation inhaler Take 2 puffs by mouth. 2 Active blood-glucose meter misc 1 strip. 6 Active blood-glucose meter kit Use once daily to check blood sugars 2 Active diclofenac (VOLTAREN) 1 % topical gel Apply 1 g topically. 4 Active erythromycin 5 mg/gram (0.5 %) ophthalmic ointment Instill ~1 cm ribbon into affected eye(s) 4 times daily for 7 days 4 Active fluticasone-salm eterol (ADVAIR DISKUS) 250-50 mcg/dose diskus inhaler Inhale 1 puff by mouth. Active fluticasone propionate (FLONASE) 50 mcg/actuation nasal spray Administer 2 sprays into affected nostril(s). 4 Active gabapentin (NEURONTIN) 300 mg capsule Take 2 capsules (600 mg total) by mouth. 3 Active FREESTYLE LANCETS MISC USE DIRECTED ONCE DAILY TO CHECK BLOOD SUGAR 1 Active hydrOXYzine HCL (ATARAX) 25 mg tablet Take 1 tablet (25 mg total) by mouth. 3 Active tadalafiL (CIALIS) 5 mg tablet Take 1 tablet (5 mg total) by mouth 1 (one) time each day. 0 Active predniSONE (DELTASONE) 20 mg tablet Take 1 tablet (20 mg total) by mouth 1 (one) time each day. Take 3 tabs daily x3 days, then take 2 tabs daily x3 days, then take 1 tab daily for 3 day Active blood sugar diagnostic (FreeStyle Lite Strips) test strip USE DIRECTED TO TEST BLOOD SUGAR ONCE DAILY 100 strip 1 5 Active lisinopriL (PRINIVIL,ZESTRI L) 20 mg tablet Take 1 tablet (20 mg total) by mouth 1 (one) time each day. 90 tablet 1 5 Active omeprazole (PriLOSEC) [address] capsule Take 1 capsule (40 mg total) by mouth 1 (one) time each day. 90 capsule 1 5 Active hydrocortisone 2.5 % cream Apply 1 Application topically 2 (two) times a day. 30 g 1 5 Active clotrimazole-bet amethasone (LOTRISONE) lotion Apply topically 2 (two) times a day. 30 mL 1 5 Active clotrimazole-bet amethasone (LOTRISONE) lotion Apply externally to affected area twice a day 3 08/28/19 25 Discontinued(Reo rder) blood sugar diagnostic (FreeStyle Lite Strips) test strip USE TO TEST BLOOD SUGAR ONCE DAILY 4 09/02/19 25 Discontinued hydrocortisone 2.5 % cream Apply 1 Application topically 2 (two) times a day. 3 08/28/19 25 Discontinued(Reo rder) lisinopriL (PRINIVIL,ZESTRI L) 20 mg tablet Take 1 tablet (20 mg total) by mouth 1 (one) time each day. 3 08/28/19 25 Discontinued(Reo rder) omeprazole (PriLOSEC) [address] capsule Take 1 capsule (40 mg total) by mouth. 0 08/28/19 25 Discontinued(Reo rder) glecaprevir-pibr entasvir 100-40 mg tabletIndication s:Hepatitis C virus infection without hepatic coma, unspecified chronicity Take 3 tablets by mouth 1 (one) time each day. 90 each 5 09/09/19 25 Active Problems Problem Noted Date Diagnosed Date Hematospermia 10/13/2021 Hyperactivity of bladder 10/13/2021 Overview (05/15/2024): Follows with [facility] urology. COVID-19 08/28/2021 Benign prostatic hyperplasia without lower urinary tract symptoms 02/21/2018 Gastroesophageal reflux disease without esophagi tis 02/21/2018 White matter disease, unspecified 10/14/2016 Asthma 04/07/2016 Hemorrhoid 09/04/2012 Controlled diabetes mellitus type II without com plication 03/17/2011 Morbid obesity 03/01/2011 Lumbar disc disease 08/06/2010 Insomnia 03/24/2010 Essential hypertension, benign 09/01/2009 Encounters Date Type Department Care Team Description 09/07/2024 9:30 AM EST - 09/07/2024 11:59 PM EST Hospital Encounter [facility] Ultrasound [address] [place] [address] Hepatitis C antibody positive in blood Discharge Disposition: Home or Self Care 08/28/2024 Telephone Adult Medicine [address] [phone] Lissette Bass RN ER follow up 08/07/2024 Telephone Gastroenterology - [place] 175 [facility] [address] [address] Gisele Richard LPN 07/23/2024 1:20 PM EST Consult Gastroenterology [facility] [address] [phone] Adriel Baker, [place] Hepatitis C antibody positive in blood (Primary Dx) from Last 3 Months Immunizations Name Administration Dates Next Due Influenza Quadravalent, MDCK , 0.5ml, preservative free (Flucelvax) 6mo and older 04/18/2018 Influenza Quadravalent, MDCK , 0.5ml, with preservative (Flucelvax) 6mo and older 05/27/2017 Influenza trivalent, with pr eservative (Fluzone; Afluria) 6mo and older 08/24/2012,05/02/2011 [place] SARS-CoV-2 COVID -19, vector-nr, rS-Ad26, preservative free 11/15/2020 Pneumococcal polysaccharide 23 valent (Pneumovax 23) 2yo and older 02/21/2018 Td Tetanus diptheria (Tdvax) 7yo and older 08/08 Tdap Tetanus diptheria acell ular pertussis (Boostrix; Adacel) 7yo and older 09/21/2016 Surgical History Surgery Date Site/Laterality Comments BACK SURGERY PROCEDURE: HISTORICAL BACK SURGERY; COMMENT: djd Medical History Medical History Date Comments Essential hypertension, benign D X:Essential hypertension, benign Herniated disc DX:Herniated dis c Morbid obesity ([facility]) 03/01/2011 DX:Morb id obesity ([facility]) Type II or unspecified type diabetes mellitus with unspecified complication, not stated as uncontrolled DX:Type II or unspecified t ype diabetes mellitus with unspecified complication, not stated as uncontrolled Asthma 04/07/2016 DX:Asthma Gastroesophageal reflux dise ase without esophagitis 02/21/2018 DX:Gastroesophageal reflux d isease without esophagitis Family History Medical History Relation Name Comments Other: ETOH Father from a lcohol abuse Heart attack Maternal Grandfather Other: health unknown Mother Relation Name Status Comments Father Maternal Grandfather Mother Social History Tobacco Use Types Packs/Day Years [...] file Not on file Not on file Obstetrics History Last Filed Vital Signs Vital Sign Reading Time Taken Comments Blood Pressure 110/75 07/23/2024 1:42 PM EST Pulse 67 07/23/2024 1:42 PM EST Temperature - - Respiratory Rate - - Oxygen Saturation 98% 07/23/2024 1:42 PM EST Inhaled Oxygen Concentration - - Weight 137 kg (302 lb) 07/23/2024 1:42 PM EST Height 188 cm (6' 2 ) 07/23/2024 1:42 PM EST Body Mass Index 38.77 07/23/2024 1:42 PM EST Plan of Treatment Upcoming Encounters Date Type Department Care Team (Late st Contact Info) Description 11/08/2024 2:30 PM EDT Office Visit Adult Medicine [facility] [address] [place] [phone] Jose Mann MD [address] [place] [address] [phone] Health Maintenance Due Date Last Done Comments Diabetes: Annual Foot Exam 1981 Diabetes: Annual Retina Eye Exam 1981 Hepatitis B Vaccines (1 of 3 - 19+ 3-dose series) 1990 Pneumococcal Vaccine: Pediatrics (0 to 5 Years) and At-Risk Patients (6 to 64 Years) (2 of 2 - PCV) 02/21/2019 02/21/2018 Zoster Vaccines (1 of 2) 2021 Colorectal Cancer Screening: Colonoscopy 07/11/2022 Depression Screening 07/11/2022 HIV Screening 07/11/2022 Medicare Annual Wellness Visit 07/11/2022 Social Influencers of Health Screening 07/11/2022 COVID-19 Vaccine ( season) 2024 10/28/2022, 10/27/2021, 11/15/2020 Influenza Vaccine (#1) 2024 8, 05/27/2017, 08/27/2014, Additional history exists Diabetes: Annual Urine Albumin-Creatinine Ratio (uACR) 05/09/2024 05/09/2023 Diabetes: Blood Sugar Control Test (HGBA1C) 05/11/2024 11/10/2023 Diabetes: Annual GFR (Glomerular Filtration Rate) 07/23/2025 07/23/2024, 03/13/2024, 03/13/2024 Hypertension/CHF/CAD Annual BMP Blood Test 07/23/2025 07/23/2024, 03/13/2024, 03/13/2024 DTaP,Tdap,and Td Vaccines (4 - Td or Tdap) 09/21/2026 09/21/2016, 11/27/2014, 08/08/2006 Cholesterol Screening (Lipid Panel) 04/12/2028 04/12/2023 Hepatitis C Screening Completed 07/23/2024 , 07/23/2024, 07/23/2024, Additional history exists HIB Vaccines Aged Out No longer eligi [...] on patient's age to complete this topic MMR Vaccines Aged Out No longer eligi ble based on patient's age to complete this topic Meningococcal ACWY Vaccine Aged Out N o longer eligible based on patient's age to complete this topic RSV Immunization Patients Under 20 months Aged Out No longer eligible based on patient's age to complete this topic Varicella Vaccines Aged Out No longer eligible based on patient's age to complete this topic Procedures Procedure Name Priority Date/Time Associated Diagnosis Comments US ABDOMEN LIMITED Routine 09/07/2024 10 :27 AM EST Hepatitis C antibody positive in blood AST, ALT, BILIRUBIN ELR STATE REPORTABLES Routine 07/23/2024 2:29 PM EST Hepatitis C antibody positive in blood AST, ALT, BILIRUBIN ELR STATE REPORTABLES Routine 07/23/2024 2:29 PM EST Hepatitis C antibody positive in blood CBC WITH AUTO DIFFERENTIAL Routine 07/23/2024 2:29 PM EST Hepatitis C antibody positive in blood COMPREHENSIVE METABOLIC PANEL Routine 07/23/2024 2:29 PM EST Hepatitis C antibody positive in blood C-REACTIVE PROTEIN Routine 07/23/2024 2: 29 PM EST Hepatitis C antibody positive in blood CBC AND DIFFERENTIAL Routine 07/23/2024 2:29 PM EST Hepatitis C antibody positive in blood ARGUETA FIBROSURE Routine 07/23/2024 2:29 PM EST Hepatitis C antibody positive in blood HEPATITIS C VIRUS QUANTITATIVE PCR Routine 07/23/2024 2:29 PM EST Hepatitis C antibody positive in blood HEPATITIS C GENOTYPE Routine 07/23/2024 2:29 PM EST Hepatitis C antibody positive in blood HEPATITIS C ANTIBODY Routine 07/23/2024 2:29 PM EST Hepatitis C antibody positive in blood HEMOGLOBIN A1C Routine 11/10/2023 HM URINE ALBUMIN CREATININE RATIO Routine 05/09/2023 LIPID PANEL Routine 04/12/2023 from Last 3 Months or Most Recently Relevant to Health Maintenance Results * US Abdomen Limited (09/07/2024 10:27 [...] Signed Date: 09/10/2024 16:44 ET Workstation ID: [id number] Transcribed By: Self Edit Transcribed Date: 09/10/2024 [...] Signed Date: 09/10/2024 16:44 ET Workstation ID: [id number] Transcribed By: Self Edit Transcribed Date: 09/10/2024 16:42 ET Adriel RUIZ [facility] * (ABNORMAL) Hepatitis C antibody (07/23/2024 2:29 PM EST) Hepatitis C Antibody Positive (A) Negative LAB CHEMISTRY METHOD 07/23/2024 9:26 PM EST [facility] Comment:If confirmation of t his positive HCV Ab screening test is needed, please redraw and order HCV Viral Load. Note--> This test may not be added on due to different specimen requirements. Blood Venous blood specimen / Unknown Venipuncture / Unknown 07/23/2024 2:29 PM EST 07/23/2024 2:29 PM EST Adriel Baker IN LAB BLOOD ORDERABLES Performing Organization Address City/[facility]/ZIP Co de Phone Number [facility] [address] [place] [address], [place] [phone] * AST, ALT, Bilirubin ELR state reportables (07/23/2024 2:29 PM EST) Only the most recent of2 resultswithin the time period is included. ALT (SGPT) 41 10 - 60 unit/L LAB CHEMISTRY METHOD 07/24/2024 1:[address] [facility] AST (SGOT) 27 10 - 42 unit/L LAB CHEMISTRY METHOD 07/24/2024 1:[address] [facility] Total Bilirubin 0.5 0.0 - 1.4 mg/dL LAB CHEMISTRY METHOD 07/24/2024 1:[address] [facility] Blood Venous blood specimen / Unknown Venipuncture / Unknown 07/23/2024 2:29 PM EST 07/23/2024 2:29 PM EST Adriel Baker IN LAB BLOOD ORDERABLES Performing Organization Address City/[facility]/ZIP Co de Phone Number [facility] [address] [place] [address], [place] [phone] * ARGUETA fibrotest liver diease (07/23/2024 2:29 PM EST) [facility] FibroSure See Below 08/03/2024 9:12 AM EST [facility] Comment: ARGUETA FibroSure(R) Plus SEE REPORT UNDER SEPARATE COVER. REPORT WILL BE SENT TO THE ORDERING LABORATORY VIA PRINTER OR FAX. ADDITIONAL COPIES OF THE ORIGINAL REPORT MAY ALSO BE OBTAINED BY CALLING [facility] [employer] CLIENT SERVICES at [phone] Blood Venous blood specimen / Unknown Venipuncture / Unknown 07/23/2024 2:29 PM EST 07/23/2024 2:29 PM EST Adriel RUIZ LAB BLOOD ORDERABLES [place] [address] * (ABNORMAL) Hepatitis C virus quantitative molecular study (07/23/2024 2:29 PM EST) [facility] HCV Qual Interp Detected (A) Not Detected LAB MOLECULAR DIAGNOSTICS METHOD 07/24/2024 11:[address] [facility] HCV RNA Quantitative 2,402,61 2(H) <12 I Unit/mL LAB MOLECULAR DIAGNOSTICS METHOD 07/24/2024 11:42 AM [facility] HCV RNA Quantitative Log 6.38(H) <1.08 Log IU/mL LAB MOLECULAR DIAGNOSTICS METHOD 07/24/2024 11:42 AM [facility] Blood Venous blood specimen / Unknown Venipuncture / Unknown 07/23/2024 2:29 PM EST 07/23/2024 2:29 PM EST Adriel RUIZ LAB BLOOD ORDERABLES Performing Organization Address City/[facility]/ZIP Co de Phone Number [facility] [address] [place] [address], * (ABNORMAL) CBC auto differential (07/23/2024 2:29 PM EST) [facility] WBC 2.5(L) 4.8 - 10.8 K/mcL LAB HEMETOLOGY METHOD 07/23/2024 7:[address] [facility] RBC 4.40(L) 4.50 - 5.50 M/mcL LAB HEMETOLOGY METHOD 07/23/2024 7:[address] [facility] Hemoglobin 8.5(L) 13.5 - 17.5 g/dL LAB HEMETOLOGY METHOD 07/23/2024 7:38 PM [facility] Hematocrit 30.4(L) 42.0 - 54.0 % LAB HEMETOLOGY METHOD 07/23/2024 7:38 PM [facility] MCV 69.6(L) 79.0 - 98.0 FL LAB HEMETOLOGY METHOD 07/23/2024 7:38 PM [facility] MCH 19.5(L) 27.0 - 32.0 pcg LAB HEMETOLOGY METHOD 07/23/2024 7:38 PM [facility] MCHC 28.0(L) 32.0 - 37.0 g/dL LAB HEMETOLOGY METHOD 07/23/2024 7:38 PM [facility] RDW 19.9(H) 11.0 - 15.0 % LAB HEMETOLOGY METHOD 07/23/2024 7:38 PM [facility] Platelets 87(L) 130 - 400 K/mcL LAB HEMETOLOGY METHOD 07/23/2024 7:38 PM [facility] Comment:reviewed by slide JOSÉ MIGUEL LAB HEMETOLOGY METHOD 07/23/2024 7:38 PM [facility] Comment:Not Measured NRBC 0.0 <1.0 % LAB HEMETOLOGY METHOD 07/23/2024 7:38 PM [facility] NRBC Absolute 0.00 <0.10 K/mcL LAB HEMETOLOGY METHOD 07/23/2024 7:38 PM [facility] Neutrophils Relative 51.6 % LAB HEMETOLOGY METHOD 07/23/2024 7:38 PM [facility] Lymphocytes Relative 25.2 % LAB HEMETOLOGY METHOD 07/23/2024 7:38 PM [facility] Monocytes Relative 18.8 % LAB HEMETOLOGY METHOD 07/23/2024 7:38 PM [facility] Eosinophils Relative 3.6 % LAB HEMETOLOGY METHOD 07/23/2024 7:[address] [facility] Basophils Relative 0.4 % LAB HEMETOLOGY METHOD 07/23/2024 7:38 PM [facility] Immature Granulocytes Relative 0.4 % LAB HEMETOLOGY METHOD 07/23/2024 7:38 PM [facility] Neutrophils Absolute 1.29(L) 1.50 - 7.00 K/mcL LAB HEMETOLOGY METHOD 07/23/2024 7:[address] [facility] Lymphocytes Absolute 0.63(L) 1.00 - 5.00 K/mcL LAB HEMETOLOGY METHOD 07/23/2024 7:38 PM [facility] Monocytes Absolute 0.47 0.20 - 1.00 K/mcL LAB HEMETOLOGY METHOD 07/23/2024 7:[address] [facility] Eosinophils Absolute 0.09 0.00 - 0.50 K/mcL LAB HEMETOLOGY METHOD 07/23/2024 7:[address] [facility] Basophils Absolute 0.01 0.00 - 0.20 K/mcL LAB HEMETOLOGY METHOD 07/23/2024 7:38 PM [facility] Immature Granulocytes Absolute 0.01 0.00 - 0.03 K/mcL LAB HEMETOLOGY METHOD 07/23/2024 7:[address] [facility] Blood Venous blood specimen / Unknown Venipuncture / Unknown 07/23/2024 2:29 PM EST 07/23/2024 2:29 PM EST Adriel RUIZ LAB BLOOD ORDERABLES [facility] [address] [place] [address], * Hepatitis C genotype (07/23/2024 2:29 PM EST) Hepatitis C Viral RNA, Genotype, LiPA 3 07/30/2024 1:38 PM EST [facility] Comment: The method used in this test is RT-PCR and reverse hybridization (Line Probe) of the 5' UTR and core region of the HCV genome. The analytical performance characteristics of this assay have been determined by [facility]. The modifications have not been cleared or approved by the FDA. This assay has been validated pursuant to the CLIA regulations and is used for clinical purposes. For additional information, please refer to http://education.Canlife /faq/HCVGenotyping (This link id being provided for informational/ educational purposes only.) Test Performed at: [facility] [address] ??[phone] ? I Leandra DAMON, PhD Blood Venous blood specimen / Unknown Venipuncture / Unknown 07/23/2024 2:29 PM EST 07/23/2024 2:29 PM EST Adriel RUIZ LAB BLOOD ORDERABLES [facility] [address] [place] [address] * C-reactive protein (07/23/2024 2:29 PM EST) [facility] C-Reactive Protein <0.29 <=0.50 mg/dL LAB CHEMISTRY METHOD 07/23/2024 8:[address] [facility] Blood Venous blood specimen / Unknown Venipuncture / Unknown 07/23/2024 2:29 PM EST 07/23/2024 2:29 PM EST Adriel RUIZ LAB BLOOD ORDERABLES [facility] [address] [place] [address], * Comprehensive metabolic panel (07/23/2024 2:29 PM EST) [facility] Sodium 137 133 - 145 mmol/L LAB CHEMISTRY METHOD 07/23/2024 8:47 PM [facility] Potassium 4.6 3.5 - 5.5 mmol/L LAB CHEMISTRY METHOD 07/23/2024 8:47 PM [facility] Chloride 105 96 - 110 mmol/L LAB CHEMISTRY METHOD 07/23/2024 8:47 PM [facility] CO2 26 21 - 32 mmol/L LAB CHEMISTRY METHOD 07/23/2024 8:47 PM [facility] Anion Gap 6 3 - 11 LAB CHEMISTRY METHOD 07/23/2024 8:47 PM [facility] Glucose 98 70 - 100 mg/dL LAB CHEMISTRY METHOD 07/23/2024 8:47 PM [facility] BUN 16 5 - 25 mg/dL LAB CHEMISTRY METHOD 07/23/2024 8:47 PM [facility] Creatinine 0.88 0.70 - 1.30 mg/dL LAB CHEMISTRY METHOD 07/23/2024 8:47 PM [facility] eGFR 103 >=60 mL/min/1. 73m2 LAB CHEMISTRY METHOD 07/23/2024 8:47 PM [facility] Comment:Calculation based on the??Chronic Kidney Disease Epidemiology Collaboration (CKD-EPI) equation refit??without adjustment for race. BUN/Creatinine Ratio 18.2 LAB CHEMISTRY METHOD 07/23/2024 8:47 PM [facility] Calcium 8.8 8.5 - 10.5 mg/dL LAB CHEMISTRY METHOD 07/23/2024 8:47 PM [facility] AST (SGOT) 27 10 - 42 unit/L LAB CHEMISTRY METHOD 07/23/2024 8:47 PM [facility] ALT (SGPT) 41 10 - 60 unit/L LAB CHEMISTRY METHOD 07/23/2024 8:47 PM [facility] Alkaline Phosphatase 65 42 - 121 unit/L LAB CHEMISTRY METHOD 07/23/2024 8:[address] [facility] Total Protein 8.0 6.0 - 8.0 g/dL LAB CHEMISTRY METHOD 07/23/2024 8:[address] [facility] Albumin 3.4 3.2 - 5.0 g/dL LAB CHEMISTRY METHOD 07/23/2024 8:[address] [facility] Total Bilirubin 0.5 0.0 - 1.4 mg/dL LAB CHEMISTRY METHOD 07/23/2024 8:[address] [facility] Blood Venous blood specimen / Unknown Venipuncture / Unknown 07/23/2024 2:29 PM EST 07/23/2024 2:29 PM EST Adriel RUIZ LAB BLOOD ORDERABLES [facility] [address] [place] [address], * Hemoglobin A1c (11/10/2023) Hemoglobin A1C 5.0 6.5 % Blood Venous blood specimen / Unknown Historical Provider LAB BLOOD ORDERAB LES * HM Urine Albumin Creatinine Ratio (05/09/2023) Pathologist [facility] Urine Albumin Creatinine Ratio abstracted Historical Provider MD VASYL ENGLISHANC E * (ABNORMAL) Lipid panel (04/12/2023) LDL/HDL Ratio 2 0 - 4 Triglycerides 25 0 - 150 mg/dL Cholesterol 58 0 - 200 mg/dL HDL 36(A) 40 mg/dL LDL Cholesterol 17 0 - 100 mg/dL Blood Venous blood specimen / Unknown Historical Provider LAB BLOOD ORDERAB LES from Last 3 Months or Most Recently Relevant to Health Maintenance Care Teams Food Service Relationship Specialty Start Date End Date Jose Mann MD [address] [place] [address] [phone] PCP - General Internal Medicine 06/12/24
[2024-09-11 13:25] LABS: Basophils Percent Auto 0.5 % (0-2); Eosinophils Percent Auto 1.1 % (0-4); Hematocrit 31.8 % (42.0-52.0); Hemoglobin 9.5 g/dl (14.0-18.0); INTERNATIONAL NORM RATIO 1.1 (0.9-1.1); Imm Gran Abs Auto 0.01 X10*3/uL (0.00-0.03); Imm Gran Pct Auto 0.5 % (0.0-0.4); Lymphocytes Absolute Auto 0.4 X10*3/uL (1.2-4.9); Lymphocytes Percent Auto 20.7 % (20-40); MANUAL DIFF FLAG SCAN; Mean Corpuscular HGB Conc 29.9 g/dl (31.0-36.0); Mean Corpuscular Hemoglobin 20.6 pg (27.0-33.0); Monocytes Absolute Auto 0.3 X10*3/uL (0.1-1.2); Monocytes Percent Auto 18.5 % (2-11); Neutrophils Absolute Auto 1.1 x10*3/uL (2.0-8.3); Neutrophils Percent Auto 58.7 % (45-73); Platelet Count 72 X10*3/uL (160-400); Prothrombin Time 12.9 SEC (10.9-12.4); Red Blood Count 4.61 X10*6/uL (4.60-5.80); Red Cell Distribution Width 19.1 % (11.0-16.0); SCAN SMEAR FLAG 1; White Blood Count 1.8 X10*3/uL (4.8-10.8)
[2024-09-11 13:32] LABS: Lactic Acid 1.5 mmol/L (0.5-2.0)
[2024-09-11 13:34] LABS: Alanine Aminotransferase 24 U/L (0-40); Albumin Level 3.5 g/dL (3.5-5.0); Alkaline Phosphatase 50 U/L (39-117); Anion Gap 15 (12-20); Aspartate Amino Transferase 33 U/L (5-37); Bilirubin Direct 0.2 mg/dL (0.0-0.5); Bilirubin Total 0.4 mg/dL (0.0-1.0); Blood Urea Nitrogen 9 mg/dL (9-16); Calcium 8.7 mg/dL (8.4-10.2); Carbon Dioxide 27 mmol/L (22-29); Chloride 105 mmol/L (96-108); Creatinine Clr Calc Pharmacy 191.2; Estimated Glomerular Filt Rate > 60; Glucose Random 117 mg/dL (60-115); Lipase 24 U/L (8-78); Potassium 4.5 mmol/L (3.3-5.1); Sodium 142 mmol/L (135-145); Total Protein 8.6 g/dL (6.5-8.0)
--- NOTE | 2024-09-11 13:34 | PC.NURSE ---
daptomycin is a what pt recieves from infusion center here at [facility] daily for MRSA, missing his appointment today due to being in ER. This RN called infusion center, 1g dapto, going to be given here in ER
[2024-09-11 13:38] LABS: SLIDE REVIEW VERIFIED
[2024-09-11] MEDS: DAPTOmycin 1,000 MG in 0.9 % Sodium Chloride 50 ML 100 MG IV (13:54)
[2024-09-11] MEDS: iohexoL 350 MG/ML 100 ML INFUS..BTL IV (14:08)
[2024-09-11 14:24] LABS: Appearance Urine Clear; Color Urine Yellow; Glucose Urine UA Negative (Negative); Leukocyte Esterase Urine Negative (Negative); Nitrite Urine Negative (Negative); Specific Gravity - Urine <= 1.005 (1.005-1.025); Urine Blood Negative (Negative); Urine Ketones Negative (Negative); Urine Protein Negative (Neg-Trace)
[2024-09-11 14:30] VITALS: BP 154/76; PULSE 61; RESP 16; TEMP 36.6; O2SAT 96
[2024-09-11 16:35] VITALS: BP 154/76; PULSE 61; RESP 16; TEMP 36.6; O2SAT 96
--- NOTE | 2024-09-11 17:38 | PM.CNGS ---
History of Present Illness Consult details Consult date: 09/11/24 Reason for consult: hernia Requesting physician: Katherin Mistry Narrative: Patient is a 54-year-old male with a known umbilical hernia and who has been followed for this by surgical team at [facility] and at this point they have just wanted to watch at until he gets better control of his hepatitis-C. He has hep C and a variety of other medical issues. This has made him in the past a higher risk for surgery. He does not have ascites and is not decompensated with his cirrhosis. He was recently hospitalized here and discharged but during that admission had a CT scan which showed the umbilical hernia with some small bowel present. Over the last couple a days after discharge he started having a little more fullness in his umbilical area especially last night and had little nausea vomiting and more tender this after coughing and he came into the hospital where repeat CT scan showed the hernia may be appearing larger and now with some: Present. He does wear a good abdominal binder which generally controls the hernia. He says most of the time it mostly goes in when he is lying down but as soon as he stands up it falls back out. Today it is a little more tender but when I am seeing him now he is feeling improved no nausea. He had a bowel movement yesterday. Review of Systems Review of Systems: Yes all other systems are reviewed and are negative PMFSH Past Medical History Medical History Heroin abuse Cocaine abuse High blood pressure Seasonal allergies Asthma Social History Social History Alcohol intake: current Alcohol intake frequency: 0-2 drinks per day Comment: refusing alarms. Patient Tobacco Use Status: Never used Tobacco Substance Use Type: Crack/Cocaine and Heroin service: No Meds Allergies Allergy/AdvReac Type Severity Reaction Status Date / Time onion [ONION] Allergy Severe ANAPHYLAXIS Verified 09/11/24 11:49 TO RAW ONIONS (COOKED OK) morphine [MORPHINE] Allergy Mild RASH, hives Verified 08/17/24 17:48 Home Medications ?Medication ?Instructions ?Recorded ?Confirmed ?Last Taken ?Type blood sugar diagnostic (FreeStyle 04/13/23 04/13/23 Unknown History Lite Strips) fluticasone propionate 50 50 mcg intranasal DAILY PRN 04/13/23 08/18/24 Unknown History mcg/actuation nasal Allergy Symptoms spray,suspension gabapentin 300 mg capsule 600 mg PO TID Pain 04/13/23 08/18/24 08/17/24 History hydrocortisone 2.5 % topical cream 1 appl topical BID PRN Itching 04/13/23 08/18/24 Unknown History albuterol sulfate 90 mcg/actuation 2 puff inhalation Q6H PRN 08/18/24 08/18/24 Unknown History aerosol inhaler Shortness Of Breath Or Wheezing ferrous sulfate 324 mg (65 mg 324 mg PO DAILY PRN supplementation 08/18/24 08/18/24 Unknown History iron) tablet,delayed release lisinopril 20 mg tablet 30 mg PO BEDTIME 08/18/24 08/18/24 08/17/24 History methadone 10 mg/mL oral concentrate 30 mg PO BEDTIME 08/18/24 08/18/24 Unknown History methadone 10 mg/mL oral concentrate 60 mg PO DAILY 08/18/24 08/18/24 Unknown History omeprazole 40 mg capsule,delayed 40 mg PO DAILY@0630 08/18/24 08/18/24 08/17/24 History release tadalafil 5 mg tablet 5 mg PO DAILY 08/18/24 08/18/24 08/17/24 History triamcinolone acetonide 0.1 % 1 appl topical BID PRN 08/18/24 08/18/24 Unknown History topical cream eczema/psoriasis Physical Exam Vital Signs: Vital Signs: Last Vital Signs Temp 97.9 F 09/11/24 16:35 Pulse 61 09/11/24 16:35 Resp 16 09/11/24 16:35 BP 154/76 H 09/11/24 16:35 Pulse Ox 96 09/11/24 16:35 O2 Del Method Room Air 09/11/24 16:35 BMI result Body Mass Index 39.0 Const: General: cooperative, healthy appearing, comfortable and no acute distress GI: Other: Abdomen is soft nondistended nontender generally. At the umbilical area there is about a 8 x 10 cm bulge which with the patient having his knees up and with some discomfort almost completely were juices but then pops right back out. There is no concerning skin changes or cellulitis. He does have bowel sounds. No peritoneal signs Results Labs 09/11/24 13:10 09/11/24 13:10 Labs: Abnormal lab results 09/11/24 Range/Units 13:10 WBC 1.8 L (4.8-10.8) X10*3/uL Hgb 9.5 L (14.0-18.0) g/dl Hct 31.8 L (42.0-52.0) % MCV 69.0 L (80.0-98.0) fL MCH 20.6 L (27.0-33.0) pg MCHC 29.9 L (31.0-36.0) g/dl RDW 19.1 H (11.0-16.0) % Plt Count 72 L (160-400) X10*3/uL Immature Gran % (Auto) 0.5 H (0.0-0.4) % Alexander % (Auto) 18.5 H (2-11) % Lymph # (Auto) 0.4 L (1.2-4.9) X10*3/uL Absolute Neuts (auto) 1.1 L (2.0-8.3) x10*3/uL PT 12.9 H (10.9-12.4) SEC Random Glucose 117 H (60-115) mg/dL Total Protein 8.6 H (6.5-8.0) g/dL Short CBC 09/11/24 Range/Units 13:10 WBC 1.8 L (4.8-10.8) X10*3/uL Hgb 9.5 L (14.0-18.0) g/dl Hct 31.8 L (42.0-52.0) % Plt Count 72 L (160-400) X10*3/uL BMP 09/11/24 13:10 Sodium 142 Potassium 4.5 D Chloride 105 Carbon Dioxide 27 BUN 9 Creatinine 0.66 Calcium 8.7 Liver Function 09/11/24 Range/Units 13:10 Total Bilirubin 0.4 (0.0-1.0) mg/dL Direct Bilirubin 0.2 (0.0-0.5) mg/dL AST 33 (5-37) U/L ALT 24 (0-40) U/L Alkaline Phosphatase 50 (39-117) U/L Albumin 3.5 (3.5-5.0) g/dL Urine 09/11/24 Range/Units 14:14 Urine Color Yellow Urine Appearance Clear Urine pH 8.0 (5.0-9.0) Ur Specific [place] <= 1.005 (1.005-1.025) Urine Protein Negative (Neg-Trace) mg/dL Urine Glucose (UA) Negative (Negative) mg/dL All other labs normal. Imaging Abdomen CT scan report/results: report reviewed and image reviewed CT scan - chest: pending CT scan - pelvis: report reviewed and image reviewed Additional studies: Patient: Dennis Alaniz MR#: [id number] : 1970 Acct:[id number] Age/Sex: 54 / M ADM Date: 09/11/24 Loc: HO.ED Attending Dr: Ordering Physician: Katherin Mistry Date of Service: 09/11/24 Procedure(s): CT abdomen pelvis w IV con Accession Number(s): [id number] cc: Jose Mann III, MD; Katherin Mistry~ Report Number: [id number]: Total DLP = 1252.00 mGy-cm EXAMINATION: CT ABDOMEN AND PELVIS WITH CONTRAST CLINICAL INFORMATION: Umbilical hernia, nonreducible. COMPARISON: CT dated August 18, 2024. TECHNIQUE: Multidetector volumetric images were obtained from the superior aspect of the liver through the pubic symphysis following administration 85 mL of Omnipaque 350 intravenous contrast. Sagittal and coronal reformatted images were obtained on the technologist's workstation. Oral contrast: No This CT examination was performed using dose optimization techniques as appropriate, variously including the following: *Automated exposure control *Adjustment of mA and/or kV according to patient size (this includes techniques or standardized protocols for targeted exams where dose is matched to indication/reason for exam; i.e. extremities or head) *Use of iterative reconstruction technique. DLP: 1252 mGy centimeter. FINDINGS: Inadequate evaluation of the intra-abdominal organs and vascular structures due to poor IV contrast enhancement. There is a large volume umbilical hernia containing segment of the sigmoid colon omental fat and trace of fluid. There is edema pattern in the fat component. I do not see an intestinal obstruction pattern. There is abundant stool within the large intestine. The appendix is normal. No peripheral enhancing fluid collection in the peritoneal cavity. No pneumoperitoneum. No pneumatosis intestinalis. Liver has a nodular morphology pattern of the surface with a prominent caudate lobe. Liver measures 20 cm. Spleen measures 19 cm. No pericholecystic fluid collection or gallbladder wall thickening. There is lymphadenopathy throughout the retroperitoneum and hayley iliac. No hydronephrosis in either kidney. No gross nephrolithiasis. No aneurysm, abdominal aorta. Prominent vessels in the perigastroesophageal region. The umbilical vein is not patent. No acute airspace disease in the included lungs. Multilevel thoracolumbar spondylosis. Osteopenia versus osteoporosis. CT/CT abdomen pelvis w IV con IMPRESSION: Larger umbilical hernia containing segment of the sigmoid colon omental fat and fluid with edema pattern in the fat component. Incarcerated hernia cannot be excluded. No intestinal obstruction pattern. Cirrhosis without ascites. Lymphadenopathy, retroperitoneum. Fleischner guidelines were followed. Electronically signed by: Yong Lu MD 09/11/2024 02:50 PM EST Dictated By: Yong Price MD Signed By: <Electronically signed by Yong Mixon MD in OV> 09/11/24 1450 DD/ 1356 TD/TT: 09/11/24 1425 [employer] Cable[employer] Operator: Assessment and Plan (1) Umbilical hernia, incarcerated: Status: Acute Plan 54-year-old male with untreated hepatitis-C cirrhosis of the liver severe anemia thrombocytopenia with known umbilical hernia getting a little larger and partially incarcerated. Today we were able to almost completely reduce it but I do not think that he is obstructed or that there is any strangulated bowel here. His medical issues are real was a white count of 1 platelets of [address] scan does not show any ascites with his cirrhosis which is good. He already has a team GI as well as surgery at [facility] and I think as of today there is no emergent need to operate on him. He does have a good abdominal binder that works well to keep his hernia mainly reduced at least comfortable. We have encouraged him to continue using that now and follow-up with his surgical team and GI team at [facility] and I think that an elective operation with do better than emergency 1 and an this patient planning to carry out a needed umbilical hernia repair with mesh should get that otherwise he will show up with potential incarceration obstruction which may even require a bowel resection. Patient understands and agrees feels good to go home and will follow up with his [facility] team of doctors. Procedures Date of Service Date of Service: 09/11/24
== END 2024-09-11 16:36 | disposition home or self-care (01) ==
PROVIDERS: Physician Assistant; Emergency Provider Emergency Medicine; PCP Internal Medicine
DX: K42.0 Umbilical hernia with obstruction, without gangrene (principal); R11.2 Nausea with vomiting, unspecified; R10.2 Pelvic and perineal pain; Z79.899 Other long term (current) drug therapy
CPT/HCPCS: 36415; 74177; 80048; 80076; 81003; 83605; 83690; 83735; 85025; 85610; 96361; 96374; 96375; 99284; 99285; J0878; J3010; Q9967

== ENCOUNTER → 2024-09-11 12:05 | Outpatient (BNV) | payer OTHER, SELFPAY | PROVIDERS: Emergency Provider Emergency Medicine; PCP Internal Medicine; Visit Provider Radiology Diagnostic Radiology | DX: K42.9 Umbilical hernia without obstruction or gangrene (principal) | CPT/HCPCS: 74177 ==

== ENCOUNTER 2024-09-18 14:00 | Outpatient (RCR) | payer OTHER, SELFPAY ==
[2024-08-22 11:18] VITALS: BP 153/100; PULSE 89; RESP 20; TEMP 37.7; O2SAT 98
[2024-08-22] MEDS: DAPTOmycin 1,000 MG in 0.9 % Sodium Chloride 50 ML 140 MG IV (11:34)
[2024-08-23 11:12] VITALS: BP 112/67; PULSE 86; RESP 16; TEMP 37.2; O2SAT 97
[2024-08-23] MEDS: DAPTOmycin 1,000 MG in 0.9 % Sodium Chloride 50 ML 140 MG IV (11:26)
[2024-08-24 12:56] VITALS: BP 170/51; PULSE 78; RESP 20; TEMP 37.9; O2SAT 98
[2024-08-24] MEDS: DAPTOmycin 1,000 MG in 0.9 % Sodium Chloride 50 ML 140 MG IV (13:05)
[2024-08-25 09:59] VITALS: BP 162/60; PULSE 72; RESP 16; O2SAT 98
[2024-08-25] MEDS: DAPTOmycin 1,000 MG in 0.9 % Sodium Chloride 50 ML 140 MG IV (10:38)
[2024-08-25 11:10] VITALS: BP 154/74; PULSE 69; RESP 16; O2SAT 98
[2024-08-26 10:20] VITALS: BP 163/82; PULSE 95; RESP 20; TEMP 37.1; O2SAT 96
[2024-08-26] MEDS: DAPTOmycin 1,000 MG in 0.9 % Sodium Chloride 50 ML 140 MG IV (10:30)
[2024-08-27 11:26] VITALS: BP 141/70; PULSE 79; RESP 20; TEMP 37.1; O2SAT 97
[2024-08-27] MEDS: DAPTOmycin 1,000 MG in 0.9 % Sodium Chloride 50 ML 140 MG IV (11:36)
[2024-08-28 11:59] VITALS: BP 138/69; PULSE 77; RESP 16; TEMP 37; O2SAT 98
[2024-08-28] MEDS: DAPTOmycin 1,000 MG in 0.9 % Sodium Chloride 50 ML 140 MG IV (12:13)
[2024-08-29 12:48] VITALS: BP 141/58; PULSE 70; RESP 16; TEMP 36.6; O2SAT 97
[2024-08-29] MEDS: DAPTOmycin 1,000 MG in 0.9 % Sodium Chloride 50 ML 140 MG IV (13:08)
[2024-08-31 11:46] VITALS: BP 149/82; PULSE 78; RESP 20; TEMP 36.6; O2SAT 97
[2024-08-31] MEDS: DAPTOmycin 1,000 MG in 0.9 % Sodium Chloride 50 ML 140 MG IV (11:54)
[2024-09-01 10:16] VITALS: BP 116/72; PULSE 68; RESP 18; TEMP 36.3; O2SAT 99
[2024-09-02 11:30] VITALS: BP 112/53; PULSE 59; RESP 14; TEMP 36.2; O2SAT 96
[2024-09-02] MEDS: DAPTOmycin 1,000 MG in 0.9 % Sodium Chloride 50 ML 140 MG IV (11:30)
[2024-09-02 12:08] VITALS: BP 105/49; PULSE 59; RESP 14; TEMP 36.4; O2SAT 99
[2024-09-03 14:33] VITALS: BP 172/73; RESP 14; TEMP 37.1; O2SAT 98
[2024-09-03] MEDS: DAPTOmycin 1,000 MG in 0.9 % Sodium Chloride 50 ML 140 MG IV (14:44)
[2024-09-04 13:35] VITALS: BP 174/82; PULSE 75; RESP 20; TEMP 37.1; O2SAT 98
[2024-09-04] MEDS: DAPTOmycin 1,000 MG in 0.9 % Sodium Chloride 50 ML 140 MG IV (13:44)
[2024-09-05 13:41] VITALS: PULSE 68; RESP 20; TEMP 37.5; O2SAT 96
[2024-09-05] MEDS: DAPTOmycin 1,000 MG in 0.9 % Sodium Chloride 50 ML 140 MG IV (13:55)
[2024-09-05 13:58] VITALS: BP 171/80
[2024-09-06 15:48] VITALS: BP 156/68; PULSE 68; RESP 14; TEMP 37.1; O2SAT 96
[2024-09-06] MEDS: DAPTOmycin 1,000 MG in 0.9 % Sodium Chloride 50 ML 140 MG IV (15:50)
[2024-09-07 12:31] VITALS: BP 140/78; PULSE 75; RESP 12; TEMP 36.5; O2SAT 97
[2024-09-07] MEDS: DAPTOmycin 1,000 MG in 0.9 % Sodium Chloride 50 ML 140 MG IV (12:38)
[2024-09-08] MEDS: DAPTOmycin 1,000 MG in 0.9 % Sodium Chloride 50 ML 140 MG IV (10:58)
[2024-09-08 10:59] VITALS: BP 157/64; PULSE 55; RESP 16; TEMP 35.5; O2SAT 99
[2024-09-10 15:36] VITALS: BP 184/70; PULSE 65; RESP 20; TEMP 36.6; O2SAT 99
[2024-09-10] MEDS: DAPTOmycin 1,000 MG in 0.9 % Sodium Chloride 50 ML 140 MG IV (15:44)
[2024-09-12 12:49] VITALS: BP 174/79; PULSE 64; RESP 16; TEMP 37.3; O2SAT 98
[2024-09-12] MEDS: DAPTOmycin 1,000 MG in 0.9 % Sodium Chloride 50 ML 140 MG IV (13:24)
[2024-09-13 10:35] VITALS: BP 172/94; PULSE 74; RESP 18; TEMP 36.5
[2024-09-13] MEDS: DAPTOmycin 1,000 MG in 0.9 % Sodium Chloride 50 ML 140 MG IV (10:41)
[2024-09-14 14:10] VITALS: BP 188/97; PULSE 73; RESP 16; TEMP 37.4; O2SAT 96
[2024-09-14] MEDS: DAPTOmycin 1,000 MG in 0.9 % Sodium Chloride 50 ML 140 MG IV (14:21)
[2024-09-15 10:28] VITALS: BP 170/91; PULSE 66; RESP 18; TEMP 36.3; O2SAT 96
[2024-09-15] MEDS: DAPTOmycin 1,000 MG in 0.9 % Sodium Chloride 50 ML 140 MG IV (10:38)
[2024-09-17 14:33] VITALS: BP 118/69; PULSE 68; RESP 16; TEMP 37.1; O2SAT 96
[2024-09-17] MEDS: DAPTOmycin 1,000 MG in 0.9 % Sodium Chloride 50 ML 140 MG IV (14:49)
[2024-09-18 15:08] VITALS: BP 139/50; PULSE 71; RESP 20; TEMP 36.6; O2SAT 98
[2024-09-18] MEDS: DAPTOmycin 1,000 MG in 0.9 % Sodium Chloride 50 ML 140 MG IV (15:14)
== END 2024-09-18 15:45 | disposition home or self-care (01) ==
LOC: HO.INF 14:00
PROVIDERS: PCP Internal Medicine; Visit Provider Internal Medicine
DX: R78.81 Bacteremia (principal); A49.02 Methicillin resistant Staphylococcus aureus infection, unspecified site
CPT/HCPCS: 96365; 96374; J0878

== ENCOUNTER 2025-03-05 17:04 | Emergency (ER) | payer OTHER, SELFPAY ==
--- NOTE | ~2025-03-05 | XR_ITS ---
CLINICAL HISTORY: near syncope 2 view chest x-ray Comparison: CR - XR CHEST 1V - 08/17/24 18:02 EST Findings: Prominent pulmonary vasculature, similar to prior. No effusion or pneumothorax. No focal infiltrate. Normal size heart. No acute fracture. IMPRESSION: 1. Mild prominence of the pulmonary vasculature, similar to prior. Findings could suggest pulmonary vascular congestion. This document has been electronically signed by: Octavio Altamirano MD on 03/05/2025 23:03:30
[2025-03-05 17:35] VITALS: BP 201/94; PULSE 87; RESP 18; TEMP 36.3; O2SAT 100; BMI 37.9
--- NOTE | 2025-03-05 17:36 | ED_ITS ---
HPI - General Adult General Chief complaint: General Medical Stated complaint: feels like blood pressure is off Time Seen by Provider: 03/05/25 21:06 Source: patient Mode of arrival: ambulatory Limitations: no limitations History of Present Illness ED Provider: Dr. Iram Gaspar HPI narrative: 54-year-old male with a history of hypertension, liver cirrhosis, hepatitis-C, porphyria cutanea tarda, pancytopenia, bacteremia secondary to IV drug use earlier this year presenting with nausea, dizziness, shakiness, hypertension. Admits that he has not taken his lisinopril in several days because he can not find it. States that he has been moving and lost the box with his medications in it. Does take methadone. Went to the methadone clinic today. Admits that despite his methadone use, he has been using heroin as well due to the back pain from moving. No direct trauma. No reported fever. Back pain is in the left low back. Radiates down his buttocks. Admits this is similar to history of low back pain. Aside from heroin use, patient also admits to alcohol use. No history of alcohol withdrawal. Denies vomiting, diarrhea (actually he is rather constipated), chest pain, difficulty breathing, abdominal pain, testicular pain or swelling. Related Data Home Medications ?Medication ?Instructions ?Recorded ?Confirmed blood sugar diagnostic (FreeStyle 04/13/23 04/13/23 Lite Strips) fluticasone propionate 50 50 mcg intranasal DAILY PRN 04/13/23 08/18/24 mcg/actuation nasal Allergy Symptoms spray,suspension gabapentin 300 mg capsule 600 mg PO TID Pain 04/13/23 08/18/24 hydrocortisone 2.5 % topical cream 1 appl topical BID PRN Itching 04/13/23 08/18/24 albuterol sulfate 90 mcg/actuation 2 puff inhalation Q 6H PRN 08/18/24 08/18/24 aerosol inhaler Shortness Of Breath Or Wheez ing ferrous sulfate 324 mg (65 mg 324 mg PO DAILY PRN supp lementation 08/18/24 08/18/24 iron) tablet,delayed release lisinopril 20 mg tablet 30 mg PO BEDTIME 08/18/24 methadone 10 mg/mL oral concentrate 30 mg PO BEDTIME 0 08/18/24 08/18/24 methadone 10 mg/mL oral concentrate 60 mg PO DAILY 07/0208/18/24 omeprazole 40 mg capsule,delayed 40 mg PO DAILY@0630 0 08/18/24 08/18/24 release tadalafil 5 mg tablet 5 mg PO DAILY 08/18/2408/18 triamcinolone acetonide 0.1 % 1 appl topical BID PRN 0 08/18/24 08/18/24 topical cream eczema/psoriasis Previous Rx's ?Medication ?Instructions ?Recorded folic acid 1 mg tablet 1 mg PO DAILY #90 tabs 02/17 naloxone 4 mg/actuation nasal 4 mg intranasal Q2M PRN opioid 08/19/24 spray (Narcan) overdose #2 ea amlodipine 10 mg tablet 10 mg PO DAILY #90 tabs 08/08 11/30 ibuprofen 600 mg tablet 600 mg PO BIDWM #30 tabs labetalol 100 mg tablet 100 mg PO BID #180 tabs 08/08 11/30 lorazepam 0.5 mg tablet 0.5 mg PO BID PRN anxiety #2 0 tabs 08/21/24 oxycodone 5 mg tablet 5 mg PO Q8H PRN pain (scale score 08/21/24 7-10) #14 tabs Allergies Allergy/AdvReac Type Severity Reaction Status Date / Time onion (ONION) Allergy Severe ANAPHYLAXIS Verified 03/05/25 17:38 TO RAW ONIONS (COOKED OK) morphine (MORPHINE) Allergy Mild RASH, hives Verified 03/05/25 17:38 Review of Systems 2 Review of Systems: as per HPI, full review of systems performed and negative but for the above mentioned pertinent positives and negatives. [facility] Past Medical History Attestation statement: The following information was validated with the patient. [facility] Narrative: hypertension, liver cirrhosis, hepatitis-C, porphyria cutanea tarda, pancytopenia, bacteremia secondary to IV drug use Source: old records reviewed Medical History Heroin abuse Cocaine abuse High blood pressure Seasonal allergies Asthma Social History Social History Alcohol intake: current Alcohol intake frequency: 0-2 drinks per day Comment: refusing alarms. Patient Tobacco Use Status: Never used Tobacco Substance Use Type: Crack/Cocaine and Heroin Advance Directives: No Advance Directives Information Provided: No Do you have a plan to hurt others: No Plan service: No Physical Exam ED Exam Exam: GENERAL: Anxious, agitated, appears uncomfortable SKIN: Normal skin color for ethnicity, warm, dry, track cueto bilateral arms, no crepitus, no petechiae, no blistering. HEENT: Normocephalic, atraumatic, no stridor, posterior oropharynx nonerythematous, poor [place] dentition, dry mucous membranes, EOMI. NECK: Soft, supple, full ROM, midline structures nontender, no step-offs, no deformities, no lymphadenopathy. CHEST: Heart regular tachycardia, no murmurs, symmetric chest rise and fall, no crepitus. PULMONARY: Clear to auscultation bilaterally, no labored breathing, no wheezes/rhales/rhonchi. ABDOMINAL: Soft, nondistended, nontender, positive bowel sounds in all quadrants. : Deferred. MUSCULOSKELETAL: Normal tone, full range of motion, no deformities, no peripheral edema, L SI joint tenderness to palpation, no midline tenderness or stepoffs. NEURO: Alert and oriented to person, CN II through XII intact, equal strength and sensation bilateral upper and lower extremities, no focal neurologic deficits. PSYCHIATRIC: Anxious affect, agitated, fluent speech, poor eye contact and slight psychomotor agitation. Vital Signs: Vital Signs - 24 hr 03/05/25 17:35 03/05/25 20:44 Temperature 97.4 F 98.1 F Pulse Rate 87 72 Respiratory Rate 18 14 Blood Pressure 201/94 H 169/94 H Pulse Oximetry 100 99 Oxygen Delivery Method Room Air Room Air BMI result Body Mass Index 37.9 Course Course Course Narrative: This is an RME performed by Alie Lane CNP: Additional HPI, ROS, PE not included below will be deferred to primary provider. Patient is a 54-year-old male with past medical history of cirrhosis, hepatitis-C, porphyria cutanea tarda, hypertension, GERD, pancytopenia, Staph aureus back secondary to IV drug usage in September of 2024 who presents emergency department for evaluation, reports that he awoke today with nausea, dizziness, near-syncope, feeling very shaky. Feels like his blood pressure may be off, last took lisinopril a few days ago, states he can not find it. Denies vomiting, vision changes, chest pain, abdominal pain. No genitourinary symptoms. States last time he felt this way he caught MRSA in the blood. Admits to alcohol usage last night none today, denies withdrawal history, admits to IV heroin usage and currently on methadone. Plan: Serum labs, ECG, viral serologies, CXR, urinalysis, blood cultures Medical Decision Making Medical Decision Making [facility] Narrative: Patient presenting with chief complaint of high blood pressure, shakiness. Differential diagnosis includes hypertensive urgency, hypertensive emergency, essential hypertension, uncontrolled hypertension, ACS, aortic dissection when accompanied with pain or neurologic dysfunction, renal insufficiency or injury, electrolyte abnormality, among many others. He also has a history of IVDA and feels similar to when he last had bacteremia. That being said, he has no fever and appears nontoxic. He is somewhat tearful on our discussion about his use of drugs. 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 His workup today has been reassuring. Pancytopenia is baseline. Drug screen is positive for opiates, methadone, fentanyl. If anything his differential on his CBC would suggest a viral suppression which I did discuss with him at length. He is refusing to stay in the hospital today. Given his baseline lab work, I feel it is reasonable for him to follow-up as an outpatient. We discussed return precautions at length. Offered recovery resources. Encouraged him to return if any new or worsening symptoms. Discharged in stable condition Differential Diagnosis Differential Diagnoses: The differential diagnosis associated with the presentation includes (as above) Admission/Observation Consideration of admission/observation: Escalation of care including admission/observation considered Lab Data [facility] Lab Attestation statement: I reviewed the patient's lab results. 03/05/25 18:54 03/05/25 18:54 Labs: Lab Results 03/05/25 03/05/25 Range/Units 18:54 21:58 WBC 1.6 L (4.8-10.8) X10*3/uL RBC 4.82 (4.60-5.80) X10*6/uL Hgb 10.9 L (14.0-18.0) g/dl Hct 35.0 L (42.0-52.0) % MCV 72.6 L (80.0-98.0) fL MCH 22.6 L (27.0-33.0) pg MCHC 31.1 (31.0-36.0) g/dl RDW 17.3 H (11.0-16.0) % Plt Count 71 L (160-400) X10*3/uL MPV 10.3 (9.4-12.4) fL Immature Gran % (Auto) 0.0 (0.0-0.4) % Neut % (Auto) 61.6 (45-73) % Lymph % (Auto) 18.9 L (20-40) % [place] % (Auto) 18.9 H (2-11) % Eos % (Auto) 0.6 (0-4) % Baso % (Auto) 0.0 (0-2) % Lymph # (Auto) 0.3 L (1.2-4.9) X10*3/uL [place] # (Auto) 0.3 (0.1-1.2) X10*3/uL Eos # (Auto) 0.0 (0.0-0.4) X10*3/uL Baso # (Auto) 0.0 (0.0-0.2) X10*3/uL Abs Immat Gran (auto) 0.00 (0.00-0.03) X10*3/uL Absolute Neuts (auto) 1.0 L (2.0-8.3) x10*3/uL Absolute Nucleated RBC 0.000 (0.0-0.012) X10*3/uL Nucleated RBC % (auto) 0.0 (0.0-0.2) /100WBC Smear Tech's Comments VERIFIED Sodium 140 (135-145) mmol/L Potassium 3.5 D (3.3-5.1) mmol/L Chloride 108 (96-108) mmol/L Carbon Dioxide 23 (22-29) mmol/L Anion Gap 13 (12-20) BUN 9 (9-16) mg/dL Creatinine 0.55 (0.5-1.4) mg/dL Estim Creat Clear Calc 225.9 Estimated GFR > 60 Random Glucose 161 H (60-115) mg/dL Lactic Acid 1.2 (0.5-2.0) mmol/L Calcium 8.5 (8.4-10.2) mg/dL Magnesium 1.8 (1.6-2.6) mg/dL Total Bilirubin 1.0 (0.0-1.0) mg/dL AST 117 H (5-37) U/L ALT 66 H (0-40) U/L Alkaline Phosphatase 65 (39-117) U/L Troponin I High Sens < 2.7 (<3.5-35.0) ng/L B-Natriuretic Peptide 77 (<100) pg/mL Total Protein 8.4 H (6.5-8.0) g/dL Albumin 3.7 (3.5-5.0) g/dL Lipase 22 (8-78) U/L Urine Color Yellow Urine Appearance Clear Urine pH 8.0 (5.0-9.0) Ur Specific [place] 1.015 (1.005-1.025) Urine Protein Negative (Neg-Trace) mg/dL Urine Glucose (UA) Negative (Negative) mg/dL Urine Ketones Negative (Negative) mg/dL Urine Blood Negative (Negative) Urine Nitrite Negative (Negative) Ur Leukocyte Esterase Negative (Negative) Urine Opiates Screen POSITIVE H (Not Detect) Ur Buprenorphine Scrn Not Detected (Not Detect) ng/mL Ur Oxycodone Screen Not Detected (Not Detect) ng/mL Urine Methadone Screen Positive H (Not Detect) ng/mL Urine Fentanyl Screen POSITIVE H (Not Detect) Ur Barbiturates Screen Not Detected (Not Detect) Ur Phencyclidine Scrn Not Detected (Not Detect) Ur Amphetamines Screen Not Detected (Not Detect) U Benzodiazepines Scrn Not Detected (Not Detect) Urine Cocaine Screen Not Detected (Not Detect) U Marijuana (THC) Screen Not Detected (Not Detect) Influenza Type A (PCR) NEGATIVE (Negative) Influenza Type B (PCR) NEGATIVE (Negative) RSV RNA Qual (PCR) NEGATIVE (Negative) SARS-CoV-2 RNA (RT-PCR) NEGATIVE (Negative) External Record Review External record reviewed: Inpatient record Chronic Conditions Patient?s care impacted by: Hypertension and Other (liver cirrhosis, IVDA) Social Determinants Patient?s care significantly limited by Social Determinants of Health including: Alcoholism and drug addiction in family Discharge Plan Discharge Clinical Impression: Pancytopenia, History of hepatitis C, Malaise and fatigue, Nausea, Poor appetite, History of intravenous drug abuse Patient Disposition: Home, Self-Care Instructions: Fatigue (ED), Pancytopenia (DC) Additional Instructions: Continue using your methadone and avoid using IV drugs if possible. Your blood cell counts are all very low but this has been an ongoing issue for you. You need to follow-up with a grassroots organizer as soon as possible. If you develop any new or worsening symptoms you should return to the emergency department immediately. This includes: Chest pain, difficulty breathing, fevers greater than 100?, vomiting, passing out, any new symptom that concerns you. Call 911 with any medical emergency. If your blood cultures turn positive, we will contact you and you should come back to the hospital. Prescriptions: No Action (DME) FreeStyle Lite Strips Strip MISCELLANEOUS gabapentin 300 mg capsule 600 mg PO TID hydrocortisone 2.5 % cream 1 appl topical BID PRN (Reason: Itching) fluticasone propionate 50 mcg/actuation spray,suspension 50 mcg intranasal DAILY PRN (Reason: Allergy Symptoms) lisinopril 20 mg tablet 30 mg PO BEDTIME omeprazole 40 mg capsule,delayed release(DR/EC) 40 mg PO DAILY@0630 tadalafil 5 mg tablet 5 mg PO DAILY triamcinolone acetonide 0.1 % cream 1 appl topical BID PRN (Reason: eczema/psoriasis) albuterol sulfate 90 mcg/actuation HFA aerosol inhaler 2 puff inhalation Q6H PRN (Reason: Shortness Of Breath Or Wheezing) methadone 10 mg/mL Concentrate 60 mg PO DAILY Rx Instructions: [facility] 60 mg daily and then 12 hours later patient gets 30 mg . tdd = 90 mg ferrous sulfate 324 mg (65 mg iron) tablet,delayed release (DR/EC) 324 mg PO DAILY PRN (Reason: supplementation) methadone 10 mg/mL Concentrate 30 mg PO BEDTIME Rx Instructions: split dose 60 mg daily and then 12 hours later patient gets 30 mg . tdd = 90 mg naloxone [Narcan] 4 mg/actuation spray,non-aerosol 4 mg intranasal Q2M PRN (Reason: opioid overdose) Qty: 2 0RF Rx Instructions: spray 1 dose into ONE nostril; alternate nostrils w each dose until help arrives amlodipine 10 mg Tablet 10 mg PO DAILY Qty: 90 0RF Protocol: Hold for SBP< HOLD for SBP < : 90 ibuprofen 600 mg Tablet 600 mg PO BIDWM Qty: 30 0RF labetalol 100 mg Tablet 100 mg PO BID Qty: 180 0RF Protocol: Hold for SBP/HR < HOLD for SBP < : 90 HOLD for HR < : 60 oxycodone 5 mg tablet 5 mg PO Q8H PRN (Reason: pain (scale score 7-10)) Qty: 14 0RF Rx Instructions: Partial Fill upon patient request. lorazepam 0.5 mg tablet 0.5 mg PO BID PRN (Reason: anxiety) Qty: 20 0RF folic acid 1 mg tablet 1 mg PO DAILY Qty: 90 0RF Interventions: ED Discharge Assessment Last Done: 03/05/25 23:05 Discharge Date/Time: 03/05/25 23:19 Print Language: Brazilian
--- NOTE | 2025-03-05 17:43 | ECG_ITS ---
Test Reason : near syncope Blood Pressure : */* mmHG Vent. Rate : 74 BPM Atrial Rate : 74 BPM P-R Int : 206 ms QRS Dur : 100 ms QT Int : 444 ms P-R-T Axes : 12 -4 18 degrees QTcB Int : 492 ms Normal sinus rhythm Cannot rule out Inferior infarct , age undetermined Abnormal ECG When compared with ECG of 17-Aug-2024 18:03, No significant change was found Referred By: Becca Lane Electronically Signed By: DEOMND MALDONADO MD
--- NOTE | 2025-03-05 18:05 | MHC.EDTECH ---
attempted to do ekg pt did not respond
--- NOTE | 2025-03-05 18:14 | MHC.EDTECH ---
2nd attempt for EKG and Labs no response from the waiting room
--- NOTE | 2025-03-05 18:19 | MHC.EDTECH ---
Attempted to check the bathrooms/ xray/ ct pt is not in those area, pod Lead RN was notifed as well.
[2025-03-05 19:06] LABS: Hematocrit 35.0 % (42.0-52.0); Hemoglobin 10.9 g/dl (14.0-18.0); Imm Gran Abs Auto 0.00 X10*3/uL (0.00-0.03); Imm Gran Pct Auto 0.0 % (0.0-0.4); Lymphocytes Absolute Auto 0.3 X10*3/uL (1.2-4.9); MANUAL DIFF FLAG SCAN; Mean Corpuscular HGB Conc 31.1 g/dl (31.0-36.0); Mean Corpuscular Hemoglobin 22.6 pg (27.0-33.0); Mean Corpuscular Volume 72.6 fL (80.0-98.0); NRBC Abs Auto 0.000 X10*3/uL (0.0-0.012); NRBC Pct Auto 0.0 /100WBC (0.0-0.2); Red Blood Count 4.82 X10*6/uL (4.60-5.80); SCAN SMEAR FLAG 1
[2025-03-05 19:08] LABS: Platelet Count 71 X10*3/uL (160-400); White Blood Count 1.6 X10*3/uL (4.8-10.8)
[2025-03-05 19:25] LABS: Albumin Level 3.7 g/dL (3.5-5.0); Alkaline Phosphatase 65 U/L (39-117); Anion Gap 13 (12-20); Aspartate Amino Transferase 117 U/L (5-37); Blood Urea Nitrogen 9 mg/dL (9-16); Calcium 8.5 mg/dL (8.4-10.2); Carbon Dioxide 23 mmol/L (22-29); Chloride 108 mmol/L (96-108); Creatinine Clr Calc Pharmacy 225.9; Estimated Glomerular Filt Rate > 60; Lipase 22 U/L (8-78); Magnesium 1.8 mg/dL (1.6-2.6); Potassium 3.5 mmol/L (3.3-5.1); Sodium 140 mmol/L (135-145); Total Protein 8.4 g/dL (6.5-8.0)
[2025-03-05 19:26] LABS: B Type Natriuretic Peptide 77 pg/mL (<100)
[2025-03-05 19:27] LABS: Troponin-I High Sensitivity < 2.7 ng/L (<3.5-35.0)
[2025-03-05 19:37] LABS: Alanine Aminotransferase 66 U/L (0-40)
[2025-03-05 19:42] LABS: Resp Syncy Virus RNA Qual PCR NEGATIVE (Negative); SARS COV2 PCR INHOUSE NEGATIVE (Negative)
[2025-03-05 20:44] VITALS: BP 169/94; PULSE 72; RESP 14; TEMP 36.7; O2SAT 99
[2025-03-05 22:00] VITALS: BP 193/99; PULSE 87; RESP 16; TEMP 36.6; O2SAT 96
[2025-03-05 22:06] LABS: Appearance Urine Clear; Glucose Urine UA Negative (Negative); PH 8.0 (5.0-9.0); Specific Gravity - Urine 1.015 (1.005-1.025)
[2025-03-05 22:37] LABS: Cannabinoid Screen Urine Not Detected (Not Detect)
[2025-03-05 23:05] VITALS: BP 193/99; PULSE 87; RESP 16; TEMP 36.6; O2SAT 96
== END 2025-03-05 23:19 | disposition home or self-care (01) ==
PROVIDERS: Nurse Practitioner Family; Emergency Provider Emergency Medicine; PCP Internal Medicine
DX: D61.818 Other pancytopenia (principal); B19.20 Unspecified viral hepatitis C without hepatic coma; R53.81 Other malaise; R53.83 Other fatigue; R00.0 Tachycardia, unspecified; R11.2 Nausea with vomiting, unspecified; F19.10 Other psychoactive substance abuse, uncomplicated; F11.20 Opioid dependence, uncomplicated; Z91.148 Patient's other noncompliance with medication regimen for other reason; Z03.818 Encounter for observation for suspected exposure to other biological agents ruled out
CPT/HCPCS: 36415; 71046; 80053; 80307; 81003; 83605; 83690; 83735; 83880; 84484; 85025; 87040; 87637; 93005; 99284

== ENCOUNTER → 2025-03-05 17:43 | Outpatient (BNV) | payer OTHER, SELFPAY | PROVIDERS: Emergency Provider Emergency Medicine; PCP Internal Medicine; Visit Provider Internal Medicine Cardiovascular Disease | DX: R94.31 Abnormal electrocardiogram [ECG] [EKG] (principal); R55 Syncope and collapse | CPT/HCPCS: 93010 ==

== ENCOUNTER → 2025-03-05 22:19 | Outpatient (BNV) | payer OTHER, SELFPAY | PROVIDERS: Emergency Provider Emergency Medicine; PCP Internal Medicine; Visit Provider Radiology Diagnostic Radiology | DX: R68.89 Other general symptoms and signs (principal) | CPT/HCPCS: 71046 ==

== ENCOUNTER 2025-03-30 10:32 | Emergency (ER) | payer OTHER, SELFPAY ==
--- NOTE | ~2025-03-30 | CT_ITS ---
CLINICAL HISTORY: periumbilical pain CT ABDOMEN AND PELVIS WITH CONTRAST Comparison: CT/AK/SR - CT ABDOMEN PELVIS WITH IV CONTRAST - 09/11/24 13:56 EST Findings: No basilar consolidation or pleural effusion. Redemonstration of cirrhotic liver morphology and splenomegaly ( 18.4 cm). Hydropic gallbladder with no large calcified gallstone, significant gallbladder wall thickening or biliary ductal dilatation. No peripancreatic edema or fluid collection. Adrenal glands, kidneys and abdominal aorta are unremarkable. Multiple nonenlarged retroperitoneal lymph nodes are nonspecific. No bowel obstruction, pneumoperitoneum, or pneumatosis. A wide neck midline ventral hernia sac measures 8.6 x 6.7 x 12.0 cm. Fat and multiple small mesenteric varices are identified in the hernia sac. No ascites or organized fluid collection. No significant mesenteric or paracolic edema. Appendix is not identified with certainty. No significant inflammatory changes are seen in its expected location. No significant urinary bladder wall thickening or perivesical edema. Normal size prostate. The bones are intact. IMPRESSION: 1. Large fat containing midline ventral hernia with no significant inflammatory changes 2. No obstructive or acute inflammatory changes in the gastrointestinal and genitourinary tracts. 3. Cirrhotic liver with splenomegaly and multiple mesenteric varices. No ascites. This document has been electronically signed by: Sharmaine Peres DO on 03/30/2025 13:24:02
[2025-03-30 10:44] VITALS: BP 169/87; PULSE 92; RESP 18; TEMP 36.4; O2SAT 96; BMI 37.2
[2025-03-30] MEDS: Lactated Ringers 1,000 ML 999 ML IV (11:53)
--- NOTE | 2025-03-30 11:56 | ED.GENADULT ---
HPI - General Adult General Chief complaint: Abdominal Pain Stated complaint: pain in abd Time Seen by Provider: 03/30/25 11:01 Source: patient, RN notes reviewed and old records reviewed Mode of arrival: ambulatory Limitations: no limitations History of Present Illness ED Provider: Duc DIEGO narrative: 54-year-old male with past medical history significant for hepatitis-C, untreated, IV drug abuse on methadone, liver cirrhosis with iron-deficiency anemia, osteoarthritis, known umbilical hernia presents for evaluation abdominal pain. Patient reports that he was on vacation and was at the beach. Two days ago he noticed increased pain to the area of his umbilical hernia. He is unsure if he aggravated it while lifting the cooler into the car or when he stood up from the beach He does not feel that his hernia is stuck in upper treated position He had a bowel movement yesterday that was described as soft but not black or bloody He is following with General surgery at [facility] Due to his comorbidities he has not yet had corrective surgery of the hernia. Denies any fevers or chills He reports nausea without vomiting Denies any active IV substance abuse Related Data Home Medications ?Medication ?Instructions ?Recorded ?Confirmed blood sugar diagnostic (FreeStyle 04/13/23 04/13/23 Lite Strips) fluticasone propionate 50 50 mcg intranasal DAILY PRN 04/13/23 08/18/24 mcg/actuation nasal Allergy Symptoms spray,suspension gabapentin 300 mg capsule 600 mg PO TID Pain 04/13/23 08/18/24 hydrocortisone 2.5 % topical cream 1 appl topical BID PRN Itching 04/13/23 08/18/24 albuterol sulfate 90 mcg/actuation 2 puff inhalation Q6H PRN 08/18/24 08/18/24 aerosol inhaler Shortness Of Breath Or Wheezing ferrous sulfate 324 mg (65 mg 324 mg PO DAILY PRN supplementation 08/18/24 08/18/24 iron) tablet,delayed release lisinopril 20 mg tablet 30 mg PO BEDTIME 08/18/24 08/18/24 methadone 10 mg/mL oral concentrate 30 mg PO BEDTIME 08/18/24 08/18/24 methadone 10 mg/mL oral concentrate 60 mg PO DAILY 08/18/24 08/18/24 omeprazole 40 mg capsule,delayed 40 mg PO DAILY@0630 08/18/24 08/18/24 release tadalafil 5 mg tablet 5 mg PO DAILY 08/18/24 08/18/24 triamcinolone acetonide 0.1 % 1 appl topical BID PRN 08/18/24 08/18/24 topical cream eczema/psoriasis Previous Rx's ?Medication ?Instructions ?Recorded folic acid 1 mg tablet 1 mg PO DAILY #90 tabs 02/18/24 naloxone 4 mg/actuation nasal 4 mg intranasal Q2M PRN opioid 08/19/24 spray (Narcan) overdose #2 ea amlodipine 10 mg tablet 10 mg PO DAILY #90 tabs 08/21/24 ibuprofen 600 mg tablet 600 mg PO BIDWM #30 tabs 08/21/24 labetalol 100 mg tablet 100 mg PO BID #180 tabs 08/21/24 lorazepam 0.5 mg tablet 0.5 mg PO BID PRN anxiety #20 tabs 08/21/24 oxycodone 5 mg tablet 5 mg PO Q8H PRN pain (scale score 08/21/24 7-10) #14 tabs Allergies Allergy/AdvReac Type Severity Reaction Status Date / Time onion (ONION) Allergy Severe ANAPHYLAXIS Verified 03/30/25 10:47 TO RAW ONIONS (COOKED OK) morphine (MORPHINE) Allergy Mild RASH, hives Verified 03/30/25 10:47 Review of Systems Constitutional: Constitutional: Denies body ache(s), Denies chills and Denies fever(s) ENT: Denies dizziness Cardiovascular: Cardiovascular: Denies chest pain and Denies dyspnea on exertion Respiratory: Respiratory: Denies cough and Denies dyspnea on exertion Gastrointestinal: Gastrointestinal: Reports abdominal pain, Denies melena, Denies hematochezia, Denies constipation, Reports loose stools, Reports nausea and Denies vomiting Musculoskeletal: Musculoskeletal: Denies back pain Integumentary/Breasts: Skin/Breast: Denies rash Neurologic: Denies dizziness Psychiatric: Psychiatric: Denies anxiety PMFSH Past Medical History Medical History Heroin abuse Cocaine abuse High blood pressure Seasonal allergies Asthma Social History Social History Unable to assess alcohol history related to: Unknown Alcohol intake: current Alcohol intake frequency: 0-2 drinks per day Comment: refusing alarms. Patient Tobacco Use Status: Never used Tobacco Substance Use Type: Crack/Cocaine and Heroin Advance Directives: No Advance Directives Information Provided: Yes service: No Physical Exam ED Vital Signs: Vital Signs - 24 hr 03/30/25 10:44 03/30/25 12:38 Temperature 97.6 F Pulse Rate 92 84 Respiratory Rate 18 16 Blood Pressure 169/87 H 154/86 H Pulse Oximetry 96 92 Oxygen Delivery Method Room Air Room Air BMI result Body Mass Index 37.2 Const General: healthy appearing, comfortable, no acute distress, alert and awake Nutritional Appearance: well nourished Orientation/consciousness: patient oriented x3 HENMT Head: Yes normocephalic and Yes atraumatic Eyes Eyelids: Yes eyelids normal Conjunctivae: conjunctivae normal Sclerae: sclerae normal Corneas: corneas normal Pupils: Equal, round and reactive pupils present EOM: EOMs intact bilaterally Neck Neck: Yes full ROM Resp Effort & Inspection: normal respiratory effort, able to speak in complete sentences and not labored Cardio Rate: regular rate Rhythm: regular rhythm GI Other: The patient has a visible periumbilical hernia that is very easily reducible. No overlying skin changes, no erythema or ecchymosis. No rigidity or frame was in the periumbilical region. Inspection: Yes distended Palpation (GI): Soft to palpation, not firm, Tenderness to palpation present (GI) (Periumbilical with voluntary guarding), Guarding due to palpation present (GI) and not rigid Skin General skin exam: elasticity normal Neuro General: patient oriented x3 Cranial nerves: Yes Equal, round and reactive pupils present and Yes Bilaterally intact EOM present Cognition (Neuro): normal cognition Extrem Other: Moving all extremities well without any obvious deformities Medications Administered Discontinued Medications Generic Name Dose Route Start Last Admin Trade Name Freq PRN Reason Stop Dose Admin Fentanyl 130 mcg 03/30/25 11:28 03/30/25 11:59 Fentanyl Citrate/Pf 100 Mcg/2 Ml Vial IVPUSH 03/30/25 11:29 130 mcg ONCE ONE Administration Protocol Lactated Ringer's 1,000 mls @ 999 mls/hr 03/30/25 11:30 03/30/25 13:21 Lr IV 03/30/25 12:30 Infused .Q1H1M MICHAELA Infusion Iohexol 100 ml 03/30/25 12:17 03/30/25 12:19 Iohexol 350 Mg/Ml 100 Ml Infus..Btl IV 03/30/25 12:18 100 ml ONCE ONE Administration Ondansetron HCl 4 mg 03/30/25 11:28 03/30/25 11:59 Ondansetron Hcl 4 Mg/2 Ml Vial IVPUSH 03/30/25 11:29 4 mg ONCE ONE Administration Medical Decision Making Medical Decision Making [facility] Narrative: 54-year-old male with a past medical history as above presenting for evaluation of abdominal pain. His pain is in the area of his periumbilical hernia, however on exam his hernia is easily reducible. There was no evidence of strangulation or incarceration of the hernia. He may have some degree of constipation or ileus in the area. He has significant comorbidities but has thrombocytopenia due to liver cirrhosis so I feel that in his coming bowel is less likely that I will obtain a lactic acid in his CT scan of the abdomen pelvis to evaluate for inflammatory changes. Differential Diagnosis Differential Diagnoses: The differential diagnosis associated with the presentation includes Constipation Umbilical hernia Incarcerated hernia Strangulated hernia Ischemic bowel Abdominal pain Diverticulitis Admission/Observation Consideration of admission/observation: Escalation of care including admission/observation considered Lab Data [facility] Lab Attestation statement: I reviewed the patient's lab results. The patient has a chronic pancytopenia with a white count of 2.4, hemoglobin 11.6 and a hematocrit of 36.1 with a platelet count of 79. This is likely due to history of liver cirrhosis. These numbers reflect a slight improvement compared to his recent labs from 03/05/2025. Electrolytes and renal function are within normal limits. The patient has a mild elevation of bilirubin, AST and ALT which is likely due to his known liver cirrhosis. Lactic acid is within normal limits at 1.0 and less likely to be ischemic bowel 03/30/25 11:52 03/30/25 11:20 Labs: Lab Results 03/30/25 03/30/25 Range/Units 11:20 11:52 WBC 2.4 L (4.8-10.8) X10*3/uL RBC 4.93 (4.60-5.80) X10*6/uL Hgb 11.6 L (14.0-18.0) g/dl Hct 36.1 L (42.0-52.0) % MCV 73.2 L (80.0-98.0) fL MCH 23.5 L (27.0-33.0) pg MCHC 32.1 (31.0-36.0) g/dl RDW 19.3 H (11.0-16.0) % Plt Count 79 L (160-400) X10*3/uL MPV Not Reportable Immature Gran % (Auto) 0.8 H (0.0-0.4) % Neut % (Auto) 66.7 (45-73) % Lymph % (Auto) 18.1 L (20-40) % Traill % (Auto) 13.2 H (2-11) % Eos % (Auto) 0.8 (0-4) % Baso % (Auto) 0.4 (0-2) % Lymph # (Auto) 0.4 L (1.2-4.9) X10*3/uL Traill # (Auto) 0.3 (0.1-1.2) X10*3/uL Eos # (Auto) 0.0 (0.0-0.4) X10*3/uL Baso # (Auto) 0.0 (0.0-0.2) X10*3/uL Abs Immat Gran (auto) 0.02 (0.00-0.03) X10*3/uL Absolute Neuts (auto) 1.6 L (2.0-8.3) x10*3/uL Absolute Nucleated RBC 0.000 (0.0-0.012) X10*3/uL Nucleated RBC % (auto) 0.0 (0.0-0.2) /100WBC Smear Tech's Comments VERIFIED Sodium 140 (135-145) mmol/L Potassium 3.6 (3.3-5.1) mmol/L Chloride 105 (96-108) mmol/L Carbon Dioxide 24 (22-29) mmol/L Anion Gap 15 (12-20) BUN 9 (9-16) mg/dL Creatinine 0.57 (0.5-1.4) mg/dL Estim Creat Clear Calc 216.0 Estimated GFR > 60 Random Glucose 112 (60-115) mg/dL Lactic Acid 1.0 (0.5-2.0) mmol/L Calcium 8.7 (8.4-10.2) mg/dL Total Bilirubin 1.1 H (0.0-1.0) mg/dL AST 135 H (5-37) U/L ALT 66 H (0-40) U/L Alkaline Phosphatase 63 (39-117) U/L Total Protein 9.0 H (6.5-8.0) g/dL Albumin 3.9 (3.5-5.0) g/dL Independent Interpretation I performed an independent interpretation of an: CT Scan Interpretation: I am in agreement with the radiology interpretation of large periumbilical hernia Radiology Impression Discussion of test interpretation with radiology: I have reviewed the radiologist's reading. Radiologist Impression: Findings: No basilar consolidation or pleural effusion. Redemonstration of cirrhotic liver morphology and splenomegaly ( 18.4 cm). Hydropic gallbladder with no large calcified gallstone, significant gallbladder wall thickening or biliary ductal dilatation. No peripancreatic edema or fluid collection. Adrenal glands, kidneys and abdominal aorta are unremarkable. Multiple nonenlarged retroperitoneal lymph nodes are nonspecific. No bowel obstruction, pneumoperitoneum, or pneumatosis. A wide neck midline ventral hernia sac measures 8.6 x 6.7 x 12.0 cm. Fat and multiple small mesenteric varices are identified in the hernia sac. No ascites or organized fluid collection. No significant mesenteric or paracolic edema. Appendix is not identified with certainty. No significant inflammatory changes are seen in its expected location. No significant urinary bladder wall thickening or perivesical edema. Normal size prostate. The bones are intact. IMPRESSION: 1. Large fat containing midline ventral hernia with no significant inflammatory changes 2. No obstructive or acute inflammatory changes in the gastrointestinal and genitourinary tracts. 3. Cirrhotic liver with splenomegaly and multiple mesenteric varices. No ascites. This document has been electronically signed by: Sharmaine Peres DO on 03/30/2025 13:24:02 Discharge Plan Discharge Clinical Impression: Abdominal pain Patient Disposition: Home, Self-Care Instructions: Abdominal Pain (ED) Additional Instructions: Your workup in the ER today was reassuring. A CT scan shows a large hernia but no evidence of incarceration or strangulation. In his important to follow up with your outpatient general surgery team for definitive treatment when able Return for new or worsening symptoms Prescriptions: No Action (DME) FreeStyle Lite Strips Strip MISCELLANEOUS gabapentin 300 mg capsule 600 mg PO TID hydrocortisone 2.5 % cream 1 appl topical BID PRN (Reason: Itching) fluticasone propionate 50 mcg/actuation spray,suspension 50 mcg intranasal DAILY PRN (Reason: Allergy Symptoms) lisinopril 20 mg tablet 30 mg PO BEDTIME omeprazole 40 mg capsule,delayed release(DR/EC) 40 mg PO DAILY@0630 tadalafil 5 mg tablet 5 mg PO DAILY triamcinolone acetonide 0.1 % cream 1 appl topical BID PRN (Reason: eczema/psoriasis) albuterol sulfate 90 mcg/actuation HFA aerosol inhaler 2 puff inhalation Q6H PRN (Reason: Shortness Of Breath Or Wheezing) methadone 10 mg/mL Concentrate 60 mg PO DAILY Rx Instructions: Pt reports from [facility]- split dose 60 mg daily and then 12 hours later patient gets 30 mg . tdd = 90 mg ferrous sulfate 324 mg (65 mg iron) tablet,delayed release (DR/EC) 324 mg PO DAILY PRN (Reason: supplementation) methadone 10 mg/mL Concentrate 30 mg PO BEDTIME Rx Instructions: split dose 60 mg daily and then 12 hours later patient gets 30 mg . tdd = 90 mg naloxone [Narcan] 4 mg/actuation spray,non-aerosol 4 mg intranasal Q2M PRN (Reason: opioid overdose) Qty: 2 0RF Rx Instructions: spray 1 dose into ONE nostril; alternate nostrils w each dose until help arrives amlodipine 10 mg Tablet 10 mg PO DAILY Qty: 90 0RF Protocol: Hold for SBP< HOLD for SBP < : 90 ibuprofen 600 mg Tablet 600 mg PO BIDWM Qty: 30 0RF labetalol 100 mg Tablet 100 mg PO BID Qty: 180 0RF Protocol: Hold for SBP/HR < HOLD for SBP < : 90 HOLD for HR < : 60 oxycodone 5 mg tablet 5 mg PO Q8H PRN (Reason: pain (scale score 7-10)) Qty: 14 0RF Rx Instructions: Partial Fill upon patient request. lorazepam 0.5 mg tablet 0.5 mg PO BID PRN (Reason: anxiety) Qty: 20 0RF folic acid 1 mg tablet 1 mg PO DAILY Qty: 90 0RF Print Language: Ukrainian
[2025-03-30 11:58] LABS: Alanine Aminotransferase 66 U/L (0-40); Albumin Level 3.9 g/dL (3.5-5.0); Alkaline Phosphatase 63 U/L (39-117); Anion Gap 15 (12-20); Aspartate Amino Transferase 135 U/L (5-37); Blood Urea Nitrogen 9 mg/dL (9-16); Calcium 8.7 mg/dL (8.4-10.2); Carbon Dioxide 24 mmol/L (22-29); Chloride 105 mmol/L (96-108); Creatinine Clr Calc Pharmacy 216.0; Estimated Glomerular Filt Rate > 60; Potassium 3.6 mmol/L (3.3-5.1); Sodium 140 mmol/L (135-145); Total Protein 9.0 g/dL (6.5-8.0)
[2025-03-30 12:11] LABS: Hemoglobin 11.6 g/dl (14.0-18.0); MANUAL DIFF FLAG SCAN; NRBC Abs Auto 0.000 X10*3/uL (0.0-0.012); NRBC Pct Auto 0.0 /100WBC (0.0-0.2); PLT CLUMP 1; SCAN SMEAR FLAG 1
[2025-03-30 12:12] LABS: Hematocrit 36.1 % (42.0-52.0); Imm Gran Abs Auto 0.02 X10*3/uL (0.00-0.03); Imm Gran Pct Auto 0.8 % (0.0-0.4); Lymphocytes Absolute Auto 0.4 X10*3/uL (1.2-4.9); Mean Corpuscular HGB Conc 32.1 g/dl (31.0-36.0); Mean Corpuscular Hemoglobin 23.5 pg (27.0-33.0); Mean Corpuscular Volume 73.2 fL (80.0-98.0); Red Blood Count 4.93 X10*6/uL (4.60-5.80)
[2025-03-30] MEDS: iohexoL 350 MG/ML 100 ML INFUS..BTL IV (12:19)
[2025-03-30 12:38] VITALS: BP 154/86; PULSE 84; RESP 16; O2SAT 92
[2025-03-30 12:44] LABS: Platelet Count 79 X10*3/uL (160-400); White Blood Count 2.4 X10*3/uL (4.8-10.8)
[2025-03-30 14:28] VITALS: BP 154/86; PULSE 84; RESP 16; TEMP 37; O2SAT 92
== END 2025-03-30 14:28 | disposition home or self-care (01) ==
PROVIDERS: Physician Assistant; Emergency Provider Emergency Medicine; PCP Internal Medicine
DX: R10.9 Unspecified abdominal pain (principal); K74.60 Unspecified cirrhosis of liver; D61.818 Other pancytopenia
CPT/HCPCS: 36415; 74177; 80053; 83605; 85025; 96361; 96374; 96375; 99284; J2405; J3010; J7120; Q9967

== ENCOUNTER → 2025-03-30 11:28 | Outpatient (BNV) | payer OTHER, SELFPAY | PROVIDERS: Emergency Provider Emergency Medicine; PCP Internal Medicine; Visit Provider Radiology Diagnostic Radiology | DX: R10.33 Periumbilical pain (principal) | CPT/HCPCS: 74177 ==

== ENCOUNTER 2025-06-12 23:16 | Emergency (ER) | payer OTHER, SELFPAY ==
--- NOTE | ~2025-06-12 | XR_ITS ---
CLINICAL HISTORY: left arm pain 3 view left humerus Comparison: None provided Findings: No fractures or dislocations. No significant arthritic change. No radiopaque foreign body. IMPRESSION: No fracture or malalignment. This document has been electronically signed by: Bladimir Upton MD on 06/13/2025 05:56:57
[2025-06-12 23:26] VITALS: BP 155/75; BP 181/89; PULSE 87; PULSE 94; RESP 18; TEMP 36.8; O2SAT 97; O2SAT 98; BMI 36.8
--- NOTE | 2025-06-12 23:26 | ECG_ITS ---
Test Reason : L ARM PAIN Blood Pressure : */* mmHG Vent. Rate : 83 BPM Atrial Rate : 83 BPM P-R Int : 208 ms QRS Dur : 96 ms QT Int : 402 ms P-R-T Axes : 51 -15 34 degrees QTcB Int : 472 ms Normal sinus rhythm Minimal voltage criteria for LVH, may be normal variant ( R in aVL ) Borderline ECG When compared with ECG of 05-Mar-2025 18:55, No significant change was found Referred By: Sahrad Xavier Electronically Signed By: Osvaldo Haji
[2025-06-12 23:39] VITALS: BP 155/75; PULSE 87; RESP 18; TEMP 36.8; O2SAT 98
--- OUTSIDE RECORDS SUMMARY | 2025-06-12 23:51 | XMS_ITS | Clinical Summary ---
Author Organization [address] [facility] Address [address] [place] [address] Phone Care Team Providers Care Lens Polisher Hand Name Role Phone Jose Mann MD Primary Care Provider [phone] Allergies Active Allergy Reactions Criticality Noted Date Comments Morphine Rash 04/04/2014 Onion 09/04/2015 Medications blood-glucose meter misc 1 strip. 04/07/20 16 Active blood-glucose meter kit Use once daily to check blood sugars 10/14/19 22 Active diclofenac (VOLTAREN) 1 % topical gel Apply 1 g topically. 11/10/19 24 Active erythromycin 5 mg/gram (0.5 %) ophthalmic ointment Instill ~1 cm ribbon into affected eye(s) 4 times daily for 7 days 11/11/19 24 Active fluticasone-sa lmeterol (ADVAIR DISKUS) 250-50 mcg/dose diskus inhaler Inhale 1 puff by mouth. Active FREESTYLE LANCETS MISC USE DIRECTED ONCE DAILY TO CHECK BLOOD SUGAR 05/20/20 21 Active tadalafiL (CIALIS) 5 mg tablet Take 1 tablet (5 mg total) by mouth 1 (one) time each day. 02/20/20 20 Active predniSONE (DELTASONE) 20 mg tablet Take 1 tablet (20 mg total) by mouth 1 (one) time each day. Take 3 tabs daily x3 days, then take 2 tabs daily x3 days, then take 1 tab daily for 3 day Active lisinopriL (PRINIVIL,ZEST RIL) 20 mg tablet Take 1 tablet (20 mg total) by mouth 1 (one) time each day. 90 tablet 1 08/28/19 25 Active hydrocortisone 2.5 % cream Apply 1 Application topically 2 (two) times a day. 30 g 1 08/28/19 25 Active clotrimazole-b etamethasone (LOTRISONE) lotion Apply topically 2 (two) times a day. 30 mL 1 08/28/19 25 Active Dupixent Pen 300 mg/2 mL pen 11/06/19 25 Active albuterol HFA (PROAIR HFA ; PROVENTIL HFA ; VENTOLIN HFA) 90 mcg/actuation inhaler Inhale 2 puffs by mouth every 4 (four) hours if needed for wheezing or shortness of breath. 8.5 g 2 11/09/19 25 Active fluticasone propionate (FLONASE) 50 mcg/actuation nasal spray Administer 2 sprays into each nostril 2 (two) times a day. 16 g 1 11/09/19 25 Active ferrous sulfate 325 mg (65 mg iron) EC tablet Take 1 tablet (325 mg total) by mouth 3 (three) times a day with meals. Do not crush, chew, or split. 90 each 1 11/13/19 25 026 Active triamcinolone (KENALOG) 0.1 % cream 12/01/19 25 Active gabapentin (NEURONTIN) 300 mg capsule TAKE 2 CAPSULES(600 MG) BY MOUTH THREE TIMES DAILY 540 capsule 1 04/30/20 25 Active omeprazole (PriLOSEC) [address] capsule TAKE 1 CAPSULE(40 MG) BY MOUTH 1 TIME EACH DAY 90 capsule 1 05/13/20 25 Active escitalopram (LEXAPRO) 10 mg tablet TAKE 1 TABLET(10 MG) BY MOUTH 1 TIME EACH DAY 90 tablet 1 05/13/20 25 Active blood sugar diagnostic (FreeStyle Lite Strips) test strip USE DIRECTED ONCE DAILY 100 strip 1 06/12/20 25 Active blood sugar diagnostic (FreeStyle Lite Strips) test strip Use as instructed 100 strip 1 11/09/19 25 025 Discontinued Active Problems Problem Noted Date Diagnosed Date Hematospermia 10/13/2021 Hyperactivity of bladder 10/13/2021 Overview (05/15/2024): Follows with [facility] urology. COVID-19 08/28/2021 Benign prostatic hyperplasia without lower urinary tract symptoms 02/21/2018 Gastroesophageal reflux disease without esophagi tis 02/21/2018 White matter disease, unspecified 10/14/2016 Asthma 04/07/2016 Hemorrhoid 09/04/2012 Controlled diabetes mellitus type II without complication ([facility] V24, [facility] V28) 03/17/2011 Morbid obesity ([facility] V24, [facility] V28) 2010 Lumbar disc disease 08/06/2010 Insomnia 03/24/2010 Essential hypertension, benign 09/01/2009 Immunizations Immunization Administration Dates Next Due Influenza Quadravalent, MDCK , 0.5ml, preservative free (Flucelvax) 6mo and older 04/18/2018 Influenza Quadravalent, MDCK , 0.5ml, with preservative (Flucelvax) 6mo and older 05/27/2017 Influenza trivalent, with pr eservative (Fluzone; Afluria) 6mo and older 08/24/2012,05/02/2011 [employer] SARS-CoV-2 COVID -19, vector-nr, rS-[id number], preservative free [...] Herniated disc DX:Herniated dis c Morbid obesity ([facility] V24, [facility] V28) 03/01/2011 DX:Morbid obesity (HCC) Type II or unspecified type diabetes mellitus [...] Date Smoking Tobacco: Never Smokeless Tobacco: Never Tobacco Cessation:Counseling Given: Not Answered Alcohol Use Standard Drinks/Week Comments Not Asked 0 (1 standard drink = 0.6 oz pur e alcohol) Sex and Gender Information Value Date Recorded Sex Assigned at Male 08/16/2024 11:15 AM EST Legal Sex Male 9:09 AM EST Gender Identity Male 08/16/2024 11:15 AM EST Sexual Orientation Straight 08/16/2024 11 :15 AM EST Obstetrics History Last Filed Vital Signs Vital Sign Reading Time Taken Comments Blood Pressure 160/101 02/21/2025 2:37 PM EDT Pulse 74 02/21/2025 2:37 PM EDT Temperature 36.8 C (98.2 F) 11/08/2024 2:33 PM EDT Respiratory Rate 16 11/08/2024 2:33 PM EDT Oxygen Saturation 98% 07/23/2024 1:42 PM EST Inhaled Oxygen Concentration - - Weight 137 kg (301 lb) 02/21/2025 2:37 PM EDT Height 188 cm (6' 2 ) 02/21/2025 2:37 PM EDT Body Mass Index 38.65 02/21/2025 2:37 PM EDT Plan of Treatment Upcoming Encounters Date Type Department Care Team (Late st Contact Info) Description 09/17/2025 3:00 PM EST Office Visit Adult Medicine [address] [phone] Jose Mann MD [address] [place] [address] Health Maintenance Due Date Last Done Comments Colorectal Cancer Screening: Colonoscopy 1971 Diabetes: Annual Foot Exam 1981 Diabetes: Annual Retina Eye Exam 1981 Hepatitis B Vaccines (1 of 3 - 19+ 3-dose series) 1990 Pneumococcal Vaccine: 50+ Years (2 of 2 - PCV) 02/21/2019 02/21/2018 RSV Immunization Adult Patients (1 - Risk 50-74 years 1-dose series) 2021 Zoster Vaccines (1 of 2) 2021 HIV Screening 07/11/2022 Medicare Annual Wellness Visit 07/11/2022 Social Influencers of Health Screening 07/11/2022 Diabetes: Annual Urine Albumin-Creatinine Ratio (uACR) 05/09/2024 05/09/2023 Depression Screening 08/08/2024 COVID-19 Vaccine ( season) 2025 10/28/2022, 10/27/2021, 11/15/2020 Influenza Vaccine (#1) 2025 8, 05/27/2017, 08/27/2014, Additional history exists Diabetes: Blood Sugar Control Test (HGBA1C) 05/10/2025 11/08/2024, 11/10/2023 Diabetes: Annual GFR (Glomerular Filtration Rate) 11/08/2025 11/08/2024, 07/23/2024, 03/13/2024, Additional history exists Hypertension/CHF/CAD Annual BMP Blood Test 11/08/2025 11/08/2024, 07/23/2024, 03/13/2024, Additional history exists DTaP,Tdap,and Td Vaccines (4 - Td or Tdap) 09/21/2026 09/21/2016, 11/27/2014, 08/08/2006 Cholesterol Screening (Lipid Panel) 11/08/2029 11/08/2024, 04/12/2023 Hepatitis C Screening Completed 07/23/2024 , [...] patient's age to complete this topic Meningococcal B Vaccine Aged Out No l onger eligible based on patient's age to complete this topic RSV Immunization Patients Under 20 months Aged Out No longer eligible based on patient's age to complete this topic Varicella Vaccines Aged Out No longer eligible based on patient's age to complete this topic Procedures Procedure Name Priority Date/Time Associated Diagnosis Comments COMPREHENSIVE METABOLIC PANEL Routine 11/08/2024 3:22 PM EDT Essential hypertension, benign Controlled type 2 diabetes mellitus without complication, without long-term current use of insulin ([facility] V24, [facility] V28) HEMOGLOBIN A1C Routine 11/08/2024 3:22 PM EDT Controlled type 2 diabetes mellitus without complication, without long-term current use of insulin ([facility] V24, [facility] V28) LIPID PANEL WITH REFLEX TO DIRECT LDL Routine 11/08/2024 3:22 PM EDT Controlled type 2 diabetes mellitus without complication, without long-term current use of insulin ([facility] V24, [facility] V28) HEPATITIS C ANTIBODY Routine 07/23/2024 2:29 PM EST Hepatitis C antibody positive in blood HM URINE ALBUMIN CREATININE RATIO Routine 05/09/2023 from Last 3 Months or Most Recently Relevant to Health Maintenance Results * (ABNORMAL) Lipid panel with reflex to direct LDL (11/08/2024 3:22 PM EDT) Cholesterol 87 0 - 200 mg/dL LAB CHEMISTRY METHOD 11/08/2024 5:33 PM EDT [facility] Triglycerides 33 0 - 150 mg/dL LAB CHEMISTRY METHOD 11/08/2024 5:33 PM EDT [facility] HDL 37(L) >=40 mg/dL LAB CHEMISTRY METHOD 11/08/2024 5:33 PM EDT [facility] LDL Calculated 43 0 - 100 mg/dL LAB CHEMISTRY METHOD 11/08/2024 5:33 PM EDT [facility] VLDL Cholesterol Salo 6.6 mg/dL LAB CHEMISTRY METHOD 11/08/2024 5:33 PM EDT [facility] Non HDL Chol. (LDL+VLDL) 50 <145 mg/dL LAB CHEMISTRY METHOD 11/08/2024 5:33 PM EDT [facility] Chol/HDL Ratio 2.4 0.0 - 4.4 LAB CHEMISTRY METHOD 11/08/2024 5:33 PM EDT [facility] Blood Venous blood specimen / Unknown Venipuncture / Unknown 11/08/2024 3:22 PM EDT 11/08/2024 3:22 PM EDT us Jose Mann MD LAB BLOOD ORDERABLES Final Resu lt Performing Organization Address [facility]/ZIP Co de Phone Number [facility] [address] [place] [address], [place] [phone] * Hemoglobin A1c (11/08/2024 3:22 PM EDT) Hemoglobin A1C 5.5 <6.5 % LAB CHEMISTRY METHOD 11/08/2024 11:08 PM EDT [facility] Mean Bld Glu Estim. 111 mg/dL LAB CHEMISTRY METHOD 11/08/2024 11:08 PM EDT [facility] Blood Venous blood specimen / Unknown Venipuncture / Unknown 11/08/2024 3:22 PM EDT 11/08/2024 3:22 PM EDT us Jose Mann MD LAB BLOOD ORDERABLES Final Resu lt Performing Organization Address City/[facility]/ZIP Co de Phone Number [facility] [address] [place] [address], [place] [phone] * (ABNORMAL) Comprehensive metabolic panel (11/08/2024 3:22 PM EDT) Sodium 134 133 - 145 mmol/L LAB CHEMISTRY METHOD 11/08/2024 5:30 PM EDT [facility] Potassium 4.2 3.5 - 5.5 mmol/L LAB CHEMISTRY METHOD 11/08/2024 5:30 PM [facility] Chloride 103 96 - 110 mmol/L LAB CHEMISTRY METHOD 11/08/2024 5:30 PM [facility] CO2 26 21 - 32 mmol/L LAB CHEMISTRY METHOD 11/08/2024 5:30 PM [facility] Anion Gap 5 3 - 11 LAB CHEMISTRY METHOD 11/08/2024 5:30 PM [facility] Glucose 108(H) 70 - 100 mg/dL LAB CHEMISTRY METHOD 11/08/2024 5:30 PM [facility] BUN 24 5 - 25 mg/dL LAB CHEMISTRY METHOD 11/08/2024 5:30 PM [facility] Creatinine 0.63(L) 0.70 - 1.30 mg/dL LAB CHEMISTRY METHOD 11/08/2024 5:30 PM [facility] eGFR 114 >=60 mL/min/1. 73m2 LAB CHEMISTRY METHOD 11/08/2024 5:30 PM [facility] Comment:Calculation based on the Chronic Kidney Disease Epidemiology Collaboration (CKD-EPI) equation refit without adjustment for race. BUN/Creatinine Ratio 38.1 LAB CHEMISTRY METHOD 11/08/2024 5:30 PM [facility] Calcium 8.7 8.5 - 10.5 mg/dL LAB CHEMISTRY METHOD 11/08/2024 5:30 PM [facility] AST (SGOT) 24 10 - 42 unit/L LAB CHEMISTRY METHOD 11/08/2024 5:30 PM [facility] ALT (SGPT) 31 10 - 60 unit/L LAB CHEMISTRY METHOD 11/08/2024 5:30 PM [facility] Alkaline Phosphatase 62 42 - 121 unit/L LAB CHEMISTRY METHOD 11/08/2024 5:30 PM [facility] Total Protein 8.5(H) 6.0 - 8.0 g/dL LAB CHEMISTRY METHOD 11/08/2024 5:30 PM EDT [facility] Albumin 3.4 3.2 - 5.0 g/dL LAB CHEMISTRY METHOD 11/08/2024 5:30 PM EDT [facility] Total Bilirubin 0.6 0.0 - 1.4 mg/dL LAB CHEMISTRY METHOD 11/08/2024 5:30 PM EDT [facility] Blood Venous blood specimen / Unknown Venipuncture / Unknown 11/08/2024 3:22 PM EDT 11/08/2024 3:22 PM EDT Jose Mann MD LAB BLOOD ORDERABLES Final Resu lt Performing Organization Address [facility]/ZIP Co de Phone Number [facility] [address] [place] [address], * (ABNORMAL) Hepatitis C antibody (07/23/2024 2:29 PM EST) Hepatitis C Antibody Positive (A) Negative LAB CHEMISTRY METHOD 07/23/2024 9:26 PM EST [facility] Comment:If confirmation of t his positive HCV Ab screening test is needed, please redraw and order HCV Viral Load. Note--> This test may not be added on due to different specimen requirements. Blood Venous blood specimen / Unknown Venipuncture / Unknown 07/23/2024 2:29 PM EST 07/23/2024 2:29 PM EST Adriel RUIZ LAB BLOOD ORDERABLES Final Resu lt Performing Organization Address [facility]/ZIP Co de Phone Number [facility] [address] [place] [address], [place] [phone] * HM Urine Albumin Creatinine Ratio (05/09/2023) Urine Albumin Creatinine Ratio abstracted Historical Provider HEALTH MAINTENANCE Final Result from Last 3 Months or Most Recently Relevant to Health Maintenance Insurance [employer] Member Subscriber Plan / Payer (Ef fective 2018-Present) Name:SUE DENNIS Relation to Subscriber:Self Name:Dennis Alaniz Jr. Payer ID:[id number] Group ID:[id number] Type:Not on file Address: [place] [address] [address] [place] [phone] Care Teams Lens Polisher Hand Relationship Specialty Start Date End Date Jose Mann MD [address] [place] [address] [phone] PCP - General Internal Medicine 06/12/24
--- OUTSIDE RECORDS SUMMARY | 2025-06-12 23:51 | XMS_ITS | Clinical Summary ---
Author Organization [employer] Address [address] [facility] [address] [place] [address] Care Team Providers Care Cake Press Operator Name Role Phone Unavailable Primary Care Provider Unavailabl e Immunizations Immunization Administration Dates Next Due Influenza Injectable Quadriv [...] Panel 1971 SDOH Screening 1971 Sigmoidoscopy 1971 Disability Screening 1971 Alcohol/Substance Use Screening 1983 Tobacco Screening 1983 Hepatitis C Screening 1989 Hepatitis B Vaccines (1 of 3 - 19+ 3-dose series) 1990 Pneumococcal Vaccine: 50+ Years (2 of 2 - PCV) 02/21/2019 02/21/2018 Zoster Vaccines (1 of 2) 2021 COVID-19 Vaccine ( season) 2025 10/28/2022, 10/27/2021, 11/15/2020 Influenza Vaccine (#1) 2025 8, 08/27/2014, 08/16/2012, Additional history exists DTaP/Tdap/Td [...] patient's age to complete this topic Insurance [facility] OPTIONS (O D-SNP) [place] [id number]
--- OUTSIDE RECORDS SUMMARY | 2025-06-12 23:51 | XMS_ITS | Encounter Summary ---
Author Organization [employer] Address [address] [facility] [address] [place] [address] Care Team Providers Care Research And Development Director Name Role Phone Unavailable Primary Care Provider Unavailabl e Encounter Details Date Type Department Care Team (Latest Contact Info) Description 02/23/2021 Abstract [facility] CONVERSIONS Dental, Provider, DDS Social History [...]
[2025-06-13 00:47] LABS: Hematocrit 38.3 % (42.0-52.0); Hemoglobin 11.8 g/dl (14.0-18.0); Imm Gran Abs Auto 0.00 X10*3/uL (0.00-0.03); Imm Gran Pct Auto 0.0 % (0.0-0.4); Lymphocytes Absolute Auto 0.5 X10*3/uL (1.2-4.9); Mean Corpuscular HGB Conc 30.8 g/dl (31.0-36.0); Mean Corpuscular Hemoglobin 24.0 pg (27.0-33.0); Mean Corpuscular Volume 77.8 fL (80.0-98.0); NRBC Abs Auto 0.000 X10*3/uL (0.0-0.012); NRBC Pct Auto 0.0 /100WBC (0.0-0.2); Red Blood Count 4.92 X10*6/uL (4.60-5.80); SCAN SMEAR FLAG 1; White Blood Count 2.5 X10*3/uL (4.8-10.8)
[2025-06-13 00:48] LABS: MANUAL DIFF FLAG NO; Platelet Count 75 X10*3/uL (160-400)
[2025-06-13 00:58] LABS: D Dimer High Sensitivity < 150 NG/ML
[2025-06-13 01:06] LABS: Alanine Aminotransferase 71 U/L (0-40); Albumin Level 3.7 g/dL (3.5-5.0); Alkaline Phosphatase 77 U/L (39-117); Anion Gap 13 (12-20); Aspartate Amino Transferase 121 U/L (5-37); Blood Urea Nitrogen 10 mg/dL (9-16); Calcium 8.8 mg/dL (8.4-10.2); Carbon Dioxide 24 mmol/L (22-29); Chloride 107 mmol/L (96-108); Creatinine Clr Calc Pharmacy 208.8; Estimated Glomerular Filt Rate > 60; Potassium 3.9 mmol/L (3.3-5.1); Sodium 140 mmol/L (135-145); Total Protein 8.5 g/dL (6.5-8.0)
[2025-06-13 01:15] LABS: Troponin-I High Sensitivity < 2.7 ng/L (<3.5-35.0)
--- NOTE | 2025-06-13 03:29 | ED.GENADULT ---
HPI - General Adult General Chief complaint: Headache Stated complaint: N/V - L Under Arm Pain Time Seen by Provider: 06/13/25 03:28 Source: patient Mode of arrival: ambulatory Limitations: no limitations History of Present Illness ED Provider: DR. Fajardo HPI narrative: 55-year-old male came in for evaluation of left arm pain on and off for long time, patient had ruptured tendon in the left shoulder that is not completely healed patient been getting on and off shoulder pain. Patient also with history of migraine was complaining of headache migraine earlier took Tylenol now he feels better. Patient ate out with his family today had nausea and vomiting and abdominal cramps that is improved now and patient is able to tolerate p.o. intake in the ED. Related Data Home Medications ?Medication ?Instructions ?Recorded ?Confirmed blood sugar diagnostic (FreeStyle 04/13/23 04/13/23 Lite Strips) fluticasone propionate 50 50 mcg intranasal DAILY PRN 04/13/23 08/18/24 mcg/actuation nasal Allergy Symptoms spray,suspension gabapentin 300 mg capsule 600 mg PO TID Pain 04/13/23 08/18/24 hydrocortisone 2.5 % topical cream 1 appl topical BID PRN Itching 04/13/23 08/18/24 albuterol sulfate 90 mcg/actuation 2 puff inhalation Q6H PRN 08/18/24 08/18/24 aerosol inhaler Shortness Of Breath Or Wheezing ferrous sulfate 324 mg (65 mg 324 mg PO DAILY PRN supplementation 08/18/24 08/18/24 iron) tablet,delayed release lisinopril 20 mg tablet 30 mg PO BEDTIME 08/18/24 08/18/24 methadone 10 mg/mL oral concentrate 30 mg PO BEDTIME 08/18/24 08/18/24 methadone 10 mg/mL oral concentrate 60 mg PO DAILY 08/18/24 08/18/24 omeprazole 40 mg capsule,delayed 40 mg PO DAILY@0630 08/18/24 08/18/24 release tadalafil 5 mg tablet 5 mg PO DAILY 08/18/24 08/18/24 triamcinolone acetonide 0.1 % 1 appl topical BID PRN 08/18/24 08/18/24 topical cream eczema/psoriasis Previous Rx's ?Medication ?Instructions ?Recorded folic acid 1 mg tablet 1 mg PO DAILY #90 tabs 02/18/24 naloxone 4 mg/actuation nasal 4 mg intranasal Q2M PRN opioid 08/19/24 spray (Narcan) overdose #2 ea amlodipine 10 mg tablet 10 mg PO DAILY #90 tabs 08/21/24 ibuprofen 600 mg tablet 600 mg PO BIDWM #30 tabs 08/21/24 labetalol 100 mg tablet 100 mg PO BID #180 tabs 08/21/24 lorazepam 0.5 mg tablet 0.5 mg PO BID PRN anxiety #20 tabs 08/21/24 oxycodone 5 mg tablet 5 mg PO Q8H PRN pain (scale score 08/21/24 7-10) #14 tabs Allergies Allergy/AdvReac Type Severity Reaction Status Date / Time onion (ONION) Allergy Severe ANAPHYLAXIS Verified 06/12/25 23:39 TO RAW ONIONS (COOKED OK) morphine (MORPHINE) Allergy Mild RASH, hives Verified 06/12/25 23:39 Review of Systems Review of Systems: All other systems are reviewed and are negative Constitutional: Reports as per HPI and Reports no additional constitutional complaints Eyes: Reports as per HPI and Reports no additional eye complaints Reports system reviewed and no additional complaints, except as documented Cardiovascular: Reports as per HPI and Reports no additional cardiovascular complaints Respiratory: Reports as per HPI and Reports no additional respiratory complaints Gastrointestinal: Reports as per HPI and Reports no additional gastrointestinal complaints Genitourinary: Reports no additional female genitourinary complaints Musculoskeletal: Reports no additional musculoskeletal complaints Skin/Breast: Reports system reviewed and no additional complaints, except as docu Psychiatric: Reports no additional psychiatric complaints Endocrine: Reports no additional endocrine complaints Hematologic/Lymphatic: Reports no additional hematologic/lymphatic complaints Allergic/Immunologic: Reports no additional allergic/immunologic complaints Reports system reviewed and no additional complaints, except as documented and Reports Abnormal speech present [facility] Past Medical History Medical History Heroin abuse Cocaine abuse High blood pressure Seasonal allergies Asthma Social History Social History Alcohol intake: current Alcohol intake frequency: 0-2 drinks per day Comment: refusing alarms. Patient Tobacco Use Status: Never used Tobacco Smoked in Last 30 Days: Yes Substance Use Type: Heroin and Other Advance Directives: No Advance Directives Information Provided: Yes Do you have a plan to hurt others: No Plan service: No Physical Exam ED Vital Signs: Vital Signs - 24 hr 06/12/25 23:26 06/12/25 23:39 06/13/25 04:00 Temperature 98.2 F 98.2 F 98.0 F Pulse Rate 87 87 90 Respiratory Rate 18 18 18 Blood Pressure 155/75 H 155/75 H 183/101 H Pulse Oximetry 98 98 95 Oxygen Delivery Method Room Air Room Air Room Air BMI result Body Mass Index 36.8 Vital signs have been reviewed and appear to be correct. Blood pressure elevated. Heart rate normal. Respiratory rate normal. Temperature normal. Oxygen saturation normal. Appearance: Alert. Oriented X3. No acute distress. Head: Normal external exam. Normocephalic. Atraumatic. No Hernandes signs noted. No raccoon eyes noted Eyes: PERRLA. EOMI. Conjunctiva and sclera normal. Eyelids normal. ENT: TM's Normal. Pharynx normal. Uvula midline. Moist mucous membranes. No trismus noted. No drooling noted. No muffled voice noted. Neck: Normal inspection. Neck supple. FROM. No adenopathy. Thyroid Normal. No meningeal signs. No neck mass noted. CVS: Normal heart rate and rhythm. Heart sound normal. No murmurs noted. Pulses normal throughout. Respiratory: No respiratory distress. Painless inspiration. Breath sounds normal. No wheezes/rales/rhonchi noted. Chest nontender. No accessory muscle usage noted or decreased air movement noted. Abdomen: Soft and nontender. Bowel sounds normal in all 4 quadrants. No distention noted. No organomegaly noted. No visible injury noted. Back: No CVA tenderness. Full range of motion noted. Skin: Skin warm and dry. Normal skin color. Normal skin turgor. No rashes/lesions/lacerations noted. Extremities: Left shoulder: No deformity, no step-off, full range of motion. Neuro: Oriented X 3. Cranial nerve exam: II-XII are grossly intact No motor deficit. No sensory deficit. Reflexes normal. Course Reevaluation(s) Reevaluation #1: 55-year-old male came in for evaluation of multiple complaints, unremarkable workup today, labs today is at normal baseline for the patient, patient currently has no chest pain with negative troponin, with unchanged EKG from prior. Headache is improved. Possible gastroenteritis that is resolved. Medications Administered Discontinued Medications Generic Name Dose Route Start Last Admin Trade Name Tiburcio PRN Reason Stop Dose Admin Acetaminophen 975 mg 06/13/25 04:47 06/13/25 04:55 Acetaminophen 325 Mg Tablet PO 06/13/25 04:48 975 mg ONCE ONE Administration Medical Decision Making Differential Diagnosis Differential Diagnoses: The differential diagnosis associated with the presentation includes (Left humerus fracture, gastroenteritis, electrolyte derangement, severe dehydration, severe anemia.) Admission/Observation Consideration of admission/observation: Escalation of care including admission/observation considered Lab Data MDM Lab Attestation statement: I reviewed the patient's lab results. 06/13/25 00:40 06/13/25 00:40 Labs: Lab Results 06/13/25 Range/Units 00:40 WBC 2.5 L (4.8-10.8) X10*3/uL RBC 4.92 (4.60-5.80) X10*6/uL Hgb 11.8 L (14.0-18.0) g/dl Hct 38.3 L (42.0-52.0) % MCV 77.8 L (80.0-98.0) fL MCH 24.0 L (27.0-33.0) pg MCHC 30.8 L (31.0-36.0) g/dl RDW 15.6 (11.0-16.0) % Plt Count 75 L (160-400) X10*3/uL MPV 10.4 (9.4-12.4) fL Immature Gran % (Auto) 0.0 (0.0-0.4) % Neut % (Auto) 61.9 (45-73) % Lymph % (Auto) 21.9 (20-40) % Pacific % (Auto) 14.6 H (2-11) % Eos % (Auto) 1.6 (0-4) % Baso % (Auto) 0.0 (0-2) % Lymph # (Auto) 0.5 L (1.2-4.9) X10*3/uL Pacific # (Auto) 0.4 (0.1-1.2) X10*3/uL Eos # (Auto) 0.0 (0.0-0.4) X10*3/uL Baso # (Auto) 0.0 (0.0-0.2) X10*3/uL Abs Immat Gran (auto) 0.00 (0.00-0.03) X10*3/uL Absolute Neuts (auto) 1.5 L (2.0-8.3) x10*3/uL Absolute Nucleated RBC 0.000 (0.0-0.012) X10*3/uL Nucleated RBC % (auto) 0.0 (0.0-0.2) /100WBC D-Dimer High Sensitivty < 150 NG/ML Sodium 140 (135-145) mmol/L Potassium 3.9 (3.3-5.1) mmol/L Chloride 107 (96-108) mmol/L Carbon Dioxide 24 (22-29) mmol/L Anion Gap 13 (12-20) BUN 10 (9-16) mg/dL Creatinine 0.58 (0.5-1.4) mg/dL Estim Creat Clear Calc 208.8 Estimated GFR > 60 Random Glucose 115 (60-115) mg/dL Calcium 8.8 (8.4-10.2) mg/dL Total Bilirubin 0.6 (0.0-1.0) mg/dL AST 121 H (5-37) U/L ALT 71 H (0-40) U/L Alkaline Phosphatase 77 (39-117) U/L Troponin I High Sens < 2.7 (<3.5-35.0) ng/L Total Protein 8.5 H (6.5-8.0) g/dL Albumin 3.7 (3.5-5.0) g/dL Independent Interpretation I performed an independent interpretation of an: Plain X-Ray ( Left humerus x-ray: No acute pathology.) Radiology Impression Discussion of test interpretation with radiology: I have reviewed the radiologist's reading. Discharge Plan Discharge Clinical Impression: Chronic pain of left upper extremity, Headache, migraine Patient Disposition: Home, Self-Care Instructions: Chronic Pain (ED), Arm Pain (ED) Prescriptions: No Action (DME) FreeStyle Lite Strips Strip MISCELLANEOUS gabapentin 300 mg capsule 600 mg PO TID hydrocortisone 2.5 % cream 1 appl topical BID PRN (Reason: Itching) fluticasone propionate 50 mcg/actuation spray,suspension 50 mcg intranasal DAILY PRN (Reason: Allergy Symptoms) lisinopril 20 mg tablet 30 mg PO BEDTIME omeprazole 40 mg capsule,delayed release(DR/EC) 40 mg PO DAILY@0630 tadalafil 5 mg tablet 5 mg PO DAILY triamcinolone acetonide 0.1 % cream 1 appl topical BID PRN (Reason: eczema/psoriasis) albuterol sulfate 90 mcg/actuation HFA aerosol inhaler 2 puff inhalation Q6H PRN (Reason: Shortness Of Breath Or Wheezing) methadone 10 mg/mL Concentrate 60 mg PO DAILY Rx Instructions: Pt reports from [facility]- split dose 60 mg daily and then 12 hours later patient gets 30 mg . tdd = 90 mg ferrous sulfate 324 mg (65 mg iron) tablet,delayed release (DR/EC) 324 mg PO DAILY PRN (Reason: supplementation) methadone 10 mg/mL Concentrate 30 mg PO BEDTIME Rx Instructions: split dose 60 mg daily and then 12 hours later patient gets 30 mg . tdd = 90 mg naloxone [Narcan] 4 mg/actuation spray,non-aerosol 4 mg intranasal Q2M PRN (Reason: opioid overdose) Qty: 2 0RF Rx Instructions: spray 1 dose into ONE nostril; alternate nostrils w each dose until help arrives amlodipine 10 mg Tablet 10 mg PO DAILY Qty: 90 0RF Protocol: Hold for SBP< HOLD for SBP < : 90 ibuprofen 600 mg Tablet 600 mg PO BIDWM Qty: 30 0RF labetalol 100 mg Tablet 100 mg PO BID Qty: 180 0RF Protocol: Hold for SBP/HR < HOLD for SBP < : 90 HOLD for HR < : 60 oxycodone 5 mg tablet 5 mg PO Q8H PRN (Reason: pain (scale score 7-10)) Qty: 14 0RF Rx Instructions: Partial Fill upon patient request. lorazepam 0.5 mg tablet 0.5 mg PO BID PRN (Reason: anxiety) Qty: 20 0RF folic acid 1 mg tablet 1 mg PO DAILY Qty: 90 0RF Referrals: Jose Mann III, MD [Primary Care Provider, Medical] Print Language: Macedonian
[2025-06-13 04:00] VITALS: BP 183/101; PULSE 90; RESP 18; TEMP 36.7; O2SAT 95
--- NOTE | 2025-06-13 04:46 | PC.NURSE ---
pt c/o of L arm pt- RN informed MD- MD informed RN to put in order of tylenol 975mg po.
[2025-06-13 05:21] VITALS: BP 183/101
[2025-06-13 06:20] VITALS: BP 183/101; PULSE 84; RESP 16; TEMP 36.8; O2SAT 96
== END 2025-06-13 06:21 | disposition home or self-care (01) ==
PROVIDERS: Emergency Provider Emergency Medicine; PCP Internal Medicine
DX: M79.602 Pain in left arm (principal); R51.9 Headache, unspecified; R11.2 Nausea with vomiting, unspecified; J45.909 Unspecified asthma, uncomplicated; I10 Essential (primary) hypertension
CPT/HCPCS: 36415; 73060; 80053; 84484; 85025; 85379; 93005; 99283; 99285

== ENCOUNTER → 2025-06-12 23:26 | Outpatient (BNV) | payer OTHER, SELFPAY | PROVIDERS: Emergency Provider Emergency Medicine; PCP Internal Medicine; Visit Provider Internal Medicine Cardiovascular Disease | DX: M79.602 Pain in left arm (principal) | CPT/HCPCS: 93010 ==

== ENCOUNTER → 2025-06-13 03:36 | Outpatient (BNV) | payer OTHER, SELFPAY | PROVIDERS: Emergency Provider Emergency Medicine; PCP Internal Medicine; Visit Provider Radiology Vascular & Interventional Radiology | DX: M79.602 Pain in left arm (principal) | CPT/HCPCS: 73060 ==